=== PATIENT | female | born 1970 | race African-American/Black ===

== ENCOUNTER → 2018-05-28 | Outpatient (CLI) | payer MEDICARE, OTHER ==
[2015-07-07 20:32] VITALS: BP 180/88
[~2018-05-28] MED LIST: AMLO1TAB15 PO; CARV12.52 PO; CRESTOR10 MG PO; GLYB2.5T2 PO; OMEP40CA5 PO; OXYC1TAB8 PO; POTA20TA12 PO; WARF10TA40 PO
--- NOTE | 2018-06-01 08:17 | RAD ---
DATE: 05/28/2018 4:00 PM EXAM: MAMMO PINKY SCREENING BILATERAL HISTORY: routine screening evaluation. COMPARISON: 12/10/2015, 11/13/2014, 10/26/2013 Bilateral CC and MLO views of the breasts were performed. Bilateral breast tomosynthesis was performed in CC and MLO projections. This study was interpreted with the benefit of Computerized Aided Detection (CAD ). Breast Density: The breast parenchyma shows scattered fibroglandular densities. Breast parenchyma level B. FINDINGS: No suspicious masses, microcalcifications or architectural distortion is present to suggest malignancy in either breast. The visualized axillae are unremarkable. IMPRESSION: No mammographic evidence of malignancy. BI-RADS CATEGORY: 1 NEGATIVE RECOMMENDED FOLLOW-UP: 12M 12 MONTH FOLLOW-UP Annual screening mammography is recommended, unless clinically indicated sooner based on symptoms or change in physical exam. PQRS compliance statement: Patient information was entered into a reminder system with a target due date for the next mammogram. Mammography is a sensitive method for finding small breast cancers, but it does not detect them all and is not a substitute for careful clinical examination. A negative mammogram does not negate a clinically suspicious finding and should not result in delay in biopsying a clinically suspicious abnormality. "Our facility is accredited by the [employer] Mammography Program." SOLOD
== END | disposition home or self-care (01) ==
LOC: MAMMO 13:01
PROVIDERS: ATTEND Family Medicine
DX: Z12.31 Encounter for screening mammogram for malignant neoplasm of breast (principal); I10 Essential (primary) hypertension; E78.00 Pure hypercholesterolemia, unspecified; E11.9 Type 2 diabetes mellitus without complications; Z86.73 Personal history of transient ischemic attack (TIA), and cerebral infarction without residual deficits
CPT/HCPCS: 77063; 77067

== ENCOUNTER 2018-10-22 08:51 | Inpatient (IN) | payer MEDICARE ==
[~2018-10-22] VITALS: Ht 172.7 cm; Wt 189.2 kg
[~2018-10-22 08:51] MED LIST changes: +CARV12.511 PO; -CARV12.52 PO
[2018-10-22] MEDS ORDERED: IPRATRPIUM/ALBUTEROL 0.5/2.5MG 3 ML NEBU. NEB ONE (09:00)
[2018-10-22] MEDS: glipiZIDE 5 MG TABLET PO SCH (09:00)
--- NOTE | 2018-10-22 09:04 | PHYS DOC ---
Past Medical History Past Medical History: Diabetes-Type II, GERD, High Cholesterol, Hypertension, Stroke, Other Additional Past Medical Histor: CHRONIC PAIN Past Surgical History: Cholecystectomy, Other Additional Past Surgical Histo: kidney cyst removal, tracheostomy Additional Information: former smoker Alcohol Use: None Drug Use: Marijuana Adult General Chief Complaint Chief Complaint: SHORTNESS OF BREATH HPI HPI 48-year-old female presenting with worsening dyspnea over the past 3-4 days. She reports today and last night it is been worse. She reports a cough over the past 3 or 4 days as well that is been mildly productive with yellow sputum. It is worse with exertion and improved with rest. She denies any fevers or chills.The patient denies unilateral leg swelling hemoptysis family or personal history of blood clotting disorders. The pt denies recent immobilization or surgery. Review of systems is negative for chest pain abdominal pain nausea vomiting diaphoresis fevers or chills. All other review of systems is negative unless otherwise noted in history of present illness. ED course: 48-year-old female presenting the emergency department today with worsening shortness of breath and cough. She is found to be hypoxic in triage. She is brought back to the resuscitation bay and placed on facemask. Work of breathing is improved. Oxygen levels 100% after intervention. Chest x-ray and blood work along with EKG ordered. CBC unremarkable. ProBNP is quite elevated. Troponin just at the upper limits of normal. Otherwise BUN is elevated. Chest x- ray shows pulmonary edema cannot rule out infiltrate. CTA negative for pulmonary embolism. Patient was given IV Lasix. We will admit the patient to the cardiovascular care unit. I spoke with Dr. acevedo who accepts the patient for admission. Basic bridge orders placed. Review of Systems Review of Systems SEE ABOVE. Current Medications Current Medications Current Medications Medications (Trade) Dose Ordered Sig/Liam Start Time Stop Time Status Last Admin Dose Admin Albuterol/ Ipratropium (Duoneb) 3 ml 1X ONCE 10/22/18 09:00 10/22/18 09:06 DC 10/22/18 09:06 3 ML Azithromycin 250 ml @ 250 mls/hr 1X ONCE 10/22/18 10:15 10/22/18 11:14 DC 10/22/18 11:09 250 MLS/HR Ceftriaxone Sodium (Rocephin) 1 gm 1X ONCE 10/22/18 10:15 10/22/18 10:16 DC 10/22/18 10:53 1 GM Furosemide (Lasix) 40 mg 1X ONCE 10/22/18 10:15 10/22/18 10:16 DC 10/22/18 12:36 40 MG Glipizide (Glucotrol) 5 mg DAILY 10/22/18 09:00 Info (CONTRAST GIVEN -- Rx MONITORING) 1 each PRN DAILY PRN 10/22/18 10:30 10/24/18 10:29 Iohexol (Omnipaque 350 Mg/ml) 100 ml 1X ONCE 10/22/18 10:30 10/22/18 10:31 DC 10/22/18 10:26 100 ML Ondansetron HCl (Zofran) 4 mg PRN Q8HRS PRN 10/22/18 11:45 10/23/18 11:44 Allergies Allergies Allergies Coded Allergies Type Severity Reaction Last Updated Verified hydrocodone Allergy Intermediate 10/22/18 No morphine Allergy Intermediate 10/22/18 No Physical Exam Physical Exam SEE ABOVE Constitutional: Well developed, well nourished, increased work of breathing HENT: Normocephalic, atraumatic, bilateral external ears normal, oropharynx moist, no oral exudates, nose normal. [] Eyes: PERRLA, EOMI, conjunctiva normal, no discharge. [] Neck: Normal range of motion, no tenderness, supple, no stridor. [] Cardiovascular:Heart rate regular rhythm, no murmur [] Lungs & Thorax: mild wheezing with mild crackles bilaterally Abdomen: Bowel sounds normal, soft, no tenderness, no masses, no pulsatile masses. Skin: Warm, dry, not diaphoretic, no erythema, no rash. Back: No tenderness, no CVA tenderness. [] Extremities: No tenderness, no cyanosis, no clubbing, ROM intact, no edema. Neurologic: Alert and oriented X 3, normal motor function, normal sensory function, no focal deficits noted. Psychologic: Affect normal, judgement normal, mood normal. [] Current Patient Data Vital Signs Vital Signs Date Time Temp Pulse Resp B/P (MAP) Pulse Ox O2 Delivery O2 Flow Rate FiO2 10/22/18 12:07 86 26 166/98 (120) 94 Nasal Cannula 4.0 10/22/18 08:51 98.7 98.7 Lab Values Laboratory Tests Test 10/22/18 09:05 White Blood Count 7.0 x10^3/uL (4.0-11.0) Red Blood Count 4.44 x10^6/uL (3.50-5.40) Hemoglobin 12.2 g/dL (12.0-15.5) Hematocrit 37.2 % (36.0-47.0) Mean Corpuscular Volume 84 fL (79-100) Mean Corpuscular Hemoglobin 27 pg (25-35) Mean Corpuscular Hemoglobin Concent 33 g/dL (31-37) Red Cell Distribution Width 16.7 % (11.5-14.5) H Platelet Count 192 x10^3/uL (140-400) Neutrophils (%) (Auto) 59 % (31-73) Lymphocytes (%) (Auto) 32 % (24-48) Monocytes (%) (Auto) 7 % (0-9) Eosinophils (%) (Auto) 1 % (0-3) Basophils (%) (Auto) 1 % (0-3) Neutrophils # (Auto) 4.2 x10^3uL (1.8-7.7) Lymphocytes # (Auto) 2.3 x10^3/uL (1.0-4.8) Monocytes # (Auto) 0.5 x10^3/uL (0.0-1.1) Eosinophils # (Auto) 0.1 x10^3/uL (0.0-0.7) Basophils # (Auto) 0.1 x10^3/uL (0.0-0.2) Sodium Level 145 mmol/L (136-145) Potassium Level 4.0 mmol/L (3.5-5.1) Chloride Level 107 mmol/L (98-107) Carbon Dioxide Level 27 mmol/L (21-32) Anion Gap 11 (6-14) Blood Urea Nitrogen 23 mg/dL (7-20) H Creatinine 1.0 mg/dL (0.6-1.0) Estimated GFR (Cockcroft-Gault) 71.0 Glucose Level 132 mg/dL (70-99) H Calcium Level 8.7 mg/dL (8.5-10.1) Total Bilirubin 0.3 mg/dL (0.2-1.0) Direct Bilirubin 0.1 mg/dL (0.0-0.2) Aspartate Amino Transferase (AST) 22 U/L (15-37) Alanine Aminotransferase (ALT) 35 U/L (14-59) Alkaline Phosphatase 66 U/L (46-116) Troponin I Quantitative 0.055 ng/mL (0.000-0.055) QS-Pix-J-Type Natriuretic Peptide 4539 pg/mL (0-124) H Total Protein 6.6 g/dL (6.4-8.2) Albumin 3.0 g/dL (3.4-5.0) L Lipase 109 U/L (73-393) Laboratory Tests 10/22/18 09:05 Laboratory Tests 10/22/18 09:05 EKG EKG [] Radiology/Procedures Radiology/Procedures [] Course & Med Decision Making Course & Med Decision Making Pertinent Labs and Imaging studies reviewed. (See chart for details) [] Dragon Disclaimer Dragon Disclaimer This electronic medical record was generated, in whole or in part, using a voice recognition dictation system. Departure Departure Impression: Primary Impression: CHF (congestive heart failure) Additional Impressions: Pulmonary edema Pneumonia Disposition: ADMITTED INPATIENT Admitting Physician: Other (jenn) Condition: STABLE Referrals: MECHELLE ROSADO MD (PCP) Problem Qualifiers AGA PENA MD Oct 22, 2018 09:04
[2018-10-22 09:19] LABS: BASO # 0.1 x10^3/uL (0.0-0.2); BASO % 1 % (0-3); EOS # 0.1 x10^3/uL (0.0-0.7); EOS % 1 % (0-3); HEMATOCRIT 37.2 % (36.0-47.0); HEMOGLOBIN 12.2 g/dL (12.0-15.5); LYMPH # 2.3 x10^3/uL (1.0-4.8); LYMPH % 32 % (24-48); MEAN CORPUSCULAR HEMOGLOBIN 27 pg (25-35); MEAN CORPUSCULAR HGB CONC 33 g/dL (31-37); MEAN CORPUSCULAR VOLUME 84 fL (79-100); MONO # 0.5 x10^3/uL (0.0-1.1); MONO % 7 % (0-9); NEUT # 4.2 x10^3uL (1.8-7.7); NEUT % 59 % (31-73); PLATELET COUNT 192 x10^3/uL (140-400); RED BLOOD COUNT 4.44 x10^6/uL (3.50-5.40); RED CELL DISTRIBUTION WIDTH 16.7 % (11.5-14.5)
--- NOTE | 2018-10-22 09:33 | RAD ---
CHEST AP ONLY History: Shortness of air Comparison: July 07, 2015 Findings: Single view of the chest is submitted. Pericardial cardiac silhouette is more enlarged. There is prominent airspace opacity involving most of the right hemithorax other than some sparing of the apex, also prominent left perihilar opacity and also likely at the left lung base. There is no obvious pleural fluid. There is no pneumothorax. Impression: 1. There is prominent airspace opacity involving most of the right hemithorax other than some sparing of the apex, also prominent left perihilar airspace opacity and also left lung base. Findings could be due to multifocal pneumonia or edema such as related to left ventricular failure. Electronically signed by: Jonah Grace MD (10/22/2018 9:29 AM) [id number]
[2018-10-22 09:41] LABS: CALCIUM 8.7 mg/dL (8.5-10.1)
[2018-10-22 09:50] LABS: DIRECT BILIRUBIN 0.1 mg/dL (0.0-0.2); TOTAL BILIRUBIN 0.3 mg/dL (0.2-1.0); TOTAL PROTEIN 6.6 g/dL (6.4-8.2)
[2018-10-22] MEDS ORDERED: FUROSEMIDE 20 MG/2 ML VIAL. IVP ONE (10:15)
[2018-10-22] MEDS ORDERED: AZITHRMYCN 500MG IVPB FOR OMNI 250 ML IV ONE (10:15)
[2018-10-22] MEDS ORDERED: cefTRIAXone IV Push 1 GM VIAL. IVP ONE (10:15)
[2018-10-22] MEDS ORDERED: FUROSEMIDE 40 MG/4 ML VIAL. IVP ONE ×2 (10:15→15:30)
[2018-10-22] MEDS ORDERED: CONTRAST GIVEN. MC PRN (10:30)
[2018-10-22] MEDS ORDERED: IOHEXOL 350 MG/ML 100 ML VIAL. IV ONE (10:30)
--- NOTE | 2018-10-22 10:51 | EKG ---
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
--- NOTE | 2018-10-22 11:20 | RAD ---
CTA of the chest with contrast, 10/22/2018: HISTORY: Shortness of breath Multidetector CT imaging was performed following an IV bolus injection of iodinated contrast material. Multiplanar reconstructions were produced including coronal MIP images. No filling defects are seen in the main or lobar pulmonary arteries to suggest pulmonary emboli. Smaller pulmonary arteries are less well delineated due to multiple artifacts some of which are related to the patient's size. No definite pulmonary emboli are seen. The heart is generally enlarged. There is a small amount of pericardial fluid. The thoracic aorta is not dilated. There are small bilateral pericardial effusions. Evaluation of the lung parenchyma is partially compromised by patient respiratory motion artifact. There are moderate bilateral patchy airspace and groundglass opacities. Pulmonary edema is suspected. IMPRESSION: 1. No CT evidence of central pulmonary emboli, although the smaller pulmonary arteries are poorly defined due to technical factors. 2. Cardiomegaly with a small amount of pericardial fluid. 3. Moderate bilateral pulmonary infiltrates most likely representing pulmonary edema. Pneumonia cannot be excluded. 4. Small bilateral pleural effusions. PQRS Compliance Statement: One or more of the following individualized dose reduction techniques were utilized for this examination: 1. Automated exposure control 2. Adjustment of the mA and/or kV according to patient size 3. Use of iterative reconstruction technique Electronically signed by: Chris Kramer MD (10/22/2018 11:15 AM) [facility]
[2018-10-22] MEDS ORDERED: ONDANSETRON PF 4 MG/2 ML VIAL. IV PRN (11:45)
[2018-10-22 13:15] VITALS: BP 166/99
[2018-10-22] MEDS ORDERED: OXYC1TAB19 PO (13:55)
[2018-10-22] MEDS ORDERED: LORA10TA3 PO (13:55)
[2018-10-22] MEDS ORDERED: GLIP5TAB10 PO (13:55)
[2018-10-22] MEDS ORDERED: AMLO10TA8 PO (13:55)
[2018-10-22] MEDS ORDERED: LOSA1TAB19 PO (13:55)
[2018-10-22] MEDS ORDERED: DEXTROSE 50% 25 GM / 50ML DISP.SYRIN. IV PRN (14:00)
[2018-10-22] MEDS ORDERED: LABETALOL 20 MG/4 ML DISP.SYRIN. IVP PRN (14:00)
[2018-10-22 14:48] LABS: PROTHROMBIN TIME PATIENT 18.8 SEC (11.7-14.0)
[2018-10-22] MEDS: CETIRIZINE HCL 10 MG TABLET. PO SCH (15:00)
--- NOTE | 2018-10-22 15:04 | PDOC2 ---
DARREN DUNCAN FLEET OPERATIONS MANAGER 10/22/18 1504: CARDIAC CONSULT DATE OF CONSULT Date of Consult DATE: 10/22/18 TIME: 14:57 REASON FOR CONSULT Reason for Consult: CHF exacerbation REFERRING PHYSICIAN Referring Physician: Mercedes SOURCE Source: Chart review, Patient HISTORY OF PRESENT ILLNESS HISTORY OF PRESENT ILLNESS This is a pleasant 48 yo female admitted for complains of SOA. She has been increasingly getting SOA in the last 2 weeks. Positive for orthopnea, leg swelling, wheezing, BRANCH and nonproductive cough. She has not been exposed to anybody that has the flu and has not been having any fever or chills. Reports no resting or exertional chest pain. Denies any palpitations, jaw or arm pain. I asked her about her coumadin and she has been taking this since 2002 due to CVA but could not specify anything related to AFIB/flutter nor clotting diorders nor VTE that would warrant chronic use. She has DM2, HLP, and HTN. She does not check her BG, BP at home. She has been on and off on using tobacco and has quit again 2 days ago. Denies any recreational drugs and no ETOH No hx of CAD nor any arrhythmias. She has not been having any dizzy spells or syncopal episode. No recent falls or any injury. Also no signs of any bleeding issues in relation to the coumadin. She has gained some wt in the last 6 months but could not tell me how much. No nausea vomiting. PAST MEDICAL HISTORY Cardiovascular: HTN, Hyperlipidemia Pulmonary: Other (was told of ELIZABETH but has not been tested) CENTRAL NERVOUS SYSTEM: CVA (2002) GI: No pertinent hx Heme/Onc: Other (Chronic warfarin use) Hepatobiliary: No pertinent hx Psych: No pertinent hx Musculoskeletal: Osteoarthritis Rheumatologic: No pertinent hx Infectious disease: No pertinent hx ENT: No pertinent hx Renal/: No pertinent hx Endocrine: Diabetes (2) Dermatology: No pertinent hx PAST SURGICAL HISTORY Past Surgical History: Cholecystectomy, Other (tracheostomy related to stroke) FAMILY HISTORY Family History: Diabetes SOCIAL HISTORY Smoke: <1 pack per day (>20 yrs on and off) ALCOHOL: none Drugs: None Lives: with Family CURRENT MEDICATIONS CURRENT MEDICATIONS Current Medications Medications (Trade) Dose Ordered Sig/Liam Route PRN Reason Start Time Stop Time Status Last Admin Dose Admin Albuterol/ Ipratropium (Duoneb) 3 ml 1X ONCE NEB 10/22/18 09:00 10/22/18 09:06 DC 10/22/18 09:06 Azithromycin 250 ml @ 250 mls/hr 1X ONCE IV 10/22/18 10:15 10/22/18 11:14 DC 10/22/18 11:09 Ceftriaxone Sodium (Rocephin) 1 gm 1X ONCE IVP 10/22/18 10:15 10/22/18 10:16 DC 10/22/18 10:53 Furosemide (Lasix) 40 mg 1X ONCE IVP 10/22/18 10:15 10/22/18 10:16 DC 10/22/18 12:36 Iohexol (Omnipaque 350 Mg/ml) 100 ml 1X ONCE IV 10/22/18 10:30 10/22/18 10:31 DC 10/22/18 10:26 ALLERGIES ALLERGIES: Coded Allergies: hydrocodone (Verified Allergy, Intermediate, 10/23/18) morphine (Verified Allergy, Intermediate, 10/23/18) ROS Review of System 14 point ROS evaluated with pertinent positives noted per HPI PHYSICAL EXAM General: Alert, Oriented X3, Cooperative, mild distress HEENT: Atraumatic, Mucous membr. moist/pink Lungs: Other (basilar crackles) Heart: Regular rate (SR), Other (distant heart sounds) Abdomen: Soft, Other (obese) Extremities: No cyanosis, Other (2+ bilateral LE pitting edema) Skin: No breakdown, No significant lesion Neuro: Normal speech, Sensation intact Psych/Mental Status: Mental status NL, Mood NL MUSCULOSKELETAL: Osteoarthritic changes both hands VITALS VITALS Vital Signs Date Time Temp Pulse Resp B/P (MAP) Pulse Ox O2 Delivery O2 Flow Rate FiO2 10/22/18 14:35 Nasal Cannula 2.0 10/22/18 13:15 98.1 89 22 166/99 (121) 100 98.1 LABS Lab: Laboratory Tests Test 10/22/18 09:05 White Blood Count 7.0 x10^3/uL (4.0-11.0) Red Blood Count 4.44 x10^6/uL (3.50-5.40) Hemoglobin 12.2 g/dL (12.0-15.5) Hematocrit 37.2 % (36.0-47.0) Mean Corpuscular Volume 84 fL (79-100) Mean Corpuscular Hemoglobin 27 pg (25-35) Mean Corpuscular Hemoglobin Concent 33 g/dL (31-37) Red Cell Distribution Width 16.7 % (11.5-14.5) Platelet Count 192 x10^3/uL (140-400) Neutrophils (%) (Auto) 59 % (31-73) Lymphocytes (%) (Auto) 32 % (24-48) Monocytes (%) (Auto) 7 % (0-9) Eosinophils (%) (Auto) 1 % (0-3) Basophils (%) (Auto) 1 % (0-3) Neutrophils # (Auto) 4.2 x10^3uL (1.8-7.7) Lymphocytes # (Auto) 2.3 x10^3/uL (1.0-4.8) Monocytes # (Auto) 0.5 x10^3/uL (0.0-1.1) Eosinophils # (Auto) 0.1 x10^3/uL (0.0-0.7) Basophils # (Auto) 0.1 x10^3/uL (0.0-0.2) Prothrombin Time 18.8 SEC (11.7-14.0) Prothromb Time International Ratio 1.6 (0.8-1.1) Sodium Level 145 mmol/L (136-145) Potassium Level 4.0 mmol/L (3.5-5.1) Chloride Level 107 mmol/L (98-107) Carbon Dioxide Level 27 mmol/L (21-32) Anion Gap 11 (6-14) Blood Urea Nitrogen 23 mg/dL (7-20) Creatinine 1.0 mg/dL (0.6-1.0) Estimated GFR (Cockcroft-Gault) 71.0 Glucose Level 132 mg/dL (70-99) Calcium Level 8.7 mg/dL (8.5-10.1) Total Bilirubin 0.3 mg/dL (0.2-1.0) Direct Bilirubin 0.1 mg/dL (0.0-0.2) Aspartate Amino Transf (AST/SGOT) 22 U/L (15-37) Alanine Aminotransferase (ALT/SGPT) 35 U/L (14-59) Alkaline Phosphatase 66 U/L (46-116) Troponin I Quantitative 0.055 ng/mL (0.000-0.055) LE-Eyf-N-Type Natriuretic Peptide 4539 pg/mL (0-124) Total Protein 6.6 g/dL (6.4-8.2) Albumin 3.0 g/dL (3.4-5.0) Lipase 109 U/L (73-393) ASSESSMENT/PLAN ASSESSMENT/PLAN 1. Acute CHF with likely combined systolic/diastolic 2. Suspecting Cardiomyopathy 3. Possible ELIZABETH/COPD with morbid obesity: BMI at 65 4. HTN: labile 5. Chronic coumadin use: INR 1.6. has been using this since 2002 for CVA. no known AFIB, PFO, clotting disorders nor VTE. 6. DM2/HLP 7. Hx of CVA: in 2002 with left side hemiparesis 8. Tobaccoism Recommendations 1. TTE TSH lipids, Flores for accurate I & O 2. Lasix therapy 3. Smoking cessation, wt loss 4. Continue home BP regimen, DC HCTZ. labetolol IV PRN. 5. May need to hold Coumadin and transition to heparin if invasive ischemic workup is warranted for Thursday. 6. Further recommendations once TTE is finalized. CHANTAL PEÑA MD 10/23/18 0837: CARDIAC CONSULT ASSESSMENT/PLAN ASSESSMENT/PLAN Patient seen and examined 10/22/18. Agree with INSURANCE PLAN SPECIALIST's assessment and plan. Continue diuresis for acute on chronic systolic heart failure 2-D echo showed LVEF 30% Plan for cardiac catheterization on Thursday to rule out any significant CAD as a cause of diminished LV systolic function Agree with holding Coumadin in anticipation of cath Thank you for your consultation DARREN DUNCAN APRN Oct 22, 2018 15:04 CHANTAL PEÑA MD Oct 23, 2018 08:37
[2018-10-22 15:20] VITALS: BP 139/81
[2018-10-22] MEDS: amLODIPine BESYLATE 10 MG TABLET PO SCH (15:38)
[2018-10-22] MEDS: IPRATRPIUM/ALBUTEROL 0.5/2.5MG 3 ML NEBU. NEB SCH ×2 (15:47→20:13)
--- NOTE | 2018-10-22 15:52 | PDOC1 ---
History and Physical Date of Admission Date of Admission 10/22/2018 Identification/Chief Complaint Chief Complaint I couldnt breath Problems: (1) CHF (congestive heart failure) Source Source: Patient History of Present Illness History of Present Illness Patient is a 48-year-old female with morbid obesity with a BMI of 65 who was in her usual state of health until approximately 2-3 weeks prior to her admission. Patient denies dietary transgressions apparently she does not seem to understand the dietary rules of low salt intake and fluid restriction. The patient has been having increasing dyspnea on exertion that has progressed to dyspnea at rest this morning. The patient is not able to lay flat and she sleeps on her left side with 2-3 pillows. The patient also reports some episodes of orthopnea and she denies any fever or chills no cough or sputum production to think of an infectious process underlying. The patient was evaluated in the emergency department and found to be in acute congestive heart failure which seems to be combined systolic and diastolic acute on chronic. We have been asked to admit the patient for further evaluation and treatment Current Problem List Problem List Problems Medical Problems: (1) CHF (congestive heart failure) Status: Acute (2) Pneumonia Status: Acute (3) Pulmonary edema Status: Acute Current Medications Current Medications Current Medications Medications (Trade) Dose Ordered Sig/Liam Start Time Stop Time Status Last Admin Dose Admin Albuterol/ Ipratropium (Duoneb) 3 ml RTQID 10/22/18 16:00 Amlodipine Besylate (Norvasc) 10 mg DAILY 10/22/18 15:00 10/22/18 15:38 10 MG Atorvastatin Calcium (Lipitor) 40 mg QHS 10/22/18 21:00 Azithromycin 250 ml @ 250 mls/hr 1X ONCE 10/22/18 10:15 10/22/18 11:14 DC 10/22/18 11:09 250 MLS/HR Carvedilol (Coreg) 12.5 mg BIDWMEALS 10/22/18 17:00 Ceftriaxone Sodium (Rocephin) 1 gm 1X ONCE 10/22/18 10:15 10/22/18 10:16 DC 10/22/18 10:53 1 GM Cetirizine HCl (ZyrTEC) 10 mg DAILY 10/22/18 15:00 Dextrose (Dextrose 50%-Water Syringe) 12.5 gm PRN Q15MIN PRN 10/22/18 14:00 Furosemide (Lasix) 40 mg 1X ONCE 10/22/18 15:30 10/22/18 15:31 DC 10/22/18 15:36 40 MG Glipizide (Glucotrol) 5 mg DAILY 10/22/18 09:00 Hydrochlorothiazide (Microzide) 12.5 mg DAILY 10/23/18 09:00 Info (CONTRAST GIVEN -- Rx MONITORING) 1 each PRN DAILY PRN 10/22/18 10:30 10/24/18 10:29 Insulin Human Lispro (HumaLOG) 0-7 UNITS TIDWMEALS 10/22/18 17:00 Iohexol (Omnipaque 350 Mg/ml) 100 ml 1X ONCE 10/22/18 10:30 10/22/18 10:31 DC 10/22/18 10:26 100 ML Labetalol HCl (Normodyne Iv Push) 10 mg PRN Q6HRS PRN 10/22/18 14:00 Losartan Potassium (Cozaar) 50 mg DAILY 10/23/18 09:00 Ondansetron HCl (Zofran) 4 mg PRN Q8HRS PRN 10/22/18 11:45 10/23/18 11:44 Oxycodone/ Acetaminophen (Percocet 7.5/ 325) 1 tab PRN Q6HRS PRN 10/22/18 14:15 Pantoprazole Sodium (Protonix) 40 mg DAILYAC 10/23/18 07:30 Potassium Chloride (Klor-Con) 20 meq DAILY 10/23/18 09:00 Warfarin Sodium (Coumadin Per Physician) 1 each PRN DAILY PRN 10/22/18 15:30 Warfarin Sodium (Coumadin) 10 mg DAILY16 10/23/18 16:00 Allergies Allergies Allergies Coded Allergies Type Severity Reaction Last Updated Verified hydrocodone Allergy Intermediate 10/22/18 No morphine Allergy Intermediate 10/22/18 No ROS Review of System CONSTITUTIONAL: No fever or chills EYES: No recent changes SKIN: No rash or itching CARDIOVASCULAR: No chest pain, syncope, palpitations, or edema RESPIRATORY: No SOB or cough GASTROINTESTINAL: No nausea, vomiting or abdominal pain NEUROLOGICAL: No headaches or weakness ENDOCRINE: No cold or heat intolerance GENITOURINARY: No urgency or frequency of urination MUSCULOSKELETAL: No back pain or joint pain LYMPHATICS: No enlarged lymph nodes PSYCHIATRIC: No anxiety or depression Physical Exam Physical Exam GEN.: No apparent distress. Alert and oriented. HEENT: Head is normocephalic, atraumatic NECK: Supple. LUNGS: Clear to auscultation. HEART: RRR, S1, S2 present. Peripheral pulses intact ABDOMEN: Soft, nontender. Positive bowel sounds. EXTREMITIES: Without any cyanosis. NEUROLOGIC: Normal speech, normal tone PSYCHIATRIC: Normal affect, normal mood. SKIN: No ulcerations Vitals Vitals Vital Signs Date Time Temp Pulse Resp B/P (MAP) Pulse Ox O2 Delivery O2 Flow Rate FiO2 10/22/18 15:38 89 166/99 10/22/18 15:20 98.1 20 97 Nasal Cannula 4.0 98.1 Labs Labs Laboratory Tests Test 10/22/18 09:05 White Blood Count 7.0 x10^3/uL (4.0-11.0) Red Blood Count 4.44 x10^6/uL (3.50-5.40) Hemoglobin 12.2 g/dL (12.0-15.5) Hematocrit 37.2 % (36.0-47.0) Mean Corpuscular Volume 84 fL (79-100) Mean Corpuscular Hemoglobin 27 pg (25-35) Mean Corpuscular Hemoglobin Concent 33 g/dL (31-37) Red Cell Distribution Width 16.7 % (11.5-14.5) Platelet Count 192 x10^3/uL (140-400) Neutrophils (%) (Auto) 59 % (31-73) Lymphocytes (%) (Auto) 32 % (24-48) Monocytes (%) (Auto) 7 % (0-9) Eosinophils (%) (Auto) 1 % (0-3) Basophils (%) (Auto) 1 % (0-3) Neutrophils # (Auto) 4.2 x10^3uL (1.8-7.7) Lymphocytes # (Auto) 2.3 x10^3/uL (1.0-4.8) Monocytes # (Auto) 0.5 x10^3/uL (0.0-1.1) Eosinophils # (Auto) 0.1 x10^3/uL (0.0-0.7) Basophils # (Auto) 0.1 x10^3/uL (0.0-0.2) Prothrombin Time 18.8 SEC (11.7-14.0) Prothromb Time International Ratio 1.6 (0.8-1.1) Sodium Level 145 mmol/L (136-145) Potassium Level 4.0 mmol/L (3.5-5.1) Chloride Level 107 mmol/L (98-107) Carbon Dioxide Level 27 mmol/L (21-32) Anion Gap 11 (6-14) Blood Urea Nitrogen 23 mg/dL (7-20) Creatinine 1.0 mg/dL (0.6-1.0) Estimated GFR (Cockcroft-Gault) 71.0 Glucose Level 132 mg/dL (70-99) Calcium Level 8.7 mg/dL (8.5-10.1) Total Bilirubin 0.3 mg/dL (0.2-1.0) Direct Bilirubin 0.1 mg/dL (0.0-0.2) Aspartate Amino Transf (AST/SGOT) 22 U/L (15-37) Alanine Aminotransferase (ALT/SGPT) 35 U/L (14-59) Alkaline Phosphatase 66 U/L (46-116) Troponin I Quantitative 0.055 ng/mL (0.000-0.055) WM-Fwk-J-Type Natriuretic Peptide 4539 pg/mL (0-124) Total Protein 6.6 g/dL (6.4-8.2) Albumin 3.0 g/dL (3.4-5.0) Lipase 109 U/L (73-393) Thyroid Stimulating Hormone (TSH) 1.881 uIU/mL (0.358-3.74) Laboratory Tests Test 10/22/18 09:05 White Blood Count 7.0 x10^3/uL (4.0-11.0) Red Blood Count 4.44 x10^6/uL (3.50-5.40) Hemoglobin 12.2 g/dL (12.0-15.5) Hematocrit 37.2 % (36.0-47.0) Mean Corpuscular Volume 84 fL (79-100) Mean Corpuscular Hemoglobin 27 pg (25-35) Mean Corpuscular Hemoglobin Concent 33 g/dL (31-37) Red Cell Distribution Width 16.7 % (11.5-14.5) Platelet Count 192 x10^3/uL (140-400) Neutrophils (%) (Auto) 59 % (31-73) Lymphocytes (%) (Auto) 32 % (24-48) Monocytes (%) (Auto) 7 % (0-9) Eosinophils (%) (Auto) 1 % (0-3) Basophils (%) (Auto) 1 % (0-3) Neutrophils # (Auto) 4.2 x10^3uL (1.8-7.7) Lymphocytes # (Auto) 2.3 x10^3/uL (1.0-4.8) Monocytes # (Auto) 0.5 x10^3/uL (0.0-1.1) Eosinophils # (Auto) 0.1 x10^3/uL (0.0-0.7) Basophils # (Auto) 0.1 x10^3/uL (0.0-0.2) Prothrombin Time 18.8 SEC (11.7-14.0) Prothromb Time International Ratio 1.6 (0.8-1.1) Sodium Level 145 mmol/L (136-145) Potassium Level 4.0 mmol/L (3.5-5.1) Chloride Level 107 mmol/L (98-107) Carbon Dioxide Level 27 mmol/L (21-32) Anion Gap 11 (6-14) Blood Urea Nitrogen 23 mg/dL (7-20) Creatinine 1.0 mg/dL (0.6-1.0) Estimated GFR (Cockcroft-Gault) 71.0 Glucose Level 132 mg/dL (70-99) Calcium Level 8.7 mg/dL (8.5-10.1) Total Bilirubin 0.3 mg/dL (0.2-1.0) Direct Bilirubin 0.1 mg/dL (0.0-0.2) Aspartate Amino Transf (AST/SGOT) 22 U/L (15-37) Alanine Aminotransferase (ALT/SGPT) 35 U/L (14-59) Alkaline Phosphatase 66 U/L (46-116) Troponin I Quantitative 0.055 ng/mL (0.000-0.055) XS-Wjl-S-Type Natriuretic Peptide 4539 pg/mL (0-124) Total Protein 6.6 g/dL (6.4-8.2) Albumin 3.0 g/dL (3.4-5.0) Lipase 109 U/L (73-393) Thyroid Stimulating Hormone (TSH) 1.881 uIU/mL (0.358-3.74) VTE Prophylaxis Ordered VTE Prophylaxis Devices: Yes VTE Pharmacological Prophylaxi: Yes Assessment/Plan Assessment/Plan Acute on chronic combined systolic and diastolic heart failure Morbid obesity with a BMI of 65 Obesity hypoventilation syndrome Plan Consult cardiology start aggressive diuresis resume home meds dvt prohpylaxis lovenox bid Problem Qualifiers (1) CHF (congestive heart failure): Heart failure type: combined systolic and diastolic Heart failure chronicity: acute on chronic Qualified Codes: I50.43 - Acute on chronic combined systolic (congestive) and diastolic (congestive) heart failure FLOWER RHODES MD Oct 22, 2018 15:52
[2018-10-22] MEDS ORDERED: PERFLUTREN PROTEIN-A MICROSPHR 0.22 MG/ML 3 ML VIAL. IV ONE ×2 (16:00→16:03)
[2018-10-22] MEDS ORDERED: PERFLUTREN PROTEIN-A MICROSPHR 0.22 MG/ML 3 ML VIAL. IV PRN (16:45)
[2018-10-22] MEDS: INSULIN LISPRO 300 UNITS/3 ML INSULN.PEN. SQ SCH (17:00)
[2018-10-22] MEDS: CARVEDILOL 12.5 MG TABLET. PO SCH (17:42)
--- NOTE | 2018-10-22 17:50 | CARD ---
MR#: [id number] Date of Study: 10/22/2018 Ordering Physician: DARREN DUNCAN, Referring Physician: FLOWER RHODES Tech: Sue Mercedes RDCS APPROVED REPORT EXAM: Two-dimensional echocardiogram with contrast. Other Information Quality : AverageHR: 93bpm Rhythm : NSR INDICATION Congestive Heart Failure Echo Enhancing Agent Indication: Endocardial border delineation Agent/Amount Used: Optison 1mL RISK FACTORS Hypertension Obesity Hyperlipidemia Diabetes Smoking 2D DIMENSIONS RVDd2.9 (2.9-3.5cm)Left Atrium(2D)5.4 (1.6-4.0cm) IVSd1.6 (0.7-1.1cm)Aortic Root(2D)4.5 (2.0-3.7cm) LVDd6.6 (3.9-5.9cm)LVOT Diameter2.9 (1.8-2.4cm) PWd1.4 (0.7-1.1cm)LVDs5.5 (2.5-4.0cm) FS (%) 16.6 %SV74.8 ml LVEF(%)33.0 (>50%) M-Mode DIMENSIONS Left Atrium(MM)4.50 (2.5-4.0cm)Aortic Root4.38 (2.2-3.7cm) Aortic Valve AoV Peak Hilario.99.3cm/sAoV VTI15.9cm AO Peak GR.3.9mmHgLVOT Peak Hilario.74.7cm/s AO Mean GR.2mmHgAVA (VMAX)5.05cm2 ANGELA (VTI)5.00cm2 Mitral Valve MV E Vqtitfbo420.4cm/sMV DECEL SBQY014at MV A Gtnrqrpc50.1cm/sE/A Ratio3.5 Pulmonary Valve PV Peak Obxjxcha55.1cm/s Tricuspid Valve TR P. Droiiwkt426iq/sRAP [id number] TR Peak Gr.36qmCnLCSV99lkNy LEFT VENTRICLE The Left Ventricle is moderately dilated. There is moderate concentric left ventricular hypertrophy. The left ventricular systolic function is moderately impaired. The Ejection Fraction is 30%. There is global hypokinesis of the left ventricle. Transmitral Doppler flow pattern is Grade III-reversible r estrictive diastolic dysfunction. RIGHT VENTRICLE The right ventricle is not well visualized. The right ventricular systolic function is normal. ATRIA The left atrium is moderately dilated. The right atrium is moderately dilated. The interatrial septum is intact with no evidence for an atrial septal defect or patent foramen ovale as noted on 2-D or Do ppler imaging. AORTIC VALVE The aortic valve is trileaflet. The aortic valve is normal in structure and function. Doppler and Col or Flow revealed no significant aortic regurgitation. There is no significant aortic valvular stenosi s. MITRAL VALVE The mitral valve is normal in structure and function. There is no evidence of mitral valve prolapse. There is no mitral valve stenosis. Doppler and Color-flow revealed mild mitral regurgitation. TRICUSPID VALVE The tricuspid valve is normal in structure and function. Doppler and Color Flow revealed trace tricus pid regurgitation. There is mild pulmonary hypertension. The PA pressure was estimated at 32 mmHg. Th ere is no tricuspid valve prolapse or vegetation. PULMONIC VALVE The pulmonary valve is normal in structure and function. Doppler and Color Flow revealed no pulmonic valvular regurgitation. There is no pulmonic valvular stenosis. GREAT VESSELS The aortic root is moderately enlarged. The ascending aorta is Mildly dilated. The IVC is normal in s ize and collapses >50% with inspiration. PERICARDIAL EFFUSION There is no evidence of significant pericardial effusion. Critical Notification Critical Value: No <Conclusion> The left ventricular systolic function is moderately impaired. The Ejection Fraction is 30%. Transmitral Doppler flow pattern is Grade III-reversible restrictive diastolic dysfunction. The left atrium is moderately dilated. Mild mitral regurgitation. Trace tricuspid regurgitation. There is mild pulmonary hypertension. The PA pressure was estimated at 32 mmHg. There is no evidence of significant pericardial effusion. Signed by : Juan Manuel Sosa, Electronically Approved : 10/22/2018 17:49:26
[2018-10-22 18:45] LABS: BILIRUBIN,URINE NEGATIVE (NEG); CLARITY,URINE CLEAR; COLOR,URINE YELLOW; NITRITE,URINE NEGATIVE (NEG); PROTEIN,URINE NEGATIVE (NEG-TRACE); UROBILINOGEN,URINE 0.2 mg/dL (0.2 mg/dL)
[2018-10-22 18:54] LABS: BACTERIA,URINE 0 /HPF (0-FEW); WBC,URINE 0 /HPF (0-4)
[2018-10-22 19:30] VITALS: BP 156/98
[2018-10-22] MEDS: ATORVASTATIN CALCIUM 40 MG TABLET. PO SCH (20:58)
[2018-10-22 23:00] VITALS: BP 145/86
[2018-10-23 03:25] VITALS: BP 142/83
[2018-10-23 04:15] LABS: CALCIUM 8.6 mg/dL (8.5-10.1); CREATININE 0.9 mg/dL (0.6-1.0); GFR 80.2; POTASSIUM 3.2 mmol/L (3.5-5.1)
[2018-10-23 04:43] LABS: CHOLESTEROL/HDL RATIO 3.3
[2018-10-23 05:38] LABS: BASO # 0.1 x10^3/uL (0.0-0.2); BASO % 1 % (0-3); EOS # 0.1 x10^3/uL (0.0-0.7); EOS % 2 % (0-3); HEMATOCRIT 34.7 % (36.0-47.0); HEMOGLOBIN 11.2 g/dL (12.0-15.5); LYMPH # 2.8 x10^3/uL (1.0-4.8); LYMPH % 39 % (24-48); MEAN CORPUSCULAR HEMOGLOBIN 27 pg (25-35); MEAN CORPUSCULAR HGB CONC 32 g/dL (31-37); MEAN CORPUSCULAR VOLUME 84 fL (79-100); MONO # 0.6 x10^3/uL (0.0-1.1); MONO % 8 % (0-9); NEUT # 3.6 x10^3uL (1.8-7.7); NEUT % 50 % (31-73); PLATELET COUNT 164 x10^3/uL (140-400); RED BLOOD COUNT 4.12 x10^6/uL (3.50-5.40); RED CELL DISTRIBUTION WIDTH 16.4 % (11.5-14.5); WHITE BLOOD COUNT 7.2 x10^3/uL (4.0-11.0)
[2018-10-23 07:00] VITALS: BP 130/83
[2018-10-23] MEDS: IPRATRPIUM/ALBUTEROL 0.5/2.5MG 3 ML NEBU. NEB SCH ×4 (07:40→20:02)
[2018-10-23] MEDS: INSULIN LISPRO 300 UNITS/3 ML INSULN.PEN. SQ SCH ×3 (08:00→17:00)
[2018-10-23] MEDS ORDERED: hydroCHLOROthiazide 12.5 MG CAPSULE PO SCH (09:00)
[2018-10-23] MEDS: POTASSIUM CHLORIDE 20 MEQ TABLET.ER. PO SCH (09:34)
[2018-10-23] MEDS: glipiZIDE 5 MG TABLET PO SCH (09:34)
[2018-10-23] MEDS: CETIRIZINE HCL 10 MG TABLET. PO SCH (09:35)
[2018-10-23] MEDS: PANTOPRAZOLE 40 MG TABLET.DR. PO SCH (09:35)
[2018-10-23] MEDS: CARVEDILOL 12.5 MG TABLET. PO SCH ×2 (09:35→17:29)
[2018-10-23] MEDS: amLODIPine BESYLATE 10 MG TABLET PO SCH (09:36)
[2018-10-23] MEDS: LOSARTAN POTASSIUM 50 MG TABLET. PO SCH (09:37)
[2018-10-23] MEDS: FUROSEMIDE 40 MG/4 ML VIAL. IVP SCH ×2 (10:30→17:30)
--- NOTE | 2018-10-23 10:33 | CONS ---
DATE OF CONSULTATION: ATTENDING PHYSICIAN: Dr. Long. REASON FOR CONSULTATION: Dyspnea, respiratory failure. HISTORY OF PRESENT ILLNESS: The patient is 48-year-old morbidly obese patient with a BMI of 64. She has minimal history of tobacco use. She was brought into the hospital with increasing shortness of breath, which has been progressive. She has a mild dry cough, no fever, no chills, no chest pains. She has some lower extremity edema as well. The patient underwent imaging study and CT angiogram was performed and I had reviewed the imaging studies. There was no evidence of pulmonary embolism. There were bilateral infiltrates consistent with pulmonary edema. The patient also used to have a history of sleep apnea and she stopped using CPAP. She has daytime sleepiness and that is getting worse. PAST MEDICAL HISTORY: Significant for history of congestive heart failure. Her echocardiogram is with an EF of 30% and grade 3 diastolic dysfunction. PA pressure was 32. Minimal history of tobacco use. PAST SURGICAL HISTORY: No recent surgery. ALLERGIES: HYDROCODONE and MORPHINE. MEDICATIONS: All reviewed, as listed in the MRAD, including furosemide, DVT prophylaxis. REVIEW OF SYSTEMS: Twelve-point system review was obtained. Pertinent positives discussed in my history of present illness, otherwise noncontributory. All systems that were negative were reviewed as well. SOCIAL HISTORY: Smoked cigar for a few years and also cigarettes for about 10-15 years. Quit long time ago. PHYSICAL EXAMINATION: VITAL SIGNS: Stable. Pulse ox 100% on 2 liters. She is afebrile. HEENT: Sclerae nonicteric. NECK: Supple. LUNGS: Diminished breath sounds at the bases. CARDIOVASCULAR: Regular rate. ABDOMEN: Soft, markedly obese. EXTREMITIES: With 1+ pitting edema. LABORATORY DATA: Reviewed. White cell count 7.2, hemoglobin 11.2 and platelets are 164. BUN and creatinine 18 and 0.9. IMPRESSION: 1. Acute hypoxic respiratory failure secondary to acute diastolic and systolic heart failure. 2. Abnormal echo with an EF of 30%, suggesting severe cardiomyopathy and grade 3 diastolic dysfunction. 3. Minimal history of tobacco use. Clinically, less likely chronic obstructive pulmonary disease. 4. Morbid obesity and history of obstructive sleep apnea, stopped using CPAP, but has persistent daytime somnolence, would need outpatient repeat sleep study. RECOMMENDATIONS: 1. Continue present diuresis. 2. Follow chest x-rays to follow up on improving CHF. 3. Follow renal function. 4. Anticoagulation per PCP. 5. Anti-ischemic workup per Cardiology. 6. Sleep study as an outpatient. Discussed with RN. SUSAN MELARA MD DR: YURI/evelina JOB#: [id number] / [id number]
[2018-10-23 11:00] VITALS: BP 141/91
[2018-10-23] MEDS ORDERED: POTASSIUM CHLORIDE 20 MEQ TABLET.ER. PO ONE (11:15)
--- NOTE | 2018-10-23 12:40 | PDOC ---
PROGRESS NOTES Subjective Subjective Dyspnea improved slightly since admission Objective Objective Vital Signs Date Time Temp Pulse Resp B/P (MAP) Pulse Ox O2 Delivery O2 Flow Rate FiO2 10/23/18 11:00 98.1 80 141/91 (108) 98 Nasal Cannula 2.0 98.1 10/23/18 07:00 20 Intake and Output 10/23/18 07:01 Intake Total 2090 ml Output Total 2950 ml Balance -860 ml Intake Oral 1840 ml IV Total 250 ml Output Urine Total 2950 ml Physical Exam Abdomen: Soft, Other (obese) Heart: Regular rate (SR), Other (distant heart sounds) Extremities: No cyanosis, Other (2+ bilateral LE pitting edema) General: Alert, mild distress HEENT: Atraumatic, Mucous membr. moist/pink Lungs: Other (basilar crackles) Neuro: Normal speech Psych/Mental Status: Mental status NL, Mood NL Skin: No breakdown, No significant lesion Assessment Assessment 1. Acute on chronic, and systolic and diastolic heart failure, better compensated with diuresis. Replace potassium. 2-D echo showed LVEF 30% and diastolic dysfunction as well. Plan for cardiac catheterization on Thursday to rule out ischemic etiology. Risks and benefits were explained. 2. Possible ELIZABETH/COPD with morbid obesity: BMI at 65. Pulmonary following 3. HTN: Better controlled 4. DM2/HLP: Per IM Plan Plan of Care Problems Medical Problems: (1) CHF (congestive heart failure) Status: Acute (2) Pneumonia Status: Acute (3) Pulmonary edema Status: Acute Comment Review of Relevant I have reviewed the following items cuate (where applicable) has been applied. Labs Laboratory Tests Test 10/22/18 17:20 10/22/18 17:45 10/22/18 20:57 10/23/18 03:00 Glucose (Fingerstick) 148 mg/dL (70-99) 115 mg/dL (70-99) Urine Collection Type Unknown Urine Color Yellow Urine Clarity Clear Urine pH 5.0 Urine Specific Warren 1.015 Urine Protein Negative mg/dL (NEG-TRACE) Urine Glucose (UA) Negative mg/dL (NEG) Urine Ketones (Stick) Negative mg/dL (NEG) Urine Blood Negative (NEG) Urine Nitrite Negative (NEG) Urine Bilirubin Negative (NEG) Urine Urobilinogen Dipstick 0.2 mg/dL (0.2 mg/dL) Urine Leukocyte Esterase Negative (NEG) Urine RBC 1-2 /HPF (0-2) Urine WBC 0 /HPF (0-4) Urine Bacteria 0 /HPF (0-FEW) Urine Mucus Mod /LPF Troponin I Quantitative 0.050 ng/mL (0.000-0.055) Sodium Level 145 mmol/L (136-145) Potassium Level 3.2 mmol/L (3.5-5.1) Chloride Level 108 mmol/L (98-107) Carbon Dioxide Level 31 mmol/L (21-32) Anion Gap 6 (6-14) Blood Urea Nitrogen 18 mg/dL (7-20) Creatinine 0.9 mg/dL (0.6-1.0) Estimated GFR (Cockcroft-Gault) 80.2 Glucose Level 118 mg/dL (70-99) Calcium Level 8.6 mg/dL (8.5-10.1) Magnesium Level 2.0 mg/dL (1.8-2.4) Triglycerides Level 93 mg/dL (0-150) Cholesterol Level 110 mg/dL (0-200) LDL Cholesterol, Calculated 58 mg/dL (0-100) VLDL Cholesterol, Calculated 19 mg/dL (0-40) Non-HDL Cholesterol Calculated 77 mg/dL (0-129) HDL Cholesterol 33 mg/dL (40-60) Cholesterol/HDL Ratio 3.3 Test 10/23/18 04:20 10/23/18 08:04 10/23/18 11:33 White Blood Count 7.2 x10^3/uL (4.0-11.0) Red Blood Count 4.12 x10^6/uL (3.50-5.40) Hemoglobin 11.2 g/dL (12.0-15.5) Hematocrit 34.7 % (36.0-47.0) Mean Corpuscular Volume 84 fL (79-100) Mean Corpuscular Hemoglobin 27 pg (25-35) Mean Corpuscular Hemoglobin Concent 32 g/dL (31-37) Red Cell Distribution Width 16.4 % (11.5-14.5) Platelet Count 164 x10^3/uL (140-400) Neutrophils (%) (Auto) 50 % (31-73) Lymphocytes (%) (Auto) 39 % (24-48) Monocytes (%) (Auto) 8 % (0-9) Eosinophils (%) (Auto) 2 % (0-3) Basophils (%) (Auto) 1 % (0-3) Neutrophils # (Auto) 3.6 x10^3uL (1.8-7.7) Lymphocytes # (Auto) 2.8 x10^3/uL (1.0-4.8) Monocytes # (Auto) 0.6 x10^3/uL (0.0-1.1) Eosinophils # (Auto) 0.1 x10^3/uL (0.0-0.7) Basophils # (Auto) 0.1 x10^3/uL (0.0-0.2) Glucose (Fingerstick) 120 mg/dL (70-99) 116 mg/dL (70-99) Medications Current Medications Albuterol/ Ipratropium (Duoneb) 3 ml RTQID NEB Last administered on 10/23/18 07:40; Start 10/22/18 at 16:00 Amlodipine Besylate (Norvasc) 10 mg DAILY PO Last administered on 10/23/18 09: 36; Start 10/22/18 at 15:00 Atorvastatin Calcium (Lipitor) 40 mg QHS PO Last administered on 10/22/18 20: 58; Start 10/22/18 at 21:00 Carvedilol (Coreg) 12.5 mg BIDWMEALS PO Last administered on 10/23/18 09:35; Start 10/22/18 at 17:00 Cetirizine HCl (ZyrTEC) 10 mg DAILY PO Last administered on 10/23/18 09:35; Start 10/22/18 at 15:00 Dextrose (Dextrose 50%-Water Syringe) 12.5 gm PRN Q15MIN PRN IV SEE COMMENTS; Start 10/22/18 at 14:00 Enoxaparin Sodium (Lovenox 60mg Syringe) 60 mg Q12HR SQ Last administered on 09:54; Start 10/22/18 at 21:00 Furosemide (Lasix) 40 mg 1X ONCE IVP Last administered on 10/22/18 15:36; Start 10/22/18 at 15:30; Stop 10/22/18 at 15:31; Status DC Furosemide (Lasix) 40 mg BID94 IVP Last administered on 1/12/19at 10:30; Start 10/23/18 at 09:00 Hydrochlorothiazide (Microzide) 12.5 mg DAILY PO ; Start 10/23/18 at 09:00; Stop 10/23/18 at 09:00; Status DC Insulin Human Lispro (HumaLOG) 0-7 UNITS TIDWMEALS SQ ; Start 10/22/18 at 17:00 Labetalol HCl (Normodyne Iv Push) 10 mg PRN Q6HRS PRN IVP HYPERTENSION, SEE COMMENTS; Start 10/22/18 at 14:00 Losartan Potassium (Cozaar) 50 mg DAILY PO Last administered on 10/23/18at 09:37 ; Start 10/23/18 at 09:00 Oxycodone/ Acetaminophen (Percocet 7.5/ 325) 1 tab PRN Q6HRS PRN PO MODERATE TO SEVERE PAIN; Start 10/22/18 at 14:15 Pantoprazole Sodium (Protonix) 40 mg DAILYAC PO Last administered on 10/23/18at 09:35; Start 10/23/18 at 07:30 Perflutren Protein Type A Microsphe (Optison) 0.66 mg PRN 1X PRN IV SEE COMMENTS; Start 10/22/18 at 16:45; Stop 10/23/18 at 16:44 Perflutren Protein Type A Microsphe (Optison) 0.66 mg STK-MED ONCE IV ; Start at 16:03; Stop 10/22/18 at 16:05; Status DC Potassium Chloride (Klor-Con) 20 meq DAILY PO Last administered on 10/23/18at 09 :34; Start 10/23/18 at 09:00 Potassium Chloride (Klor-Con) 40 meq 1X ONCE PO ; Start 10/23/18 at 11:15; Stop 10/23/18 at 11:16; Status DC Warfarin Sodium (Coumadin Per Physician) 1 each PRN DAILY PRN MC SEE COMMENTS; Start 10/22/18 at 15:30 Warfarin Sodium (Coumadin) 10 mg DAILY16 PO ; Start 10/23/18 at 16:00 Vitals/I & O Vital Sign - Last 24 Hours 10/22/18 10/22/18 10/22/18 10/22/18 13:15 14:35 15:20 15:38 Temp 98.1 98.1 98.1 98.1 Pulse 89 93 89 Resp 22 20 B/P (MAP) 166/99 (121) 139/81 (100) 166/99 Pulse Ox 100 97 O2 Delivery Nasal Cannula Nasal Cannula Nasal Cannula O2 Flow Rate 4.0 2.0 4.0 10/22/18 10/22/18 10/22/18 10/22/18 15:48 17:42 19:30 19:43 Temp 98.6 98.6 Pulse 89 88 Resp 24 B/P (MAP) 166/99 156/98 (117) Pulse Ox 94 O2 Delivery Nasal Cannula Room Air Nasal Cannula O2 Flow Rate 2.0 2.0 10/22/18 10/22/18 10/23/18 10/23/18 20:00 23:00 03:25 07:00 Temp 98.1 98.3 97.7 98.1 98.3 97.7 Pulse 92 89 83 Resp 24 22 20 B/P (MAP) 145/86 (105) 142/83 (102) 130/83 (99) Pulse Ox 96 98 97 100 O2 Delivery Nasal Cannula Nasal Cannula Nasal Cannula Nasal Cannula O2 Flow Rate 2.0 2.0 2.0 2.0 10/23/18 10/23/18 10/23/18 10/23/18 09:35 09:36 09:37 11:00 Temp 98.1 98.1 Pulse 79 83 83 80 B/P (MAP) 130/83 130/83 141/91 (108) Pulse Ox 98 O2 Delivery Nasal Cannula O2 Flow Rate 2.0 Intake and Output 10/22/18 10/22/18 10/23/18 15:01 23:01 07:01 Intake Total 250 ml 1050 ml 790 ml Output Total 1000 ml 1950 ml Balance 250 ml 50 ml -1160 ml CHANTAL PEÑA MD Oct 23, 2018 12:40
[2018-10-23] MEDS: oxyCODONE/APAP 7.5/325 1 TAB TABLET PO PRN (14:36)
[2018-10-23 15:00] VITALS: BP 143/97
[2018-10-23] MEDS: WARFARIN 5 MG TABLET. PO SCH (17:29)
[2018-10-23 19:30] VITALS: BP 132/73
[2018-10-23] MEDS: ATORVASTATIN CALCIUM 40 MG TABLET. PO SCH (21:00)
--- NOTE | 2018-10-23 22:51 | PDOC ---
PROGRESS NOTES History of Present Illness History of Present Illness Plans for cath on Thursday Was on cephelexin qday at [facility] for broken tooth, will dc and start Clindamycin for now. Vitals Vitals Vital Signs Date Time Temp Pulse Resp B/P (MAP) Pulse Ox O2 Delivery O2 Flow Rate FiO2 10/23/18 20:02 98 Room Air 10/23/18 19:38 2.0 10/23/18 19:30 98.0 87 22 132/73 (92) 98.0 Physical Exam General: Alert, mild distress Heart: Regular rate (SR), Other (distant heart sounds) Abdomen: Soft, Other (obese) Extremities: No cyanosis, Other (2+ bilateral LE pitting edema) Skin: No breakdown, No significant lesion Labs LABS Laboratory Tests Test 10/23/18 03:00 10/23/18 04:20 10/23/18 08:04 10/23/18 11:33 Sodium Level 145 mmol/L (136-145) Potassium Level 3.2 mmol/L (3.5-5.1) Chloride Level 108 mmol/L (98-107) Carbon Dioxide Level 31 mmol/L (21-32) Anion Gap 6 (6-14) Blood Urea Nitrogen 18 mg/dL (7-20) Creatinine 0.9 mg/dL (0.6-1.0) Estimated GFR (Cockcroft-Gault) 80.2 Glucose Level 118 mg/dL (70-99) Calcium Level 8.6 mg/dL (8.5-10.1) Magnesium Level 2.0 mg/dL (1.8-2.4) Triglycerides Level 93 mg/dL (0-150) Cholesterol Level 110 mg/dL (0-200) LDL Cholesterol, Calculated 58 mg/dL (0-100) VLDL Cholesterol, Calculated 19 mg/dL (0-40) Non-HDL Cholesterol Calculated 77 mg/dL (0-129) HDL Cholesterol 33 mg/dL (40-60) Cholesterol/HDL Ratio 3.3 White Blood Count 7.2 x10^3/uL (4.0-11.0) Red Blood Count 4.12 x10^6/uL (3.50-5.40) Hemoglobin 11.2 g/dL (12.0-15.5) Hematocrit 34.7 % (36.0-47.0) Mean Corpuscular Volume 84 fL (79-100) Mean Corpuscular Hemoglobin 27 pg (25-35) Mean Corpuscular Hemoglobin Concent 32 g/dL (31-37) Red Cell Distribution Width 16.4 % (11.5-14.5) Platelet Count 164 x10^3/uL (140-400) Neutrophils (%) (Auto) 50 % (31-73) Lymphocytes (%) (Auto) 39 % (24-48) Monocytes (%) (Auto) 8 % (0-9) Eosinophils (%) (Auto) 2 % (0-3) Basophils (%) (Auto) 1 % (0-3) Neutrophils # (Auto) 3.6 x10^3uL (1.8-7.7) Lymphocytes # (Auto) 2.8 x10^3/uL (1.0-4.8) Monocytes # (Auto) 0.6 x10^3/uL (0.0-1.1) Eosinophils # (Auto) 0.1 x10^3/uL (0.0-0.7) Basophils # (Auto) 0.1 x10^3/uL (0.0-0.2) Glucose (Fingerstick) 120 mg/dL (70-99) 116 mg/dL (70-99) Test 10/23/18 17:33 10/23/18 20:45 Glucose (Fingerstick) 109 mg/dL (70-99) 139 mg/dL (70-99) Assessment and Plan Assessmemt and Plan Problems Medical Problems: (1) CHF (congestive heart failure) Status: Acute (2) Pneumonia Status: Acute (3) Pulmonary edema Status: Acute Comment Review of Relevant I have reviewed the following items cuate (where applicable) has been applied. Labs Laboratory Tests Test 10/22/18 09:05 10/22/18 17:20 10/22/18 17:45 10/22/18 20:57 White Blood Count 7.0 x10^3/uL (4.0-11.0) Red Blood Count 4.44 x10^6/uL (3.50-5.40) Hemoglobin 12.2 g/dL (12.0-15.5) Hematocrit 37.2 % (36.0-47.0) Mean Corpuscular Volume 84 fL (79-100) Mean Corpuscular Hemoglobin 27 pg (25-35) Mean Corpuscular Hemoglobin Concent 33 g/dL (31-37) Red Cell Distribution Width 16.7 % (11.5-14.5) Platelet Count 192 x10^3/uL (140-400) Neutrophils (%) (Auto) 59 % (31-73) Lymphocytes (%) (Auto) 32 % (24-48) Monocytes (%) (Auto) 7 % (0-9) Eosinophils (%) (Auto) 1 % (0-3) Basophils (%) (Auto) 1 % (0-3) Neutrophils # (Auto) 4.2 x10^3uL (1.8-7.7) Lymphocytes # (Auto) 2.3 x10^3/uL (1.0-4.8) Monocytes # (Auto) 0.5 x10^3/uL (0.0-1.1) Eosinophils # (Auto) 0.1 x10^3/uL (0.0-0.7) Basophils # (Auto) 0.1 x10^3/uL (0.0-0.2) Prothrombin Time 18.8 SEC (11.7-14.0) Prothromb Time International Ratio 1.6 (0.8-1.1) Sodium Level 145 mmol/L (136-145) Potassium Level 4.0 mmol/L (3.5-5.1) Chloride Level 107 mmol/L (98-107) Carbon Dioxide Level 27 mmol/L (21-32) Anion Gap 11 (6-14) Blood Urea Nitrogen 23 mg/dL (7-20) Creatinine 1.0 mg/dL (0.6-1.0) Estimated GFR (Cockcroft-Gault) 71.0 Glucose Level 132 mg/dL (70-99) Calcium Level 8.7 mg/dL (8.5-10.1) Total Bilirubin 0.3 mg/dL (0.2-1.0) Direct Bilirubin 0.1 mg/dL (0.0-0.2) Aspartate Amino Transf (AST/SGOT) 22 U/L (15-37) Alanine Aminotransferase (ALT/SGPT) 35 U/L (14-59) Alkaline Phosphatase 66 U/L (46-116) Troponin I Quantitative 0.055 ng/mL (0.000-0.055) 0.050 ng/mL (0.000-0.055) BQ-Otn-F-Type Natriuretic Peptide 4539 pg/mL (0-124) Total Protein 6.6 g/dL (6.4-8.2) Albumin 3.0 g/dL (3.4-5.0) Lipase 109 U/L (73-393) Thyroid Stimulating Hormone (TSH) 1.881 uIU/mL (0.358-3.74) Glucose (Fingerstick) 148 mg/dL (70-99) 115 mg/dL (70-99) Urine Collection Type Unknown Urine Color Yellow Urine Clarity Clear Urine pH 5.0 Urine Specific [place] 1.015 Urine Protein Negative mg/dL (NEG-TRACE) Urine Glucose (UA) Negative mg/dL (NEG) Urine Ketones (Stick) Negative mg/dL (NEG) Urine Blood Negative (NEG) Urine Nitrite Negative (NEG) Urine Bilirubin Negative (NEG) Urine Urobilinogen Dipstick 0.2 mg/dL (0.2 mg/dL) Urine Leukocyte Esterase Negative (NEG) Urine RBC 1-2 /HPF (0-2) Urine WBC 0 /HPF (0-4) Urine Bacteria 0 /HPF (0-FEW) Urine Mucus Mod /LPF Test 10/23/18 03:00 10/23/18 04:20 10/23/18 08:04 10/23/18 11:33 Sodium Level 145 mmol/L (136-145) Potassium Level 3.2 mmol/L (3.5-5.1) Chloride Level 108 mmol/L (98-107) Carbon Dioxide Level 31 mmol/L (21-32) Anion Gap 6 (6-14) Blood Urea Nitrogen 18 mg/dL (7-20) Creatinine 0.9 mg/dL (0.6-1.0) Estimated GFR (Cockcroft-Gault) 80.2 Glucose Level 118 mg/dL (70-99) Calcium Level 8.6 mg/dL (8.5-10.1) Magnesium Level 2.0 mg/dL (1.8-2.4) Triglycerides Level 93 mg/dL (0-150) Cholesterol Level 110 mg/dL (0-200) LDL Cholesterol, Calculated 58 mg/dL (0-100) VLDL Cholesterol, Calculated 19 mg/dL (0-40) Non-HDL Cholesterol Calculated 77 mg/dL (0-129) HDL Cholesterol 33 mg/dL (40-60) Cholesterol/HDL Ratio 3.3 White Blood Count 7.2 x10^3/uL (4.0-11.0) Red Blood Count 4.12 x10^6/uL (3.50-5.40) Hemoglobin 11.2 g/dL (12.0-15.5) Hematocrit 34.7 % (36.0-47.0) Mean Corpuscular Volume 84 fL (79-100) Mean Corpuscular Hemoglobin 27 pg (25-35) Mean Corpuscular Hemoglobin Concent 32 g/dL (31-37) Red Cell Distribution Width 16.4 % (11.5-14.5) Platelet Count 164 x10^3/uL (140-400) Neutrophils (%) (Auto) 50 % (31-73) Lymphocytes (%) (Auto) 39 % (24-48) Monocytes (%) (Auto) 8 % (0-9) Eosinophils (%) (Auto) 2 % (0-3) Basophils (%) (Auto) 1 % (0-3) Neutrophils # (Auto) 3.6 x10^3uL (1.8-7.7) Lymphocytes # (Auto) 2.8 x10^3/uL (1.0-4.8) Monocytes # (Auto) 0.6 x10^3/uL (0.0-1.1) Eosinophils # (Auto) 0.1 x10^3/uL (0.0-0.7) Basophils # (Auto) 0.1 x10^3/uL (0.0-0.2) Glucose (Fingerstick) 120 mg/dL (70-99) 116 mg/dL (70-99) Test 10/23/18 17:33 10/23/18 20:45 Glucose (Fingerstick) 109 mg/dL (70-99) 139 mg/dL (70-99) Laboratory Tests Test 10/23/18 03:00 10/23/18 04:20 10/23/18 08:04 10/23/18 11:33 Sodium Level 145 mmol/L (136-145) Potassium Level 3.2 mmol/L (3.5-5.1) Chloride Level 108 mmol/L (98-107) Carbon Dioxide Level 31 mmol/L (21-32) Anion Gap 6 (6-14) Blood Urea Nitrogen 18 mg/dL (7-20) Creatinine 0.9 mg/dL (0.6-1.0) Estimated GFR (Cockcroft-Gault) 80.2 Glucose Level 118 mg/dL (70-99) Calcium Level 8.6 mg/dL (8.5-10.1) Magnesium Level 2.0 mg/dL (1.8-2.4) Triglycerides Level 93 mg/dL (0-150) Cholesterol Level 110 mg/dL (0-200) LDL Cholesterol, Calculated 58 mg/dL (0-100) VLDL Cholesterol, Calculated 19 mg/dL (0-40) Non-HDL Cholesterol Calculated 77 mg/dL (0-129) HDL Cholesterol 33 mg/dL (40-60) Cholesterol/HDL Ratio 3.3 White Blood Count 7.2 x10^3/uL (4.0-11.0) Red Blood Count 4.12 x10^6/uL (3.50-5.40) Hemoglobin 11.2 g/dL (12.0-15.5) Hematocrit 34.7 % (36.0-47.0) Mean Corpuscular Volume 84 fL (79-100) Mean Corpuscular Hemoglobin 27 pg (25-35) Mean Corpuscular Hemoglobin Concent 32 g/dL (31-37) Red Cell Distribution Width 16.4 % (11.5-14.5) Platelet Count 164 x10^3/uL (140-400) Neutrophils (%) (Auto) 50 % (31-73) Lymphocytes (%) (Auto) 39 % (24-48) Monocytes (%) (Auto) 8 % (0-9) Eosinophils (%) (Auto) 2 % (0-3) Basophils (%) (Auto) 1 % (0-3) Neutrophils # (Auto) 3.6 x10^3uL (1.8-7.7) Lymphocytes # (Auto) 2.8 x10^3/uL (1.0-4.8) Monocytes # (Auto) 0.6 x10^3/uL (0.0-1.1) Eosinophils # (Auto) 0.1 x10^3/uL (0.0-0.7) Basophils # (Auto) 0.1 x10^3/uL (0.0-0.2) Glucose (Fingerstick) 120 mg/dL (70-99) 116 mg/dL (70-99) Test 10/23/18 17:33 10/23/18 20:45 Glucose (Fingerstick) 109 mg/dL (70-99) 139 mg/dL (70-99) Medications Current Medications Albuterol/ Ipratropium (Duoneb) 3 ml 1X ONCE NEB Last administered on at 09:06; Start 10/22/18 at 09:00; Stop 10/22/18 at 09:06; Status DC Furosemide (Lasix) 20 mg 1X ONCE IVP ; Start 10/22/18 at 10:15; Stop 10/22/18 at 10:15; Status DC Azithromycin 250 ml @ 250 mls/hr 1X ONCE IV Last administered on 10/22/18at 11 :09; Start 10/22/18 at 10:15; Stop 10/22/18 at 11:14; Status DC Ceftriaxone Sodium (Rocephin) 1 gm 1X ONCE IVP Last administered on 10/22/18at 10:53; Start 10/22/18 at 10:15; Stop 10/22/18 at 10:16; Status DC Furosemide (Lasix) 40 mg 1X ONCE IVP Last administered on 10/22/18at 12:36; Start 10/22/18 at 10:15; Stop 10/22/18 at 10:16; Status DC Iohexol (Omnipaque 350 Mg/ml) 100 ml 1X ONCE IV Last administered on at 10:26; Start 10/22/18 at 10:30; Stop 10/22/18 at 10:31; Status DC Info (CONTRAST GIVEN -- Rx MONITORING) 1 each PRN DAILY PRN MC SEE COMMENTS; Start 10/22/18 at 10:30; Stop 10/24/18 at 10:29 Ondansetron HCl (Zofran) 4 mg PRN Q8HRS PRN IV NAUSEA/VOMITING; Start 10/22/18 at 11:45; Stop 10/23/18 at 11:44; Status DC Labetalol HCl (Normodyne Iv Push) 10 mg PRN Q6HRS PRN IVP HYPERTENSION, SEE COMMENTS; Start 10/22/18 at 14:00 Insulin Human Lispro (HumaLOG) 0-7 UNITS TIDWMEALS SQ ; Start 10/22/18 at 17:00 Dextrose (Dextrose 50%-Water Syringe) 12.5 gm PRN Q15MIN PRN IV SEE COMMENTS; Start 10/22/18 at 14:00 Amlodipine Besylate (Norvasc) 10 mg DAILY PO Last administered on 10/23/18 09: 36; Start 10/22/18 at 15:00 Carvedilol (Coreg) 12.5 mg BIDWMEALS PO Last administered on 10/23/18 17:29; Start 10/22/18 at 17:00 Glipizide (Glucotrol) 5 mg DAILY PO Last administered on 10/23/18 09:34; Start 10/22/18 at 09:00 Oxycodone/ Acetaminophen (Percocet 7.5/ 325) 1 tab PRN Q6HRS PRN PO MODERATE TO SEVERE PAIN Last administered on 10/23/18 14:36; Start 10/22/18 at 14:15 Potassium Chloride (Klor-Con) 20 meq DAILY PO Last administered on 10/23/18 09 :34; Start 10/23/18 at 09:00 Cetirizine HCl (ZyrTEC) 10 mg DAILY PO Last administered on 10/23/18 09:35; Start 10/22/18 at 15:00 Losartan Potassium (Cozaar) 50 mg DAILY PO Last administered on 10/23/18at 09:37 ; Start 10/23/18 at 09:00 Pantoprazole Sodium (Protonix) 40 mg DAILYAC PO Last administered on 10/23/18 09:35; Start 10/23/18 at 07:30 Atorvastatin Calcium (Lipitor) 40 mg QHS PO Last administered on 10/23/18 21: 00; Start 10/22/18 at 21:00 Warfarin Sodium (Coumadin) 10 mg DAILY16 PO Last administered on 10/23/18 17: 29; Start 10/23/18 at 16:00 Hydrochlorothiazide (Microzide) 12.5 mg DAILY PO ; Start 10/23/18 at 09:00; Stop 10/23/18 at 09:00; Status DC Furosemide (Lasix) 40 mg 1X ONCE IVP Last administered on 1/11/19at 15:36; Start 10/22/18 at 15:30; Stop 10/22/18 at 15:31; Status DC Albuterol/ Ipratropium (Duoneb) 3 ml RTQID NEB Last administered on 10/23/18at 20:02; Start 10/22/18 at 16:00 Warfarin Sodium (Coumadin Per Physician) 1 each PRN DAILY PRN MC SEE COMMENTS; Start 10/22/18 at 15:30 Enoxaparin Sodium (Lovenox 60mg Syringe) 60 mg Q12HR SQ Last administered on 09/29at 21:01; Start 10/22/18 at 21:00 Perflutren Protein Type A Microsphe (Optison) 0.66 mg STK-MED ONCE IV ; Start at 16:03; Stop 10/22/18 at 16:05; Status DC Furosemide (Lasix) 40 mg BID94 IVP Last administered on 10/23/18at 17:30; Start 10/23/18 at 09:00 Perflutren Protein Type A Microsphe (Optison) 0.66 mg PRN 1X PRN IV SEE COMMENTS; Start 10/22/18 at 16:45; Stop 10/23/18 at 16:44; Status DC Potassium Chloride (Klor-Con) 40 meq 1X ONCE PO Last administered on at 12:58; Start 10/23/18 at 11:15; Stop 10/23/18 at 11:16; Status DC Active Scripts Active Reported Percocet 7.5-325 Mg Tablet (Oxycodone/Acetaminophen) 1 Each Tablet 1 Tab PO PRN Q6HRS PRN Loratadine 10 Mg Tablet 1 Tab PO DAILY Losartan-Hctz 50-12.5 Mg Tab (Losartan/Hydrochlorothiazide) 1 Each Tablet 1 Tab PO DAILY Amlodipine Besylate 10 Mg Tablet 10 Mg PO DAILY Glipizide 5 Mg Tablet 1 Tab PO DAILY Potassium Chloride 20 Meq Tab.er.prt 1 Tab PO DAILY Warfarin Sodium 10 Mg Tablet 10 Mg PO DAILY Omeprazole 40 Mg Capsule. 1 Cap PO DAILY Crestor (Rosuvastatin Calcium) 10 Mg Tablet 1 Tab PO DAILY Carvedilol (Carvedilol) 12.5 Mg Tablet 1 Tab PO BID Vitals/I & O Vital Sign - Last 24 Hours 10/22/18 10/23/18 10/23/18 10/23/18 23:00 03:25 07:00 07:40 Temp 98.1 98.3 97.7 98.1 98.3 97.7 Pulse 92 89 83 Resp 24 22 20 B/P (MAP) 145/86 (105) 142/83 (102) 130/83 (99) Pulse Ox 98 97 100 96 O2 Delivery Nasal Cannula Nasal Cannula Nasal Cannula Nasal Cannula O2 Flow Rate 2.0 2.0 2.0 2.0 10/23/18 10/23/18 10/23/18 10/23/18 08:00 09:35 09:36 09:37 Pulse 79 83 83 B/P (MAP) 130/83 130/83 O2 Delivery Nasal Cannula O2 Flow Rate 2.0 10/23/18 10/23/18 10/23/18 10/23/18 11:00 11:40 14:36 15:00 Temp 98.1 98.1 98.1 98.1 Pulse 80 87 B/P (MAP) 141/91 (108) 143/97 (112) Pulse Ox 98 96 2 100 O2 Delivery Nasal Cannula Nasal Cannula Nasal Cannula Nasal Cannula O2 Flow Rate 2.0 2.0 2.0 10/23/18 10/23/18 10/23/18 10/23/18 15:27 15:36 17:29 19:30 Temp 98.0 98.0 Pulse 92 87 Resp 22 B/P (MAP) 132/73 (92) Pulse Ox 98 2 91 O2 Delivery Nasal Cannula Nasal Cannula Room Air O2 Flow Rate 2.0 10/23/18 10/23/18 19:38 20:02 Pulse Ox 98 O2 Delivery Nasal Cannula Room Air O2 Flow Rate 2.0 Intake and Output 10/22/18 10/22/18 10/23/18 15:01 23:01 07:01 Intake Total 250 ml 1050 ml 790 ml Output Total 1000 ml 1950 ml Balance 250 ml 50 ml -1160 ml SARA TELLEZ MD Oct 23, 2018 22:51
[2018-10-23] MEDS: CLINDAMYCIN HCL 150 MG CAPSULE. PO SCH (23:24)
[2018-10-23 23:25] VITALS: BP 122/69
[2018-10-24 03:55] VITALS: BP 128/77
[2018-10-24 07:00] VITALS: BP 130/108
[2018-10-24] MEDS: IPRATRPIUM/ALBUTEROL 0.5/2.5MG 3 ML NEBU. NEB SCH ×4 (07:44→19:30)
[2018-10-24] MEDS: INSULIN LISPRO 300 UNITS/3 ML INSULN.PEN. SQ SCH ×3 (08:00→17:27)
[2018-10-24] MEDS: PANTOPRAZOLE 40 MG TABLET.DR. PO SCH (08:19)
[2018-10-24] MEDS: POTASSIUM CHLORIDE 20 MEQ TABLET.ER. PO SCH (08:20)
[2018-10-24] MEDS: glipiZIDE 5 MG TABLET PO SCH (08:20)
[2018-10-24] MEDS: CETIRIZINE HCL 10 MG TABLET. PO SCH (08:20)
[2018-10-24] MEDS: CARVEDILOL 12.5 MG TABLET. PO SCH ×2 (08:20→17:21)
[2018-10-24] MEDS: LOSARTAN POTASSIUM 50 MG TABLET. PO SCH (08:21)
[2018-10-24] MEDS: amLODIPine BESYLATE 10 MG TABLET PO SCH (08:21)
[2018-10-24] MEDS: CLINDAMYCIN HCL 150 MG CAPSULE. PO SCH ×3 (08:21→21:09)
[2018-10-24] MEDS: FUROSEMIDE 40 MG/4 ML VIAL. IVP SCH ×2 (08:22→17:22)
--- NOTE | 2018-10-24 10:39 | PDOC ---
PULMONARY PROGRESS NOTES Subjective NO SOA Vitals Vital Signs Date Time Temp Pulse Resp B/P (MAP) Pulse Ox O2 Delivery O2 Flow Rate FiO2 10/24/18 08:21 88 130/108 10/24/18 08:00 Room Air 10/24/18 07:44 98 2.0 10/24/18 07:00 98.3 18 98.3 General: Alert, No acute distress Lungs: Clear Cardiovascular: S1 Abdomen: Soft, Other (obese) Extremities: Other (trace edema) Labs Laboratory Tests Test 10/22/18 17:20 10/22/18 17:45 10/22/18 20:57 10/23/18 03:00 Glucose (Fingerstick) 148 mg/dL (70-99) 115 mg/dL (70-99) Urine Collection Type Unknown Urine Color Yellow Urine Clarity Clear Urine pH 5.0 Urine Specific [place] 1.015 Urine Protein Negative mg/dL (NEG-TRACE) Urine Glucose (UA) Negative mg/dL (NEG) Urine Ketones (Stick) Negative mg/dL (NEG) Urine Blood Negative (NEG) Urine Nitrite Negative (NEG) Urine Bilirubin Negative (NEG) Urine Urobilinogen Dipstick 0.2 mg/dL (0.2 mg/dL) Urine Leukocyte Esterase Negative (NEG) Urine RBC 1-2 /HPF (0-2) Urine WBC 0 /HPF (0-4) Urine Bacteria 0 /HPF (0-FEW) Urine Mucus Mod /LPF Troponin I Quantitative 0.050 ng/mL (0.000-0.055) Sodium Level 145 mmol/L (136-145) Potassium Level 3.2 mmol/L (3.5-5.1) Chloride Level 108 mmol/L (98-107) Carbon Dioxide Level 31 mmol/L (21-32) Anion Gap 6 (6-14) Blood Urea Nitrogen 18 mg/dL (7-20) Creatinine 0.9 mg/dL (0.6-1.0) Estimated GFR (Cockcroft-Gault) 80.2 Glucose Level 118 mg/dL (70-99) Calcium Level 8.6 mg/dL (8.5-10.1) Magnesium Level 2.0 mg/dL (1.8-2.4) Triglycerides Level 93 mg/dL (0-150) Cholesterol Level 110 mg/dL (0-200) LDL Cholesterol, Calculated 58 mg/dL (0-100) VLDL Cholesterol, Calculated 19 mg/dL (0-40) Non-HDL Cholesterol Calculated 77 mg/dL (0-129) HDL Cholesterol 33 mg/dL (40-60) Cholesterol/HDL Ratio 3.3 Test 10/23/18 04:20 10/23/18 08:04 10/23/18 11:33 10/23/18 17:33 White Blood Count 7.2 x10^3/uL (4.0-11.0) Red Blood Count 4.12 x10^6/uL (3.50-5.40) Hemoglobin 11.2 g/dL (12.0-15.5) Hematocrit 34.7 % (36.0-47.0) Mean Corpuscular Volume 84 fL (79-100) Mean Corpuscular Hemoglobin 27 pg (25-35) Mean Corpuscular Hemoglobin Concent 32 g/dL (31-37) Red Cell Distribution Width 16.4 % (11.5-14.5) Platelet Count 164 x10^3/uL (140-400) Neutrophils (%) (Auto) 50 % (31-73) Lymphocytes (%) (Auto) 39 % (24-48) Monocytes (%) (Auto) 8 % (0-9) Eosinophils (%) (Auto) 2 % (0-3) Basophils (%) (Auto) 1 % (0-3) Neutrophils # (Auto) 3.6 x10^3uL (1.8-7.7) Lymphocytes # (Auto) 2.8 x10^3/uL (1.0-4.8) Monocytes # (Auto) 0.6 x10^3/uL (0.0-1.1) Eosinophils # (Auto) 0.1 x10^3/uL (0.0-0.7) Basophils # (Auto) 0.1 x10^3/uL (0.0-0.2) Glucose (Fingerstick) 120 mg/dL (70-99) 116 mg/dL (70-99) 109 mg/dL (70-99) Test 10/23/18 20:45 10/24/18 07:43 Glucose (Fingerstick) 139 mg/dL (70-99) 124 mg/dL (70-99) Laboratory Tests Test 10/23/18 11:33 10/23/18 17:33 10/23/18 20:45 10/24/18 07:43 Glucose (Fingerstick) 116 mg/dL (70-99) 109 mg/dL (70-99) 139 mg/dL (70-99) 124 mg/dL (70-99) Medications Active Scripts Medications Dose Route/Sig Max Daily Dose Days Date Category Percocet 7.5-325 Mg Tablet (Oxycodone/Acetaminophen) 1 Each Tablet 1 Tab PO PRN Q6HRS PRN 10/22/18 Reported Loratadine 10 Mg Tablet 1 Tab PO DAILY 10/22/18 Reported Losartan-Hctz 50-12.5 Mg Tab (Losartan/Hydrochlorothiazide) 1 Each Tablet 1 Tab PO DAILY 10/22/18 Reported Amlodipine Besylate 10 Mg Tablet 10 Mg PO DAILY 10/22/18 Reported Glipizide 5 Mg Tablet 1 Tab PO DAILY 10/22/18 Reported Potassium Chloride 20 Meq Tab.er.prt 1 Tab PO DAILY 09/23/14 Reported Warfarin Sodium 10 Mg Tablet 10 Mg PO DAILY 08/25/14 Reported Omeprazole 40 Mg Capsule.dr 1 Cap PO DAILY 08/25/14 Reported Crestor (Rosuvastatin Calcium) 10 Mg Tablet 1 Tab PO DAILY 08/25/14 Reported Carvedilol (Carvedilol) 12.5 Mg Tablet 1 Tab PO BID 08/25/14 Reported Impression . 1. Acute hypoxic respiratory failure secondary to acute diastolic and systolic heart failure. 2. Abnormal echo with an EF of 30%, suggesting severe cardiomyopathy and grade 3 diastolic dysfunction. 3. Minimal history of tobacco use. Clinically, less likely chronic obstructive pulmonary disease. 4. Morbid obesity and history of obstructive sleep apnea, stopped using CPAP, but has persistent daytime somnolence, would need outpatient repeat sleep study. Plan . 1. Continue present diuresis. 2. Follow chest x-rays to follow up on improving CHF. 3. Follow renal function. 4. Anticoagulation per PCP. 5. Anti-ischemic workup per Cardiology./ cath in am 6. Sleep study as an outpatient. Discussed with SUDHAKAR. SUSAN MELARA MD Oct 24, 2018 10:39
--- NOTE | 2018-10-24 11:02 | PDOC ---
PROGRESS NOTES Subjective Subjective Dyspnea improving and she is feeling better Objective Objective Vital Signs Date Time Temp Pulse Resp B/P (MAP) Pulse Ox O2 Delivery O2 Flow Rate FiO2 10/24/18 08:21 88 130/108 10/24/18 08:00 Room Air 10/24/18 07:44 98 2.0 10/24/18 07:00 98.3 18 98.3 Intake and Output 10/24/18 07:01 Intake Total 1200 ml Output Total 3300 ml Balance -2100 ml Intake Oral 1200 ml Output Urine Total 3300 ml Physical Exam Abdomen: Soft, Other (obese) Heart: Regular rate (SR), Other (distant heart sounds) Extremities: No cyanosis, Other (2+ bilateral LE pitting edema) General: Alert, mild distress HEENT: Atraumatic, Mucous membr. moist/pink Lungs: Other (basilar crackles) Neuro: Normal speech Psych/Mental Status: Mental status NL, Mood NL Skin: No breakdown, No significant lesion Assessment Assessment 1. Acute on chronic, and systolic and diastolic heart failure, better compensated with diuresis. 2-D echo showed LVEF 30% and diastolic dysfunction as well. Plan for cardiac catheterization tomorrow to rule out ischemic etiology. Risks and benefits were explained. 2. Possible ELIZABETH/COPD with morbid obesity: BMI at 65. Pulmonary following 3. HTN: Better controlled 4. DM2/HLP: Per IM Plan Plan of Care Problems Medical Problems: (1) CHF (congestive heart failure) Status: Acute (2) Pneumonia Status: Acute (3) Pulmonary edema Status: Acute Comment Review of Relevant I have reviewed the following items cuate (where applicable) has been applied. Labs Laboratory Tests Test 10/23/18 11:33 10/23/18 17:33 10/23/18 20:45 10/24/18 07:43 Glucose (Fingerstick) 116 mg/dL (70-99) 109 mg/dL (70-99) 139 mg/dL (70-99) 124 mg/dL (70-99) Medications Current Medications Clindamycin HCl (Cleocin) 300 mg TID PO Last administered on 10/24/18at 08:21; Start 10/23/18 at 23:00 Potassium Chloride (Klor-Con) 40 meq 1X ONCE PO Last administered on at 12:58; Start 10/23/18 at 11:15; Stop 10/23/18 at 11:16; Status DC Warfarin Sodium (Coumadin) 10 mg DAILY16 PO Last administered on 10/23/18at 17: 29; Start 10/23/18 at 16:00 Vitals/I & O Vital Sign - Last 24 Hours 10/23/18 10/23/18 10/23/18 10/23/18 11:40 14:36 15:00 15:27 Temp 98.1 98.1 Pulse 87 B/P (MAP) 143/97 (112) Pulse Ox 96 2 100 98 O2 Delivery Nasal Cannula Nasal Cannula Nasal Cannula Nasal Cannula O2 Flow Rate 2.0 2.0 2.0 10/23/18 10/23/18 10/23/18 10/23/18 15:36 17:29 19:30 19:38 Temp 98.0 98.0 Pulse 92 87 Resp 22 B/P (MAP) 132/73 (92) Pulse Ox 2 91 O2 Delivery Nasal Cannula Room Air Nasal Cannula O2 Flow Rate 2.0 10/23/18 10/23/18 10/24/18 10/24/18 20:02 23:25 03:55 07:00 Temp 99.2 98.7 98.3 99.2 98.7 98.3 Pulse 90 93 88 Resp 22 20 18 B/P (MAP) 122/69 (86) 128/77 (94) 130/108 (115) Pulse Ox 98 96 94 92 O2 Delivery Room Air Room Air Room Air Room Air 10/24/18 10/24/18 10/24/18 10/24/18 07:44 08:00 08:20 08:21 Pulse 88 88 B/P (MAP) 130/108 130/108 Pulse Ox 98 O2 Delivery Nasal Cannula Room Air O2 Flow Rate 2.0 10/24/18 08:21 Pulse 88 B/P (MAP) 130/108 Intake and Output 10/23/18 10/23/18 10/24/18 15:01 23:01 07:01 Intake Total 680 ml 520 ml Output Total 1150 ml 500 ml 1650 ml Balance -1150 ml 180 ml -1130 ml CHANTAL PEÑA MD Oct 24, 2018 11:02
[2018-10-24 11:03] VITALS: BP 125/86
[2018-10-24] MEDS: WARFARIN 5 MG TABLET. PO SCH (12:16)
[2018-10-24] MEDS: oxyCODONE/APAP 7.5/325 1 TAB TABLET PO PRN (12:22)
--- NOTE | 2018-10-24 14:46 | PDOC ---
PROGRESS NOTES History of Present Illness History of Present Illness Plans for cath on Thursday Was on cephelexin qday at home for broken tooth, will dc and start Clindamycin for started 10/23/17. Plans for cath on Thursday. npo at 12 am . Vitals Vitals Vital Signs Date Time Temp Pulse Resp B/P (MAP) Pulse Ox O2 Delivery O2 Flow Rate FiO2 10/24/18 13:22 Room Air 10/24/18 12:04 98 10/24/18 11:03 97.5 83 18 125/86 (99) 97.5 10/24/18 07:44 2.0 Physical Exam General: Alert, mild distress Heart: Regular rate (SR), Other (distant heart sounds) Lungs: Clear Abdomen: Soft, Other (obese) Extremities: No cyanosis, Other (2+ bilateral LE pitting edema) Skin: No breakdown, No significant lesion Labs LABS Laboratory Tests Test 10/23/18 17:33 10/23/18 20:45 10/24/18 07:43 10/24/18 11:14 Glucose (Fingerstick) 109 mg/dL (70-99) 139 mg/dL (70-99) 124 mg/dL (70-99) 119 mg/dL (70-99) Assessment and Plan Assessmemt and Plan Problems Medical Problems: (1) CHF (congestive heart failure) Status: Acute (2) Pneumonia Status: Acute (3) Pulmonary edema Status: Acute Comment Review of Relevant I have reviewed the following items cuate (where applicable) has been applied. Labs Laboratory Tests Test 10/22/18 17:20 10/22/18 17:45 10/22/18 20:57 10/23/18 03:00 Glucose (Fingerstick) 148 mg/dL (70-99) 115 mg/dL (70-99) Urine Collection Type Unknown Urine Color Yellow Urine Clarity Clear Urine pH 5.0 Urine Specific [place] 1.015 Urine Protein Negative mg/dL (NEG-TRACE) Urine Glucose (UA) Negative mg/dL (NEG) Urine Ketones (Stick) Negative mg/dL (NEG) Urine Blood Negative (NEG) Urine Nitrite Negative (NEG) Urine Bilirubin Negative (NEG) Urine Urobilinogen Dipstick 0.2 mg/dL (0.2 mg/dL) Urine Leukocyte Esterase Negative (NEG) Urine RBC 1-2 /HPF (0-2) Urine WBC 0 /HPF (0-4) Urine Bacteria 0 /HPF (0-FEW) Urine Mucus Mod /LPF Troponin I Quantitative 0.050 ng/mL (0.000-0.055) Sodium Level 145 mmol/L (136-145) Potassium Level 3.2 mmol/L (3.5-5.1) Chloride Level 108 mmol/L (98-107) Carbon Dioxide Level 31 mmol/L (21-32) Anion Gap 6 (6-14) Blood Urea Nitrogen 18 mg/dL (7-20) Creatinine 0.9 mg/dL (0.6-1.0) Estimated GFR (Cockcroft-Gault) 80.2 Glucose Level 118 mg/dL (70-99) Calcium Level 8.6 mg/dL (8.5-10.1) Magnesium Level 2.0 mg/dL (1.8-2.4) Triglycerides Level 93 mg/dL (0-150) Cholesterol Level 110 mg/dL (0-200) LDL Cholesterol, Calculated 58 mg/dL (0-100) VLDL Cholesterol, Calculated 19 mg/dL (0-40) Non-HDL Cholesterol Calculated 77 mg/dL (0-129) HDL Cholesterol 33 mg/dL (40-60) Cholesterol/HDL Ratio 3.3 Test 10/23/18 04:20 10/23/18 08:04 10/23/18 11:33 10/23/18 17:33 White Blood Count 7.2 x10^3/uL (4.0-11.0) Red Blood Count 4.12 x10^6/uL (3.50-5.40) Hemoglobin 11.2 g/dL (12.0-15.5) Hematocrit 34.7 % (36.0-47.0) Mean Corpuscular Volume 84 fL (79-100) Mean Corpuscular Hemoglobin 27 pg (25-35) Mean Corpuscular Hemoglobin Concent 32 g/dL (31-37) Red Cell Distribution Width 16.4 % (11.5-14.5) Platelet Count 164 x10^3/uL (140-400) Neutrophils (%) (Auto) 50 % (31-73) Lymphocytes (%) (Auto) 39 % (24-48) Monocytes (%) (Auto) 8 % (0-9) Eosinophils (%) (Auto) 2 % (0-3) Basophils (%) (Auto) 1 % (0-3) Neutrophils # (Auto) 3.6 x10^3uL (1.8-7.7) Lymphocytes # (Auto) 2.8 x10^3/uL (1.0-4.8) Monocytes # (Auto) 0.6 x10^3/uL (0.0-1.1) Eosinophils # (Auto) 0.1 x10^3/uL (0.0-0.7) Basophils # (Auto) 0.1 x10^3/uL (0.0-0.2) Glucose (Fingerstick) 120 mg/dL (70-99) 116 mg/dL (70-99) 109 mg/dL (70-99) Test 10/23/18 20:45 10/24/18 07:43 10/24/18 11:14 Glucose (Fingerstick) 139 mg/dL (70-99) 124 mg/dL (70-99) 119 mg/dL (70-99) Laboratory Tests Test 10/23/18 17:33 10/23/18 20:45 10/24/18 07:43 10/24/18 11:14 Glucose (Fingerstick) 109 mg/dL (70-99) 139 mg/dL (70-99) 124 mg/dL (70-99) 119 mg/dL (70-99) Medications Current Medications Albuterol/ Ipratropium (Duoneb) 3 ml 1X ONCE NEB Last administered on at 09:06; Start 10/22/18 at 09:00; Stop 10/22/18 at 09:06; Status DC Furosemide (Lasix) 20 mg 1X ONCE IVP ; Start 10/22/18 at 10:15; Stop 10/22/18 at 10:15; Status DC Azithromycin 250 ml @ 250 mls/hr 1X ONCE IV Last administered on 10/22/18at 11 :09; Start 10/22/18 at 10:15; Stop 10/22/18 at 11:14; Status DC Ceftriaxone Sodium (Rocephin) 1 gm 1X ONCE IVP Last administered on 10/22/18at 10:53; Start 10/22/18 at 10:15; Stop 10/22/18 at 10:16; Status DC Furosemide (Lasix) 40 mg 1X ONCE IVP Last administered on 10/22/18at 12:36; Start 10/22/18 at 10:15; Stop 10/22/18 at 10:16; Status DC Iohexol (Omnipaque 350 Mg/ml) 100 ml 1X ONCE IV Last administered on at 10:26; Start 10/22/18 at 10:30; Stop 10/22/18 at 10:31; Status DC Info (CONTRAST GIVEN -- Rx MONITORING) 1 each PRN DAILY PRN MC SEE COMMENTS; Start 10/22/18 at 10:30; Stop 10/24/18 at 10:29; Status DC Ondansetron HCl (Zofran) 4 mg PRN Q8HRS PRN IV NAUSEA/VOMITING; Start 10/22/18 at 11:45; Stop 10/23/18 at 11:44; Status DC Labetalol HCl (Normodyne Iv Push) 10 mg PRN Q6HRS PRN IVP HYPERTENSION, SEE COMMENTS; Start 10/22/18 at 14:00 Insulin Human Lispro (HumaLOG) 0-7 UNITS TIDWMEALS SQ ; Start 10/22/18 at 17:00 Dextrose (Dextrose 50%-Water Syringe) 12.5 gm PRN Q15MIN PRN IV SEE COMMENTS; Start 10/22/18 at 14:00 Amlodipine Besylate (Norvasc) 10 mg DAILY PO Last administered on 10/24/18at 08: 21; Start 10/22/18 at 15:00 Carvedilol (Coreg) 12.5 mg BIDWMEALS PO Last administered on 10/24/18at 08:20; Start 10/22/18 at 17:00 Glipizide (Glucotrol) 5 mg DAILY PO Last administered on 10/24/18at 08:20; Start 10/22/18 at 09:00 Oxycodone/ Acetaminophen (Percocet 7.5/ 325) 1 tab PRN Q6HRS PRN PO MODERATE TO SEVERE PAIN Last administered on 10/24/18at 12:22; Start 10/22/18 at 14:15 Potassium Chloride (Klor-Con) 20 meq DAILY PO Last administered on 10/24/18at 08 :20; Start 10/23/18 at 09:00 Cetirizine HCl (ZyrTEC) 10 mg DAILY PO Last administered on 10/24/18at 08:20; Start 10/22/18 at 15:00 Losartan Potassium (Cozaar) 50 mg DAILY PO Last administered on 10/24/18at 08:21 ; Start 10/23/18 at 09:00 Pantoprazole Sodium (Protonix) 40 mg DAILYAC PO Last administered on 10/24/18at 08:19; Start 10/23/18 at 07:30 Atorvastatin Calcium (Lipitor) 40 mg QHS PO Last administered on 10/23/18at 21: 00; Start 10/22/18 at 21:00 Warfarin Sodium (Coumadin) 10 mg DAILY16 PO Last administered on 10/23/18at 17: 29; Start 10/23/18 at 16:00; Stop 10/24/18 at 12:18; Status DC Hydrochlorothiazide (Microzide) 12.5 mg DAILY PO ; Start 10/23/18 at 09:00; Stop 10/23/18 at 09:00; Status DC Furosemide (Lasix) 40 mg 1X ONCE IVP Last administered on 10/22/18at 15:36; Start 10/22/18 at 15:30; Stop 10/22/18 at 15:31; Status DC Albuterol/ Ipratropium (Duoneb) 3 ml RTQID NEB Last administered on 10/24/18at 12:03; Start 10/22/18 at 16:00 Warfarin Sodium (Coumadin Per Physician) 1 each PRN DAILY PRN MC SEE COMMENTS; Start 10/22/18 at 15:30 Enoxaparin Sodium (Lovenox 60mg Syringe) 60 mg Q12HR SQ Last administered on at 08:22; Start 10/22/18 at 21:00; Stop 10/24/18 at 12:18; Status DC Perflutren Protein Type A Microsphe (Optison) 0.66 mg STK-MED ONCE IV ; Start at 16:03; Stop 10/22/18 at 16:05; Status DC Furosemide (Lasix) 40 mg BID94 IVP Last administered on 10/24/18at 08:22; Start 10/23/18 at 09:00 Perflutren Protein Type A Microsphe (Optison) 0.66 mg PRN 1X PRN IV SEE COMMENTS; Start 10/22/18 at 16:45; Stop 10/23/18 at 16:44; Status DC Potassium Chloride (Klor-Con) 40 meq 1X ONCE PO Last administered on at 12:58; Start 10/23/18 at 11:15; Stop 10/23/18 at 11:16; Status DC Clindamycin HCl (Cleocin) 300 mg TID PO Last administered on 10/24/18at 14:14; Start 10/23/18 at 23:00 Active Scripts Active Reported Percocet 7.5-325 Mg Tablet (Oxycodone/Acetaminophen) 1 Each Tablet 1 Tab PO PRN Q6HRS PRN Loratadine 10 Mg Tablet 1 Tab PO DAILY Losartan-Hctz 50-12.5 Mg Tab (Losartan/Hydrochlorothiazide) 1 Each Tablet 1 Tab PO DAILY Amlodipine Besylate 10 Mg Tablet 10 Mg PO DAILY Glipizide 5 Mg Tablet 1 Tab PO DAILY Potassium Chloride 20 Meq Tab.er.prt 1 Tab PO DAILY Warfarin Sodium 10 Mg Tablet 10 Mg PO DAILY Omeprazole 40 Mg Capsule.dr 1 Cap PO DAILY Crestor (Rosuvastatin Calcium) 10 Mg Tablet 1 Tab PO DAILY Carvedilol (Carvedilol) 12.5 Mg Tablet 1 Tab PO BID Vitals/I & O Vital Sign - Last 24 Hours 10/23/18 10/23/18 10/23/18 10/23/18 15:00 15:27 15:36 17:29 Temp 98.1 98.1 Pulse 87 92 B/P (MAP) 143/97 (112) Pulse Ox 100 98 2 O2 Delivery Nasal Cannula Nasal Cannula O2 Flow Rate 2.0 2.0 10/23/18 10/23/18 10/23/18 10/23/18 19:30 19:38 20:02 23:25 Temp 98.0 99.2 98.0 99.2 Pulse 87 90 Resp 22 22 B/P (MAP) 132/73 (92) 122/69 (86) Pulse Ox 91 98 96 O2 Delivery Room Air Nasal Cannula Room Air Room Air O2 Flow Rate 2.0 10/24/18 10/24/18 10/24/18 10/24/18 03:55 07:00 07:44 08:00 Temp 98.7 98.3 98.7 98.3 Pulse 93 88 Resp 20 18 B/P (MAP) 128/77 (94) 130/108 (115) Pulse Ox 94 92 98 O2 Delivery Room Air Room Air Nasal Cannula Room Air O2 Flow Rate 2.0 10/24/18 10/24/18 10/24/18 10/24/18 08:20 08:21 08:21 11:03 Temp 97.5 97.5 Pulse 88 88 88 83 Resp 18 B/P (MAP) 130/108 130/108 130/108 125/86 (99) Pulse Ox 98 O2 Delivery Room Air 10/24/18 10/24/18 10/24/18 12:04 12:22 13:22 Pulse Ox 98 O2 Delivery Room Air Room Air Room Air Intake and Output 10/23/18 10/23/18 10/24/18 15:01 23:01 07:01 Intake Total 680 ml 520 ml Output Total 1150 ml 500 ml 1650 ml Balance -1150 ml 180 ml -1130 ml SARA TELLEZ MD Oct 24, 2018 14:46
[2018-10-24 15:00] VITALS: BP 135/82
[2018-10-24 19:20] VITALS: BP 127/71
[2018-10-24] MEDS: ATORVASTATIN CALCIUM 40 MG TABLET. PO SCH (21:09)
[2018-10-25] VITALS (18 sets, daily range): BP systolic 120–152; BP diastolic 65–104
[2018-10-25 05:20] LABS: PROTHROMBIN TIME PATIENT 21.2 SEC (11.7-14.0)
[2018-10-25] MEDS: PANTOPRAZOLE 40 MG TABLET.DR. PO SCH (07:30)
[2018-10-25] MEDS: CARVEDILOL 12.5 MG TABLET. PO SCH ×2 (08:00→16:34)
[2018-10-25] MEDS: INSULIN LISPRO 300 UNITS/3 ML INSULN.PEN. SQ SCH ×3 (08:00→17:00)
[2018-10-25] MEDS: IPRATRPIUM/ALBUTEROL 0.5/2.5MG 3 ML NEBU. NEB SCH ×4 (08:06→20:30)
[2018-10-25] MEDS: CETIRIZINE HCL 10 MG TABLET. PO SCH (09:00)
[2018-10-25] MEDS: amLODIPine BESYLATE 10 MG TABLET PO SCH (09:00)
[2018-10-25] MEDS: CLINDAMYCIN HCL 150 MG CAPSULE. PO SCH ×3 (09:00→20:27)
[2018-10-25] MEDS: LOSARTAN POTASSIUM 50 MG TABLET. PO SCH (09:00)
[2018-10-25] MEDS: glipiZIDE 5 MG TABLET PO SCH (09:00)
--- NOTE | 2018-10-25 09:51 | PDOC ---
PULMONARY PROGRESS NOTES Subjective NO SOA Vitals Vital Signs Date Time Temp Pulse Resp B/P (MAP) Pulse Ox O2 Delivery O2 Flow Rate FiO2 10/25/18 08:07 94 Room Air 10/25/18 07:30 98.0 86 16 135/73 (93) 98.0 10/24/18 07:44 2.0 General: Alert, No acute distress Lungs: Clear Cardiovascular: S1 Abdomen: Soft, Other (obese) Extremities: Other (trace edema) Labs Laboratory Tests Test 10/23/18 11:33 10/23/18 17:33 10/23/18 20:45 10/24/18 07:43 Glucose (Fingerstick) 116 mg/dL (70-99) 109 mg/dL (70-99) 139 mg/dL (70-99) 124 mg/dL (70-99) Test 10/24/18 11:14 10/24/18 16:46 10/24/18 20:47 10/25/18 04:50 Glucose (Fingerstick) 119 mg/dL (70-99) 188 mg/dL (70-99) 153 mg/dL (70-99) Prothrombin Time 21.2 SEC (11.7-14.0) Prothromb Time International Ratio 1.9 (0.8-1.1) Test 10/25/18 07:38 Glucose (Fingerstick) 112 mg/dL (70-99) Laboratory Tests Test 10/24/18 11:14 10/24/18 16:46 10/24/18 20:47 10/25/18 04:50 Glucose (Fingerstick) 119 mg/dL (70-99) 188 mg/dL (70-99) 153 mg/dL (70-99) Prothrombin Time 21.2 SEC (11.7-14.0) Prothromb Time International Ratio 1.9 (0.8-1.1) Test 10/25/18 07:38 Glucose (Fingerstick) 112 mg/dL (70-99) Medications Active Scripts Medications Dose Route/Sig Max Daily Dose Days Date Category Percocet 7.5-325 Mg Tablet (Oxycodone/Acetaminophen) 1 Each Tablet 1 Tab PO PRN Q6HRS PRN 10/22/18 Reported Loratadine 10 Mg Tablet 1 Tab PO DAILY 10/22/18 Reported Losartan-Hctz 50-12.5 Mg Tab (Losartan/Hydrochlorothiazide) 1 Each Tablet 1 Tab PO DAILY 10/22/18 Reported Amlodipine Besylate 10 Mg Tablet 10 Mg PO DAILY 10/22/18 Reported Glipizide 5 Mg Tablet 1 Tab PO DAILY 10/22/18 Reported Potassium Chloride 20 Meq Tab.er.prt 1 Tab PO DAILY 09/23/14 Reported Warfarin Sodium 10 Mg Tablet 10 Mg PO DAILY 08/25/14 Reported Omeprazole 40 Mg Capsule.dr 1 Cap PO DAILY 08/25/14 Reported Crestor (Rosuvastatin Calcium) 10 Mg Tablet 1 Tab PO DAILY 08/25/14 Reported Carvedilol (Carvedilol) 12.5 Mg Tablet 1 Tab PO BID 08/25/14 Reported Impression . 1. Acute hypoxic respiratory failure secondary to acute diastolic and systolic heart failure. 2. Abnormal echo with an EF of 30%, suggesting severe cardiomyopathy and grade III diastolic dysfunction. 3. Minimal history of tobacco use. Clinically, less likely chronic obstructive pulmonary disease. 4. Morbid obesity and history of obstructive sleep apnea, stopped using CPAP, but has persistent daytime somnolence, would need outpatient repeat sleep study. Plan . 1. Continue present diuresis. 2. Follow chest x-ray 10/25 showing resolving CHF. 3. Follow renal function. 4. Anticoagulation per PCP. 5. Anti-ischemic workup per Cardiology./ cath today 6. Sleep study as an outpatient. Discussed with SUDHAKAR. SUSAN MELARA MD Oct 25, 2018 09:51
[2018-10-25] MEDS: FUROSEMIDE 40 MG/4 ML VIAL. IVP SCH ×2 (10:05→16:34)
--- NOTE | 2018-10-25 11:23 | NUR ---
SS following for discharge planning. SS reviewed pt chart and met with pt's RN. Pt is from home alone and is currently on room air. PT/OT recommending home healthcare. SS met with pt to discuss discharge planning and home healthcare options. Pt reported that she lives at home alone and has a brother that comes into town every once in awhile. Pt reported that she would be agreeable to home healthcare at discharge and had no preference of company. SS will await discharge orders and will proceed accordingly. Pt's RN notified.
--- NOTE | 2018-10-25 12:26 | RAD ---
Portable chest, 10/25/2018: HISTORY: Left chest pain Comparison is made to a study from 10/22/2017. The heart is enlarged. Perihilar pulmonary infiltrates have largely resolved with better definition of the underlying pulmonary vascularity. No new pulmonary abnormality is seen. There is no evidence of significant pleural fluid. IMPRESSION: Resolving pulmonary edema. Electronically signed by: Chris Kramer MD (10/25/2018 12:22 PM) [facility]
[2018-10-25] MEDS ORDERED: ACETAMINOPHEN 325 MG TABLET. PO PRN (14:00)
[2018-10-25] MEDS ORDERED: DOCUSATE SODIUM 100 MG CAPSULE. PO PRN (14:00)
[2018-10-25] MEDS ORDERED: hydrALAZINE 20 MG/ML VIAL. IVP PRN (14:00)
[2018-10-25] MEDS ORDERED: ONDANSETRON PF 4 MG/2 ML VIAL. IV PRN (14:00)
--- NOTE | 2018-10-25 14:09 | PDOC ---
PROGRESS NOTES Chief Complaint Chief Complaint acute resp failure with chf exacerbation, systolic EF 305 and diastolic pafib? morbid obesity BMI 63 rt tooth pain plan: lasix 40mg iv bid fu with card, cath today on warfarin at home inr daily has dentist appt next week, currently on clinda by colleague. PTOT History of Present Illness History of Present Illness Plans for cath on Thursday Was on cephelexin qday at home for broken tooth, will dc and start Clindamycin for started 10/23/17. Plans for cath on Thursday. npo at 12 am . Vitals Vitals Vital Signs Date Time Temp Pulse Resp B/P (MAP) Pulse Ox O2 Delivery O2 Flow Rate FiO2 10/25/18 11:37 Nasal Cannula 2.0 10/25/18 11:00 98.5 90 16 147/98 (114) 98 98.5 Physical Exam General: Alert, mild distress Heart: Regular rate (SR), Other (distant heart sounds) Lungs: Clear Abdomen: Soft, Other (obese) Extremities: No cyanosis, Other (1+ bilateral LE pitting edema) Skin: No breakdown, No significant lesion Labs LABS Laboratory Tests Test 10/24/18 16:46 10/24/18 20:47 10/25/18 04:50 10/25/18 07:38 Glucose (Fingerstick) 188 mg/dL (70-99) 153 mg/dL (70-99) 112 mg/dL (70-99) Prothrombin Time 21.2 SEC (11.7-14.0) Prothromb Time International Ratio 1.9 (0.8-1.1) Test 10/25/18 11:49 Glucose (Fingerstick) 104 mg/dL (70-99) Assessment and Plan Assessmemt and Plan Problems Medical Problems: (1) CHF (congestive heart failure) Status: Acute (2) Pneumonia Status: Acute (3) Pulmonary edema Status: Acute Comment Review of Relevant I have reviewed the following items cuate (where applicable) has been applied. Labs Laboratory Tests Test 10/23/18 17:33 10/23/18 20:45 10/24/18 07:43 10/24/18 11:14 Glucose (Fingerstick) 109 mg/dL (70-99) 139 mg/dL (70-99) 124 mg/dL (70-99) 119 mg/dL (70-99) Test 10/24/18 16:46 10/24/18 20:47 10/25/18 04:50 10/25/18 07:38 Glucose (Fingerstick) 188 mg/dL (70-99) 153 mg/dL (70-99) 112 mg/dL (70-99) Prothrombin Time 21.2 SEC (11.7-14.0) Prothromb Time International Ratio 1.9 (0.8-1.1) Test 10/25/18 11:49 Glucose (Fingerstick) 104 mg/dL (70-99) Laboratory Tests Test 10/24/18 16:46 10/24/18 20:47 10/25/18 04:50 10/25/18 07:38 Glucose (Fingerstick) 188 mg/dL (70-99) 153 mg/dL (70-99) 112 mg/dL (70-99) Prothrombin Time 21.2 SEC (11.7-14.0) Prothromb Time International Ratio 1.9 (0.8-1.1) Test 10/25/18 11:49 Glucose (Fingerstick) 104 mg/dL (70-99) Medications Current Medications Albuterol/ Ipratropium (Duoneb) 3 ml 1X ONCE NEB Last administered on at 09:06; Start 10/22/18 at 09:00; Stop 10/22/18 at 09:06; Status DC Furosemide (Lasix) 20 mg 1X ONCE IVP ; Start 10/22/18 at 10:15; Stop 10/22/18 at 10:15; Status DC Azithromycin 250 ml @ 250 mls/hr 1X ONCE IV Last administered on 10/22/18at 11 :09; Start 10/22/18 at 10:15; Stop 10/22/18 at 11:14; Status DC Ceftriaxone Sodium (Rocephin) 1 gm 1X ONCE IVP Last administered on 10/22/18at 10:53; Start 10/22/18 at 10:15; Stop 10/22/18 at 10:16; Status DC Furosemide (Lasix) 40 mg 1X ONCE IVP Last administered on 10/22/18at 12:36; Start 10/22/18 at 10:15; Stop 10/22/18 at 10:16; Status DC Iohexol (Omnipaque 350 Mg/ml) 100 ml 1X ONCE IV Last administered on at 10:26; Start 10/22/18 at 10:30; Stop 10/22/18 at 10:31; Status DC Info (CONTRAST GIVEN -- Rx MONITORING) 1 each PRN DAILY PRN MC SEE COMMENTS; Start 10/22/18 at 10:30; Stop 10/24/18 at 10:29; Status DC Ondansetron HCl (Zofran) 4 mg PRN Q8HRS PRN IV NAUSEA/VOMITING; Start 10/22/18 at 11:45; Stop 10/23/18 at 11:44; Status DC Labetalol HCl (Normodyne Iv Push) 10 mg PRN Q6HRS PRN IVP HYPERTENSION, SEE COMMENTS; Start 10/22/18 at 14:00 Insulin Human Lispro (HumaLOG) 0-7 UNITS TIDWMEALS SQ Last administered on 10/24at 17:27; Start 10/22/18 at 17:00 Dextrose (Dextrose 50%-Water Syringe) 12.5 gm PRN Q15MIN PRN IV SEE COMMENTS; Start 10/22/18 at 14:00 Amlodipine Besylate (Norvasc) 10 mg DAILY PO Last administered on 10/24/18at 08: 21; Start 10/22/18 at 15:00 Carvedilol (Coreg) 12.5 mg BIDWMEALS PO Last administered on 10/24/18at 17:21; Start 10/22/18 at 17:00 Glipizide (Glucotrol) 5 mg DAILY PO Last administered on 10/24/18at 08:20; Start 10/22/18 at 09:00 Oxycodone/ Acetaminophen (Percocet 7.5/ 325) 1 tab PRN Q6HRS PRN PO MODERATE TO SEVERE PAIN Last administered on 10/24/18at 12:22; Start 10/22/18 at 14:15 Potassium Chloride (Klor-Con) 20 meq DAILY PO Last administered on 10/24/18at 08 :20; Start 10/23/18 at 09:00 Cetirizine HCl (ZyrTEC) 10 mg DAILY PO Last administered on 10/24/18at 08:20; Start 10/22/18 at 15:00 Losartan Potassium (Cozaar) 50 mg DAILY PO Last administered on 10/24/18at 08:21 ; Start 10/23/18 at 09:00 Pantoprazole Sodium (Protonix) 40 mg DAILYAC PO Last administered on 10/24/18at 08:19; Start 10/23/18 at 07:30 Atorvastatin Calcium (Lipitor) 40 mg QHS PO Last administered on 10/24/18at 21: 09; Start 10/22/18 at 21:00 Warfarin Sodium (Coumadin) 10 mg DAILY16 PO Last administered on 10/23/18at 17: 29; Start 10/23/18 at 16:00; Stop 10/24/18 at 12:18; Status DC Hydrochlorothiazide (Microzide) 12.5 mg DAILY PO ; Start 10/23/18 at 09:00; Stop 10/23/18 at 09:00; Status DC Furosemide (Lasix) 40 mg 1X ONCE IVP Last administered on 10/22/18at 15:36; Start 10/22/18 at 15:30; Stop 10/22/18 at 15:31; Status DC Albuterol/ Ipratropium (Duoneb) 3 ml RTQID NEB Last administered on 10/25/18at 11:37; Start 10/22/18 at 16:00 Warfarin Sodium (Coumadin Per Physician) 1 each PRN DAILY PRN MC SEE COMMENTS; Start 10/22/18 at 15:30 Enoxaparin Sodium (Lovenox 60mg Syringe) 60 mg Q12HR SQ Last administered on at 08:22; Start 10/22/18 at 21:00; Stop 10/24/18 at 12:18; Status DC Perflutren Protein Type A Microsphe (Optison) 0.66 mg STK-MED ONCE IV ; Start at 16:03; Stop 10/22/18 at 16:05; Status DC Furosemide (Lasix) 40 mg BID94 IVP Last administered on 10/25/18at 10:05; Start 10/23/18 at 09:00 Perflutren Protein Type A Microsphe (Optison) 0.66 mg PRN 1X PRN IV SEE COMMENTS; Start 10/22/18 at 16:45; Stop 10/23/18 at 16:44; Status DC Potassium Chloride (Klor-Con) 40 meq 1X ONCE PO Last administered on at 12:58; Start 10/23/18 at 11:15; Stop 10/23/18 at 11:16; Status DC Clindamycin HCl (Cleocin) 300 mg TID PO Last administered on 10/24/18at 21:09; Start 10/23/18 at 23:00 Perflutren Protein Type A Microsphe (Optison) 0.66 mg STK-MED ONCE IV ; Start at 16:00; Stop 10/25/18 at 09:01; Status DC Active Scripts Active Reported Percocet 7.5-325 Mg Tablet (Oxycodone/Acetaminophen) 1 Each Tablet 1 Tab PO PRN Q6HRS PRN Loratadine 10 Mg Tablet 1 Tab PO DAILY Losartan-Hctz 50-12.5 Mg Tab (Losartan/Hydrochlorothiazide) 1 Each Tablet 1 Tab PO DAILY Amlodipine Besylate 10 Mg Tablet 10 Mg PO DAILY Glipizide 5 Mg Tablet 1 Tab PO DAILY Potassium Chloride 20 Meq Tab.er.prt 1 Tab PO DAILY Warfarin Sodium 10 Mg Tablet 10 Mg PO DAILY Omeprazole 40 Mg Capsule.dr 1 Cap PO DAILY Crestor (Rosuvastatin Calcium) 10 Mg Tablet 1 Tab PO DAILY Carvedilol (Carvedilol) 12.5 Mg Tablet 1 Tab PO BID Vitals/I & O Vital Sign - Last 24 Hours 10/24/18 10/24/18 10/24/18 10/24/18 15:00 16:00 17:21 19:20 Temp 97.6 98.3 97.6 98.3 Pulse 85 85 90 Resp 18 20 B/P (MAP) 135/82 (99) 135/82 127/71 (89) Pulse Ox 97 98 98 O2 Delivery Room Air Room Air Room Air 10/24/18 10/24/18 10/25/18 10/25/18 19:31 20:00 00:00 03:10 Temp 98.9 98.0 98.9 98.0 Pulse 96 90 Resp 22 20 B/P (MAP) 138/81 (100) 132/71 (91) Pulse Ox 98 94 95 O2 Delivery Room Air Room Air Room Air Room Air 10/25/18 10/25/18 10/25/18 10/25/18 07:30 08:00 08:07 11:00 Temp 98.0 98.5 98.0 98.5 Pulse 86 90 Resp 16 16 B/P (MAP) 135/73 (93) 147/98 (114) Pulse Ox 94 94 98 O2 Delivery Room Air Nasal Cannula Room Air Nasal Cannula O2 Flow Rate 2.0 2.0 10/25/18 11:37 O2 Delivery Nasal Cannula O2 Flow Rate 2.0 Intake and Output 10/24/18 10/24/18 10/25/18 15:01 23:01 07:01 Intake Total 480 ml 480 ml 0 ml Output Total 1950 ml Balance 480 ml 480 ml -1950 ml CHRISTAL CANTU MD Oct 25, 2018 14:09
[2018-10-25] MEDS ORDERED: fentaNYL PF VIAL 100 MCG/2 ML VIAL ONE (15:14)
[2018-10-25] MEDS ORDERED: MIDAZOLAM HCL/PF 5 MG/5 ML VIAL. ONE (15:15)
[2018-10-25] MEDS ORDERED: IODIXANOL 320 MG/ML 100 ML VIAL. ONE (15:19)
[2018-10-25] MEDS ORDERED: LIDOCAINE 1% PF 2 ML VIAL. ONE (15:19)
[2018-10-25] MEDS ORDERED: VERAPAMIL 5 MG/2 ML VIAL. ONE (15:26)
[2018-10-25] MEDS ORDERED: NITROGLYCERIN 200 MCG/2 ML SYRINGE FOR CATH/VASC LAB. ONE (15:26)
[2018-10-25] MEDS ORDERED: HEPARIN for IV BOLUS 10,000 UNIT/10 ML VIAL. ONE (15:26)
[2018-10-25] MEDS ORDERED: fentaNYL PF VIAL 100 MCG/2 ML VIAL IV ONE (15:45)
[2018-10-25] MEDS ORDERED: HEPARIN for IV BOLUS 10,000 UNIT/10 ML VIAL. IART ONE (15:45)
[2018-10-25] MEDS ORDERED: LIDOCAINE 2% 20 ML VIAL. IJ ONE (15:45)
[2018-10-25] MEDS ORDERED: MIDAZOLAM HCL/PF 5 MG/5 ML VIAL. IV ONE (15:45)
[2018-10-25] MEDS ORDERED: VERAPAMIL 5 MG/2 ML VIAL. IART ONE (15:45)
[2018-10-25] MEDS ORDERED: IODIXANOL 320 MG/ML 100 ML VIAL. IART ONE (15:45)
[2018-10-25] MEDS ORDERED: NITROGLYCERIN 200 MCG/2 ML SYRINGE FOR CATH/VASC LAB. IART ONE (15:45)
[2018-10-25] MEDS ORDERED: CONTRAST GIVEN. MC PRN (16:00)
[2018-10-25] MEDS ORDERED: LIDOCAINE 1% PF 2 ML VIAL. INJ ONE (16:15)
[2018-10-25] MEDS: POTASSIUM CHLORIDE 20 MEQ TABLET.ER. PO SCH (16:33)
--- NOTE | 2018-10-25 18:19 | CARD ---
MR#: [id number] Date of Study: 10/25/2018 Ordering Physician: CHANTAL PEÑA, Referring Physician: FLOWER RHODES Tech: RT Amy (R) APPROVED REPORT Technologist: RT Amy (R) Nurse: Ramona Shin R.N. Procedure(s) performed: Moderate sedation: 35 minutes coronary angiography HISTORY : The patient is a 48 year-old female with a history of . INDICATION The indication(s) include : cardiomyopathy with an EF of 30%. PROCEDURE NARRATIVE INFORMED CONSENT: After explaining the risks and benefits of the procedure and alternatives, informed consent was obtained. The patient was brought electively to the cardiac catheterization lab. A timeout was performed confi rming the patient's name, date of , procedure, and site of procedure. All necessary personnel w ere wearing the appropriate protective equipment and radiation monitor devices. (See nursing notes for medications administered). ACCESS: The right wrist was sterilely prepped and draped in the usual fashion. The right wrist was infiltrat ed with 1 mL of 2% lidocaine for subcutaneous anesthesia. A 6 [place] Terumo glide sheath was inserte d into the right radial artery without difficulty. CORONARY ANGIOGRAPHY: Right and left coronary angiography was performed using a 6Fr TIG 4.0 catheter. Left ventricular en d diastolic pressure was obtained with a pigtail catheter and pullback was performed. All catheter e xchanges and advancements were performed over a guidewire. CLOSURE: At case completion the right radial sheath was removed and a Terumo radial band was applied with 13 m l of air. COMPLICATIONS: The patient tolerated the procedure well and there were no immediate complications. FINDINGS: HEMODYNAMICS: LVEDP 35 mm Hg No gradient on LV to aortic pullback. AO: 128/78 CORONARY ANGIOGRAPHY: LM is a large caliber vessel with normal angiographic appearance. LAD is a large caliber vessel with normal angiographic appearance. D1 is a moderate caliber vessel with normal angiographic apeparance. LCx is a moderate caliber non-dominant vessel with normal angiographic appearance. OM1 is a moderate caliber vessel with normal angiographic appearance. RCA is a large caliber dominant vessel with normal angiographic appearance. RPDA and RPL are moderate caliber vessels with normal angiographic appearance. Conclusion 1. Elevated left sided filling pressures (LVEDP 35 mm Hg) consistent with acute on chronic decompensa jair HF. 2. No angiographic evidence of coronary disease. Recommendations Aggressive Medical Therapy Signed by : Kahlil Juarez, Electronically Approved : 10/25/2018 18:17:49
[2018-10-25] MEDS: ATORVASTATIN CALCIUM 40 MG TABLET. PO SCH (20:27)
[2018-10-26 03:21] VITALS: BP 134/75
[2018-10-26 04:58] LABS: BASO # 0.1 x10^3/uL (0.0-0.2); BASO % 1 % (0-3); EOS # 0.2 x10^3/uL (0.0-0.7); EOS % 2 % (0-3); HEMATOCRIT 35.3 % (36.0-47.0); HEMOGLOBIN 11.8 g/dL (12.0-15.5); LYMPH # 2.7 x10^3/uL (1.0-4.8); LYMPH % 36 % (24-48); MEAN CORPUSCULAR HEMOGLOBIN 28 pg (25-35); MEAN CORPUSCULAR HGB CONC 33 g/dL (31-37); MEAN CORPUSCULAR VOLUME 83 fL (79-100); MONO # 0.6 x10^3/uL (0.0-1.1); MONO % 8 % (0-9); NEUT % 53 % (31-73); PLATELET COUNT 179 x10^3/uL (140-400); RED BLOOD COUNT 4.26 x10^6/uL (3.50-5.40); RED CELL DISTRIBUTION WIDTH 16.4 % (11.5-14.5); WHITE BLOOD COUNT 7.5 x10^3/uL (4.0-11.0)
[2018-10-26 04:59] LABS: CALCIUM 8.2 mg/dL (8.5-10.1); CREATININE 0.9 mg/dL (0.6-1.0); GFR 80.2; POTASSIUM 3.3 mmol/L (3.5-5.1)
[2018-10-26 05:19] LABS: PROTHROMBIN TIME PATIENT 17.1 SEC (11.7-14.0)
[2018-10-26] MEDS: PANTOPRAZOLE 40 MG TABLET.DR. PO SCH (05:49)
[2018-10-26 07:00] VITALS: BP 126/87
[2018-10-26] MEDS: IPRATRPIUM/ALBUTEROL 0.5/2.5MG 3 ML NEBU. NEB SCH ×4 (07:32→19:25)
--- NOTE | 2018-10-26 07:56 | RAD ---
Portable chest, 10/26/2018: HISTORY: Congestive heart failure Comparison is made to yesterday's study. The heart is enlarged. The pulmonary vascularity remains congested. There is only minimal residual perihilar opacities compatible with pulmonary edema. No new abnormality is detected. IMPRESSION: Mild ongoing congestive heart failure with minimal perihilar-perivascular pulmonary edema. Electronically signed by: Chris Kramer MD (10/26/2018 7:52 AM) [facility]
[2018-10-26] MEDS: INSULIN LISPRO 300 UNITS/3 ML INSULN.PEN. SQ SCH ×3 (08:00→17:00)
--- NOTE | 2018-10-26 08:42 | PDOC ---
PULMONARY PROGRESS NOTES Subjective NO SOA Vitals Vital Signs Date Time Temp Pulse Resp B/P (MAP) Pulse Ox O2 Delivery O2 Flow Rate FiO2 10/26/18 07:32 99 Room Air 10/26/18 07:00 98.0 86 16 126/87 (100) 98.0 10/25/18 20:00 2.0 General: Alert, No acute distress Lungs: Clear Cardiovascular: S1 Abdomen: Soft, Other (obese) Extremities: Other (trace edema) Labs Laboratory Tests Test 10/24/18 11:14 10/24/18 16:46 10/24/18 20:47 10/25/18 04:50 Glucose (Fingerstick) 119 mg/dL (70-99) 188 mg/dL (70-99) 153 mg/dL (70-99) Prothrombin Time 21.2 SEC (11.7-14.0) Prothromb Time International Ratio 1.9 (0.8-1.1) Test 10/25/18 07:38 10/25/18 11:49 10/25/18 17:19 10/25/18 20:31 Glucose (Fingerstick) 112 mg/dL (70-99) 104 mg/dL (70-99) 88 mg/dL (70-99) 187 mg/dL (70-99) Test 10/26/18 04:00 10/26/18 07:52 White Blood Count 7.5 x10^3/uL (4.0-11.0) Red Blood Count 4.26 x10^6/uL (3.50-5.40) Hemoglobin 11.8 g/dL (12.0-15.5) Hematocrit 35.3 % (36.0-47.0) Mean Corpuscular Volume 83 fL (79-100) Mean Corpuscular Hemoglobin 28 pg (25-35) Mean Corpuscular Hemoglobin Concent 33 g/dL (31-37) Red Cell Distribution Width 16.4 % (11.5-14.5) Platelet Count 179 x10^3/uL (140-400) Neutrophils (%) (Auto) 53 % (31-73) Lymphocytes (%) (Auto) 36 % (24-48) Monocytes (%) (Auto) 8 % (0-9) Eosinophils (%) (Auto) 2 % (0-3) Basophils (%) (Auto) 1 % (0-3) Neutrophils # (Auto) 4.0 x10^3uL (1.8-7.7) Lymphocytes # (Auto) 2.7 x10^3/uL (1.0-4.8) Monocytes # (Auto) 0.6 x10^3/uL (0.0-1.1) Eosinophils # (Auto) 0.2 x10^3/uL (0.0-0.7) Basophils # (Auto) 0.1 x10^3/uL (0.0-0.2) Prothrombin Time 17.1 SEC (11.7-14.0) Prothromb Time International Ratio 1.4 (0.8-1.1) Sodium Level 141 mmol/L (136-145) Potassium Level 3.3 mmol/L (3.5-5.1) Chloride Level 104 mmol/L (98-107) Carbon Dioxide Level 30 mmol/L (21-32) Anion Gap 7 (6-14) Blood Urea Nitrogen 21 mg/dL (7-20) Creatinine 0.9 mg/dL (0.6-1.0) Estimated GFR (Cockcroft-Gault) 80.2 Glucose Level 124 mg/dL (70-99) Calcium Level 8.2 mg/dL (8.5-10.1) Glucose (Fingerstick) 124 mg/dL (70-99) Laboratory Tests Test 10/25/18 11:49 10/25/18 17:19 10/25/18 20:31 10/26/18 04:00 Glucose (Fingerstick) 104 mg/dL (70-99) 88 mg/dL (70-99) 187 mg/dL (70-99) White Blood Count 7.5 x10^3/uL (4.0-11.0) Red Blood Count 4.26 x10^6/uL (3.50-5.40) Hemoglobin 11.8 g/dL (12.0-15.5) Hematocrit 35.3 % (36.0-47.0) Mean Corpuscular Volume 83 fL (79-100) Mean Corpuscular Hemoglobin 28 pg (25-35) Mean Corpuscular Hemoglobin Concent 33 g/dL (31-37) Red Cell Distribution Width 16.4 % (11.5-14.5) Platelet Count 179 x10^3/uL (140-400) Neutrophils (%) (Auto) 53 % (31-73) Lymphocytes (%) (Auto) 36 % (24-48) Monocytes (%) (Auto) 8 % (0-9) Eosinophils (%) (Auto) 2 % (0-3) Basophils (%) (Auto) 1 % (0-3) Neutrophils # (Auto) 4.0 x10^3uL (1.8-7.7) Lymphocytes # (Auto) 2.7 x10^3/uL (1.0-4.8) Monocytes # (Auto) 0.6 x10^3/uL (0.0-1.1) Eosinophils # (Auto) 0.2 x10^3/uL (0.0-0.7) Basophils # (Auto) 0.1 x10^3/uL (0.0-0.2) Prothrombin Time 17.1 SEC (11.7-14.0) Prothromb Time International Ratio 1.4 (0.8-1.1) Sodium Level 141 mmol/L (136-145) Potassium Level 3.3 mmol/L (3.5-5.1) Chloride Level 104 mmol/L (98-107) Carbon Dioxide Level 30 mmol/L (21-32) Anion Gap 7 (6-14) Blood Urea Nitrogen 21 mg/dL (7-20) Creatinine 0.9 mg/dL (0.6-1.0) Estimated GFR (Cockcroft-Gault) 80.2 Glucose Level 124 mg/dL (70-99) Calcium Level 8.2 mg/dL (8.5-10.1) Test 10/26/18 07:52 Glucose (Fingerstick) 124 mg/dL (70-99) Medications Active Scripts Medications Dose Route/Sig Max Daily Dose Days Date Category Percocet 7.5-325 Mg Tablet (Oxycodone/Acetaminophen) 1 Each Tablet 1 Tab PO PRN Q6HRS PRN 10/22/18 Reported Loratadine 10 Mg Tablet 1 Tab PO DAILY 10/22/18 Reported Losartan-Hctz 50-12.5 Mg Tab (Losartan/Hydrochlorothiazide) 1 Each Tablet 1 Tab PO DAILY 10/22/18 Reported Amlodipine Besylate 10 Mg Tablet 10 Mg PO DAILY 10/22/18 Reported Glipizide 5 Mg Tablet 1 Tab PO DAILY 10/22/18 Reported Potassium Chloride 20 Meq Tab.er.prt 1 Tab PO DAILY 09/23/14 Reported Warfarin Sodium 10 Mg Tablet 10 Mg PO DAILY 08/25/14 Reported Omeprazole 40 Mg Capsule.dr 1 Cap PO DAILY 08/25/14 Reported Crestor (Rosuvastatin Calcium) 10 Mg Tablet 1 Tab PO DAILY 08/25/14 Reported Carvedilol (Carvedilol) 12.5 Mg Tablet 1 Tab PO BID 08/25/14 Reported Impression . 1. Acute hypoxic respiratory failure secondary to acute diastolic and systolic heart failure. 2. Abnormal echo with an EF of 30%, suggesting severe cardiomyopathy and grade III diastolic dysfunction. 3. Minimal history of tobacco use. Clinically, less likely chronic obstructive pulmonary disease. 4. Morbid obesity and history of obstructive sleep apnea, stopped using CPAP, but has persistent daytime somnolence, would need outpatient repeat sleep study. Plan . SLEEP STUDY OUT PT HOME PER JUNITO KELLY MD Oct 26, 2018 08:42
[2018-10-26] MEDS: POTASSIUM CHLORIDE 20 MEQ TABLET.ER. PO SCH (08:56)
[2018-10-26] MEDS: CARVEDILOL 12.5 MG TABLET. PO SCH ×2 (08:57→17:52)
[2018-10-26] MEDS: amLODIPine BESYLATE 10 MG TABLET PO SCH (08:58)
[2018-10-26] MEDS: CLINDAMYCIN HCL 150 MG CAPSULE. PO SCH ×3 (08:58→21:29)
[2018-10-26] MEDS: glipiZIDE 5 MG TABLET PO SCH (08:58)
[2018-10-26] MEDS: CETIRIZINE HCL 10 MG TABLET. PO SCH (08:59)
[2018-10-26] MEDS: LOSARTAN POTASSIUM 50 MG TABLET. PO SCH (09:00)
[2018-10-26] MEDS: FUROSEMIDE 40 MG/4 ML VIAL. IVP SCH (09:02)
[2018-10-26 11:30] VITALS: BP 143/85
--- NOTE | 2018-10-26 14:25 | PDOC ---
PROGRESS NOTES Chief Complaint Chief Complaint acute resp failure with chf exacerbation, systolic EF 305 and diastolic h/o STRoke on warfarin morbid obesity BMI 63 rt tooth pain plan: lasix 40mg iv bid, consider change to po and dc tmr. defer to card fu with card, cath neg on warfarin at home,. as per nurse , for stroke, cont for now. inr daily has dentist appt next week, currently on clinda by colleague. PTOT History of Present Illness History of Present Illness Plans for cath on Thursday Was on cephelexin qday at home for broken tooth, will dc and start Clindamycin for started 10/23/17. cath thursday neg Vitals Vitals Vital Signs Date Time Temp Pulse Resp B/P (MAP) Pulse Ox O2 Delivery O2 Flow Rate FiO2 10/26/18 11:30 98.5 89 20 143/85 (104) 97 Room Air 98.5 10/26/18 08:00 2.0 Physical Exam General: Alert, mild distress Heart: Regular rate (SR), Other (distant heart sounds) Lungs: Clear Abdomen: Soft, Other (obese) Extremities: No cyanosis, Other (1+ bilateral LE pitting edema) Skin: No breakdown, No significant lesion Labs LABS Laboratory Tests Test 10/25/18 17:19 10/25/18 20:31 10/26/18 04:00 10/26/18 07:52 Glucose (Fingerstick) 88 mg/dL (70-99) 187 mg/dL (70-99) 124 mg/dL (70-99) White Blood Count 7.5 x10^3/uL (4.0-11.0) Red Blood Count 4.26 x10^6/uL (3.50-5.40) Hemoglobin 11.8 g/dL (12.0-15.5) Hematocrit 35.3 % (36.0-47.0) Mean Corpuscular Volume 83 fL (79-100) Mean Corpuscular Hemoglobin 28 pg (25-35) Mean Corpuscular Hemoglobin Concent 33 g/dL (31-37) Red Cell Distribution Width 16.4 % (11.5-14.5) Platelet Count 179 x10^3/uL (140-400) Neutrophils (%) (Auto) 53 % (31-73) Lymphocytes (%) (Auto) 36 % (24-48) Monocytes (%) (Auto) 8 % (0-9) Eosinophils (%) (Auto) 2 % (0-3) Basophils (%) (Auto) 1 % (0-3) Neutrophils # (Auto) 4.0 x10^3uL (1.8-7.7) Lymphocytes # (Auto) 2.7 x10^3/uL (1.0-4.8) Monocytes # (Auto) 0.6 x10^3/uL (0.0-1.1) Eosinophils # (Auto) 0.2 x10^3/uL (0.0-0.7) Basophils # (Auto) 0.1 x10^3/uL (0.0-0.2) Prothrombin Time 17.1 SEC (11.7-14.0) Prothromb Time International Ratio 1.4 (0.8-1.1) Sodium Level 141 mmol/L (136-145) Potassium Level 3.3 mmol/L (3.5-5.1) Chloride Level 104 mmol/L (98-107) Carbon Dioxide Level 30 mmol/L (21-32) Anion Gap 7 (6-14) Blood Urea Nitrogen 21 mg/dL (7-20) Creatinine 0.9 mg/dL (0.6-1.0) Estimated GFR (Cockcroft-Gault) 80.2 Glucose Level 124 mg/dL (70-99) Calcium Level 8.2 mg/dL (8.5-10.1) Test 10/26/18 11:53 Glucose (Fingerstick) 114 mg/dL (70-99) Assessment and Plan Assessmemt and Plan Problems Medical Problems: (1) CHF (congestive heart failure) Status: Acute (2) Pneumonia Status: Acute (3) Pulmonary edema Status: Acute Comment Review of Relevant I have reviewed the following items cuate (where applicable) has been applied. Labs Laboratory Tests Test 10/24/18 16:46 10/24/18 20:47 10/25/18 04:50 10/25/18 07:38 Glucose (Fingerstick) 188 mg/dL (70-99) 153 mg/dL (70-99) 112 mg/dL (70-99) Prothrombin Time 21.2 SEC (11.7-14.0) Prothromb Time International Ratio 1.9 (0.8-1.1) Test 10/25/18 11:49 10/25/18 17:19 10/25/18 20:31 10/26/18 04:00 Glucose (Fingerstick) 104 mg/dL (70-99) 88 mg/dL (70-99) 187 mg/dL (70-99) White Blood Count 7.5 x10^3/uL (4.0-11.0) Red Blood Count 4.26 x10^6/uL (3.50-5.40) Hemoglobin 11.8 g/dL (12.0-15.5) Hematocrit 35.3 % (36.0-47.0) Mean Corpuscular Volume 83 fL (79-100) Mean Corpuscular Hemoglobin 28 pg (25-35) Mean Corpuscular Hemoglobin Concent 33 g/dL (31-37) Red Cell Distribution Width 16.4 % (11.5-14.5) Platelet Count 179 x10^3/uL (140-400) Neutrophils (%) (Auto) 53 % (31-73) Lymphocytes (%) (Auto) 36 % (24-48) Monocytes (%) (Auto) 8 % (0-9) Eosinophils (%) (Auto) 2 % (0-3) Basophils (%) (Auto) 1 % (0-3) Neutrophils # (Auto) 4.0 x10^3uL (1.8-7.7) Lymphocytes # (Auto) 2.7 x10^3/uL (1.0-4.8) Monocytes # (Auto) 0.6 x10^3/uL (0.0-1.1) Eosinophils # (Auto) 0.2 x10^3/uL (0.0-0.7) Basophils # (Auto) 0.1 x10^3/uL (0.0-0.2) Prothrombin Time 17.1 SEC (11.7-14.0) Prothromb Time International Ratio 1.4 (0.8-1.1) Sodium Level 141 mmol/L (136-145) Potassium Level 3.3 mmol/L (3.5-5.1) Chloride Level 104 mmol/L (98-107) Carbon Dioxide Level 30 mmol/L (21-32) Anion Gap 7 (6-14) Blood Urea Nitrogen 21 mg/dL (7-20) Creatinine 0.9 mg/dL (0.6-1.0) Estimated GFR (Cockcroft-Gault) 80.2 Glucose Level 124 mg/dL (70-99) Calcium Level 8.2 mg/dL (8.5-10.1) Test 10/26/18 07:52 10/26/18 11:53 Glucose (Fingerstick) 124 mg/dL (70-99) 114 mg/dL (70-99) Laboratory Tests Test 10/25/18 17:19 10/25/18 20:31 10/26/18 04:00 10/26/18 07:52 Glucose (Fingerstick) 88 mg/dL (70-99) 187 mg/dL (70-99) 124 mg/dL (70-99) White Blood Count 7.5 x10^3/uL (4.0-11.0) Red Blood Count 4.26 x10^6/uL (3.50-5.40) Hemoglobin 11.8 g/dL (12.0-15.5) Hematocrit 35.3 % (36.0-47.0) Mean Corpuscular Volume 83 fL (79-100) Mean Corpuscular Hemoglobin 28 pg (25-35) Mean Corpuscular Hemoglobin Concent 33 g/dL (31-37) Red Cell Distribution Width 16.4 % (11.5-14.5) Platelet Count 179 x10^3/uL (140-400) Neutrophils (%) (Auto) 53 % (31-73) Lymphocytes (%) (Auto) 36 % (24-48) Monocytes (%) (Auto) 8 % (0-9) Eosinophils (%) (Auto) 2 % (0-3) Basophils (%) (Auto) 1 % (0-3) Neutrophils # (Auto) 4.0 x10^3uL (1.8-7.7) Lymphocytes # (Auto) 2.7 x10^3/uL (1.0-4.8) Monocytes # (Auto) 0.6 x10^3/uL (0.0-1.1) Eosinophils # (Auto) 0.2 x10^3/uL (0.0-0.7) Basophils # (Auto) 0.1 x10^3/uL (0.0-0.2) Prothrombin Time 17.1 SEC (11.7-14.0) Prothromb Time International Ratio 1.4 (0.8-1.1) Sodium Level 141 mmol/L (136-145) Potassium Level 3.3 mmol/L (3.5-5.1) Chloride Level 104 mmol/L (98-107) Carbon Dioxide Level 30 mmol/L (21-32) Anion Gap 7 (6-14) Blood Urea Nitrogen 21 mg/dL (7-20) Creatinine 0.9 mg/dL (0.6-1.0) Estimated GFR (Cockcroft-Gault) 80.2 Glucose Level 124 mg/dL (70-99) Calcium Level 8.2 mg/dL (8.5-10.1) Test 10/26/18 11:53 Glucose (Fingerstick) 114 mg/dL (70-99) Medications Current Medications Albuterol/ Ipratropium (Duoneb) 3 ml 1X ONCE NEB Last administered on at 09:06; Start 10/22/18 at 09:00; Stop 10/22/18 at 09:06; Status DC Furosemide (Lasix) 20 mg 1X ONCE IVP ; Start 10/22/18 at 10:15; Stop 10/22/18 at 10:15; Status DC Azithromycin 250 ml @ 250 mls/hr 1X ONCE IV Last administered on 10/22/18at 11 :09; Start 10/22/18 at 10:15; Stop 10/22/18 at 11:14; Status DC Ceftriaxone Sodium (Rocephin) 1 gm 1X ONCE IVP Last administered on 10/22/18at 10:53; Start 10/22/18 at 10:15; Stop 10/22/18 at 10:16; Status DC Furosemide (Lasix) 40 mg 1X ONCE IVP Last administered on 10/22/18at 12:36; Start 10/22/18 at 10:15; Stop 10/22/18 at 10:16; Status DC Iohexol (Omnipaque 350 Mg/ml) 100 ml 1X ONCE IV Last administered on at 10:26; Start 10/22/18 at 10:30; Stop 10/22/18 at 10:31; Status DC Info (CONTRAST GIVEN -- Rx MONITORING) 1 each PRN DAILY PRN MC SEE COMMENTS; Start 10/22/18 at 10:30; Stop 10/24/18 at 10:29; Status DC Ondansetron HCl (Zofran) 4 mg PRN Q8HRS PRN IV NAUSEA/VOMITING; Start 10/22/18 at 11:45; Stop 10/23/18 at 11:44; Status DC Labetalol HCl (Normodyne Iv Push) 10 mg PRN Q6HRS PRN IVP HYPERTENSION, 1ST CHOICE; Start 10/22/18 at 14:00 Insulin Human Lispro (HumaLOG) 0-7 UNITS TIDWMEALS SQ Last administered on 10/24at 17:27; Start 10/22/18 at 17:00 Dextrose (Dextrose 50%-Water Syringe) 12.5 gm PRN Q15MIN PRN IV SEE COMMENTS; Start 10/22/18 at 14:00 Amlodipine Besylate (Norvasc) 10 mg DAILY PO Last administered on 10/26/18at 08: 58; Start 10/22/18 at 15:00 Carvedilol (Coreg) 12.5 mg BIDWMEALS PO Last administered on 10/26/18at 08:57; Start 10/22/18 at 17:00 Glipizide (Glucotrol) 5 mg DAILY PO Last administered on 10/26/18at 08:58; Start 10/22/18 at 09:00 Oxycodone/ Acetaminophen (Percocet 7.5/ 325) 1 tab PRN Q6HRS PRN PO MODERATE TO SEVERE PAIN Last administered on 10/24/18at 12:22; Start 10/22/18 at 14:15 Potassium Chloride (Klor-Con) 20 meq DAILY PO Last administered on 10/26/18at 08 :56; Start 10/23/18 at 09:00 Cetirizine HCl (ZyrTEC) 10 mg DAILY PO Last administered on 10/26/18at 08:59; Start 10/22/18 at 15:00 Losartan Potassium (Cozaar) 50 mg DAILY PO Last administered on 10/26/18at 09:00 ; Start 10/23/18 at 09:00 Pantoprazole Sodium (Protonix) 40 mg DAILYAC PO Last administered on 10/26/18at 05:49; Start 10/23/18 at 07:30 Atorvastatin Calcium (Lipitor) 40 mg QHS PO Last administered on 10/25/18at 20: 27; Start 10/22/18 at 21:00 Warfarin Sodium (Coumadin) 10 mg DAILY16 PO Last administered on 10/23/18at 17: 29; Start 10/23/18 at 16:00; Stop 10/24/18 at 12:18; Status DC Hydrochlorothiazide (Microzide) 12.5 mg DAILY PO ; Start 10/23/18 at 09:00; Stop 10/23/18 at 09:00; Status DC Furosemide (Lasix) 40 mg 1X ONCE IVP Last administered on 10/22/18at 15:36; Start 10/22/18 at 15:30; Stop 10/22/18 at 15:31; Status DC Albuterol/ Ipratropium (Duoneb) 3 ml RTQID NEB Last administered on 10/26/18at 11:28; Start 10/22/18 at 16:00 Warfarin Sodium (Coumadin Per Physician) 1 each PRN DAILY PRN MC SEE COMMENTS; Start 10/22/18 at 15:30 Enoxaparin Sodium (Lovenox 60mg Syringe) 60 mg Q12HR SQ Last administered on at 08:22; Start 10/22/18 at 21:00; Stop 10/24/18 at 12:18; Status DC Perflutren Protein Type A Microsphe (Optison) 0.66 mg STK-MED ONCE IV ; Start at 16:03; Stop 10/22/18 at 16:05; Status DC Furosemide (Lasix) 40 mg BID94 IVP Last administered on 10/26/18at 09:02; Start 10/23/18 at 09:00 Perflutren Protein Type A Microsphe (Optison) 0.66 mg PRN 1X PRN IV SEE COMMENTS; Start 10/22/18 at 16:45; Stop 10/23/18 at 16:44; Status DC Potassium Chloride (Klor-Con) 40 meq 1X ONCE PO Last administered on at 12:58; Start 10/23/18 at 11:15; Stop 10/23/18 at 11:16; Status DC Clindamycin HCl (Cleocin) 300 mg TID PO Last administered on 10/26/18at 08:58; Start 10/23/18 at 23:00 Perflutren Protein Type A Microsphe (Optison) 0.66 mg STK-MED ONCE IV ; Start at 16:00; Stop 10/25/18 at 09:01; Status DC Acetaminophen (Tylenol) 650 mg PRN Q6HRS PRN PO FEVER; Start 10/25/18 at 14:00 Ondansetron HCl (Zofran) 4 mg PRN Q6HRS PRN IV NAUSEA/VOMITING; Start 10/25/18 at 14:00 Hydralazine HCl (Apresoline Inj) 10 mg PRN Q4HRS PRN IVP ELEVATED BP, 2ND CHOICE; Start 10/25/18 at 14:00 Docusate Sodium (Colace) 100 mg PRN DAILY PRN PO CONSTIPATION; Start 10/25/18 at 14:00 Fentanyl Citrate (Fentanyl 2ml Vial) 100 mcg STK-MED ONCE .ROUTE ; Start at 15:14; Stop 10/25/18 at 15:17; Status DC Midazolam HCl (Versed) 5 mg STK-MED ONCE .ROUTE ; Start 10/25/18 at 15:15; Stop 10/25/18 at 15:17; Status DC Iodixanol (Visipaque 320) 100 ml STK-MED ONCE .ROUTE ; Start 10/25/18 at 15:19; Stop 10/25/18 at 15:21; Status DC Lidocaine HCl (Xylocaine-Mpf 1% 2ml Vial) 2 ml STK-MED ONCE .ROUTE ; Start 10/25 at 15:19; Stop 10/25/18 at 15:21; Status DC Heparin Sodium/ Sodium Chloride 1,000 ml @ As Directed STK-MED ONCE .ROUTE ; Start 10/25/18 at 15:19; Stop 10/25/18 at 15:21; Status DC Verapamil HCl (Verapamil) 5 mg STK-MED ONCE .ROUTE ; Start 10/25/18 at 15:26; Stop 10/25/18 at 15:28; Status DC Heparin Sodium (Porcine) (Heparin Sodium) 10,000 unit STK-MED ONCE .ROUTE ; Start 10/25/18 at 15:26; Stop 10/25/18 at 15:28; Status DC Nitroglycerin (Nitroglycerin) 200 mcg STK-MED ONCE .ROUTE ; Start 10/25/18 at 15 :26; Stop 10/25/18 at 15:28; Status DC Nitroglycerin (Nitroglycerin) 200 mcg 1X ONCE IART Last administered on at 16:07; Start 10/25/18 at 15:45; Stop 10/25/18 at 15:57; Status DC Verapamil HCl (Verapamil) 2.5 mg 1X ONCE IART Last administered on 10/25/18at 16:08; Start 10/25/18 at 15:45; Stop 10/25/18 at 15:57; Status DC Heparin Sodium (Porcine) (Heparin Sodium) 2,500 unit 1X ONCE IART Last administered on 10/25/18 16:09; Start 10/25/18 at 15:45; Stop 10/25/18 at 15:57 ; Status DC Heparin Sodium/ Sodium Chloride (HEPARIN for ARTERIAL LINE FLUSH) 1,000 unit 1X ONCE IART Last administered on 10/25/18 16:06; Start 10/25/18 at 15:45; Stop 10/25/18 at 15:57; Status DC Heparin Sodium/ Sodium Chloride (HEPARIN for ARTERIAL LINE FLUSH) 1,000 unit 1X ONCE IART Last administered on 10/25/18 16:10; Start 10/25/18 at 15:45; Stop 10/25/18 at 15:57; Status DC Midazolam HCl (Versed) 5 mg 1X ONCE IV Last administered on 10/25/18 16:07; Start 10/25/18 at 15:45; Stop 10/25/18 at 15:57; Status DC Fentanyl Citrate (Fentanyl 2ml Vial) 100 mcg 1X ONCE IV Last administered on 16:07; Start 10/25/18 at 15:45; Stop 10/25/18 at 15:57; Status DC Iodixanol (Visipaque 320) 100 ml 1X ONCE IART Last administered on 10/25/18at 16:10; Start 10/25/18 at 15:45; Stop 10/25/18 at 15:57; Status DC Lidocaine HCl 20 ml 1X ONCE IJ ; Start 10/25/18 at 15:45; Stop 10/25/18 at 15: 57; Status DC Info (CONTRAST GIVEN -- Rx MONITORING) 1 each PRN DAILY PRN MC SEE COMMENTS; Start 10/25/18 at 16:00; Stop 10/27/18 at 15:59 Lidocaine HCl (Xylocaine-Mpf 1% 2ml Vial) 2 ml 1X ONCE INJ ; Start 10/25/18 at 16:15; Stop 10/25/18 at 16:16; Status DC Lactobacillus Rhamnosus (Culturelle) 1 cap BID PO ; Start 10/26/18 at 21:00 Active Scripts Active Reported Percocet 7.5-325 Mg Tablet (Oxycodone/Acetaminophen) 1 Each Tablet 1 Tab PO PRN Q6HRS PRN Loratadine 10 Mg Tablet 1 Tab PO DAILY Losartan-Hctz 50-12.5 Mg Tab (Losartan/Hydrochlorothiazide) 1 Each Tablet 1 Tab PO DAILY Amlodipine Besylate 10 Mg Tablet 10 Mg PO DAILY Glipizide 5 Mg Tablet 1 Tab PO DAILY Potassium Chloride 20 Meq Tab.er.prt 1 Tab PO DAILY Warfarin Sodium 10 Mg Tablet 10 Mg PO DAILY Omeprazole 40 Mg Capsule.dr 1 Cap PO DAILY Crestor (Rosuvastatin Calcium) 10 Mg Tablet 1 Tab PO DAILY Carvedilol (Carvedilol) 12.5 Mg Tablet 1 Tab PO BID Vitals/I & O Vital Sign - Last 24 Hours 10/25/18 10/25/18 10/25/18 10/25/18 15:00 16:01 16:07 16:08 Temp 98.1 98.1 Pulse 88 83 83 Resp 12 24 21 B/P (MAP) 131/74 (93) 148/86 Pulse Ox 98 98 98 O2 Delivery Nasal Cannula Nasal Cannula Nasal Cannula O2 Flow Rate 2.0 2.0 2.0 10/25/18 10/25/18 10/25/18 10/25/18 16:15 16:30 16:34 16:48 Temp 98.1 98.1 Pulse 84 86 84 Resp 28 18 B/P (MAP) 138/91 (107) 152/94 Pulse Ox 94 94 O2 Delivery Room Air Nasal Cannula Room Air O2 Flow Rate 2.0 10/25/18 10/25/18 10/25/18 10/25/18 17:00 18:00 18:54 19:00 Pulse 82 90 86 86 Resp 18 B/P (MAP) 128/80 (96) Pulse Ox 94 94 94 O2 Delivery Nasal Cannula Nasal Cannula Nasal Cannula O2 Flow Rate 2.0 2.0 2.0 10/25/18 10/25/18 10/25/18 10/25/18 19:54 20:00 20:30 20:30 Temp 98.5 98.5 Pulse 86 90 Resp 22 18 B/P (MAP) 134/72 (92) 147/74 (98) Pulse Ox 96 98 O2 Delivery Room Air Nasal Cannula Room Air O2 Flow Rate 2.0 10/25/18 10/25/18 10/25/18 10/26/18 21:30 22:00 23:00 03:21 Temp 98.2 98.2 Pulse 72 90 88 93 Resp 20 18 18 18 B/P (MAP) 140/80 (100) 147/65 (92) 137/104 (115) 134/75 (94) Pulse Ox 96 O2 Delivery Room Air 10/26/18 10/26/18 10/26/18 10/26/18 07:00 07:32 08:00 08:57 Temp 98.0 98.0 Pulse 86 81 Resp 16 B/P (MAP) 126/87 (100) 166/97 Pulse Ox 97 99 O2 Delivery Room Air Room Air Nasal Cannula O2 Flow Rate 2.0 10/26/18 10/26/18 10/26/18 10/26/18 08:58 09:00 11:28 11:30 Temp 98.5 98.5 Pulse 88 88 89 Resp 20 B/P (MAP) 166/97 166/97 143/85 (104) Pulse Ox 99 97 O2 Delivery Room Air Room Air Intake and Output 10/25/18 10/25/18 10/26/18 15:01 23:01 07:01 Intake Total 0 ml 1310 ml 120 ml Output Total 2425 ml 575 ml 2400 ml Balance -2425 ml 735 ml -2280 ml CHRISTAL CANTU MD Oct 26, 2018 14:25
[2018-10-26 15:00] VITALS: BP 131/84
[2018-10-26] MEDS ORDERED: WARFARIN 5 MG TABLET. PO SCH (16:00)
[2018-10-26] MEDS: FUROSEMIDE 40 MG TABLET. PO SCH (17:51)
--- NOTE | 2018-10-26 18:49 | PDOC ---
DARREN [employer] 10/26/18 1849: CARDIO Progress Notes Date and Time Date of Service 10/26/2018 Time of Evaluation 1650 Subjective Subjective: No Chest Pain, No shortness of breath, No Palpitations Vitals Vitals Vital Signs Date Time Temp Pulse Resp B/P (MAP) Pulse Ox O2 Delivery O2 Flow Rate FiO2 10/26/18 17:52 84 146/70 10/26/18 16:37 98 Room Air 10/26/18 15:00 98.3 16 98.3 10/26/18 08:00 2.0 Weight Weight [ ] Input and Output Intake and Output Intake and Output 10/26/18 07:01 Intake Total 1430 ml Output Total 5400 ml Balance -3970 ml Intake Oral 1430 ml Output Urine Total 5400 ml # Bowel Movements 1 Laboratory Labs Laboratory Tests Test 10/25/18 20:31 10/26/18 04:00 10/26/18 07:52 10/26/18 11:53 Glucose (Fingerstick) 187 mg/dL (70-99) 124 mg/dL (70-99) 114 mg/dL (70-99) White Blood Count 7.5 x10^3/uL (4.0-11.0) Red Blood Count 4.26 x10^6/uL (3.50-5.40) Hemoglobin 11.8 g/dL (12.0-15.5) Hematocrit 35.3 % (36.0-47.0) Mean Corpuscular Volume 83 fL (79-100) Mean Corpuscular Hemoglobin 28 pg (25-35) Mean Corpuscular Hemoglobin Concent 33 g/dL (31-37) Red Cell Distribution Width 16.4 % (11.5-14.5) Platelet Count 179 x10^3/uL (140-400) Neutrophils (%) (Auto) 53 % (31-73) Lymphocytes (%) (Auto) 36 % (24-48) Monocytes (%) (Auto) 8 % (0-9) Eosinophils (%) (Auto) 2 % (0-3) Basophils (%) (Auto) 1 % (0-3) Neutrophils # (Auto) 4.0 x10^3uL (1.8-7.7) Lymphocytes # (Auto) 2.7 x10^3/uL (1.0-4.8) Monocytes # (Auto) 0.6 x10^3/uL (0.0-1.1) Eosinophils # (Auto) 0.2 x10^3/uL (0.0-0.7) Basophils # (Auto) 0.1 x10^3/uL (0.0-0.2) Prothrombin Time 17.1 SEC (11.7-14.0) Prothromb Time International Ratio 1.4 (0.8-1.1) Sodium Level 141 mmol/L (136-145) Potassium Level 3.3 mmol/L (3.5-5.1) Chloride Level 104 mmol/L (98-107) Carbon Dioxide Level 30 mmol/L (21-32) Anion Gap 7 (6-14) Blood Urea Nitrogen 21 mg/dL (7-20) Creatinine 0.9 mg/dL (0.6-1.0) Estimated GFR (Cockcroft-Gault) 80.2 Glucose Level 124 mg/dL (70-99) Calcium Level 8.2 mg/dL (8.5-10.1) Test 10/26/18 16:54 Glucose (Fingerstick) 107 mg/dL (70-99) Physical Exam HEENT: Neck Supple W Full Motion Chest: Symmetric LUNGS: Clear to Auscultation Heart: S1S2, RRR (SR) Abdomen: Soft N/T, Other (obese) Extremities: No Calf Tenderness, Other (trace LE edema) Neurology: alert, oriented, follow commands Assessment Assessment 1. Acute CHF with likely combined systolic/diastolic: compensated 2. NICM: EF at 30%. Multifactorial including morbid obesity, likely uncontrolled HTN and undiagnosed. ELIZABETH but no CAD. 3. Possible ELIZABETH/COPD with morbid obesity: BMI at 65 4. HTN: goal BP at 120/60 5. Chronic coumadin use: INR 1.4. has been using this since 2002 for CVA. no known AFIB, PFO, clotting disorders nor VTE. 6. DM2/HLP 7. Hx of CVA: in 2002 with left side hemiparesis 8. Tobaccoism Recommendations 1. DC lupe. Convert lasix to PO 2. daily wt, home BP monitoring, 2 L FR 3. Smoking cessation, wt loss 4. May restart coumadin for now. Will reevaluate coumadin use an outpt for possible discontinuation unless there is a clear indication from old hx. 5. Continue coreg. Increase losartan. Continue statin. Will be considered for entresto as an outpt 6. AICD consideration after 3 months of medical optimization if EF remains low. 7. Consider outpt ELIZABETH w/u. Follow up in 2 weeks at CHF clinic. Anticipate DC tomorrow. CHANTAL PEÑA MD 10/27/18 0932: CARDIO Progress Notes Assessment Assessment Patient seen and examined 10/26/18. Agree with TEXTILE SCRAP SALVAGER's assessment and plan. Cardiac catheterization did not show any significant coronary artery disease as noted above Acute on chronic systolic heart failure better compensated Continue current medical regimen Repeat 2-D echo in 3 months to evaluate the need for AICD implantation DARREN DUNCAN APRN Oct 26, 2018 18:49 CHANTAL PEÑA MD Oct 27, 2018 09:32
[2018-10-26 19:47] VITALS: BP 126/80
[2018-10-26] MEDS: LACTOBACILLUS RHAMNOSUS GG 1 CAPSULE. PO SCH (21:29)
[2018-10-26] MEDS: ATORVASTATIN CALCIUM 40 MG TABLET. PO SCH (21:29)
[2018-10-26 22:51] VITALS: BP 120/70
[2018-10-27 03:39] VITALS: BP 124/57
[2018-10-27 04:39] LABS: BASO % 1 % (0-3); EOS # 0.1 x10^3/uL (0.0-0.7); EOS % 2 % (0-3); HEMATOCRIT 37.7 % (36.0-47.0); HEMOGLOBIN 12.3 g/dL (12.0-15.5); LYMPH % 32 % (24-48); MEAN CORPUSCULAR HEMOGLOBIN 27 pg (25-35); MEAN CORPUSCULAR HGB CONC 33 g/dL (31-37); MEAN CORPUSCULAR VOLUME 83 fL (79-100); MONO # 0.5 x10^3/uL (0.0-1.1); MONO % 8 % (0-9); NEUT # 3.5 x10^3uL (1.8-7.7); NEUT % 57 % (31-73); PLATELET COUNT 187 x10^3/uL (140-400); RED BLOOD COUNT 4.53 x10^6/uL (3.50-5.40); RED CELL DISTRIBUTION WIDTH 16.3 % (11.5-14.5); WHITE BLOOD COUNT 6.3 x10^3/uL (4.0-11.0)
[2018-10-27 05:38] LABS: PROTHROMBIN TIME PATIENT 16.2 SEC (11.7-14.0)
[2018-10-27 05:58] LABS: CALCIUM 9.1 mg/dL (8.5-10.1); CREATININE 1.1 mg/dL (0.6-1.0); GFR 63.6; POTASSIUM 3.9 mmol/L (3.5-5.1)
[2018-10-27] MEDS: IPRATRPIUM/ALBUTEROL 0.5/2.5MG 3 ML NEBU. NEB SCH ×3 (06:52→14:47)
[2018-10-27 07:00] VITALS: BP 148/91
[2018-10-27] MEDS: INSULIN LISPRO 300 UNITS/3 ML INSULN.PEN. SQ SCH ×2 (08:00→12:23)
[2018-10-27] MEDS: CETIRIZINE HCL 10 MG TABLET. PO SCH (08:08)
[2018-10-27] MEDS: FUROSEMIDE 40 MG TABLET. PO SCH (08:08)
[2018-10-27] MEDS: PANTOPRAZOLE 40 MG TABLET.DR. PO SCH (08:08)
[2018-10-27] MEDS: LACTOBACILLUS RHAMNOSUS GG 1 CAPSULE. PO SCH (08:08)
[2018-10-27] MEDS: POTASSIUM CHLORIDE 20 MEQ TABLET.ER. PO SCH (08:08)
[2018-10-27] MEDS: amLODIPine BESYLATE 10 MG TABLET PO SCH (08:09)
[2018-10-27] MEDS: LOSARTAN POTASSIUM 50 MG TABLET. PO SCH (08:09)
[2018-10-27] MEDS: CARVEDILOL 12.5 MG TABLET. PO SCH (08:09)
[2018-10-27] MEDS: oxyCODONE/APAP 7.5/325 1 TAB TABLET PO PRN ×2 (08:10→14:28)
[2018-10-27] MEDS: glipiZIDE 5 MG TABLET PO SCH (08:13)
[2018-10-27] MEDS: CLINDAMYCIN HCL 150 MG CAPSULE. PO SCH ×2 (08:13→14:25)
--- NOTE | 2018-10-27 08:47 | PDOC ---
PULMONARY PROGRESS NOTES Subjective NO SOA Vitals Vital Signs Date Time Temp Pulse Resp B/P (MAP) Pulse Ox O2 Delivery O2 Flow Rate FiO2 10/27/18 08:10 Room Air 10/27/18 08:09 85 124/57 10/27/18 07:00 98.3 18 99 98.3 10/26/18 20:00 2.0 General: Alert, No acute distress Lungs: Clear Cardiovascular: S1 Abdomen: Soft, Other (obese) Extremities: Other (trace edema) Labs Laboratory Tests Test 10/25/18 11:49 10/25/18 17:19 10/25/18 20:31 10/26/18 04:00 Glucose (Fingerstick) 104 mg/dL (70-99) 88 mg/dL (70-99) 187 mg/dL (70-99) White Blood Count 7.5 x10^3/uL (4.0-11.0) Red Blood Count 4.26 x10^6/uL (3.50-5.40) Hemoglobin 11.8 g/dL (12.0-15.5) Hematocrit 35.3 % (36.0-47.0) Mean Corpuscular Volume 83 fL (79-100) Mean Corpuscular Hemoglobin 28 pg (25-35) Mean Corpuscular Hemoglobin Concent 33 g/dL (31-37) Red Cell Distribution Width 16.4 % (11.5-14.5) Platelet Count 179 x10^3/uL (140-400) Neutrophils (%) (Auto) 53 % (31-73) Lymphocytes (%) (Auto) 36 % (24-48) Monocytes (%) (Auto) 8 % (0-9) Eosinophils (%) (Auto) 2 % (0-3) Basophils (%) (Auto) 1 % (0-3) Neutrophils # (Auto) 4.0 x10^3uL (1.8-7.7) Lymphocytes # (Auto) 2.7 x10^3/uL (1.0-4.8) Monocytes # (Auto) 0.6 x10^3/uL (0.0-1.1) Eosinophils # (Auto) 0.2 x10^3/uL (0.0-0.7) Basophils # (Auto) 0.1 x10^3/uL (0.0-0.2) Prothrombin Time 17.1 SEC (11.7-14.0) Prothromb Time International Ratio 1.4 (0.8-1.1) Sodium Level 141 mmol/L (136-145) Potassium Level 3.3 mmol/L (3.5-5.1) Chloride Level 104 mmol/L (98-107) Carbon Dioxide Level 30 mmol/L (21-32) Anion Gap 7 (6-14) Blood Urea Nitrogen 21 mg/dL (7-20) Creatinine 0.9 mg/dL (0.6-1.0) Estimated GFR (Cockcroft-Gault) 80.2 Glucose Level 124 mg/dL (70-99) Calcium Level 8.2 mg/dL (8.5-10.1) Test 10/26/18 07:52 10/26/18 11:53 10/26/18 16:54 10/26/18 21:07 Glucose (Fingerstick) 124 mg/dL (70-99) 114 mg/dL (70-99) 107 mg/dL (70-99) 150 mg/dL (70-99) Test 10/27/18 03:40 10/27/18 03:45 10/27/18 07:42 Prothrombin Time 16.2 SEC (11.7-14.0) Prothromb Time International Ratio 1.3 (0.8-1.1) Sodium Level 142 mmol/L (136-145) Potassium Level 3.9 mmol/L (3.5-5.1) Chloride Level 104 mmol/L (98-107) Carbon Dioxide Level 31 mmol/L (21-32) Anion Gap 7 (6-14) Blood Urea Nitrogen 19 mg/dL (7-20) Creatinine 1.1 mg/dL (0.6-1.0) Estimated GFR (Cockcroft-Gault) 63.6 Glucose Level 118 mg/dL (70-99) Calcium Level 9.1 mg/dL (8.5-10.1) White Blood Count 6.3 x10^3/uL (4.0-11.0) Red Blood Count 4.53 x10^6/uL (3.50-5.40) Hemoglobin 12.3 g/dL (12.0-15.5) Hematocrit 37.7 % (36.0-47.0) Mean Corpuscular Volume 83 fL (79-100) Mean Corpuscular Hemoglobin 27 pg (25-35) Mean Corpuscular Hemoglobin Concent 33 g/dL (31-37) Red Cell Distribution Width 16.3 % (11.5-14.5) Platelet Count 187 x10^3/uL (140-400) Neutrophils (%) (Auto) 57 % (31-73) Lymphocytes (%) (Auto) 32 % (24-48) Monocytes (%) (Auto) 8 % (0-9) Eosinophils (%) (Auto) 2 % (0-3) Basophils (%) (Auto) 1 % (0-3) Neutrophils # (Auto) 3.5 x10^3uL (1.8-7.7) Lymphocytes # (Auto) 2.0 x10^3/uL (1.0-4.8) Monocytes # (Auto) 0.5 x10^3/uL (0.0-1.1) Eosinophils # (Auto) 0.1 x10^3/uL (0.0-0.7) Basophils # (Auto) 0.0 x10^3/uL (0.0-0.2) Glucose (Fingerstick) 122 mg/dL (70-99) Laboratory Tests Test 10/26/18 11:53 10/26/18 16:54 10/26/18 21:07 10/27/18 03:40 Glucose (Fingerstick) 114 mg/dL (70-99) 107 mg/dL (70-99) 150 mg/dL (70-99) Prothrombin Time 16.2 SEC (11.7-14.0) Prothromb Time International Ratio 1.3 (0.8-1.1) Sodium Level 142 mmol/L (136-145) Potassium Level 3.9 mmol/L (3.5-5.1) Chloride Level 104 mmol/L (98-107) Carbon Dioxide Level 31 mmol/L (21-32) Anion Gap 7 (6-14) Blood Urea Nitrogen 19 mg/dL (7-20) Creatinine 1.1 mg/dL (0.6-1.0) Estimated GFR (Cockcroft-Gault) 63.6 Glucose Level 118 mg/dL (70-99) Calcium Level 9.1 mg/dL (8.5-10.1) Test 10/27/18 03:45 10/27/18 07:42 White Blood Count 6.3 x10^3/uL (4.0-11.0) Red Blood Count 4.53 x10^6/uL (3.50-5.40) Hemoglobin 12.3 g/dL (12.0-15.5) Hematocrit 37.7 % (36.0-47.0) Mean Corpuscular Volume 83 fL (79-100) Mean Corpuscular Hemoglobin 27 pg (25-35) Mean Corpuscular Hemoglobin Concent 33 g/dL (31-37) Red Cell Distribution Width 16.3 % (11.5-14.5) Platelet Count 187 x10^3/uL (140-400) Neutrophils (%) (Auto) 57 % (31-73) Lymphocytes (%) (Auto) 32 % (24-48) Monocytes (%) (Auto) 8 % (0-9) Eosinophils (%) (Auto) 2 % (0-3) Basophils (%) (Auto) 1 % (0-3) Neutrophils # (Auto) 3.5 x10^3uL (1.8-7.7) Lymphocytes # (Auto) 2.0 x10^3/uL (1.0-4.8) Monocytes # (Auto) 0.5 x10^3/uL (0.0-1.1) Eosinophils # (Auto) 0.1 x10^3/uL (0.0-0.7) Basophils # (Auto) 0.0 x10^3/uL (0.0-0.2) Glucose (Fingerstick) 122 mg/dL (70-99) Medications Active Scripts Medications Dose Route/Sig Max Daily Dose Days Date Category Percocet 7.5-325 Mg Tablet (Oxycodone/Acetaminophen) 1 Each Tablet 1 Tab PO PRN Q6HRS PRN 10/22/18 Reported Loratadine 10 Mg Tablet 1 Tab PO DAILY 10/22/18 Reported Losartan-Hctz 50-12.5 Mg Tab (Losartan/Hydrochlorothiazide) 1 Each Tablet 1 Tab PO DAILY 10/22/18 Reported Amlodipine Besylate 10 Mg Tablet 10 Mg PO DAILY 10/22/18 Reported Glipizide 5 Mg Tablet 1 Tab PO DAILY 10/22/18 Reported Potassium Chloride 20 Meq Tab.er.prt 1 Tab PO DAILY 09/23/14 Reported Warfarin Sodium 10 Mg Tablet 10 Mg PO DAILY 08/25/14 Reported Omeprazole 40 Mg Capsule.dr 1 Cap PO DAILY 08/25/14 Reported Crestor (Rosuvastatin Calcium) 10 Mg Tablet 1 Tab PO DAILY 08/25/14 Reported Carvedilol (Carvedilol) 12.5 Mg Tablet 1 Tab PO BID 08/25/14 Reported Impression . 1. Acute hypoxic respiratory failure secondary to acute diastolic and systolic heart failure. 2. Abnormal echo with an EF of 30%, suggesting severe cardiomyopathy and grade III diastolic dysfunction. 3. Minimal history of tobacco use. Clinically, less likely chronic obstructive pulmonary disease. 4. Morbid obesity and history of obstructive sleep apnea, stopped using CPAP, but has persistent daytime somnolence, would need outpatient repeat sleep study. Plan . SLEEP STUDY OUT PT DC JUNITO COATES MD Oct 27, 2018 08:47
[2018-10-27 11:28] VITALS: BP 119/71
[2018-10-27] MEDS ORDERED: FURO40TA4 PO (11:28)
[2018-10-27] MEDS ORDERED: CLIN150C14 PO (11:28)
[2018-10-27] MEDS ORDERED: LOSA-73 PO (11:28)
--- NOTE | 2018-10-27 13:27 | NUR ---
SS following up with discharge planning. Pt has discharge order for home with self care. SS discussed with physician. PT now recommending home independent. Pt will discharge to home with self care. Pt's RN notified.
--- NOTE | 2018-10-27 13:38 | PDOC3 ---
Discharge Summary [facility] Date of Admission: Oct 22, 2018 Discharge Date: Oct 27, 2018 Admitting Diagnosis acute resp failure with chf exacerbation, systolic EF 30% and diastolic h/o STRoke on warfarin morbid obesity BMI 63 rt tooth pain Final Diagnosis CONSULTS card Brief Hospital Course Ms. Mayo is a 48 old F, morbid obesity with BMI 64, came for sob, bl leg swelling. echo showed EF 30%, grade 3 diastolic chf, cath clean. bp got iv lasix bid for a few days, now feels ok, no need o2, bl leg trace edema, mainly has fat tissues. ok to dc home with lasix 40mg bid. losartan. also has rt teeth pain, has dental appt next week, colleague started clinda, will cont for total 1 week. dc time 35min. pt want HH, but PTOT not recommend. on coumadin for stroke, not sure why, pt cannot tell me, asked her to cont fu with PCP for it. General: Alert, mild distress Heart: Regular rate (SR), Other (distant heart sounds) Lungs: Clear Abdomen: Soft, Other (obese) Extremities: No cyanosis, Other (trace bl edema) Skin: No breakdown, No significant lesion Patient History: Unknown Disposition home CONDITION AT DISCHARGE: Improved Scheduled Amlodipine Besylate (Amlodipine Besylate), 10 MG PO DAILY, (Reported) Carvedilol (Carvedilol ), 1 TAB PO BID, (Reported) Clindamycin Hcl (Clindamycin Hcl), 300 MG PO TID Furosemide (Furosemide), 40 MG PO BID94 Glipizide (Glipizide), 1 TAB PO DAILY, (Reported) Loratadine (Loratadine), 1 TAB PO DAILY, (Reported) Losartan Potassium (Cozaar ), 50 MG PO DAILY Omeprazole (Omeprazole), 1 CAP PO DAILY, (Reported) Potassium Chloride (Potassium Chloride), 1 TAB PO DAILY, (Reported) Rosuvastatin Calcium (Crestor), 1 TAB PO DAILY, (Reported) Warfarin Sodium (Warfarin Sodium), 10 MG PO DAILY, (Reported) Scheduled PRN Oxycodone/Apap 7.5-325 (Percocet 7.5-325 Mg Tablet ), 1 TAB PO PRN Q6HRS PRN for PAIN, (Reported) Discontinued Medications Amlodipine/Valsartan (Exforge 10-320 Mg Tablet), 1 TAB PO 1X, (Reported) Discontinued Reason: Prescription changed Glyburide (Glyburide), 1 TAB PO DAILY, (Reported) Discontinued Reason: Prescription changed Losartan/Hydrochlorothiazide (Losartan-Hctz 50-12.5 Mg Tab), 1 TAB PO DAILY, ( Reported) CHRISTAL CANTU MD Oct 27, 2018 13:38
[2018-10-27 15:17] VITALS: BP 135/78
--- NOTE | 2018-10-27 16:15 | NUR ---
Discharge Note: KAITY JACOBS [address] [place] [address] Discharge instructions and discharge home medications reviewed with Patient and a copy given. All questions have been answered and understanding verbalized. The following instructions and handouts were given: HF Discontinued IV line Patient discharged to home with self care via wheelchair
== END 2018-10-27 16:03 | disposition home or self-care (01) | DRG 286 ==
LOC: ER 08:51 → 2 NORTH 12:29
PROVIDERS: ADMIT Internal Medicine; ATTEND Internal Medicine
PROC: 4A023N8 Measurement of Cardiac Sampling and Pressure, Bilateral, Percutaneous Approach (ICD-10-PCS; principal; 2018-10-25)
PROC: B2111ZZ Fluoroscopy of Multiple Coronary Arteries using Low Osmolar Contrast (ICD-10-PCS; 2018-10-25)
DX: I11.0 Hypertensive heart disease with heart failure (principal); J96.01 Acute respiratory failure with hypoxia; J18.9 Pneumonia, unspecified organism; E66.2 Morbid (severe) obesity with alveolar hypoventilation; J44.0 Chronic obstructive pulmonary disease with (acute) lower respiratory infection; Z68.44 Body mass index [BMI] 60.0-69.9, adult; I50.43 Acute on chronic combined systolic (congestive) and diastolic (congestive) heart failure; I42.9 Cardiomyopathy, unspecified; E11.9 Type 2 diabetes mellitus without complications; E78.00 Pure hypercholesterolemia, unspecified; E78.5 Hyperlipidemia, unspecified; F17.210 Nicotine dependence, cigarettes, uncomplicated; K21.9 Gastro-esophageal reflux disease without esophagitis; F12.90 Cannabis use, unspecified, uncomplicated; K08.89 Other specified disorders of teeth and supporting structures; G89.29 Other chronic pain; M19.90 Unspecified osteoarthritis, unspecified site; Z90.49 Acquired absence of other specified parts of digestive tract; Z79.01 Long term (current) use of anticoagulants; Z83.3 Family history of diabetes mellitus; Z93.0 Tracheostomy status; Z88.5 Allergy status to narcotic agent; Z88.8 Allergy status to other drugs, medicaments and biological substances; Z86.73 Personal history of transient ischemic attack (TIA), and cerebral infarction without residual deficits
CPT/HCPCS: 93458; 99285; C8929; 36415; 71045; 71275; 80048; 80061; 80076; 81001; 82962; 83690; 83735; 83880; 84443; 84484; 85025; 85610; 93005; 94640; 94760; 96365; 96375; 99152; 99153; C1769; C1892; J0456; J0696; J1644; J1650; J1815; J1940; J2250; J3010; J3490; J7620; Q9956; Q9967; 97116; 97530; 97535; G0378

== ENCOUNTER → 2018-11-25 | Outpatient (CLI) | payer MEDICARE ==
[2018-10-27 15:17] VITALS: BP 135/78
[~2018-11-25] MED LIST changes: +AMLO10TA8 PO; +CLIN150C14 PO; +FURO40TA4 PO; +GLIP5TAB10 PO; +LORA10TA3 PO; +LOSA-73 PO; +LOSA1TAB19 PO; +OXYC1TAB19 PO
[2018-11-25 10:56] LABS: CALCIUM 8.7 mg/dL (8.5-10.1)
== END | disposition home or self-care (01) ==
LOC: LAB 10:19
PROVIDERS: ATTEND Nurse Practitioner
DX: I42.9 Cardiomyopathy, unspecified (principal)
CPT/HCPCS: 36415; 80048

== ENCOUNTER → 2018-12-23 | Outpatient (CLI) | payer MEDICARE ==
[~2018-12-23] MED LIST changes: +POTA20TA82 PO; +SACU1TAB7 PO
--- NOTE | 2018-12-23 09:13 | CARD ---
MR#: [id number] Date of Study: 12/23/2018 Ordering Physician: BIJAL HAYNES, Referring Physician: BIJAL HAYNES, Tech: Sue Mercedes SJ APPROVED REPORT EXAM: LIMITED Two-dimensional and M-mode echocardiogram. Other Information Quality : AverageHR: 72bpm Rhythm : NSR INDICATION Cardiomyopathy 2D DIMENSIONS RVDd3.1 (2.9-3.5cm)Left Atrium(2D)5.0 (1.6-4.0cm) IVSd1.3 (0.7-1.1cm)Aortic Root(2D)4.5 (2.0-3.7cm) LVDd6.5 (3.9-5.9cm)PWd1.2 (0.7-1.1cm) LVDs5.1 (2.5-4.0cm)FS (%) 20.6 % SV88.3 mlLVEF(%)40.0 (>50%) LEFT VENTRICLE The Left Ventricle is moderately dilated. There is mild concentric left ventricular hypertrophy. The left ventricular systolic function is moderately impaired. The Ejection Fraction is 35-40%. There is global hypokinesis of the left ventricle. RIGHT VENTRICLE The right ventricle is normal size. There is normal right ventricular wall thickness. The right ventr icular systolic function is normal. ATRIA The left atrium is moderately dilated. The right atrium is mildly dilated. AORTIC VALVE The aortic valve is thickened but opens well. The aortic valve is trileaflet. There is no significant aortic valvular stenosis. MITRAL VALVE The mitral valve is normal in structure and function. There is no evidence of mitral valve prolapse. There is no mitral valve stenosis. TRICUSPID VALVE The tricuspid valve is normal in structure and function. There is no tricuspid valve stenosis. GREAT VESSELS The aortic root is moderately enlarged. PERICARDIAL EFFUSION There is no evidence of significant pericardial effusion. Critical Notification Critical Value: No <Conclusion> Limited 2D echo to assess LV function. The left ventricular systolic function is moderately impaired. The Ejection Fraction is 35-40%. The left atrium is moderately dilated. The aortic root is moderately enlarged. There is no evidence of significant pericardial effusion. Signed by : Juan Manuel Sosa, Electronically Approved : 12/23/2018 09:12:53
== END | disposition home or self-care (01) ==
LOC: ECHO 07:32
PROVIDERS: ATTEND Nurse Practitioner
DX: I51.7 Cardiomegaly (principal); I42.9 Cardiomyopathy, unspecified
CPT/HCPCS: 93308

== ENCOUNTER → 2018-12-29 | Outpatient (CLI) | payer MEDICARE ==
--- NOTE | 2018-12-30 14:08 | SLEEP ---
DATE OF STUDY: ATTENDING PHYSICIAN: Dr. Garnica. REFERRING PHYSICIAN: Dr. Malloy. The patient is 48-year-old who weighs 435 pounds with a BMI of 61. The patient's Bergton score was 14. The patient had sleep study 12 years ago and was positive for ELIZABETH. She was on CPAP. She lost 70 pounds since the last study. Another study was performed to rule out ELIZABETH. This was a split night study. The patient spent 459 minutes in bed and slept for 268 minutes with a low sleep efficiency of 63%. Sleep latency was 48 minutes with absent REM sleep. Overall, sleep architecture showed increased stage 1 and stage 2 sleep, normal slow wave and absent REM sleep. During the initial diagnostic portion of the study, the patient slept for 98 minutes. During that time, there were no obstructive mixed or central apneas, but 64 hypopneas. The patient's apnea-hypopnea index was 39 per hour. Supine sleep or REM sleep was not observed. EKG monitoring revealed an average heart rate of 74 beats per minute, no sustained arrhythmias observed. Nocturnal oximetry study during the diagnostic portion revealed an average oxygen saturation of 96% with the lowest of 89%. PLMS were seen at index of 15 per hour and 2 per hour caused EEG arousals. The patient met the criteria for CPAP initiation. It was started at 5 cm water and titrated up to 12 cm water. At the final pressure, the patient slept for 57 minutes. The patient had supine sleep, but no REM sleep observed. The patient's AHI was reduced to 0 per hour and oxygen saturation remained above 92%. The patient used medium size full face mask. IMPRESSION: 1. Severe sleep apnea-hypopnea syndrome at an AHI of 39 per hour. 2. No clinically significant nocturnal hypoxia. 3. Mild PLMS. RECOMMENDATIONS: 1. CPAP at 12 cm water completely eliminated the patient's sleep apnea and should be used on a nightly basis. The patient used medium size full face mask. 2. Follow up in 4-6 weeks to assess compliance with CPAP and to document clinical improvement. 3. Weight loss is strongly advised. 4. Avoid [employer] depressants. 5. Caution regarding driving until symptoms of sleep apnea resolve with the use of CPAP. SUSAN MELARA MD DR: YURI/evelina JOB#: [id number] / [id number] MECHELLE Hamilton MD, SABATO MD
== END | disposition home or self-care (01) ==
LOC: SLPLAB 19:10
PROVIDERS: ATTEND Internal Medicine Pulmonary Disease
DX: G47.33 Obstructive sleep apnea (adult) (pediatric) (principal)
CPT/HCPCS: 95810

== ENCOUNTER 2019-01-31 06:18 | Inpatient (IN) | payer MEDICARE ==
[2019-01-31] VITALS (9 sets, daily range): BP systolic 111–174; BP diastolic 81–114
[~2019-01-31] VITALS: Ht 180.3 cm; Wt 195.1 kg
[~2019-01-31 06:18] MED LIST changes: -POTA20TA82 PO; -SACU1TAB7 PO
[2019-01-31] MEDS ORDERED: ONDANSETRON PF 4 MG/2 ML VIAL. IV PRN (07:00)
[2019-01-31] MEDS: IV NORMAL SALINE 1000ML BAG 1,000 ML IV SCH ×2 (07:00→21:02)
[2019-01-31] MEDS ORDERED: IV RINGERS,LACTATED 1000ML 1,000 ML IV SCH (07:00)
[2019-01-31] MEDS ORDERED: LIDOCAINE 1% PF 2 ML VIAL. ID PRN (07:00)
[2019-01-31] MEDS ORDERED: fentaNYL PF VIAL 100 MCG/2 ML VIAL IV PRN ×2 (07:00)
[2019-01-31] MEDS ORDERED: PROCHLORPERAZINE 10 MG/2 ML VIAL. IV PRN (07:00)
[2019-01-31] MEDS ORDERED: SACU1TAB7 PO (07:50)
[2019-01-31] MEDS ORDERED: POTA20TA82 PO (07:50)
[2019-01-31] MEDS ORDERED: FURO40TA4 PO (07:50)
[2019-01-31 08:00] LABS: HEMATOCRIT 36.7 % (36.0-47.0); HEMOGLOBIN 11.8 g/dL (12.0-15.5); RED BLOOD COUNT 4.47 x10^6/uL (3.50-5.40); RED CELL DISTRIBUTION WIDTH 15.7 % (11.5-14.5); WHITE BLOOD COUNT 6.9 x10^3/uL (4.0-11.0)
[2019-01-31 08:07] LABS: CALCIUM 8.9 mg/dL (8.5-10.1); POTASSIUM 3.7 mmol/L (3.5-5.1)
[2019-01-31] MEDS ORDERED: PROPOFOL 100 ML IV ONE (08:12)
--- NOTE | 2019-01-31 09:01 | EKG ---
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
[2019-01-31] MEDS ORDERED: LIDOCAINE 2%/EPI 1:100,000 20 ML VIAL. ONE (10:13)
[2019-01-31] MEDS ORDERED: fentaNYL PF VIAL 100 MCG/2 ML VIAL ONE (10:18)
[2019-01-31] MEDS ORDERED: ceFAZolin SODIUM 3 GM in IV DEXTROSE 5% 100ML 100 ML IV ONE ×2 (10:30→17:00)
[2019-01-31] MEDS ORDERED: BACITRACIN 50,000 UNIT in IV NORMAL SALINE 250ML 250 ML IRR ONE (10:30)
[2019-01-31] MEDS ORDERED: LIDOCAINE 2%/EPI 1:100,000 20 ML VIAL. IJ ONE (10:30)
[2019-01-31] MEDS ORDERED: NO ANTICOAGULANT THERAPY. MC PRN (12:00)
--- NOTE | 2019-01-31 12:09 | CARD ---
MR#: [id number] Date of Study: 01/31/2019 Ordering Physician: CHANTAL SOSA, Referring Physician: CHANTAL SOSA, Tech: APPROVED REPORT EXAM Successful implantation of Biotronik dual-chamber automated implantable cardioverter defibrillator wi th defibrillation thresholds measurement of the time of implantation Dose:.[id number] INDICATIONS Primary prevention of sudden cardiac in a patient with nonischemic cardiomyopathy and chronic s ystolic heart failure PROCEDURE After explaining the risks, benefits, and alternative options, informed consent was obtained from the patient. The patient was brought to the cardiac catheterization lab and the left chest and shoulder were prepp ed and draped in the usual fashion. 30 mL of 2% lidocaine was infiltrated into the skin and subcutaneous tissues for local anesthesia. An incision was made over the left infraclavicular fossa and using blunt dissection and cautery a pocke t was created. Venous access was obtained in the left subclavian vein and 10 and 6 [place] sheaths ins erted. A Biotronik bipolar active fixation right ventricular lead model Plexa ProMRI, serial #[id number] was a dvanced under fluoroscopy guidance and the tip was positioned in the right ventricular apex. Subseque ntly, a Biotronik bipolar active fixation right atrial lead model solia serial #[id number] was position ed in right atrial appendage under fluoroscopy guidance. The leads were secured into place and attach ed to a Biotronik dual-chamber AICD generator model Iperia 7 DR-T, serial #[id number]. This was placed in the pocket that was subsequently closed in 3 layers. Hemostasis was secured. Ventricular fibrillation was then induced to check the defibrillation threshold. Patient successfully converted to sinus rhythm with 25 J shock therapy. The right ventricular lead showed a sensing ampli tude of 11.4 mV, impedance of 615 ohms and a threshold of 0.6 V. The right atrial lead showed a sensi ng amplitude of 2.2 mV, impedance of 465 ohms and a threshold of 0.6 V. Patient tolerated the procedu re well. There were no immediate complications. CONCLUSION Successful implantation of Biotronik dual-chamber automated implantable cardioverter defibrillator fo r primary prevention of sudden cardiac in a patient with nonischemic cardio myopathy/chronic sy stolic heart failure. Defibrillation thresholds were measured at the time of implantation. Signed by : Chantal Sosa, Electronically Approved : 01/31/2019 12:08:47
--- NOTE | 2019-01-31 12:28 | RAD ---
PORTABLE CHEST 1V Clinical indications: POST PACEMAKER COMPARISON: October 26 2018 Findings: Bipolar atrioventricular pacemaker is in place via a left subclavian approach. No pneumothorax or pleural effusion is seen. Bilateral vascular congestion and perihilar groundglass lung infiltrates are seen. Heart size is enlarged but stable. Mediastinum is unchanged. IMPRESSION: Placement of pacemaker without pneumothorax. Chronic vascular congestion. There is bilateral groundglass lung infiltrates consistent with pulmonary edema. Electronically signed by: Arjun Izaguirre MD (01/31/2019 12:25 PM) [place] [id number]
--- NOTE | 2019-01-31 14:30 | NUR ---
The patient, KAITY JACOBS, 48 y/o, F admitted by CHANTAL PEÑA MD, was given written information regarding hospital policies, unit procedures and contact persons. Valuables were checked.
[2019-01-31] MEDS ORDERED: ACETAMINOPHEN 325 MG TABLET. PO PRN (15:00)
[2019-01-31] MEDS: FUROSEMIDE 40 MG TABLET. PO SCH (17:20)
[2019-01-31] MEDS: POTASSIUM CHLORIDE 20 MEQ TABLET.ER. PO SCH (17:20)
[2019-01-31] MEDS ORDERED: OMEP40CA5 PO (17:20)
[2019-01-31] MEDS: CARVEDILOL 12.5 MG TABLET. PO SCH (17:21)
[2019-01-31] MEDS ORDERED: NITROGLYCERIN SUBLINGUAL 0.4 MG BOTTLE OF 25. SL PRN (19:45)
[2019-01-31] MEDS ORDERED: OXYC1TAB8 PO (20:27)
[2019-01-31] MEDS ORDERED: oxyCODONE/APAP 7.5/325 1 TAB TABLET PO PRN (20:30)
[2019-01-31] MEDS: SACUBITRIL/VALSARTAN 49/51MG TABLET. PO SCH (20:57)
[2019-01-31] MEDS ORDERED: ATORVASTATIN CALCIUM 40 MG TABLET. PO SCH (21:00)
--- NOTE | 2019-01-31 22:34 | NUR ---
At approx 1930, pt refusing bariatric bed, stated that it was "uncomfortable and i cant get my legs up". Pt requested to have regular bed back. Call placed to [facility] to get patient a regular bed.
[2019-02-01 03:15] VITALS: BP 137/81
[2019-02-01 07:00] VITALS: BP 162/102
[2019-02-01] MEDS ORDERED: glipiZIDE 5 MG TABLET PO SCH (09:00)
[2019-02-01] MEDS: POTASSIUM CHLORIDE 20 MEQ TABLET.ER. PO SCH (09:31)
[2019-02-01] MEDS: FUROSEMIDE 40 MG TABLET. PO SCH ×2 (09:31→14:00)
[2019-02-01] MEDS: SACUBITRIL/VALSARTAN 49/51MG TABLET. PO SCH (09:31)
[2019-02-01] MEDS: CARVEDILOL 12.5 MG TABLET. PO SCH (09:32)
[2019-02-01] MEDS: IV NORMAL SALINE 1000ML BAG 1,000 ML IV SCH (09:40)
[2019-02-01 10:40] VITALS: BP 133/81
--- NOTE | 2019-02-01 15:54 | RAD ---
Portable chest x-ray compared to similar study dated 01/31/2019 for postop day 1, PPM insertion. FINDINGS: A dual lead AICD is present and unchanged. There is bilateral pulmonary edema, with hazy opacification of the lung bases likely reflecting layering pleural effusions as well. Heart size is enlarged. Findings collectively suggest congestive heart failure. There is essentially no change. IMPRESSION: 1. Stable chest x-ray with findings likely suggestive of congestive heart failure. Electronically signed by: Hiro Richardson MD (02/01/2019 3:51 PM) [id number]
--- NOTE | 2019-02-01 18:31 | PDOC3 ---
DARREN DUNCAN MANAGER D[employer] AD OPERATIONS 02/01/19 1831: Discharge Summary Visit Information Date of Admission: Jan 31, 2019 Date of Discharge: Feb 01, 2019 Admitting Diagnosis: NICM, DM2, HTN Final Diagnosis NICM, S/P AICD placement, DM2, HTN Brief Hospital Course Allergies Allergies Coded Allergies Type Severity Reaction Last Updated Verified hydrocodone Allergy Intermediate 10/23/18 Yes morphine Allergy Intermediate 10/23/18 Yes Vital Signs Vital Signs Date Time Temp Pulse Resp B/P (MAP) Pulse Ox O2 Delivery O2 Flow Rate FiO2 02/01/19 10:40 98.6 72 20 133/81 (98) 100 Room Air 98.6 02/01/19 08:00 2.0 Lab Results Laboratory Tests Test 01/31/19 07:50 01/31/19 13:15 01/31/19 17:11 01/31/19 21:03 White Blood Count 6.9 x10^3/uL (4.0-11.0) Red Blood Count 4.47 x10^6/uL (3.50-5.40) Hemoglobin 11.8 g/dL (12.0-15.5) Hematocrit 36.7 % (36.0-47.0) Mean Corpuscular Volume 82 fL (79-100) Mean Corpuscular Hemoglobin 26 pg (25-35) Mean Corpuscular Hemoglobin Concent 32 g/dL (31-37) Red Cell Distribution Width 15.7 % (11.5-14.5) Platelet Count 193 x10^3/uL (140-400) Prothrombin Time 13.0 SEC (11.7-14.0) Prothromb Time International Ratio 1.0 (0.8-1.1) Sodium Level 142 mmol/L (136-145) Potassium Level 3.7 mmol/L (3.5-5.1) Chloride Level 106 mmol/L (98-107) Carbon Dioxide Level 30 mmol/L (21-32) Anion Gap 6 (6-14) Blood Urea Nitrogen 23 mg/dL (7-20) Creatinine 1.0 mg/dL (0.6-1.0) Estimated GFR (Cockcroft-Gault) 71.0 Glucose Level 128 mg/dL (70-99) Calcium Level 8.9 mg/dL (8.5-10.1) Glucose (Fingerstick) 111 mg/dL (70-99) 148 mg/dL (70-99) 108 mg/dL (70-99) Test 02/01/19 07:28 02/01/19 11:33 Glucose (Fingerstick) 120 mg/dL (70-99) 106 mg/dL (70-99) Laboratory Tests Test 01/31/19 21:03 02/01/19 07:28 02/01/19 11:33 Glucose (Fingerstick) 108 mg/dL (70-99) 120 mg/dL (70-99) 106 mg/dL (70-99) Brief Hospital Course Ms. Mayo is a 48 yo female admitted for planned AICD placement for primary prevention of SCD. She tolerated procedure well and surgical pain is controlled. S/P biotronik AICD with no complications and repeat interrogation revealed normal functioning device. VSS, SR, left chest surgical incision intact without significant swelling or erythema, well approximated with steristrips. Antimicrobial transparent dressing in place. LUE neurovascular status intact. Discussed post op AICD precautions, Continue home med regimen including warfarin/entresto/lasix and follow up in 2 weeks for wound check. Discharge Information Condition at Discharge: Stable Follow Up: Weeks (2) Disposition/Orders: D/C to Home Scheduled Carvedilol (Carvedilol ) 12.5 Mg Tablet, 1 TAB PO BID, #180 Ref 1 (Reported) Entered as Reported by: MARGUERITE DEUTSCH on 08/25/14 1724 Last Taken: Unknown Dose on 01/31/19 Last Action: Continued on 01/31/19 1634 by MARC AGUILA Furosemide (Furosemide) 40 Mg Tablet, 40 MG PO BID for Water retention, (Reported) Entered as Reported by: GRACIE DUNN on 01/31/19 0750 Last Taken: Unknown Dose on 01/30/19 Last Action: Continued on 01/31/19 1634 by MARC AGUILA Glipizide (Glipizide) 5 Mg Tablet, 1 TAB PO DAILY for dm, #90 Ref 3 (Reported) Entered as Reported by: THA DHILLON on 10/22/18 1355 Last Taken: Unknown Dose on 01/30/19 Last Action: Continued on 01/31/19 1634 by MARC AGUILA Omeprazole (Omeprazole) 40 Mg Capsule., 1 CAP PO DAILY06 for GERD, #30 Ref 3 (Reported) Entered as Reported by: MARC AGUILA on 01/31/191719 Last Action: New Order on 01/31/191719 by MARC AGUILA Potassium Chloride (Potassium Chloride) 20 Meq Tablet.er, 20 MEQ PO BID for supplement, (Reported) Entered as Reported by: GRACIE DUNN on 01/31/19749 Last Taken: Unknown Dose on 01/30/19 Last Action: Converted on 01/31/191633 by MARC AGUILA Rosuvastatin Calcium (Crestor) 10 Mg Tablet, 1 TAB PO DAILY, #30 Ref 5 (Reported) Entered as Reported by: MARGUERITE DEUTSCH on 08/25/141723 Last Taken: Unknown Dose on 01/30/19 Last Action: Converted on 01/31/191633 by MARC AGUILA Sacubitril/Valsartan (Entresto 49 mg-51 mg Tablet) 1 Each Tablet, 1 TAB PO BID for Heart Failure, (Reported) Entered as Reported by: GRACIE DUNN on 01/31/19749 Last Taken: Unknown Dose on 01/31/19 Last Action: Converted on 01/31/191633 by MARC AGUILA Warfarin Sodium (Warfarin Sodium) 10 Mg Tablet, 10 MG PO DAILY, (Reported) Entered as Reported by: MARGUERITE DEUSTCH on 08/25/141723 Last Taken: Unknown Dose on 01/25/19 Last Action: Last Taken Edited on 01/31/19749 by GRACIE DUNN Scheduled PRN Oxycodone Hcl/Acetaminophen (Oxycodon-Acetaminophen 7.5-325) 1 Each Tablet, 7.5- 325 MG PO PRN Q6HRS PRN for SEVERE PAIN, (Reported) Entered as Reported by: NATALIE LONG RN on 01/31/192026 Last Action: New Order on 01/31/192026 by NATALIE LONG RN Discontinued Medications Omeprazole (Omeprazole) 40 Mg Capsule., 1 CAP PO DAILY, #30 Ref 3 (Reported) Entered as Reported by: MARGUERITE DEUTSCH on 08/25/141723 Last Action: Discontinued on 01/31/19749 by GRACIE DUNN Oxycodone/Apap 7.5-325 (Percocet 7.5-325 Mg Tablet ) 1 Each Tablet, 1 TAB PO PRN Q6HRS PRN for PAIN, Ref 0 (Reported) Entered as Reported by: THA DHILLON on 10/22/18 1355 Last Action: Discontinued on 01/31/19 0750 by GRACIE DUNN Potassium Chloride (Potassium Chloride) 20 Meq Tab.er.prt, 1 TAB PO DAILY, #30 Ref 5 (Reported) Entered as Reported by: CHARLY YOUNG on 09/23/14 1341 Last Action: Discontinued on 01/31/19 0750 by GRACIE DUNN Patient Instructions Patient Instructions Must know & what to expect after device implant: 1. Your surgical dressing should be removed prior to discharge from the hospital, but allow the steri- strips to fall off naturally. 2. Activity restrictions: DO NOT raise arm above shoulder level, lift anything heavier than a gallon of milk, and no push or pull motions such as vacuuming/lawn mowing, no swinging motions (golf), etc for 4 weeks. 3. It is OK to use a cell phone or other electronic devices just be sure you do not store it in a breast pocket on the side where the device was placed. 4. Device will be interrogated prior to your discharge from the hospital and then every 3 months for defibrillators and every 6 months for pacemakers. You may be asked to have your device checked remotely from home as well, but this will depend on your particular physicians preference. 5. You may remove the arm immobilizer the day after device placement. Wear the arm immobilizer/splint at night (during sleep times) for 2 week to prevent unintended arm movement that can cause lead dislodgement. 6. Do not drive for one week as the task of driving may lead to unintended arm motion that may cause lead dislodgement. The seatbelt will also rub against the incision site & cause irritation. 7. It is our recommendation that you utilize Tylenol at home for pain control. You need to call our office if you are having uncontrollable pain at the incision site. 8. Keep your incision clean and dry. It is OK to shower. DO NOT submerge in bath, pool, or hot tub, until cleared by your doctor, as this could lead to increase risk of infection.. It is OK to use regular soap just do not scrub the incision site. Water spray from shower should not directly hit the incision. Be sure to blot dry not rub. 9. Inspect your incision daily. If you notice any increased redness, swelling, or drainage, or if you start running a fever, call the office immediately. The number is [phone]. 10. For women, if you need to protect against irritation from the bra straps, you can place a piece of gauze over the incision site for cushion. Please be sure to tape it loosely to allow air to the site & remove the gauze when you remove the bra. 11. Be sure to carry your device identification information card in your wallet/purse at all times. 12. It is OK to go through security at the airport with your device, but be sure to let the TSA know prior to proceeding as the security settings change depending on varying factors. Please do whatever is requested by security at that time. 13. Some of the newer devices may be MRI compatible but, currently, the use of these devices is not widespread, so you likely will not be able to have an MRI. Please clarify this with your physician. Special instructions for defibrillator patients: If your device recognizes a rhythm that requires treatment with a shock, you will most likely feel the shock. This is usually not a subtle feeling and it is uncomfortable. Please follow these steps if you receive a shock: Call the office if you receive one shock. Go to the emergency room if you receive two consecutive shocks- please have someone drive you & call 911 if nobody is available- DO NOT drive yourself. Call 911 if you receive more than 2 consecutive shocks. If at any time, you feel lightheaded or dizzy/faint, stop what you are doing & lie down immediately. If you are driving, get to the side of the road quickly, turn your car off & call 911 on your cell phone. DO NOT continue to drive as this may cause an accident that seriously injures yourself &/or others. Call the office at [phone] for any questions or concerns. CHANTAL PEÑA MD 02/02/19 0953: Discharge Summary Brief Hospital Course Brief Hospital Course Patient seen and examined 02/01/19. Agree with [employer] SUPERVISOR's assessment and plan. s/p AICD implantation for nonischemic cardiomyopathy/chronic systolic heart failure. Incision looks good. Chest x-ray without any pneumothorax. Follow-up for wound check in 2 weeks. DARREN DUNCAN APRN Feb 01, 2019 18:31 CHANTAL PEÑA MD Feb 02, 2019 09:53
== END 2019-02-01 15:24 | disposition home or self-care (01) | DRG 227 ==
LOC: SURG 06:18 → OBSVTOIN 11:01 → 2 NORTH 11:01
PROVIDERS: ADMIT Internal Medicine Cardiovascular Disease; ATTEND Internal Medicine Cardiovascular Disease
PROC: 02HK3KZ Insertion of Defibrillator Lead into Right Ventricle, Percutaneous Approach (ICD-10-PCS; 2019-01-31)
PROC: 02H63KZ Insertion of Defibrillator Lead into Right Atrium, Percutaneous Approach (ICD-10-PCS; 2019-01-31)
PROC: 0JH608Z Insertion of Defibrillator Generator into Chest Subcutaneous Tissue and Fascia, Open Approach (ICD-10-PCS; principal; 2019-01-31 10:30)
DX: I42.9 Cardiomyopathy, unspecified (principal); I50.42 Chronic combined systolic (congestive) and diastolic (congestive) heart failure; Z68.44 Body mass index [BMI] 60.0-69.9, adult; I11.0 Hypertensive heart disease with heart failure; E11.9 Type 2 diabetes mellitus without complications; E78.5 Hyperlipidemia, unspecified; E66.01 Morbid (severe) obesity due to excess calories; Z88.5 Allergy status to narcotic agent; Z90.49 Acquired absence of other specified parts of digestive tract; Z83.3 Family history of diabetes mellitus
CPT/HCPCS: 33249; 36415; 71045; 80048; 82962; 85027; 85610; 93005; 93641; C1721; C1895; C1898; J0690; J2704; J3010; J3490; J7030; J7050

== ENCOUNTER 2019-07-28 12:54 | Emergency (ER) | payer MEDICARE ==
[~2019-07-28] VITALS: Ht 180.3 cm; Wt 195.0 kg
[~2019-07-28 12:54] MED LIST changes: +OMEP40CA45 PO; -OMEP40CA5 PO; +POTA20TA82 PO; +SACU1TAB7 PO
[2019-07-28 13:47] VITALS: BP 138/90
[2019-07-28] MEDS ORDERED: KETOROLAC 30 MG/ML VIAL. IM STA (14:17)
[2019-07-28] MEDS ORDERED: ORPHENADRINE CITRATE 60 MG/2 ML VIAL. IM ONE (14:30)
--- NOTE | 2019-07-28 14:30 | PHYS DOC ---
Past Medical History Past Medical History: Diabetes-Type II, GERD, High Cholesterol, Hypertension, Stroke, Other Additional Past Medical Histor: CHRONIC PAIN Past Surgical History: Cholecystectomy, Other Additional Past Surgical Histo: kidney cyst removal, tracheostomy Alcohol Use: None Drug Use: Marijuana Adult General Chief Complaint Chief Complaint: HIP PAIN HPI HPI Patient is a 49 year old female that presents with left hip pain has been ongoing since Thursday. The patient states she's taken Percocet and Tylenol at home as well as a muscle relaxer. That has not been helping. She rates her pain as 10 out of 10 in severity and sharp. This is radiating down her left leg. History of hypertension and diabetes. Review of Systems Review of Systems Constitutional: Denies fever or chills [] Eyes: Denies change in visual acuity, redness, or eye pain [] HENT: Denies nasal congestion or sore throat [] Respiratory: Denies cough or shortness of breath [] Cardiovascular: No additional information not addressed in HPI [] GI: Denies abdominal pain, nausea, vomiting, bloody stools or diarrhea [] : Denies dysuria or hematuria [] Musculoskeletal: Reports back pain Integument: Denies rash or skin lesions [] Neurologic: Denies headache, focal weakness or sensory changes [] Endocrine: Denies polyuria or polydipsia [] Complete systems were reviewed and found to be within normal limits, except as documented in this note. Current Medications Current Medications Current Medications Medications (Trade) Dose Ordered Sig/Liam Start Time Stop Time Status Last Admin Dose Admin Ketorolac Tromethamine (Toradol 30mg Vial) 30 mg 1X STAT 07/28/19 14:17 07/28/19 14:20 DC 07/28/19 14:57 30 MG Orphenadrine Citrate (Norflex) 60 mg 1X ONCE 07/28/19 14:30 07/28/19 14:31 DC 07/28/19 14:56 60 MG Allergies Allergies Allergies Coded Allergies Type Severity Reaction Last Updated Verified hydrocodone Allergy Intermediate 10/23/18 Yes morphine Allergy Intermediate 10/23/18 Yes Physical Exam Physical Exam Constitutional: Well developed, well nourished, no acute distress, non-toxic appearance. [] HENT: Normocephalic, atraumatic, bilateral external ears normal, oropharynx moist, no oral exudates, nose normal. [] Eyes: PERRLA, EOMI, conjunctiva normal, no discharge. [] Neck: Normal range of motion, no tenderness, supple, no stridor. [] Cardiovascular:Heart rate regular rhythm, no murmur [] Lungs & Thorax: Bilateral breath sounds clear to auscultation [] Abdomen: Bowel sounds normal, soft, no tenderness, no masses, no pulsatile masses. [] Skin: Warm, dry, no erythema, no rash. [] Back: L sided tenderness to back.] Extremities: No tenderness, no cyanosis, no clubbing, ROM intact, no edema. [] Neurologic: Alert and oriented X 3, normal motor function, normal sensory function, no focal deficits noted. [] Psychologic: Affect normal, judgement normal, mood normal. [] Current Patient Data Vital Signs Vital Signs Date Time Temp Pulse Resp B/P (MAP) Pulse Ox O2 Delivery O2 Flow Rate FiO2 07/28/19 13:47 98.1 88 16 138/90 (106) 94 Room Air 98.1 Lab Values Laboratory Tests Test 07/28/19 15:27 Glucose (Fingerstick) 135 mg/dL (70-99) H EKG EKG [] Radiology/Procedures Radiology/Procedures [] Course & Med Decision Making Course & Med Decision Making Pertinent Labs and Imaging studies reviewed. (See chart for details) Appears to be having sciatica. Looked patient up on [facility] and has a pain doctor that is prescribing Percocet. Will have her follow up with him for pain management. Will give Toradol and Norflex in ER. Glucose is 135. Dragon Disclaimer Dragon Disclaimer This electronic medical record was generated, in whole or in part, using a voice recognition dictation system. Departure Departure Impression: Primary Impression: Sciatica Disposition: HOME, SELF-CARE Condition: STABLE Referrals: MECHELLE ROSADO MD (PCP) Patient Instructions: Sciatica Additional Instructions: Thank you for visiting [facility]. We appreciate you trusting us with your care. If any additional problems come up don't hesitate to return to visit us. Please follow up with your primary care provider so they can plan additional care if needed and know about the problem that you had. If symptoms worsen come back to the Emergency Department. Any concerning symptoms that start such as chest pain, shortness of air, weakness or numbness on one side of the body, running high fevers or any other concerning symptoms return to the ER. Please follow up with her primary care doctor for further management of pain. Problem Qualifiers Primary Impression: Sciatica Laterality: left Qualified Codes: M54.32 - Sciatica, left side ROBI JOSE APRN Jul 28, 2019 14:30
== END 2019-07-28 15:52 | disposition home or self-care (01) ==
LOC: ER 12:54
DX: M54.32 Sciatica, left side (principal); M25.552 Pain in left hip; G89.29 Other chronic pain; E11.9 Type 2 diabetes mellitus without complications; K21.9 Gastro-esophageal reflux disease without esophagitis; E78.00 Pure hypercholesterolemia, unspecified; I10 Essential (primary) hypertension; Z90.49 Acquired absence of other specified parts of digestive tract; Z93.0 Tracheostomy status; Z86.73 Personal history of transient ischemic attack (TIA), and cerebral infarction without residual deficits; Z88.5 Allergy status to narcotic agent
CPT/HCPCS: 82962; 96372; 99284; J1885; J2360

== ENCOUNTER → 2019-08-04 | Outpatient (CLI) | payer MEDICARE ==
[2019-07-28 13:47] VITALS: BP 138/90
--- NOTE | 2019-08-05 13:13 | RAD ---
DATE: 08/04/2019. EXAM: MAMMO PINKY SCREENING BILATERAL. HISTORY: Routine mammographic screening. COMPARISON: 05/28/2018. This study was interpreted with the benefit of Computerized Aided Detection (CAD). FINDINGS: Breast Density: SCATTERED The breast parenchyma shows scattered fibroglandular densities. Breast parenchyma level B.. A pacemaker is noted on the left. There are no suspicious masses, microcalcifications or architectural distortion. Scattered calcifications are benign. The parenchymal pattern is stable. BI-RADS CATEGORY: 2 BENIGN FINDING(S). RECOMMENDED FOLLOW-UP: 12M 12 MONTH FOLLOW-UP. PQRS compliance statement: Patient information was entered into a reminder system with a target due date 08/04/2020 for the next mammogram. Mammography is a sensitive method for finding small breast cancers, but it does not detect them all and is not a substitute for careful clinical examination. A negative mammogram does not negate a clinically suspicious finding and should not result in delay in biopsying a clinically suspicious abnormality. "Our facility is accredited by the [employer] Mammography Program."
== END | disposition home or self-care (01) ==
LOC: MAMMO 07:53
PROVIDERS: ATTEND Family Medicine
DX: Z12.31 Encounter for screening mammogram for malignant neoplasm of breast (principal); N64.89 Other specified disorders of breast; Z95.0 Presence of cardiac pacemaker
CPT/HCPCS: 77063; 77067

== ENCOUNTER 2020-04-10 23:51 | Inpatient (IN) | payer MEDICARE ==
[~2020-04-10] VITALS: Ht 180.3 cm; Wt 205.3 kg
[~2020-04-10 23:51] MED LIST changes: +FURO80TA3 PO; +POTA20TA4 PO; -POTA20TA82 PO
--- NOTE | 2020-04-11 00:11 | PHYS DOC ---
Past Medical History Past Medical History: CHF, Diabetes-Type II, GERD, High Cholesterol, Hype rtension, Stroke, Other Additional Past Medical Histor: CHRONIC PAIN Past Surgical History: Cholecystectomy, Other Additional Past Surgical Histo: kidney cyst removal, tracheostomy Smoking Status: Current Every Day Smoker Alcohol Use: None Drug Use: Marijuana General Adult EDM: Chief Complaint: SHORTNESS OF BREATH HPI: HPI: 49-year-old female past medical history is CHF hypertension diabetes hyperlipidemia CVA presents with a chief complaint of shortness of breath. Patient states she has had shortness of breath for 3 days progressively getting worse. Patient states she has a cough with white sputum production. States she has had some chest discomfort but currently denies any. Patient denies any history of fevers. Patient is on Lasix 80 mg twice daily states she ran out today. Review of Systems: Review of Systems: Constitutional: Denies fever or chills. [] Eyes: Denies change in visual acuity. [] HENT: Denies nasal congestion or sore throat. [] Respiratory: Positive cough positive shortness of breath Cardiovascular: Positive chest pain positive edema GI: Denies abdominal pain, nausea, vomiting, bloody stools or diarrhea. [] : Denies dysuria. [] Musculoskeletal: Denies back pain or joint pain. [] Integument: Denies rash. [] Neurologic: Denies headache, focal weakness or sensory changes. [] Endocrine: Denies polyuria or polydipsia. [] Lymphatic: Denies swollen glands. [] Psychiatric: Denies depression or anxiety. [] Heart Score: HEART Score for Chest Pain: HEART Score for Chest Pain Response (Comments) Value History Slighlty/Non-Suspicious 0 ECG Nonspecific Repolarizatio 1 Age >45 - < 65 1 Risk Factors >3 Risk Factors or Hx CAD 2 Troponin >1-<3x Normal Limit 1 Total 5 Risk Factors: Risk Factors: DM, Current or recent (<one month) smoker, HTN, HLP, family history of CAD, obesity. Risk Scores: Score 0 - 3: 2.5% MACE over next 6 weeks - Discharge Home Score 4 - 6: 20.3% MACE over next 6 weeks - Admit for Clinical Observation Score 7 - 10: 72.7% MACE over next 6 weeks - Early Invasive Strategies Allergies: Allergies: Allergies Coded Allergies Type Severity Reaction Last Updated Verified hydrocodone Allergy Intermediate 10/23/18 Yes morphine Allergy Intermediate 10/23/18 Yes Physical Exam: PE: Constitutional: Well developed, well nourished, no acute distress, non-toxic appearance. [] HENT: Normocephalic, atraumatic, bilateral external ears normal, oropharynx moist, no oral exudates, nose normal. [] Eyes: EOMI, conjunctiva normal, no discharge. [] Neck: Normal range of motion, no tenderness, supple, Cardiovascular:Heart rate regular rate Lungs & Thorax: decreased breath sounds bases Abdomen: , no tenderness, no masses, Skin: Warm, dry, no erythema, no rash. [] Extremities: No tenderness, no cyanosis, no clubbing, ROM intact, pitting edema lower extremities. [] Neurologic: Alert and oriented X 3, normal motor function, normal sensory function, no focal deficits noted. [] Psychologic: Affect normal, judgement normal, mood normal. [] EKG: EKG: [] Radiology/Procedures: Radiology/Procedures: [] Course & Med Decision Making: Course & Med Decision Making Pertinent Labs and Imaging studies reviewed. (See chart for details) [] Patient was evaluated for chief complaint. Work-up consisted of laboratory a nalysis radiologic imaging and EKG. Results reviewed and discussed with patient. Chest x-ray radiologist impression cardiomegaly. Lab BNP greater than 9000. Troponin 0.063 Treated with Lasix 80mg IVP. Oxygen saturation 95% on 3L. Patient admitted to hospitalistJenae Freeman Disclaimer: Pete Disclaimer: This electronic medical record was generated, in whole or in part, using a voice recognition dictation system. Departure Departure Impression: Primary Impression: CHF exacerbation Additional Impression: Elevated troponin Disposition: ADMITTED INPATIENT Admitting Physician: SERGEI Condition: STABLE Referrals: MECHELLE ROSADO MD (PCP) Justicifation of Admission Dx: Justifications for Admission: Justification of Admission Dx: Yes Comments: CHF CAMDEN HASKINS I DO Apr 11, 2020 00:11
[2020-04-11 00:17] LABS: BASO # 0.1 x10^3/uL (0.0-0.2); BASO % 1 % (0-3); EOS # 0.1 x10^3/uL (0.0-0.7); EOS % 1 % (0-3); HEMATOCRIT 34.5 % (36.0-47.0); HEMOGLOBIN 11.2 g/dL (12.0-15.5); LYMPH # 1.6 x10^3/uL (1.0-4.8); LYMPH % 22 % (24-48); MEAN CORPUSCULAR HEMOGLOBIN 27 pg (25-35); MEAN CORPUSCULAR HGB CONC 33 g/dL (31-37); MEAN CORPUSCULAR VOLUME 83 fL (79-100); MONO # 0.6 x10^3/uL (0.0-1.1); MONO % 8 % (0-9); NEUT # 5.1 x10^3/uL (1.8-7.7); NEUT % 68 % (31-73); PLATELET COUNT 201 x10^3/uL (140-400); RED BLOOD COUNT 4.17 x10^6/uL (3.50-5.40); RED CELL DISTRIBUTION WIDTH 17.3 % (11.5-14.5); WHITE BLOOD COUNT 7.4 x10^3/uL (4.0-11.0)
--- NOTE | 2020-04-11 00:28 | RAD ---
AP chest. HISTORY: Short of breath AP view was taken of the chest. The patient's size limits evaluation the lung bases. There is a pacemaker on the left with atrial and ventricular pacing leads. Heart is enlarged. Upper lung zones are clear. Lung bases are poorly evaluated. Pattern is similar to the prior study. IMPRESSION: IMPRESSION: 1. Limited study, poor evaluation the lung bases cannot exclude infiltrates. 2. Cardiomegaly. Electronically signed by: Cipriano Lorenzo MD (04/11/2020 12:25 AM) [id number]
--- NOTE | 2020-04-11 00:31 | EKG ---
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
[2020-04-11 00:33] LABS: CALCIUM 8.1 mg/dL (8.5-10.1); GFR 70.7; POTASSIUM 3.9 mmol/L (3.5-5.1)
[2020-04-11 00:46] LABS: ALBUMIN 2.9 g/dL (3.4-5.0); ALBUMIN/GLOBULIN RATIO 0.8 (1.0-1.7); TOTAL BILIRUBIN 0.3 mg/dL (0.2-1.0); TOTAL PROTEIN 6.5 g/dL (6.4-8.2)
[2020-04-11] MEDS ORDERED: FUROSEMIDE 100 MG/10 ML VIAL. IVP ONE (02:00)
[2020-04-11 03:30] VITALS: BP 194/88
--- NOTE | 2020-04-11 04:59 | NUR ---
Pt arrived to unit at 0325 pt oriented to surroundings and call light vs obtained and bp elevated, assessment completed poc explained call light in reach will resume care and continue to monitor pt.
--- NOTE | 2020-04-11 05:17 | NUR ---
Call placed to Re: elevated bp 174/105
--- NOTE | 2020-04-11 05:30 | NUR ---
Dr Enrique returned call orders received to resume home meds and continue to monitor bp.
[2020-04-11] MEDS ORDERED: oxyCODONE/APAP 7.5/325 1 TAB TABLET PO PRN (06:15)
[2020-04-11 07:00] VITALS: BP 168/94
[2020-04-11] MEDS: CARVEDILOL 12.5 MG TABLET. PO SCH ×2 (08:47→16:34)
[2020-04-11] MEDS: FUROSEMIDE 80 MG TABLET. PO SCH ×2 (08:47→13:23)
[2020-04-11] MEDS: POTASSIUM CHLORIDE 20 MEQ TABLET.ER. PO SCH ×2 (08:47→16:33)
[2020-04-11] MEDS: glipiZIDE 5 MG TABLET PO SCH (08:48)
[2020-04-11] MEDS: SACUBITRIL/VALSARTAN 49/51MG TABLET. PO SCH ×2 (08:48→22:08)
[2020-04-11 10:00] VITALS: BP 158/87
[2020-04-11 12:03] LABS: BASO # 0.1 x10^3/uL (0.0-0.2); BASO % 1 % (0-3); EOS # 0.1 x10^3/uL (0.0-0.7); EOS % 1 % (0-3); HEMATOCRIT 34.2 % (36.0-47.0); HEMOGLOBIN 10.9 g/dL (12.0-15.5); LYMPH # 1.7 x10^3/uL (1.0-4.8); LYMPH % 23 % (24-48); MEAN CORPUSCULAR HEMOGLOBIN 27 pg (25-35); MEAN CORPUSCULAR HGB CONC 32 g/dL (31-37); MEAN CORPUSCULAR VOLUME 84 fL (79-100); MONO # 0.6 x10^3/uL (0.0-1.1); MONO % 9 % (0-9); NEUT # 4.8 x10^3/uL (1.8-7.7); NEUT % 66 % (31-73); PLATELET COUNT 182 x10^3/uL (140-400); RED BLOOD COUNT 4.09 x10^6/uL (3.50-5.40); RED CELL DISTRIBUTION WIDTH 17.6 % (11.5-14.5); WHITE BLOOD COUNT 7.3 x10^3/uL (4.0-11.0)
[2020-04-11 12:05] LABS: CALCIUM 7.7 mg/dL (8.5-10.1); GFR 70.7; POTASSIUM 3.6 mmol/L (3.5-5.1)
[2020-04-11 14:00] VITALS: BP 163/102
--- NOTE | 2020-04-11 14:19 | HP ---
ADMIT DATE: 04/11/2020 CHIEF COMPLAINT: Shortness of breath. HISTORY OF PRESENT ILLNESS: The patient is a pleasant 49-year-old female who presented to the ER with shortness of breath, gets worse with moving, better with sitting still, has been occurring for 3 days. She increased her home meds, but that did not work. She is already on Lasix twice a day 80 mg, it appears she has acute on chronic systolic and diastolic heart failure. We are going to admit the patient and consult Cardiology and diurese her. PAST MEDICAL HISTORY: CHF, diabetes, hypertension, hyperlipidemia, stroke, chronic pain, cholecystectomy, kidney cyst, tonsillectomy, tobacco abuse, marijuana use. ALLERGIES: HYDROCODONE AND MORPHINE. FAMILY HISTORY: Coronary artery disease. SOCIAL HISTORY: She smokes. No drink or drugs other than marijuana. MEDICATIONS: Reviewed, please refer to the MRAD. REVIEW OF SYSTEMS: GENERAL: No history of weight change, weakness or fevers. SKIN: No bruising, hair changes or rashes. EYES: No blurred, double or loss of vision. NOSE AND THROAT: No history of nosebleeds, hoarseness or sore throat. HEART: No history of palpitations, chest pain or shortness of breath on exertion. LUNGS: She complaints of shortness of breath. GASTROINTESTINAL: Denies changes in appetite, nausea, vomiting, diarrhea or constipation. GENITOURINARY: No history of frequency, urgency, hesitancy or nocturia. NEUROLOGIC: Denies history of numbness, tingling, tremor or weakness. PSYCHIATRIC: No history of panic, anxiety or depression. ENDOCRINE: No history of heat or cold intolerance, polyuria or polydipsia. EXTREMITIES: Denies muscle weakness, joint pain, pain on walking or stiffness. PHYSICAL EXAMINATION: VITALS: Within normal limits and are stable. GENERAL: No apparent distress. Alert and oriented. HEENT: Normal cephalic atraumatic, external auditory canals are patent. EYES: Extraocular muscles are intact, pupils are equally round and reactive to light and accommodation. MUSCULOSKELETAL: Well developed, well nourished, good range of motion. ENDOCRINE: No thyromegaly was palpated. LYMPHATICS: No cervical chain or axillary nodes were noted. HEMATOPOIETIC: No bruising. NECK: Supple, no JVD, no thyromegaly was noted. LUNGS: She has crackles and decreased breath sounds. HEART: RRR, S1, S2 present. Peripheral pulses intact, no obvious murmurs were noted. ABDOMEN: Soft, nontender. Positive bowel sounds no organomegaly, normal bowel sounds. EXTREMITIES: Without any cyanosis, clubbing, or edema. Pedal pulses intact, Homans sign is negative. NEUROLOGIC: Normal speech, normal tone. A and O x 3, moves all extremities, no obvious focal deficits. PSYCHIATRIC: Normal affect, normal mood. Stable. SKIN: No ulcerations or rashes, good skin turgor, no jaundice. VASCULAR: Good capillary refill, neurovascular bundle appears to be intact. IMAGING: Chest x-ray shows cardiomegaly and possible vascular congestion. LABORATORY DATA: Hemoglobin is 11.2. Troponin 0.063. ASSESSMENT AND PLAN: Acute on chronic systolic and diastolic heart failure with respiratory failure. The patient has been admitted. We will consult Cardiology, rule out COVID-19. Home meds, DVT prophylaxis, IV Lasix. Trend labs. PROGNOSIS: Guarded. COVID-19 CRITERIA: The patient was evaluated during the global COVID-19 pandemic, and that diagnosis was suspected/considered upon their initial presentation. Their evaluation, treatment and testing were consistent with current guidelines for patients who present with complaints or symptoms that may be related to COVID-19. JOSE RAMON BERMUDEZ DO DR: LISSETH/evelina JOB#: [id number] / [id number]
--- NOTE | 2020-04-11 16:04 | NUR ---
SW following. Reviewed chart and spoke with RN. SW consulted r/t pt's need for advanced directives. SW provided information and forms r/t DNR, POA, and Living Will. SW offered to assist in getting POA notarized once pt completes. Pt from home. Pt on 3l 02 but does not have 02 at home. Pt on oral medications. COVID pending. SW to continue following.
[2020-04-11 19:45] VITALS: BP 167/103
[2020-04-11] MEDS ORDERED: ATORVASTATIN CALCIUM 40 MG TABLET. PO SCH (21:00)
[2020-04-11 23:00] VITALS: BP 119/72
[2020-04-12 03:20] VITALS: BP 122/83
[2020-04-12] MEDS ORDERED: PANTOPRAZOLE 40 MG TABLET.DR. PO SCH (06:00)
[2020-04-12 07:00] VITALS: BP 132/85
[2020-04-12] MEDS: glipiZIDE 5 MG TABLET PO SCH (09:27)
[2020-04-12] MEDS: CARVEDILOL 12.5 MG TABLET. PO SCH (09:28)
[2020-04-12] MEDS: FUROSEMIDE 80 MG TABLET. PO SCH ×2 (09:28→13:46)
[2020-04-12] MEDS: SACUBITRIL/VALSARTAN 49/51MG TABLET. PO SCH (09:28)
[2020-04-12] MEDS: POTASSIUM CHLORIDE 20 MEQ TABLET.ER. PO SCH (09:29)
[2020-04-12 11:00] VITALS: BP 117/75
--- NOTE | 2020-04-12 11:25 | DS ---
DATE OF DISCHARGE: 04/12/2020 ADMISSION DIAGNOSES 1. Possible COVID-19. 2. Heart failure. DISCHARGE DIAGNOSES: 1. Resolving heart failure. 2. COVID-19 testing was negative. 3. History of congestive heart failure, diabetes, hypertension, hyperlipidemia, stroke, chronic pain, cholecystectomy, renal cyst, tonsillectomy, tobacco abuse, marijuana use. HOSPITAL COURSE: The patient is a pleasant 49-year-old female who presented with some shortness of breath. She appeared to have some heart failure. We are also concerned she could have COVID-19. We admitted her overnight to the COVID-19 Unit. We ruled out COVID-19. The testing came back just few minutes ago was negative. This morning, I saw and examined her. She is doing great, she wants to go home. Her lungs were much clear. We will plan to discharge home with close outpatient followup. DISPOSITION: Home. ACTIVITY: As tolerated. DIET: Low sodium. MEDICATIONS: Please see MRAD. TOTAL TIME: 32 minutes. JOSE RAMON BERMUDEZ DO DR: LISSETH/evelina JOB#: [id number] / [id number]
--- NOTE | 2020-04-12 12:01 | DS ---
DATE OF DISCHARGE: 04/12/2020 ADMISSION DIAGNOSES: Respiratory distress with possible COVID-19 and heart failure. DISCHARGE DIAGNOSES: Resolving heart failure. HOSPITAL COURSE: The patient is a pleasant 49-year-old female who presented with respiratory failure. We were concerned she could have COVID-19. Her chest x-ray came back negative this morning. I saw her and examined her. Heart tones are normal. Lungs are clear. We gave her a couple doses of IV Lasix. She seems to be at her baseline. We will go ahead and discharge to home. JOSE RAMON BERMUDEZ DO DR: LISSETH/evelina JOB#: [id number] / [id number]
--- NOTE | 2020-04-12 13:22 | NUR ---
SW following. Discussed with RN, pt is COVID-19 negative. 6 minute walk ordered, pt will discharge today, awaiting confirmation of whether pt needs oxygen or not. SW will continue to follow.
--- NOTE | 2020-04-12 17:02 | NUR ---
Discharge Note: GINA JACOBS [facility] Discharge instructions and discharge home medications reviewed with Patient and a copy given. All questions have been answered and understanding verbalized. The following instructions and handouts were given: weight loss and CHF. Discontinued iv line and catheter intact. Patient discharged to home with self-care via private vehicle.
== END 2020-04-12 17:04 | disposition home or self-care (01) | DRG 291 ==
LOC: ER 23:51 → 2 NORTH 04-11 01:30 → 6 SOUTH 04-11 03:13
PROVIDERS: ADMIT Internal Medicine; ATTEND Internal Medicine
DX: I11.0 Hypertensive heart disease with heart failure (principal); J96.90 Respiratory failure, unspecified, unspecified whether with hypoxia or hypercapnia; I50.43 Acute on chronic combined systolic (congestive) and diastolic (congestive) heart failure; E11.9 Type 2 diabetes mellitus without complications; E78.00 Pure hypercholesterolemia, unspecified; E78.5 Hyperlipidemia, unspecified; F17.200 Nicotine dependence, unspecified, uncomplicated; Z20.828 Contact with and (suspected) exposure to other viral communicable diseases; Z79.899 Other long term (current) drug therapy; Z82.49 Family history of ischemic heart disease and other diseases of the circulatory system; Z86.73 Personal history of transient ischemic attack (TIA), and cerebral infarction without residual deficits; G89.29 Other chronic pain; K21.9 Gastro-esophageal reflux disease without esophagitis
CPT/HCPCS: 36415; 71045; 80048; 80053; 82962; 83605; 83880; 84484; 85025; 87040; 93005; 94618; 96374; 99285; J1940; G0378; U0003-CS

== ENCOUNTER 2020-06-22 16:48 | Inpatient (IN) | payer MEDICARE ==
[~2020-06-22] VITALS: Ht 175.3 cm; Wt 213.2 kg
--- NOTE | 2020-06-22 18:16 | EKG ---
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
--- NOTE | 2020-06-22 18:21 | PHYS DOC ---
Past Medical History Past Medical History: CHF, Diabetes-Type II, Gallstones, GERD, High Maria E sterol, Hypertension, Stroke, Other Additional Past Medical Histor: CHRONIC PAIN Past Surgical History: Cholecystectomy, Other Additional Past Surgical Histo: kidney cyst removal, tracheostomy, defibrillator Smoking Status: Current Every Day Smoker Additional Information: 1 PPD Alcohol Use: None Drug Use: Marijuana General Adult EDM: Chief Complaint: SHORTNESS OF BREATH HPI: HPI: Patient is a 50 year old female who presents with a 2-day history of shortness of breath. Patient has a history of CHF and is described orthopnea and PND over the last couple days. Patient denies any chest pain but has intermittent abdominal pain of which she currently has none. Patient has had a cough and told nursing about hemoptysis but denies that to me. Patient also says she has had increased fatigue and is tired of her chronic medical conditions and is having vague suicidal ideation due to her chronic medical conditions. Review of Systems: Review of Systems: Constitutional: Denies fever or chills. [] Eyes: Denies change in visual acuity. [] HENT: Denies nasal congestion or sore throat. [] Respiratory: Denies cough or shortness of breath. [] Cardiovascular: Denies chest pain or edema. [] GI: Denies abdominal pain, nausea, vomiting, bloody stools or diarrhea. [] : Denies dysuria. [] Musculoskeletal: Denies back pain or joint pain. [] Integument: Denies rash. [] Neurologic: Denies headache, focal weakness or sensory changes. [] Endocrine: Denies polyuria or polydipsia. [] Lymphatic: Denies swollen glands. [] Psychiatric: Denies depression or anxiety. [] Heart Score: Risk Factors: Risk Factors: DM, Current or recent (<one month) smoker, HTN, HLP, family history of CAD, obesity. Risk Scores: Score 0 - 3: 2.5% MACE over next 6 weeks - Discharge Home Score 4 - 6: 20.3% MACE over next 6 weeks - Admit for Clinical Observation Score 7 - 10: 72.7% MACE over next 6 weeks - Early Invasive Strategies Allergies: Allergies: Allergies Coded Allergies Type Severity Reaction Last Updated Verified hydrocodone Allergy Intermediate 10/23/18 Yes morphine Allergy Intermediate 10/23/18 Yes Physical Exam: PE: Constitutional: Well developed, well nourished, no acute distress, non-toxic appearance. [] HENT: Normocephalic, atraumatic, bilateral external ears normal, , nose normal. [] Eyes: PERRLA, EOMI, conjunctiva normal, no discharge. [] Neck: Normal range of motion, no tenderness, supple, no stridor. [] Cardiovascular:Heart rate regular rhythm, peripheral pulses intact, cap refill brisk Lungs & Thorax: Bilateral crackles with some expiratory wheezing and decreased breath sounds bilaterally Abdomen: Bowel sounds normal, soft, no tenderness, no masses, no pulsatile masses. [] Skin: Warm, dry, no erythema, no rash. [] Back: No tenderness, no CVA tenderness. [] Extremities: 2+ bilateral extremity edema Neurologic: Alert and oriented X 3, normal motor function, normal sensory function, no focal deficits noted. [] Psychologic: Affect normal, judgement normal, mood normal. [] Current Patient Data: Labs: Laboratory Tests Test 06/22/20 18:35 White Blood Count 6.4 x10^3/uL Red Blood Count 3.98 x10^6/uL Hemoglobin 10.7 g/dL Hematocrit 33.1 % Mean Corpuscular Volume 83 fL Mean Corpuscular Hemoglobin 27 pg Mean Corpuscular Hemoglobin Concent 32 g/dL Red Cell Distribution Width 18.2 % Platelet Count 172 x10^3/uL Neutrophils (%) (Auto) 64 % Lymphocytes (%) (Auto) 24 % Monocytes (%) (Auto) 10 % Eosinophils (%) (Auto) 1 % Basophils (%) (Auto) 1 % Neutrophils # (Auto) 4.0 x10^3/uL Lymphocytes # (Auto) 1.5 x10^3/uL Monocytes # (Auto) 0.7 x10^3/uL Eosinophils # (Auto) 0.1 x10^3/uL Basophils # (Auto) 0.1 x10^3/uL Prothrombin Time 15.1 SEC Prothromb Time International Ratio 1.2 Activated Partial Thromboplast Time 24 SEC Sodium Level 146 mmol/L Potassium Level 3.9 mmol/L Chloride Level 111 mmol/L Carbon Dioxide Level 29 mmol/L Anion Gap 6 Blood Urea Nitrogen 20 mg/dL Creatinine 0.8 mg/dL Estimated GFR (Cockcroft-Gault) 91.1 BUN/Creatinine Ratio 25 Glucose Level 113 mg/dL Lactic Acid Level 0.8 mmol/L Calcium Level 8.0 mg/dL Magnesium Level 2.1 mg/dL Total Bilirubin 0.7 mg/dL Aspartate Amino Transf (AST/SGOT) 20 U/L Alanine Aminotransferase (ALT/SGPT) 45 U/L Alkaline Phosphatase 63 U/L Troponin I Quantitative 0.044 ng/mL [id number]-I-Type Natriuretic Peptide 29501 pg/mL Total Protein 5.7 g/dL Albumin 2.8 g/dL Albumin/Globulin Ratio 1.0 Thyroid Stimulating Hormone (TSH) 0.965 uIU/mL Current Medications Medications (Trade) Dose Ordered Sig/Liam Route PRN Reason Start Time Stop Time Status Last Admin Dose Admin Furosemide (Lasix) 40 mg 1X ONCE IVP 06/22/20 18:45 06/22/20 18:46 DC 06/22/20 18:59 Aspirin (Lobo Aspirin) 325 mg 1X ONCE PO 06/22/20 18:45 06/22/20 18:46 DC 06/22/20 18:59 Ondansetron HCl (Zofran) 4 mg PRN Q8HRS PRN IV NAUSEA/VOMITING 06/22/20 20:00 06/23/20 19:59 Vital Signs: Vital Signs Date Time Temp Pulse Resp B/P (MAP) Pulse Ox O2 Delivery O2 Flow Rate FiO2 06/22/20 16:48 98.2 91 20 153/95 (114) Room Air 95.0 98.2 EKG: EKG: EKG interpreted by me normal sinus rhythm with rate 87 left axis deviation nonspecific ST changes Radiology/Procedures: Radiology/Procedures: [][facility] [address] [place] [address] IMAGING REPORT Signed PATIENT: KAITY JACOBS ACCOUNT: [id number] : 1970 LOCATION: ER AGE: 50 SEX: F EXAM STATUS: PRE ER ORD. PHYSICIAN: SAVANNAH BANERJEE MD REASON: soa PROCEDURE: PORTABLE CHEST 1V EXAM: AP View of the chest DATE: 06/22/2020 6:12 PM INDICATION: Shortness of air COMPARISON: 04/11/2020, 02/11/2020 FINDINGS: Heart is moderately enlarged. Small left pleural effusion. Bilateral perihilar and lung base airspace opacities. No pneumothorax. Cardiac generator pack obscures a portion of the chest with leads in stable position. IMPRESSION: Cardiomegaly with bilateral parenchymal opacities may represent pulmonary edema although multifocal consolidative process as pneumonia may also have this appearance. Electronically signed by: Po Em MD (06/22/2020 7:14 PM) [facility] DICTATED and SIGNED BY: PO EM MD DATE: 06/22/201913 Course & Med Decision Making: Course & Med Decision Making Pertinent Labs and Imaging studies reviewed. (See chart for details) [] 48-year-old female presents with shortness of breath. Symptoms are consistent with CHF but her x-ray cannot rule out atypical infection therefore she will be swab for COVID-19. Patient will be admitted and diuresed cardiac consult has been placed. Dragon Disclaimer: Dragon Disclaimer: This electronic medical record was generated, in whole or in part, using a voice recognition dictation system. Departure Departure Impression: Primary Impression: CHF (congestive heart failure) Additional Impression: Dyspnea Disposition: ADMITTED INPATIENT Admitting Physician: SERGEI MOSQUEDA) Condition: STABLE Referrals: MECHELLE ROSADO MD (PCP) Justicifation of Admission Dx: Justifications for Admission: Justification of Admission Dx: Yes SAVANNAH BANERJEE MD Jun 22, 2020 18:21
[2020-06-22] MEDS ORDERED: ASPIRIN 325 MG TABLET PO ONE (18:45)
[2020-06-22] MEDS ORDERED: FUROSEMIDE 40 MG/4 ML VIAL. IVP ONE (18:45)
[2020-06-22 18:46] LABS: BASO # 0.1 x10^3/uL (0.0-0.2); BASO % 1 % (0-3); EOS # 0.1 x10^3/uL (0.0-0.7); EOS % 1 % (0-3); HEMATOCRIT 33.1 % (36.0-47.0); HEMOGLOBIN 10.7 g/dL (12.0-15.5); LYMPH # 1.5 x10^3/uL (1.0-4.8); LYMPH % 24 % (24-48); MEAN CORPUSCULAR HEMOGLOBIN 27 pg (25-35); MEAN CORPUSCULAR HGB CONC 32 g/dL (31-37); MEAN CORPUSCULAR VOLUME 83 fL (79-100); MONO # 0.7 x10^3/uL (0.0-1.1); MONO % 10 % (0-9); NEUT % 64 % (31-73); PLATELET COUNT 172 x10^3/uL (140-400); RED BLOOD COUNT 3.98 x10^6/uL (3.50-5.40); RED CELL DISTRIBUTION WIDTH 18.2 % (11.5-14.5); WHITE BLOOD COUNT 6.4 x10^3/uL (4.0-11.0)
[2020-06-22 18:55] LABS: PROTHROMBIN TIME PATIENT 15.1 SEC (11.7-14.0)
[2020-06-22 19:00] LABS: CREATININE 0.8 mg/dL (0.6-1.0); GFR 91.1; POTASSIUM 3.9 mmol/L (3.5-5.1)
[2020-06-22 19:10] LABS: ALBUMIN 2.8 g/dL (3.4-5.0); MAGNESIUM 2.1 mg/dL (1.8-2.4); TOTAL BILIRUBIN 0.7 mg/dL (0.2-1.0); TOTAL PROTEIN 5.7 g/dL (6.4-8.2)
--- NOTE | 2020-06-22 19:17 | RAD ---
EXAM: AP View of the chest DATE: 06/22/2020 6:12 PM INDICATION: Shortness of air COMPARISON: 04/11/2020, 02/11/2020 FINDINGS: Heart is moderately enlarged. Small left pleural effusion. Bilateral perihilar and lung base airspace opacities. No pneumothorax. Cardiac generator pack obscures a portion of the chest with leads in stable position. IMPRESSION: Cardiomegaly with bilateral parenchymal opacities may represent pulmonary edema although multifocal consolidative process as pneumonia may also have this appearance. Electronically signed by: Po Dominguez MD (06/22/2020 7:14 PM) DAVID
[2020-06-22] MEDS ORDERED: ONDANSETRON PF 4 MG/2 ML VIAL. IV PRN ×2 (20:00→20:45)
[2020-06-22] MEDS ORDERED: ZOLPIDEM 5 MG TABLET. PO PRN (20:45)
[2020-06-22] MEDS ORDERED: ACETAMINOPHEN 325 MG TABLET. PO PRN (20:45)
[2020-06-22] MEDS ORDERED: ALBUTEROL SULFATE 2.5 MG/3 ML NEBU. NEB PRN (20:45)
[2020-06-22] MEDS ORDERED: LORazepam 0.5 MG TABLET PO PRN (20:45)
[2020-06-22] MEDS ORDERED: oxyCODONE/APAP 7.5/325 1 TAB TABLET PO PRN (20:45)
[2020-06-22] MEDS ORDERED: guaiFENesin ORAL 200 MG/10 ML LIQUID. PO PRN (20:45)
[2020-06-22] MEDS ORDERED: DOCUSATE SODIUM 100 MG CAPSULE. PO PRN (20:45)
[2020-06-22] MEDS ORDERED: diphenhydrAMINE 50 MG/ML VIAL IVP PRN (20:45)
[2020-06-22] MEDS: POTASSIUM CHLORIDE 20 MEQ TABLET.ER. PO SCH (23:53)
[2020-06-22] MEDS: SACUBITRIL/VALSARTAN 49/51MG TABLET. PO SCH (23:54)
[2020-06-22] MEDS: ATORVASTATIN CALCIUM 40 MG TABLET. PO SCH (23:54)
[2020-06-23] VITALS (8 sets, daily range): BP systolic 134–195; BP diastolic 68–98
--- NOTE | 2020-06-23 10:09 | PDOC1 ---
History and Physical Date of Admission Date of Admission DATE: 06/23/20 TIME: 10:07 Identification/Chief Complaint Chief Complaint SEEN IN ER , presented with a 2-day history of shortness of breath. Patient has a history of CHF and is described orthopnea and PND over the last couple days. Patient denies any chest pain but has intermittent abdominal pain of which she currently has none. has had a cough and told nursing about hemoptysis but denies NOW , AFEBRILE SINCE ADMIT Past Medical History Past Medical History Past Medical History Past Medical History: CHF, Diabetes-Type II, Gallstones, GERD, High Ch olesterol, Hypertension, Stroke, Other Additional Past Medical Histor: CHRONIC PAIN Past Surgical History: Cholecystectomy, Other Additional Past Surgical Histo: kidney cyst removal, tracheostomy, defibrillator Smoking Status: Current Every Day Smoker Additional Information: 1 PPD Alcohol Use: None Drug Use: Marijuana FHX OBESITY Cardiovascular: CHF, HTN, Hyperlipidemia Pulmonary: Bronchitis, Other CENTRAL NERVOUS SYSTEM: CVA GI: No pertinent hx Heme/Onc: Other Hepatobiliary: No pertinent hx Psych: No pertinent hx Musculoskeletal: Osteoarthritis Rheumatologic: No pertinent hx Infectious disease: No pertinent hx Renal/: No pertinent hx Endocrine: Diabetes Past Surgical History Past Surgical History: Cholecystectomy, Other Family History Family History: Diabetes, Hypertension Social History Smoke: No ALCOHOL: none Drugs: None Current Problem List Problem List Problems Medical Problems: (1) CHF (congestive heart failure) Status: Acute (2) Dyspnea Status: Acute Current Medications Current Medications Current Medications Furosemide (Lasix) 40 mg 1X ONCE IVP Last administered on 06/22/20at 18:59; Start 06/22/20 at 18:45; Stop 06/22/20 at 18:46; Status DC Aspirin (Lobo Aspirin) 325 mg 1X ONCE PO Last administered on 06/22/20at 18:59; Start 06/22/20 at 18:45; Stop 06/22/20 at 18:46; Status DC Ondansetron HCl (Zofran) 4 mg PRN Q8HRS PRN IV NAUSEA/VOMITING; Start 06/22/20 at 20:00; Stop 06/23/20 at 19:59 Ondansetron HCl (Zofran) 4 mg PRN Q4HRS PRN IV NAUSEA/VOMITING 1ST CHOICE; Start 06/22/20 at 20:45 Zolpidem Tartrate (Ambien) 5 mg PRN QHS PRN PO INSOMNIA Last administered on 06/22/20at 23:55; Start 06/22/20 at 20:45 Acetaminophen (Tylenol) 650 mg PRN Q4HRS PRN PO TEMP OVER 100.4F OR MILD PAIN; Start 06/22/20 at 20:45 Diphenhydramine HCl (Benadryl) 25 mg PRN Q4HRS PRN IVP ITCHING; Start 06/22/20 at 20:45 Docusate Sodium (Colace) 100 mg PRN BID PRN PO HARD STOOLS; Start 06/22/20 at 20:45 Albuterol Sulfate (Ventolin Neb Soln) 2.5 mg PRN Q4HRS PRN NEB SHORTNESS OF BREATH; Start 06/22/20 at 20:45 Guaifenesin (Robitussin) 200 mg PRN Q4HRS PRN PO COUGH; Start 06/22/20 at 20:45 Lorazepam (Ativan) 0.5 mg PRN Q4HRS PRN PO ANXIETY / AGITATION; Start 06/22/20 at 20:45 Enoxaparin Sodium (Lovenox 60mg Syringe) 60 mg Q12HR SQ Last administered on 06/22/20at 23:54; Start 06/22/20 at 21:00 Carvedilol (Coreg) 12.5 mg BIDWMEALS PO ; Start 06/23/20 at 08:00 Glipizide (Glucotrol) 5 mg DAILY PO ; Start 06/23/20 at 09:00 Oxycodone/ Acetaminophen (Percocet 7.5/ 325) 1 tab PRN Q6HRS PRN PO SEVERE PAIN 7-10; Start 06/22/20 at 20:45 Potassium Chloride (Klor-Con) 20 meq BID PO Last administered on 06/22/20at 23:53; Start 06/22/20 at 21:00 Sacubitril/ Valsartan (Entresto 49 Mg-51 Mg) 1 tab BID PO Last administered on 06/22/20at 23:54; Start 06/22/20 at 21:00 Pantoprazole Sodium (Protonix) 40 mg DAILYAC PO ; Start 06/23/20 at 07:30 Atorvastatin Calcium (Lipitor) 40 mg QHS PO Last administered on 06/22/20at 23:54; Start 06/22/20 at 21:00 Active Scripts Active Furosemide 80 Mg Tablet 80 Mg PO BID 7 Days Reported Oxycodon-Acetaminophen 7.5-325 (Oxycodone Hcl/Acetaminophen) 1 Each Tablet 7.5- 325 Mg PO PRN Q6HRS PRN Omeprazole 40 Mg Capsule. 1 Cap PO DAILY06 Potassium Chloride (Potassium Chloride) 20 Meq Tablet.er 20 Meq PO BID Entresto 49 mg-51 mg Tablet (Sacubitril/Valsartan) 1 Each Tablet 1 Tab PO BID Glipizide 5 Mg Tablet 1 Tab PO DAILY Warfarin Sodium 10 Mg Tablet 10 Mg PO DAILY Crestor (Rosuvastatin Calcium) 10 Mg Tablet 1 Tab PO DAILY Carvedilol (Carvedilol) 12.5 Mg Tablet 1 Tab PO BID Allergies Allergies: Coded Allergies: hydrocodone (Verified Allergy, Intermediate, 10/23/18) morphine (Verified Allergy, Intermediate, 10/23/18) ROS Review of System Review of Systems: Constitutional: Denies fever or chills. [] Eyes: Denies change in visual acuity. [] HENT: Denies nasal congestion or sore throat. [] Respiratory: Denies cough or shortness of breath. [] Cardiovascular: Denies chest pain or edema. [] GI: Denies abdominal pain, nausea, vomiting, bloody stools or diarrhea. [] : Denies dysuria. [] Musculoskeletal: Denies back pain or joint pain. [] Integument: Denies rash. [] Neurologic: Denies headache, focal weakness or sensory changes. [] Endocrine: Denies polyuria or polydipsia. [] Lymphatic: Denies swollen glands. [] Psychiatric: Denies depression or anxiety. [] 14 PT ROS OTHERWISE NEG General: YES: Fatigue Respiratory: YES: SOB with excertion; No: Cough, Hemoptysis, Orthopnea, Pleuritic Pain, Shortness of breath, Sputum Changes, Stridor, Tachypnea, Wheezing, Other Physical Exam Physical Exam Constitutional: Well developed, well nourished, no acute distress, non-toxic appearance. [] HENT: Normocephalic, atraumatic, bilateral external ears normal, , nose normal. [] Eyes: PERRLA, EOMI, conjunctiva normal, no discharge. [] Neck: Normal range of motion, no tenderness, supple, no stridor. [] Cardiovascular:Heart rate regular rhythm, peripheral pulses intact, cap refill brisk Lungs & Thorax: Bilateral crackles with some expiratory wheezing and decreased breath sounds bilaterally Abdomen: Bowel sounds normal, soft, no tenderness, no masses, no pulsatile masses. [] Skin: Warm, dry, no erythema, no rash. [] Back: No tenderness, no CVA tenderness. [] Extremities: 2+ bilateral extremity edema Neurologic: Alert and oriented X 3, normal motor function, normal sensory function, no focal deficits noted. [] Psychologic: Affect normal, judgement normal, mood normal. [] General: Alert, Oriented X3, Cooperative HEENT: Atraumatic Breasts: Not examined Abdomen: Normal bowel sounds, Soft Rectal Exam: not examined PELVIC: Examination not indicated Extremities: No cyanosis Neuro: Normal speech, Cranial nerves 3-12 NL Psych/Mental Status: Mental status NL, Mood NL Vitals Vitals Vital Signs Date Time Temp Pulse Resp B/P (MAP) Pulse Ox O2 Delivery O2 Flow Rate FiO2 06/23/20 07:45 98.1 90 20 148/98 (115) 95 Nasal Cannula 3.0 98.1 Labs Labs Laboratory Tests Test 06/22/20 18:35 06/23/20 00:08 06/23/20 08:15 06/23/20 10:02 White Blood Count 6.4 x10^3/uL (4.0-11.0) Red Blood Count 3.98 x10^6/uL (3.50-5.40) Hemoglobin 10.7 g/dL (12.0-15.5) Hematocrit 33.1 % (36.0-47.0) Mean Corpuscular Volume 83 fL (79-100) Mean Corpuscular Hemoglobin 27 pg (25-35) Mean Corpuscular Hemoglobin Concent 32 g/dL (31-37) Red Cell Distribution Width 18.2 % (11.5-14.5) Platelet Count 172 x10^3/uL (140-400) Neutrophils (%) (Auto) 64 % (31-73) Lymphocytes (%) (Auto) 24 % (24-48) Monocytes (%) (Auto) 10 % (0-9) Eosinophils (%) (Auto) 1 % (0-3) Basophils (%) (Auto) 1 % (0-3) Neutrophils # (Auto) 4.0 x10^3/uL (1.8-7.7) Lymphocytes # (Auto) 1.5 x10^3/uL (1.0-4.8) Monocytes # (Auto) 0.7 x10^3/uL (0.0-1.1) Eosinophils # (Auto) 0.1 x10^3/uL (0.0-0.7) Basophils # (Auto) 0.1 x10^3/uL (0.0-0.2) Prothrombin Time 15.1 SEC (11.7-14.0) Prothromb Time International Ratio 1.2 (0.8-1.1) Activated Partial Thromboplast Time 24 SEC (24-38) Sodium Level 146 mmol/L (136-145) Potassium Level 3.9 mmol/L (3.5-5.1) Chloride Level 111 mmol/L (98-107) Carbon Dioxide Level 29 mmol/L (21-32) Anion Gap 6 (6-14) Blood Urea Nitrogen 20 mg/dL (7-20) Creatinine 0.8 mg/dL (0.6-1.0) Estimated GFR (Cockcroft-Gault) 91.1 BUN/Creatinine Ratio 25 (6-20) Glucose Level 113 mg/dL (70-99) Lactic Acid Level 0.8 mmol/L (0.4-2.0) Calcium Level 8.0 mg/dL (8.5-10.1) Magnesium Level 2.1 mg/dL (1.8-2.4) Total Bilirubin 0.7 mg/dL (0.2-1.0) Aspartate Amino Transf (AST/SGOT) 20 U/L (15-37) Alanine Aminotransferase (ALT/SGPT) 45 U/L (14-59) Alkaline Phosphatase 63 U/L (46-116) Troponin I Quantitative 0.044 ng/mL (0.000-0.055) YI-Wgk-H-Type Natriuretic Peptide 97113 pg/mL (0-124) Total Protein 5.7 g/dL (6.4-8.2) Albumin 2.8 g/dL (3.4-5.0) Albumin/Globulin Ratio 1.0 (1.0-1.7) Thyroid Stimulating Hormone (TSH) 0.965 uIU/mL (0.358-3.74) Glucose (Fingerstick) 128 mg/dL (70-99) 112 mg/dL (70-99) 137 mg/dL (70-99) Laboratory Tests Test 06/22/20 18:35 06/23/20 00:08 06/23/20 08:15 06/23/20 10:02 White Blood Count 6.4 x10^3/uL (4.0-11.0) Red Blood Count 3.98 x10^6/uL (3.50-5.40) Hemoglobin 10.7 g/dL (12.0-15.5) Hematocrit 33.1 % (36.0-47.0) Mean Corpuscular Volume 83 fL (79-100) Mean Corpuscular Hemoglobin 27 pg (25-35) Mean Corpuscular Hemoglobin Concent 32 g/dL (31-37) Red Cell Distribution Width 18.2 % (11.5-14.5) Platelet Count 172 x10^3/uL (140-400) Neutrophils (%) (Auto) 64 % (31-73) Lymphocytes (%) (Auto) 24 % (24-48) Monocytes (%) (Auto) 10 % (0-9) Eosinophils (%) (Auto) 1 % (0-3) Basophils (%) (Auto) 1 % (0-3) Neutrophils # (Auto) 4.0 x10^3/uL (1.8-7.7) Lymphocytes # (Auto) 1.5 x10^3/uL (1.0-4.8) Monocytes # (Auto) 0.7 x10^3/uL (0.0-1.1) Eosinophils # (Auto) 0.1 x10^3/uL (0.0-0.7) Basophils # (Auto) 0.1 x10^3/uL (0.0-0.2) Prothrombin Time 15.1 SEC (11.7-14.0) Prothromb Time International Ratio 1.2 (0.8-1.1) Activated Partial Thromboplast Time 24 SEC (24-38) Sodium Level 146 mmol/L (136-145) Potassium Level 3.9 mmol/L (3.5-5.1) Chloride Level 111 mmol/L (98-107) Carbon Dioxide Level 29 mmol/L (21-32) Anion Gap 6 (6-14) Blood Urea Nitrogen 20 mg/dL (7-20) Creatinine 0.8 mg/dL (0.6-1.0) Estimated GFR (Cockcroft-Gault) 91.1 BUN/Creatinine Ratio 25 (6-20) Glucose Level 113 mg/dL (70-99) Lactic Acid Level 0.8 mmol/L (0.4-2.0) Calcium Level 8.0 mg/dL (8.5-10.1) Magnesium Level 2.1 mg/dL (1.8-2.4) Total Bilirubin 0.7 mg/dL (0.2-1.0) Aspartate Amino Transf (AST/SGOT) 20 U/L (15-37) Alanine Aminotransferase (ALT/SGPT) 45 U/L (14-59) Alkaline Phosphatase 63 U/L (46-116) Troponin I Quantitative 0.044 ng/mL (0.000-0.055) TN-Juf-X-Type Natriuretic Peptide 49913 pg/mL (0-124) Total Protein 5.7 g/dL (6.4-8.2) Albumin 2.8 g/dL (3.4-5.0) Albumin/Globulin Ratio 1.0 (1.0-1.7) Thyroid Stimulating Hormone (TSH) 0.965 uIU/mL (0.358-3.74) Glucose (Fingerstick) 128 mg/dL (70-99) 112 mg/dL (70-99) 137 mg/dL (70-99) Images Images EXAM: LIMITED Two-dimensional and M-mode echocardiogram. Other Information Quality : Average HR: 72bpm Rhythm : NSR INDICATION Cardiomyopathy 2D DIMENSIONS RVDd 3.1 (2.9-3.5cm) Left Atrium(2D) 5.0 (1.6-4.0cm) IVSd 1.3 (0.7-1.1cm) Aortic Root(2D) 4.5 (2.0-3.7cm) LVDd 6.5 (3.9-5.9cm) PWd 1.2 (0.7-1.1cm) LVDs 5.1 (2.5-4.0cm) FS (%) 20.6 % SV 88.3 ml LVEF(%) 40.0 (>50%) LEFT VENTRICLE The Left Ventricle is moderately dilated. There is mild concentric left ventricular hypertrophy. The left ventricular systolic function is moderately impaired. The Ejection Fraction is 35-40%. There is global hypokinesis of the left ventricle. RIGHT VENTRICLE The right ventricle is normal size. There is normal right ventricular wall thickness. The right ventricular systolic function is normal. ATRIA The left atrium is moderately dilated. The right atrium is mildly dilated. AORTIC VALVE The aortic valve is thickened but opens well. The aortic valve is trileaflet. There is no significant aortic valvular stenosis. MITRAL VALVE The mitral valve is normal in structure and function. There is no evidence of mitral valve prolapse. There is no mitral valve stenosis. TRICUSPID VALVE The tricuspid valve is normal in structure and function. There is no tricuspid valve stenosis. GREAT VESSELS The aortic root is moderately enlarged. PERICARDIAL EFFUSION There is no evidence of significant pericardial effusion. Critical Notification Critical Value: No <Conclusion> Limited 2D echo to assess LV function. The left ventricular systolic function is moderately impaired. The Ejection Fraction is 35-40%. The left atrium is moderately dilated. The aortic root is moderately enlarged. There is no evidence of significant pericardial effusion. Signed by : Chantal Peña, Electronically Approved : 12/23/2018 09:12:53 DICTATED and SIGNED BY: CHANTAL PEÑA MD DATE: 12/23/1812 PROCEDURE: PORTABLE CHEST 1V EXAM: AP View of the chest DATE: 06/22/2020 6:12 PM INDICATION: Shortness of air COMPARISON: 04/11/2020, 02/11/2020 FINDINGS: Heart is moderately enlarged. Small left pleural effusion. Bilateral perihilar and lung base airspace opacities. No pneumothorax. Cardiac generator pack obscures a portion of the chest with leads in stable position. IMPRESSION: Cardiomegaly with bilateral parenchymal opacities may represent pulmonary edema although multifocal consolidative process as pneumonia may also have this appearance. Electronically signed by: Po Em MD (06/22/2020 7:14 PM) [facility] DICTATED and SIGNED BY: PO EM MD VTE Prophylaxis Ordered VTE Prophylaxis Devices: No VTE Pharmacological Prophylaxi: Yes Assessment/Plan Assessment/Plan IMPRESSION: Cardiomegaly with bilateral parenchymal opacities c/w pulmonary edema 12/28 ECHO , left ventricular systolic function is moderately impaired.Ejection Fraction is 35-40%.left atrium is moderately dilated.aortic root is moderately enlarged. multifocal consolidative process as pneumonia possible super morbid obesity vague suicidal ideation due to her chronic medical conditions. UNCONTROLLED HYPERTENSION AICD. [id number]. // interrogate. PLAN ADMIT PUI covid dvt prophylaxis cardiology consult pulm consult PRN IV HYDRALAZINE 10 MG Q 4 HRS pat consult 40 mg iv lasix daily dvt prophylaxis 76 min pt exam, chart review, > 50% of time spent with exam, chart review, pt care coordination DPOA REVIEW 17 MIN What Is a Power of Sales Service Representative? A power of near east archeology professor (POA) is a legal document giving one person (the agent or [id number]) the power to act for another person (the principal). The agent can have broad legal authority or limited authority to make legal decisions about the principal's property, finances or medical care. The power of near east archeology professor is frequently used in the event of a principal's illness or disability, or when the principal can't be present to sign necessary legal documents for financial transactions. A power of near east archeology professor can end for a number of reasons, such as when the principal dies, the principal revokes it, a court invalidates it, the principal divorces their spouse, who happens to be the agent, or the agent can no longer carry out the outlined responsibilities. Conventional POAs lapse when the creator becomes incapacitated, but a durable POA remains in force to enable the agent to manage the creators affairs, and a springing POA comes into effect only if and when the creator of the POA becomes incapacitated. A medical or healthcare POA enables an agent to make medical decisions on behalf of an incapacitated person. [employer] A power of near east archeology professor (POA) is a legal document giving one person, the agent or [id number] the power to act for another person, the principal. The agent can have broad legal authority or limited authority to make decisions about the principal's property, finances or medical care. The power of near east archeology professor is often used when a principal becomes ill or disabled, or when they can't be present to sign necessary legal documents for financial transactions. Understanding Power of Sales Service Representative A power of near east archeology professor should be considered when planning for long-term care. There are different types of POAs that fall under either a general power of near east archeology professor or limited power of near east archeology professor. A general power of near east archeology professor acts on behalf of the principal in any and all matters, as allowed by the state. The agent under a general POA agreement may be authorized to take care of issues such as handling bank accounts, signing checks, selling property and assets like stocks, f A limited power of near east archeology professor gives the agent the power to act on behalf of the principal in specific matters or events. For example, the limited POA may explicitly state that the agent is only allowed to manage the principal's nursing home accounts. A limited POA may also be limited to a specific period of time (e.g., if the principal will be out of the country for, say, two years). Most hernandez of near east archeology professor documents allow an agent to represent the principal in all property and financial matters as long as the principals mental state of mind is good. If a situation occurs where the principal becomes incapable of making decisions for him or herself, the POA agreement would automatically end. However, someone who wants the POA to remain in effect after the persons health deteriorates would need to sign a durable power of near east archeology professor (DPOA). Important:A person appointed as power of near east archeology professor is not necessarily an near east archeology professor. The person could just be a trusted family member, friend, or acquaintance. Understanding the Durable Power of Sales Service Representative (DPOA) The durable power of near east archeology professor (DPOA) remains in control of certain legal, property or financial matters specifically spelled out in the agreement, even after the principal becomes mentally incapacitated. While a DPOA can pay medical bills on behalf of the principal, the durable agent cannot make decisions related to the principal's health (e.g., taking the principal off life support is not up to a DPOA). The principal can sign a durable power of near east archeology professor for health care, or healt hcare power of near east archeology professor (HCPA), if he wants an agent to have the power to make health-related decisions. This document also called a healthcare proxy, outlines the principals consent to give the agent POA privileges in the event of an unfortunate medical condition. The durable POA for healthcare is legally bound to oversee medical care decisions on behalf of the principal. Another type of DPOA is the durable power of near east archeology professor for finances, or simply a financial power of near east archeology professor. This document allows an agent to manage the business and financial affairs of the principal, such as signing checks, filing tax returns, mailing and depositing Social Security checks and managing investment accounts, in the event, the latter becomes unable to understand or make decisions. To the extent of what the agreement spells out as the agents responsibility, the agent has to carry out the principals wishes to the best of his ability. When the agent acts on behalf of the principal by making investment decisions through the welder machine operator or medical decisions through the healthcare professional, both institutions would ask to see the DPOA. Although the DPOA for both medical and financial matters can be one document, it is good to have separate DPOA for healthcare and finances. Since the DPOA for healthcare will have the principal's personal medical information, it would be inappropriate for the welder machine operator to have it, and the biomedical manager dont need to know the financial status of the patient either. conditions for which a durable POA may become active are set up in a document called the springing power of near east archeology professor. The springing POA defines the kind of event or level of incapacitation that should occur before the DPOA springs into effect. A power of near east archeology professor can remain dormant until a negative health occurrence activates it to a DPOA. How Power of Sales Service Representative Works You can buy or download a power of near east archeology professor template. If you do, be sure it is for your state, as requirements differ. However, this document may be too important to leave to the chance that you got the correct form and handled it properly. A better way to start the process of establishing a power of near east archeology professor is by locating an near east archeology professor who specializes in family law in your state. If near east archeology professor's fees are more than you can afford, legal services offices staffed with credentialed attorneys exist in virtually every part of the [place]. Visit the Legal Services [employer]'s website, which has a "Find Paint Prepper" search function. Clients who qualify will receive pro betty (cost-free) assistance Many states require that the signature of the principal (the person who initiates the POA) be notarized. Some states also require that witnesses' signatures be notarized. Justifications for Admission Other Justification RICARDO BLACK MD Jun 23, 2020 10:09
[2020-06-23] MEDS ORDERED: hydrALAZINE 20 MG/ML VIAL. IVP PRN (10:15)
[2020-06-23] MEDS: CARVEDILOL 12.5 MG TABLET. PO SCH ×2 (10:36→16:08)
[2020-06-23] MEDS: SACUBITRIL/VALSARTAN 49/51MG TABLET. PO SCH ×2 (10:36→23:05)
[2020-06-23] MEDS: glipiZIDE 5 MG TABLET PO SCH (10:36)
[2020-06-23] MEDS: PANTOPRAZOLE 40 MG TABLET.DR. PO SCH (10:36)
[2020-06-23] MEDS: POTASSIUM CHLORIDE 20 MEQ TABLET.ER. PO SCH ×2 (10:36→23:04)
[2020-06-23] MEDS ORDERED: ONDANSETRON PF 4 MG/2 ML VIAL. IV PRN (13:15)
[2020-06-23] MEDS ORDERED: guaiFENesin ORAL 200 MG/10 ML LIQUID. PO PRN (13:15)
[2020-06-23] MEDS ORDERED: DOCUSATE SODIUM 100 MG CAPSULE. PO PRN (13:15)
[2020-06-23] MEDS ORDERED: ACETAMINOPHEN 325 MG TABLET. PO PRN (13:15)
[2020-06-23] MEDS ORDERED: MAG HYDROX/ALUMINUM HYD/SIMETH 30 ML ORAL.SUSP PO PRN (13:15)
[2020-06-23] MEDS ORDERED: SODIUM PHOSPHATES 19/7GM 133 ML ENEMA. PR PRN (13:15)
[2020-06-23] MEDS ORDERED: 0.9 % SODIUM CHLORIDE 10 ML DISP.SYRIN. IV PRN (13:15)
[2020-06-23] MEDS ORDERED: ALBUTEROL SULFATE 2.5 MG/3 ML NEBU. NEB PRN (13:15)
--- NOTE | 2020-06-23 15:46 | PDOC2 ---
CONSULT Date of Consult Date of Consult DATE: 06/23/20 TIME: 15:40 Reason for Consult Reason for Consult: Shortness of breath Referring Physician Referring Physician: Dr. Hawkins Identification/Chief Complaint Chief Complaint Shortness of breath Source Source: Chart review History of Present Illness Reason for Visit: The patient is a 50-year-old female who was admitted from the emergency room last night with 2 days of increasing shortness of breath. She was treated with IV Lasix and is symptomatically improved. Also she has a COVID test pending. She has a history of a nonischemic cardiomyopathy as well as hypertension and hyperlipidemia. Cardiac catheterization on 10/25/2018 showed no coronary artery disease. An echocardiogram on 10/22/2018 showed an ejection fraction of 30% with mild mitral regurgitation. On 01/31/2019 the patient had a Biotronik AICD placed. Lab testing is significant for a BNP of 17,005 29 a troponin of 0.044. EKG shows a sinus rhythm with no ischemic changes. Chest x-ray shows coronary moderate cardiomegaly and bilateral airspace opacities. Past Medical History Cardiovascular: CHF, HTN, Hyperlipidemia Pulmonary: Bronchitis, Other CENTRAL NERVOUS SYSTEM: CVA GI: No pertinent hx Heme/Onc: Other Hepatobiliary: No pertinent hx Psych: No pertinent hx Musculoskeletal: Osteoarthritis Rheumatologic: No pertinent hx Infectious disease: No pertinent hx Renal/: No pertinent hx Endocrine: Diabetes Past Surgical History Past Surgical History: Cholecystectomy, Other (AICD placement, kidney cyst.) Family History Family History: Diabetes, Hypertension Social History <1 pack per day ALCOHOL: none Drugs: None Lives: with Family Current Problem List Problem List Problems Medical Problems: (1) CHF (congestive heart failure) Status: Acute (2) Dyspnea Status: Acute Current Medications Current Medications Current Medications Furosemide (Lasix) 40 mg 1X ONCE IVP Last administered on 06/22/20at 18:59; Start 06/22/20 at 18:45; Stop 06/22/20 at 18:46; Status DC Aspirin (Lobo Aspirin) 325 mg 1X ONCE PO Last administered on 06/22/20at 18:59; Start 06/22/20 at 18:45; Stop 06/22/20 at 18:46; Status DC Ondansetron HCl (Zofran) 4 mg PRN Q8HRS PRN IV NAUSEA/VOMITING; Start 06/22/20 at 20:00; Stop 06/23/20 at 13:22; Status DC Ondansetron HCl (Zofran) 4 mg PRN Q4HRS PRN IV NAUSEA/VOMITING 1ST CHOICE; Start 06/22/20 at 20:45 Zolpidem Tartrate (Ambien) 5 mg PRN QHS PRN PO INSOMNIA Last administered on 06/22/20at 23:55; Start 06/22/20 at 20:45 Acetaminophen (Tylenol) 650 mg PRN Q4HRS PRN PO TEMP OVER 100.4F OR MILD PAIN; Start 06/22/20 at 20:45 Diphenhydramine HCl (Benadryl) 25 mg PRN Q4HRS PRN IVP ITCHING; Start 06/22/20 at 20:45 Docusate Sodium (Colace) 100 mg PRN BID PRN PO HARD STOOLS; Start 06/22/20 at 20:45 Albuterol Sulfate (Ventolin Neb Soln) 2.5 mg PRN Q4HRS PRN NEB SHORTNESS OF BREATH; Start 06/22/20 at 20:45 Guaifenesin (Robitussin) 200 mg PRN Q4HRS PRN PO COUGH; Start 06/22/20 at 20:45 Lorazepam (Ativan) 0.5 mg PRN Q4HRS PRN PO ANXIETY / AGITATION; Start 06/22/20 at 20:45 Enoxaparin Sodium (Lovenox 60mg Syringe) 60 mg Q12HR SQ Last administered on 06/23/20at 10:35; Start 06/22/20 at 21:00 Carvedilol (Coreg) 12.5 mg BIDWMEALS PO Last administered on 06/23/20at 10:36; Start 06/23/20 at 08:00 Glipizide (Glucotrol) 5 mg DAILY PO Last administered on 06/23/20at 10:36; Start 06/23/20 at 09:00 Oxycodone/ Acetaminophen (Percocet 7.5/ 325) 1 tab PRN Q6HRS PRN PO SEVERE PAIN 7-10; Start 06/22/20 at 20:45 Potassium Chloride (Klor-Con) 20 meq BID PO Last administered on 06/23/20at 10:36; Start 06/22/20 at 21:00 Sacubitril/ Valsartan (Entresto 49 Mg-51 Mg) 1 tab BID PO Last administered on 06/23/20at 10:36; Start 06/22/20 at 21:00 Pantoprazole Sodium (Protonix) 40 mg DAILYAC PO Last administered on 06/23/20at 10:36; Start 06/23/20 at 07:30 Atorvastatin Calcium (Lipitor) 40 mg QHS PO Last administered on 06/22/20at 23:54; Start 06/22/20 at 21:00 Hydralazine HCl (Apresoline Inj) 10 mg PRN Q4HRS PRN IVP ELEVATED BP, SEE COMMENTS; Start 06/23/20 at 10:15 Furosemide (Lasix) 40 mg DAILY IVP ; Start 06/24/20 at 09:00 Sodium Chloride (Normal Saline Flush) 3 ml QSHIFT PRN IV AFTER MEDS AND BLOOD DRAWS; Start 06/23/20 at 13:15 Ondansetron HCl (Zofran) 4 mg PRN Q4HRS PRN IV NAUSEA/VOMITING; Start 06/23/20 at 13:15; Status UNV Acetaminophen (Tylenol) 650 mg PRN Q4HRS PRN PO TEMP OVER 100.4F OR MILD PAIN; Start 06/23/20 at 13:15; Status UNV Al Hydroxide/Mg Hydroxide (Mylanta Plus Xs) 30 ml PRN DAILY PRN PO HEARTBURN / GAS; Start 06/23/20 at 13:15 Sodium Monofluorophosphate (Fleet Adult) 133 ml PRN DAILY PRN [place] CONSTIPATION; Start 06/23/20 at 13:15 Docusate Sodium (Colace) 100 mg PRN BID PRN PO HARD STOOLS; Start 06/23/20 at 13:15; Status UNV Albuterol Sulfate (Ventolin Neb Soln) 2.5 mg PRN Q4HRS PRN NEB SHORTNESS OF BREATH; Start 06/23/20 at 13:15; Status UNV Guaifenesin (Robitussin) 200 mg PRN Q4HRS PRN PO COUGH; Start 06/23/20 at 13:15; Status UNV Active Scripts Active Furosemide 80 Mg Tablet 80 Mg PO BID 7 Days Reported Oxycodon-Acetaminophen 7.5-325 (Oxycodone Hcl/Acetaminophen) 1 Each Tablet 7.5- 325 Mg PO PRN Q6HRS PRN Omeprazole 40 Mg Capsule.dr 1 Cap PO DAILY06 Potassium Chloride (Potassium Chloride) 20 Meq Tablet.er 20 Meq PO BID Entresto 49 mg-51 mg Tablet (Sacubitril/Valsartan) 1 Each Tablet 1 Tab PO BID Glipizide 5 Mg Tablet 1 Tab PO DAILY Warfarin Sodium 10 Mg Tablet 10 Mg PO DAILY Crestor (Rosuvastatin Calcium) 10 Mg Tablet 1 Tab PO DAILY Carvedilol (Carvedilol) 12.5 Mg Tablet 1 Tab PO BID Allergies Allergies: Coded Allergies: hydrocodone (Verified Allergy, Intermediate, 10/23/18) morphine (Verified Allergy, Intermediate, 10/23/18) ROS General: YES: Fatigue Respiratory: YES: Shortness of breath Vitals VITALS Vital Signs Date Time Temp Pulse Resp B/P (MAP) Pulse Ox O2 Delivery O2 Flow Rate FiO2 06/23/20 15:26 98.8 86 24 195/90 (125) 92 Nasal Cannula 3.0 98.8 Labs Labs Laboratory Tests Test 06/22/20 18:35 06/23/20 00:08 06/23/20 08:15 06/23/20 10:02 White Blood Count 6.4 x10^3/uL (4.0-11.0) Red Blood Count 3.98 x10^6/uL (3.50-5.40) Hemoglobin 10.7 g/dL (12.0-15.5) Hematocrit 33.1 % (36.0-47.0) Mean Corpuscular Volume 83 fL (79-100) Mean Corpuscular Hemoglobin 27 pg (25-35) Mean Corpuscular Hemoglobin Concent 32 g/dL (31-37) Red Cell Distribution Width 18.2 % (11.5-14.5) Platelet Count 172 x10^3/uL (140-400) Neutrophils (%) (Auto) 64 % (31-73) Lymphocytes (%) (Auto) 24 % (24-48) Monocytes (%) (Auto) 10 % (0-9) Eosinophils (%) (Auto) 1 % (0-3) Basophils (%) (Auto) 1 % (0-3) Neutrophils # (Auto) 4.0 x10^3/uL (1.8-7.7) Lymphocytes # (Auto) 1.5 x10^3/uL (1.0-4.8) Monocytes # (Auto) 0.7 x10^3/uL (0.0-1.1) Eosinophils # (Auto) 0.1 x10^3/uL (0.0-0.7) Basophils # (Auto) 0.1 x10^3/uL (0.0-0.2) Prothrombin Time 15.1 SEC (11.7-14.0) Prothromb Time International Ratio 1.2 (0.8-1.1) Activated Partial Thromboplast Time 24 SEC (24-38) Sodium Level 146 mmol/L (136-145) Potassium Level 3.9 mmol/L (3.5-5.1) Chloride Level 111 mmol/L (98-107) Carbon Dioxide Level 29 mmol/L (21-32) Anion Gap 6 (6-14) Blood Urea Nitrogen 20 mg/dL (7-20) Creatinine 0.8 mg/dL (0.6-1.0) Estimated GFR (Cockcroft-Gault) 91.1 BUN/Creatinine Ratio 25 (6-20) Glucose Level 113 mg/dL (70-99) Lactic Acid Level 0.8 mmol/L (0.4-2.0) Calcium Level 8.0 mg/dL (8.5-10.1) Magnesium Level 2.1 mg/dL (1.8-2.4) Total Bilirubin 0.7 mg/dL (0.2-1.0) Aspartate Amino Transf (AST/SGOT) 20 U/L (15-37) Alanine Aminotransferase (ALT/SGPT) 45 U/L (14-59) Alkaline Phosphatase 63 U/L (46-116) Troponin I Quantitative 0.044 ng/mL (0.000-0.055) VM-Jry-H-Type Natriuretic Peptide 26265 pg/mL (0-124) Total Protein 5.7 g/dL (6.4-8.2) Albumin 2.8 g/dL (3.4-5.0) Albumin/Globulin Ratio 1.0 (1.0-1.7) Thyroid Stimulating Hormone (TSH) 0.965 uIU/mL (0.358-3.74) Glucose (Fingerstick) 128 mg/dL (70-99) 112 mg/dL (70-99) 137 mg/dL (70-99) Laboratory Tests Test 06/22/20 18:35 06/23/20 00:08 06/23/20 08:15 06/23/20 10:02 White Blood Count 6.4 x10^3/uL (4.0-11.0) Red Blood Count 3.98 x10^6/uL (3.50-5.40) Hemoglobin 10.7 g/dL (12.0-15.5) Hematocrit 33.1 % (36.0-47.0) Mean Corpuscular Volume 83 fL (79-100) Mean Corpuscular Hemoglobin 27 pg (25-35) Mean Corpuscular Hemoglobin Concent 32 g/dL (31-37) Red Cell Distribution Width 18.2 % (11.5-14.5) Platelet Count 172 x10^3/uL (140-400) Neutrophils (%) (Auto) 64 % (31-73) Lymphocytes (%) (Auto) 24 % (24-48) Monocytes (%) (Auto) 10 % (0-9) Eosinophils (%) (Auto) 1 % (0-3) Basophils (%) (Auto) 1 % (0-3) Neutrophils # (Auto) 4.0 x10^3/uL (1.8-7.7) Lymphocytes # (Auto) 1.5 x10^3/uL (1.0-4.8) Monocytes # (Auto) 0.7 x10^3/uL (0.0-1.1) Eosinophils # (Auto) 0.1 x10^3/uL (0.0-0.7) Basophils # (Auto) 0.1 x10^3/uL (0.0-0.2) Prothrombin Time 15.1 SEC (11.7-14.0) Prothromb Time International Ratio 1.2 (0.8-1.1) Activated Partial Thromboplast Time 24 SEC (24-38) Sodium Level 146 mmol/L (136-145) Potassium Level 3.9 mmol/L (3.5-5.1) Chloride Level 111 mmol/L (98-107) Carbon Dioxide Level 29 mmol/L (21-32) Anion Gap 6 (6-14) Blood Urea Nitrogen 20 mg/dL (7-20) Creatinine 0.8 mg/dL (0.6-1.0) Estimated GFR (Cockcroft-Gault) 91.1 BUN/Creatinine Ratio 25 (6-20) Glucose Level 113 mg/dL (70-99) Lactic Acid Level 0.8 mmol/L (0.4-2.0) Calcium Level 8.0 mg/dL (8.5-10.1) Magnesium Level 2.1 mg/dL (1.8-2.4) Total Bilirubin 0.7 mg/dL (0.2-1.0) Aspartate Amino Transf (AST/SGOT) 20 U/L (15-37) Alanine Aminotransferase (ALT/SGPT) 45 U/L (14-59) Alkaline Phosphatase 63 U/L (46-116) Troponin I Quantitative 0.044 ng/mL (0.000-0.055) VZ-Boq-L-Type Natriuretic Peptide 49114 pg/mL (0-124) Total Protein 5.7 g/dL (6.4-8.2) Albumin 2.8 g/dL (3.4-5.0) Albumin/Globulin Ratio 1.0 (1.0-1.7) Thyroid Stimulating Hormone (TSH) 0.965 uIU/mL (0.358-3.74) Glucose (Fingerstick) 128 mg/dL (70-99) 112 mg/dL (70-99) 137 mg/dL (70-99) Images Images Chest x-ray with moderate cardiomegaly and bilateral airspace opacities. Assessment/Plan Assessment/Plan 1. Acute on chronic systolic heart failure on the basis of a nonischemic cardiomyopathy. We will continue diuresis. BNP elevated above at 17, 529. Echocardiogram last year with an ejection fraction of 30%. Once COVID testing is negative we will recheck an echocardiogram from an update on LV function. 2. AICD. Biotronik's. Will check old records and interrogate. 3. Hypertension. Continue baseline medications. 4. Hyperlipidemia. Again continue baseline medications. 5. History of a CVA. Thank you for allowing us to participate in the care of your patient. HIREN HEARN MD Jun 23, 2020 15:46
[2020-06-23 16:00] LABS: BILIRUBIN,URINE SMALL (NEG); CLARITY,URINE CLEAR; COLOR,URINE AMBER; NITRITE,URINE NEGATIVE (NEG); PROTEIN,URINE 30 mg/dL (NEG-TRACE)
[2020-06-23 16:11] LABS: SQUAMOUS EPITHELIAL CELL,UR MANY /LPF
[2020-06-23 16:12] LABS: AMORPHOUS SEDIMENT,UR PRESENT /HPF; BACTERIA,URINE MODERATE /HPF (0-FEW); RBC,URINE 0 /HPF (0-2)
[2020-06-23] MEDS: ATORVASTATIN CALCIUM 40 MG TABLET. PO SCH (23:06)
[2020-06-24 03:45] VITALS: BP 148/97
[2020-06-24 07:15] VITALS: BP 171/95
[2020-06-24] MEDS ORDERED: PIP/TAZO PER PHARMACY MC PRN (07:30)
--- NOTE | 2020-06-24 07:50 | PDOC ---
Infectious Disease Note Vital Sign Vital Signs Vital Signs Date Time Temp Pulse Resp B/P (MAP) Pulse Ox O2 Delivery O2 Flow Rate FiO2 06/24/20 03:45 97.7 73 24 148/97 (114) 98 Nasal Cannula 3.0 97.7 Labs Lab Laboratory Tests Test 06/23/20 08:15 06/23/20 10:02 06/23/20 14:47 06/23/20 16:27 Glucose (Fingerstick) 112 mg/dL (70-99) 137 mg/dL (70-99) 64 mg/dL (70-99) Urine Collection Type Unknown Urine Color [place] Urine Clarity Clear Urine pH 6.0 (<5.0-8.0) Urine Specific [place] 1.025 (1.000-1.030) Urine Protein 30 mg/dL (NEG-TRACE) Urine Glucose (UA) Negative mg/dL (NEG) Urine Ketones (Stick) Negative mg/dL (NEG) Urine Blood Negative (NEG) Urine Nitrite Negative (NEG) Urine Bilirubin Small (NEG) Urine Urobilinogen Dipstick 1.0 mg/dL (0.2 mg/dL) Urine Leukocyte Esterase Trace (NEG) Urine RBC 0 /HPF (0-2) Urine WBC 1-4 /HPF (0-4) Urine Squamous Epithelial Cells Many /LPF Urine Amorphous Sediment Present /HPF Urine Bacteria Moderate /HPF (0-FEW) Urine Mucus Marked /LPF Test 06/23/20 21:07 Glucose (Fingerstick) 91 mg/dL (70-99) Micro Microbiology 06/22/20 Blood Culture - Preliminary, Resulted NO GROWTH AFTER 1 DAY Objective Assessment Bacteremia 1/3 GPC pair and small cluters Acute on chronic systoic CHF Morbid obesity Poor dentition ? early pannicultis AICD Plan Plan of Care Agree with Zosyn F/u labs and cults Monitor R/mid abd area Thank you # [id number] TERRI MARSH MD Jun 24, 2020 07:50
--- NOTE | 2020-06-24 08:24 | PDOC ---
PROGRESS NOTES Date of Service: DATE: 06/24/20 TIME: 08:24 Chief Complaint Chief Complaint VTE Prophylaxis Ordered VTE Prophylaxis Devices: No VTE Pharmacological Prophylaxi: Yes Assessment/Plan Assessment/Plan IMPRESSION: Cardiomegaly with bilateral parenchymal opacities c/w pulmonary edema 12/28 ECHO , left ventricular systolic function is moderately impaired.Ejection Fraction is 35-40%.left atrium is moderately dilated.aortic root is moderately enlarged. multifocal consolidative process as pneumonia possible super morbid obesity vague suicidal ideation due to her chronic medical conditions. UNCONTROLLED HYPERTENSION AICD. Biotronik. // interrogate. PANNICULITIS GRAM POSITIVE COCCI IN PAIRS AND SMALL CLUSTERS SEEN IN 1 OF 3 BOTTLES (2 SETS). PLAN ADMIT PUI covid dvt prophylaxis cardiology consult pulm consult PRN IV HYDRALAZINE 10 MG Q 4 HRS pat consult 40 mg iv lasix daily dvt prophylaxis REPEAT BLOOD CULT ID CONSULT LACTIC ACID IV ZOSYN 36 min pt exam, chart review, > 50% of time spent with exam, chart review, pt care coordination History of Present Illness History of Present Illness Identification/Chief Complaint Chief Complaint SEEN IN ER , presented with a 2-day history of shortness of breath. Patient has a history of CHF and is described orthopnea and PND over the last couple days. Patient denies any chest pain but has intermittent abdominal pain of which she currently has none. has had a cough and told nursing about hemoptysis but denies NOW , AFEBRILE SINCE ADMIT Past Medical History Past Medical History Past Medical History Past Medical History: CHF, Diabetes-Type II, Gallstones, GERD, High Cholesterol, Hypertension, Stroke, Other Additional Past Medical Histor: CHRONIC PAIN Past Surgical History: Cholecystectomy, Other Additional Past Surgical Histo: kidney cyst removal, tracheostomy, defibrillato r Smoking Status: Current Every Day Smoker Additional Information: 1 PPD Alcohol Use: None Drug Use: Marijuana FHX OBESITY Cardiovascular: CHF, HTN, Hyperlipidemia Pulmonary: Bronchitis, Other CENTRAL NERVOUS SYSTEM: CVA GI: No pertinent hx Heme/Onc: Other Hepatobiliary: No pertinent hx Psych: No pertinent hx Musculoskeletal: Osteoarthritis Rheumatologic: No pertinent hx Infectious disease: No pertinent hx Renal/: No pertinent hx Endocrine: Diabetes Past Surgical History Past Surgical History: Cholecystectomy, Other Family History Family History: Diabetes, Hypertension Social History Smoke: No ALCOHOL: none Drugs: None Vitals Vitals Vital Signs Date Time Temp Pulse Resp B/P (MAP) Pulse Ox O2 Delivery O2 Flow Rate FiO2 06/24/20 03:45 97.7 73 24 148/97 (114) 98 Nasal Cannula 3.0 97.7 Physical Exam General: Alert, Oriented X3, Cooperative, No acute distress Lungs: Clear Abdomen: Normal bowel sounds, Soft Extremities: No clubbing, No cyanosis Labs LABS PEC #: [id number] EH: 06/22/20 STATUS: COMP REQ #: [id number] RECD: 06/22/[address]: SAVANNAH BANERJEE MD SOURCE: BLOOD ENTR: 06/22/[address] [facility] [address]: MECHEL[facility] ROSADO [facility] ORDERED: BCULT Procedure Result BLOOD CULTURE Final GRAM POSITIVE COCCI IN PAIRS AND SMALL CLUSTERS SEEN IN 1 OF 3 BOTTLES (2 SETS). CALLED TO Otto/ION CHAMBERLAIN AT 0712 06/24/20 BY ALEX. CULTURE SENT TO [facility] FOR FURTHER WORKUP. Laboratory Tests Test 06/23/20 10:02 06/23/20 14:47 06/23/20 16:27 06/23/20 21:07 Glucose (Fingerstick) 137 mg/dL (70-99) 64 mg/dL (70-99) 91 mg/dL (70-99) Urine Collection Type Unknown Urine Color [place] Urine Clarity Clear Urine pH 6.0 (<5.0-8.0) Urine Specific [place] 1.025 (1.000-1.030) Urine Protein 30 mg/dL (NEG-TRACE) Urine Glucose (UA) Negative mg/dL (NEG) Urine Ketones (Stick) Negative mg/dL (NEG) Urine Blood Negative (NEG) Urine Nitrite Negative (NEG) Urine Bilirubin Small (NEG) Urine Urobilinogen Dipstick 1.0 mg/dL (0.2 mg/dL) Urine Leukocyte Esterase Trace (NEG) Urine RBC 0 /HPF (0-2) Urine WBC 1-4 /HPF (0-4) Urine Squamous Epithelial Cells Many /LPF Urine Amorphous Sediment Present /HPF Urine Bacteria Moderate /HPF (0-FEW) Urine Mucus Marked /LPF Test 06/24/20 07:46 Glucose (Fingerstick) 96 mg/dL (70-99) Assessment and Plan Assessmemt and Plan Problems Medical Problems: (1) CHF (congestive heart failure) Status: Acute (2) Dyspnea Status: Acute Comment Review of Relevant I have reviewed the following items cuate (where applicable) has been applied. Labs Laboratory Tests Test 06/22/20 18:35 06/23/20 00:08 06/23/20 08:15 06/23/20 10:02 White Blood Count 6.4 x10^3/uL (4.0-11.0) Red Blood Count 3.98 x10^6/uL (3.50-5.40) Hemoglobin 10.7 g/dL (12.0-15.5) Hematocrit 33.1 % (36.0-47.0) Mean Corpuscular Volume 83 fL (79-100) Mean Corpuscular Hemoglobin 27 pg (25-35) Mean Corpuscular Hemoglobin Concent 32 g/dL (31-37) Red Cell Distribution Width 18.2 % (11.5-14.5) Platelet Count 172 x10^3/uL (140-400) Neutrophils (%) (Auto) 64 % (31-73) Lymphocytes (%) (Auto) 24 % (24-48) Monocytes (%) (Auto) 10 % (0-9) Eosinophils (%) (Auto) 1 % (0-3) Basophils (%) (Auto) 1 % (0-3) Neutrophils # (Auto) 4.0 x10^3/uL (1.8-7.7) Lymphocytes # (Auto) 1.5 x10^3/uL (1.0-4.8) Monocytes # (Auto) 0.7 x10^3/uL (0.0-1.1) Eosinophils # (Auto) 0.1 x10^3/uL (0.0-0.7) Basophils # (Auto) 0.1 x10^3/uL (0.0-0.2) Prothrombin Time 15.1 SEC (11.7-14.0) Prothromb Time International Ratio 1.2 (0.8-1.1) Activated Partial Thromboplast Time 24 SEC (24-38) Sodium Level 146 mmol/L (136-145) Potassium Level 3.9 mmol/L (3.5-5.1) Chloride Level 111 mmol/L (98-107) Carbon Dioxide Level 29 mmol/L (21-32) Anion Gap 6 (6-14) Blood Urea Nitrogen 20 mg/dL (7-20) Creatinine 0.8 mg/dL (0.6-1.0) Estimated GFR (Cockcroft-Gault) 91.1 BUN/Creatinine Ratio 25 (6-20) Glucose Level 113 mg/dL (70-99) Lactic Acid Level 0.8 mmol/L (0.4-2.0) Calcium Level 8.0 mg/dL (8.5-10.1) Magnesium Level 2.1 mg/dL (1.8-2.4) Total Bilirubin 0.7 mg/dL (0.2-1.0) Aspartate Amino Transf (AST/SGOT) 20 U/L (15-37) Alanine Aminotransferase (ALT/SGPT) 45 U/L (14-59) Alkaline Phosphatase 63 U/L (46-116) Troponin I Quantitative 0.044 ng/mL (0.000-0.055) KV-Qim-H-Type Natriuretic Peptide 25348 pg/mL (0-124) Total Protein 5.7 g/dL (6.4-8.2) Albumin 2.8 g/dL (3.4-5.0) Albumin/Globulin Ratio 1.0 (1.0-1.7) Thyroid Stimulating Hormone (TSH) 0.965 uIU/mL (0.358-3.74) Glucose (Fingerstick) 128 mg/dL (70-99) 112 mg/dL (70-99) 137 mg/dL (70-99) Test 06/23/20 14:47 06/23/20 16:27 06/23/20 21:07 06/24/20 07:46 Urine Collection Type Unknown Urine Color Eden Urine Clarity Clear Urine pH 6.0 (<5.0-8.0) Urine Specific [place] 1.025 (1.000-1.030) Urine Protein 30 mg/dL (NEG-TRACE) Urine Glucose (UA) Negative mg/dL (NEG) Urine Ketones (Stick) Negative mg/dL (NEG) Urine Blood Negative (NEG) Urine Nitrite Negative (NEG) Urine Bilirubin Small (NEG) Urine Urobilinogen Dipstick 1.0 mg/dL (0.2 mg/dL) Urine Leukocyte Esterase Trace (NEG) Urine RBC 0 /HPF (0-2) Urine WBC 1-4 /HPF (0-4) Urine Squamous Epithelial Cells Many /LPF Urine Amorphous Sediment Present /HPF Urine Bacteria Moderate /HPF (0-FEW) Urine Mucus Marked /LPF Glucose (Fingerstick) 64 mg/dL (70-99) 91 mg/dL (70-99) 96 mg/dL (70-99) Laboratory Tests Test 06/23/20 10:02 06/23/20 14:47 06/23/20 16:27 06/23/20 21:07 Glucose (Fingerstick) 137 mg/dL (70-99) 64 mg/dL (70-99) 91 mg/dL (70-99) Urine Collection Type Unknown Urine Color [place] Urine Clarity Clear Urine pH 6.0 (<5.0-8.0) Urine Specific [place] 1.025 (1.000-1.030) Urine Protein 30 mg/dL (NEG-TRACE) Urine Glucose (UA) Negative mg/dL (NEG) Urine Ketones (Stick) Negative mg/dL (NEG) Urine Blood Negative (NEG) Urine Nitrite Negative (NEG) Urine Bilirubin Small (NEG) Urine Urobilinogen Dipstick 1.0 mg/dL (0.2 mg/dL) Urine Leukocyte Esterase Trace (NEG) Urine RBC 0 /HPF (0-2) Urine WBC 1-4 /HPF (0-4) Urine Squamous Epithelial Cells Many /LPF Urine Amorphous Sediment Present /HPF Urine Bacteria Moderate /HPF (0-FEW) Urine Mucus Marked /LPF Test 06/24/20 07:46 Glucose (Fingerstick) 96 mg/dL (70-99) Microbiology 06/22/20 Blood Culture - Preliminary, Resulted NO GROWTH AFTER 1 DAY Medications Current Medications Furosemide (Lasix) 40 mg 1X ONCE IVP Last administered on 06/22/20at 18:59; Start 06/22/20 at 18:45; Stop 06/22/20 at 18:46; Status DC Aspirin (Lobo Aspirin) 325 mg 1X ONCE PO Last administered on 06/22/20at 18:59; Start 06/22/20 at 18:45; Stop 06/22/20 at 18:46; Status DC Ondansetron HCl (Zofran) 4 mg PRN Q8HRS PRN IV NAUSEA/VOMITING; Start 06/22/20 at 20:00; Stop 06/23/20 at 13:22; Status DC Ondansetron HCl (Zofran) 4 mg PRN Q4HRS PRN IV NAUSEA/VOMITING 1ST CHOICE; Start 06/22/20 at 20:45 Zolpidem Tartrate (Ambien) 5 mg PRN QHS PRN PO INSOMNIA Last administered on 06/22/20at 23:55; Start 06/22/20 at 20:45 Acetaminophen (Tylenol) 650 mg PRN Q4HRS PRN PO TEMP OVER 100.4F OR MILD PAIN; Start 06/22/20 at 20:45 Diphenhydramine HCl (Benadryl) 25 mg PRN Q4HRS PRN IVP ITCHING; Start 06/22/20 at 20:45 Docusate Sodium (Colace) 100 mg PRN BID PRN PO HARD STOOLS; Start 06/22/20 at 20:45 Albuterol Sulfate (Ventolin Neb Soln) 2.5 mg PRN Q4HRS PRN NEB SHORTNESS OF BREATH; Start 06/22/20 at 20:45 Guaifenesin (Robitussin) 200 mg PRN Q4HRS PRN PO COUGH; Start 06/22/20 at 20:45 Lorazepam (Ativan) 0.5 mg PRN Q4HRS PRN PO ANXIETY / AGITATION; Start 06/22/20 at 20:45 Enoxaparin Sodium (Lovenox 60mg Syringe) 60 mg Q12HR SQ Last administered on 06/23/20at 23:07; Start 06/22/20 at 21:00 Carvedilol (Coreg) 12.5 mg BIDWMEALS PO Last administered on 06/23/20at 16:08; Start 06/23/20 at 08:00 Glipizide (Glucotrol) 5 mg DAILY PO Last administered on 06/23/20at 10:36; Start 06/23/20 at 09:00 Oxycodone/ Acetaminophen (Percocet 7.5/ 325) 1 tab PRN Q6HRS PRN PO SEVERE PAIN 7-10; Start 06/22/20 at 20:45 Potassium Chloride (Klor-Con) 20 meq BID PO Last administered on 06/23/20at 23:04; Start 06/22/20 at 21:00 Sacubitril/ Valsartan (Entresto 49 Mg-51 Mg) 1 tab BID PO Last administered on 06/23/20at 23:05; Start 06/22/20 at 21:00 Pantoprazole Sodium (Protonix) 40 mg DAILYAC PO Last administered on 06/23/20at 10:36; Start 06/23/20 at 07:30 Atorvastatin Calcium (Lipitor) 40 mg QHS PO Last administered on 06/23/20at 23:06; Start 06/22/20 at 21:00 Hydralazine HCl (Apresoline Inj) 10 mg PRN Q4HRS PRN IVP ELEVATED BP, SEE COMMENTS; Start 06/23/20 at 10:15 Furosemide (Lasix) 40 mg DAILY IVP ; Start 06/24/20 at 09:00 Sodium Chloride (Normal Saline Flush) 3 ml QSHIFT PRN IV AFTER MEDS AND BLOOD DRAWS; Start 06/23/20 at 13:15 Ondansetron HCl (Zofran) 4 mg PRN Q4HRS PRN IV NAUSEA/VOMITING; Start 06/23/20 at 13:15; Status UNV Acetaminophen (Tylenol) 650 mg PRN Q4HRS PRN PO TEMP OVER 100.4F OR MILD PAIN; Start 06/23/20 at 13:15; Status UNV Al Hydroxide/Mg Hydroxide (Mylanta Plus Xs) 30 ml PRN DAILY PRN PO HEARTBURN / GAS; Start 06/23/20 at 13:15 Sodium Monofluorophosphate (Fleet Adult) 133 ml PRN DAILY PRN MS CONSTIPATION; Start 06/23/20 at 13:15 Docusate Sodium (Colace) 100 mg PRN BID PRN PO HARD STOOLS; Start 06/23/20 at 13:15; Status UNV Albuterol Sulfate (Ventolin Neb Soln) 2.5 mg PRN Q4HRS PRN NEB SHORTNESS OF BREATH; Start 06/23/20 at 13:15; Status UNV Guaifenesin (Robitussin) 200 mg PRN Q4HRS PRN PO COUGH; Start 06/23/20 at 13:15; Status UNV Piperacillin Sod/ Tazobactam Sod (Zosyn Per Pharmacy) 1 each PRN DAILY PRN MC SEE COMMENTS; Start 06/24/20 at 07:30 Piperacillin Sod/ Tazobactam Sod 3.375 gm/Sodium Chloride 50 ml @ 100 mls/hr Q6HRS IV ; Start 06/24/20 at 08:00 Active Scripts Active Furosemide 80 Mg Tablet 80 Mg PO BID 7 Days Reported Oxycodon-Acetaminophen 7.5-325 (Oxycodone Hcl/Acetaminophen) 1 Each Tablet 7.5- 325 Mg PO PRN Q6HRS PRN Omeprazole 40 Mg Capsule. 1 Cap PO DAILY06 Potassium Chloride (Potassium Chloride) 20 Meq Tablet.er 20 Meq PO BID Entresto 49 mg-51 mg Tablet (Sacubitril/Valsartan) 1 Each Tablet 1 Tab PO BID Glipizide 5 Mg Tablet 1 Tab PO DAILY Warfarin Sodium 10 Mg Tablet 10 Mg PO DAILY Crestor (Rosuvastatin Calcium) 10 Mg Tablet 1 Tab PO DAILY Carvedilol (Carvedilol) 12.5 Mg Tablet 1 Tab PO BID Vitals/I & O Vital Sign - Last 24 Hours 06/23/20 06/23/20 06/23/20 06/23/20 10:36 10:36 11:12 15:26 Temp 97.8 98.8 97.8 98.8 Pulse 90 90 92 86 Resp 22 24 B/P (MAP) 148/98 148/98 164/78 (106) 195/90 (125) Pulse Ox 94 92 O2 Delivery Nasal Cannula Nasal Cannula O2 Flow Rate 3.0 3.0 06/23/20 06/23/20 06/23/20 06/23/20 16:08 16:15 19:00 20:00 Temp 98.2 98.2 Pulse 86 72 Resp 19 B/P (MAP) 195/90 137/86 (103) 134/87 (103) Pulse Ox 93 O2 Delivery Nasal Cannula Nasal Cannula O2 Flow Rate 3.0 3.0 06/23/20 06/23/20 06/24/20 23:05 23:05 03:45 Temp 97.7 97.7 97.7 97.7 Pulse 72 80 73 Resp 20 24 B/P (MAP) 134/87 136/68 (90) 148/97 (114) Pulse Ox 99 98 O2 Delivery Room Air Nasal Cannula O2 Flow Rate 3.0 Intake and Output 06/23/20 06/23/20 06/24/20 14:59 22:59 06:59 Intake Total 350 ml 640 ml 240 ml Output Total 150 ml 150 ml 200 ml Balance 200 ml 490 ml 40 ml Justicifation of Admission Dx: Justifications for Admission: Justification of Admission Dx: Yes RICARDO BLACK MD Jun 24, 2020 08:24
--- NOTE | 2020-06-24 09:12 | CONS ---
DATE OF CONSULTATION: 06/24/2020 I was asked to see this 50-year-old lady for COVID PUI. HISTORY OF PRESENT ILLNESS: She has a history of [id number] smoking, continued to smoke about 1-1/2 pack per day. She presented to the Emergency Room with increased shortness of breath, paroxysmal nocturnal dyspnea, orthopnea, increased lower extremity edema. She has had cough with occasional sputum production. She has had chills. She has obstructive sleep apnea-hypopnea syndrome, is not able to tolerate CPAP. She has snoring and excessive daytime sleepiness. She is not on oxygen at home. PAST MEDICAL HISTORY: CHF, diabetes mellitus, gastroesophageal reflux disease, hypercholesterolemia, hypertension, obstructive sleep apnea-hypopnea syndrome, AICD, nonischemic cardiomyopathy. ALLERGIES: HYDROCODONE, MORPHINE. MEDICATIONS: Currently, she is on Lasix 40 mg IV daily, Zosyn, Glucotrol, Coreg, Protonix, Entresto, Lovenox. SOCIAL HISTORY: History of [id number] smoking, continues to smoke 1-1/2 pack per day. FAMILY HISTORY: Hypertension. REVIEW OF SYSTEMS: As mentioned as above, other systems are otherwise negative. PHYSICAL EXAMINATION: GENERAL: This is a morbidly obese lady. VITAL SIGNS: Her O2 saturation on 3 liters of oxygen 98%, respiratory rate 24, heart rate 73, blood pressure 148/97, temperature 97.7. HEENT: Normocephalic, atraumatic. Has poor dentition. CARDIOVASCULAR: Regular rate and rhythm. CHEST: There is no accessory muscle use. ABDOMEN: Obese. SKIN: Chronic changes. EXTREMITIES: There is lower extremity edema. NEUROLOGIC: She is alert and oriented. She is morbidly obese. LABORATORY DATA: I reviewed the following lab data: Chest x-ray shows cardiomegaly with bilateral infiltrate. WBC 6.4, hemoglobin 10.7, platelet 172. Sodium 146, potassium 3.9, chloride 111, BUN 20, creatinine 0.8. Lactic acid 0.8, AST 20, ALT 45, alk phos 63. BNP 17,529. INR 1.2. IMPRESSION: 1. Acute respiratory failure, multifactorial in etiology, including acute systolic congestive heart failure, untreated obstructive sleep apnea-hypopnea syndrome, suspect she has chronic obstructive pulmonary disease, rule out COVID-19. 2. Abnormal chest x-ray, suspect secondary to acute systolic congestive heart failure. 3. Nonischemic cardiomyopathy. 4. Automated implantable cardioverter defibrillator. 5. Obstructive sleep apnea-hypopnea syndrome, CPAP intolerant. 6. Hypertension. 7. Hyperlipidemia. 8. Poor dentition. 9. ? early panniculitis. 10. Bacteremia, 1/3 Gram-positive cocci in pair and small clusters. PLAN AND RECOMMENDATIONS: 1. Titrate FiO2 to keep O2 saturation 92%. 2. I had a long discussion with her regarding the smoking cessation. I have advised her to stop smoking forever. 3. I have discussed obstructive sleep apnea-hypopnea syndrome; the importance of treatment; if untreated, increased cardiovascular and [employer] morbidity and mortality, especially with her history of nonischemic cardiomyopathy and systolic CHF. It is very important to treat her obstructive sleep apnea-hypopnea syndrome. 4. Follow up cultures. 5. Continue antibiotic per ID. 6. Continue Lasix. Keep intake less than output. 7. Monitor creatinine and potassium while on Lasix. 8. Lose weight and exercise. 9. Lovenox for DVT prophylaxis. 10. Follow up COVID-19 testing. Thank you very much for allowing me to participate in care of this very nice lady. CHRISTIANO BLACK M.D. : MARI/evelina JOB#: [id number] / [id number]
[2020-06-24] MEDS: PANTOPRAZOLE 40 MG TABLET.DR. PO SCH (09:21)
[2020-06-24] MEDS: PIPERACILLIN/TAZOBACTAM 3.375 GM in IV NORMAL SALINE 50ML 50 ML IV SCH ×3 (09:21→18:00)
[2020-06-24] MEDS: FUROSEMIDE 40 MG/4 ML VIAL. IVP SCH (09:21)
[2020-06-24] MEDS: CARVEDILOL 12.5 MG TABLET. PO SCH ×2 (09:22→17:00)
[2020-06-24] MEDS: POTASSIUM CHLORIDE 20 MEQ TABLET.ER. PO SCH ×2 (09:22→21:16)
[2020-06-24] MEDS: glipiZIDE 5 MG TABLET PO SCH (09:22)
[2020-06-24] MEDS: SACUBITRIL/VALSARTAN 49/51MG TABLET. PO SCH ×2 (09:22→21:16)
--- NOTE | 2020-06-24 09:54 | CONS ---
DATE OF CONSULTATION: 06/24/2020 PATIENT'S ROOM: 664. REQUESTING PHYSICIAN: Gerald Hawkins MD REASON FOR CONSULTATION: Positive blood culture. HISTORY OF PRESENT ILLNESS: The patient is a 50-year-old female with a history of super morbid obesity as well as nonischemic cardiomyopathy, hypertension, hyperlipidemia, [facility] secondary to increasing shortness of air. She lives by herself, but she is a smoker. She had a normal white blood cell count on arrival and has been afebrile. Blood cultures were obtained this morning; they returned positive in 1 bottle for 1/3 bottles for Gram-positive cocci in pairs and small clusters. Hence, I have been consulted. Currently, the patient is sitting on the side of bed. She felt cold the other day, but not now. She has no fevers or sweats. She has no change in vision. No headaches. No sore throat. She does have some dental discomfort. Neck was supple. Lungs are moving air better. She does produce occasional clear sputum at times. She has no nausea or vomiting. No diarrhea, constipation, or dysuria. She does have a little discomfort in the anterior part of her abdomen, it is sore to touch. She denies any trauma. Denies any generalized rashes. PAST MEDICAL HISTORY: Positive for super morbid obesity, congestive heart failure, hypertension, hyperlipidemia, bronchitis, osteoarthritis, diabetes. PAST SURGICAL HISTORY: Positive for cholecystectomy, AICD placement, kidney cyst. REVIEW OF SYSTEMS: Otherwise negative. ALLERGIES: LISTED HYDROCODONE AND MORPHINE. SOCIAL HISTORY: She is a smoker. She does not vape. She has no pets at home. She lives by herself. She denies any ill contacts. FAMILY HISTORY: Positive for diabetes and hypertension. CURRENT MEDICATIONS: Include albuterol, Lipitor, Coreg, Colace, Lovenox, Lasix, Glucotrol, Protonix, Zosyn has been added this morning, potassium, , valsartan. PHYSICAL EXAMINATION: VITAL SIGNS: She is afebrile, temperature 97.7, pulse 73, respirations 24, blood pressure 148/97, satting 98% on 3 liters. CONSTITUTIONAL: She is sitting upright on the side of bed. She is in no acute distress. She is morbidly obese. HEENT: Pupils equal and reactive. Normal conjunctivae. Oral cavity: Pharynx has some questionable dentition. In her mouth, there is some questionable poor dentition, but no signs of any gingivitis. NECK: Supple, no JVD. LUNGS: Clear to auscultation, no wheeze. HEART: S1, S2, but distant. ABDOMEN: Morbidly obese, soft. She has some tenderness in the mid right quadrant. Some slight discolorations. No guarding. No rebound. EXTREMITIES: No clubbing or cyanosis. She has 1+ edema. SKIN: Warm without signs of rash. NEUROLOGIC: She is nonfocal. PSYCHIATRIC: Affect is pleasant. LABORATORY DATA: From the , white count 6.4, hemoglobin 10.7, platelets 172, neutrophils 64%, lymphs are 24. Most recent glucose of 91. She had normal liver function study tests on arrival. BNP was 17,529. Creatinine was 0.8, glucose is 113 on arrival. Urinalysis: Many squamous cells, trace leukocyte esterase, 1-4 wbc's, moderate bacteria. Chest x-ray: Cardiomegaly with bilateral parenchymal opacities. IMPRESSION: 1. Bacteremia 1/3 bottles of Gram-positive cocci in pairs and small clusters. 2. Acute on chronic systolic heart failure. 3. Morbid obesity. 4. Poor dentition. 5. Questionable early panniculitis. 6. Automatic implantable cardioverter defibrillator. RECOMMENDATIONS: Agree with Elver. We will follow up labs and cultures. Monitor her right mid abdominal area. Thank you for allowing me to participate in the patient's care. If you have any questions, please do not hesitate to contact me. TERRI MARSH MD DR: SIMBA/evelina JOB#: [id number] / [id number]
[2020-06-24 11:30] VITALS: BP 144/81
[2020-06-24 13:23] LABS: BASO % 1 % (0-3); EOS # 0.1 x10^3/uL (0.0-0.7); EOS % 2 % (0-3); HEMATOCRIT 33.6 % (36.0-47.0); HEMOGLOBIN 10.3 g/dL (12.0-15.5); LYMPH # 1.4 x10^3/uL (1.0-4.8); LYMPH % 25 % (24-48); MEAN CORPUSCULAR HEMOGLOBIN 26 pg (25-35); MEAN CORPUSCULAR HGB CONC 31 g/dL (31-37); MEAN CORPUSCULAR VOLUME 85 fL (79-100); MONO # 0.4 x10^3/uL (0.0-1.1); MONO % 8 % (0-9); NEUT # 3.5 x10^3/uL (1.8-7.7); NEUT % 64 % (31-73); PLATELET COUNT 174 x10^3/uL (140-400); RED BLOOD COUNT 3.93 x10^6/uL (3.50-5.40); RED CELL DISTRIBUTION WIDTH 18.4 % (11.5-14.5); WHITE BLOOD COUNT 5.5 x10^3/uL (4.0-11.0)
[2020-06-24 13:32] LABS: ALBUMIN 2.8 g/dL (3.4-5.0); ALBUMIN/GLOBULIN RATIO 0.9 (1.0-1.7); CALCIUM 8.2 mg/dL (8.5-10.1); CREATININE 1.1 mg/dL (0.6-1.0); GFR 63.1; POTASSIUM 4.4 mmol/L (3.5-5.1); TOTAL BILIRUBIN 0.5 mg/dL (0.2-1.0); TOTAL PROTEIN 5.8 g/dL (6.4-8.2)
[2020-06-24 15:54] VITALS: BP 129/61
[2020-06-24 19:00] VITALS: BP 128/76
[2020-06-24] MEDS: ATORVASTATIN CALCIUM 40 MG TABLET. PO SCH (21:17)
[2020-06-24 23:00] VITALS: BP 127/70
[2020-06-25] MEDS: PIPERACILLIN/TAZOBACTAM 3.375 GM in IV NORMAL SALINE 50ML 50 ML IV SCH ×2 (00:43→05:42)
[2020-06-25 03:05] VITALS: BP 126/73
[2020-06-25 04:15] LABS: BASO # 0.1 x10^3/uL (0.0-0.2); BASO % 2 % (0-3); EOS # 0.1 x10^3/uL (0.0-0.7); EOS % 2 % (0-3); HEMATOCRIT 28.5 % (36.0-47.0); HEMOGLOBIN 9.1 g/dL (12.0-15.5); LYMPH # 1.1 x10^3/uL (1.0-4.8); LYMPH % 23 % (24-48); MEAN CORPUSCULAR HEMOGLOBIN 27 pg (25-35); MEAN CORPUSCULAR HGB CONC 32 g/dL (31-37); MEAN CORPUSCULAR VOLUME 85 fL (79-100); MONO # 0.5 x10^3/uL (0.0-1.1); MONO % 10 % (0-9); NEUT % 64 % (31-73); PLATELET COUNT 143 x10^3/uL (140-400); RED BLOOD COUNT 3.37 x10^6/uL (3.50-5.40); RED CELL DISTRIBUTION WIDTH 17.8 % (11.5-14.5); WHITE BLOOD COUNT 4.8 x10^3/uL (4.0-11.0)
[2020-06-25 04:34] LABS: CALCIUM 7.7 mg/dL (8.5-10.1); CREATININE 1.1 mg/dL (0.6-1.0); GFR 63.1; POTASSIUM 4.1 mmol/L (3.5-5.1)
[2020-06-25 07:00] VITALS: BP 128/83
[2020-06-25] MEDS: FUROSEMIDE 40 MG/4 ML VIAL. IVP SCH (08:44)
[2020-06-25] MEDS: CARVEDILOL 12.5 MG TABLET. PO SCH ×2 (08:45→17:32)
[2020-06-25] MEDS: glipiZIDE 5 MG TABLET PO SCH (08:45)
[2020-06-25] MEDS: POTASSIUM CHLORIDE 20 MEQ TABLET.ER. PO SCH ×2 (08:45→20:34)
[2020-06-25] MEDS: PANTOPRAZOLE 40 MG TABLET.DR. PO SCH (08:45)
[2020-06-25] MEDS: SACUBITRIL/VALSARTAN 49/51MG TABLET. PO SCH ×2 (08:46→20:35)
--- NOTE | 2020-06-25 08:58 | PDOC ---
Infectious Disease Note Subjective Subjective pt is feeling better ROS ROS no n/v/d/sob Vital Sign Vital Signs Vital Signs Date Time Temp Pulse Resp B/P (MAP) Pulse Ox O2 Delivery O2 Flow Rate FiO2 06/25/20 08:46 83 126/73 06/25/20 07:00 98.0 22 95 Nasal Cannula 3.0 98.0 Physical Exam PHYSICAL EXAM CONSTITUTIONAL: She is sitting upright on the side of bed. She is in no acute distress. She is morbidly obese. HEENT: Pupils equal and reactive. Normal conjunctivae. Oral cavity: Pharynx has some questionable dentition. In her mouth, there is some questionable poor dentition, but no signs of any gingivitis. NECK: Supple, no JVD. LUNGS: Clear to auscultation, no wheeze. HEART: S1, S2, but distant. ABDOMEN: Morbidly obese, soft. She has some tenderness in the mid right quadrant. Some slight discolorations. No guarding. No rebound. EXTREMITIES: No clubbing or cyanosis. She has 1+ edema. SKIN: Warm without signs of rash. NEUROLOGIC: She is nonfocal. PSYCHIATRIC: Affect is pleasant. Labs Lab Laboratory Tests Test 06/24/20 10:48 06/24/20 16:34 06/24/20 20:49 06/25/20 03:50 Glucose (Fingerstick) 80 mg/dL (70-99) 79 mg/dL (70-99) 100 mg/dL (70-99) White Blood Count 4.8 x10^3/uL (4.0-11.0) Red Blood Count 3.37 x10^6/uL (3.50-5.40) Hemoglobin 9.1 g/dL (12.0-15.5) Hematocrit 28.5 % (36.0-47.0) Mean Corpuscular Volume 85 fL (79-100) Mean Corpuscular Hemoglobin 27 pg (25-35) Mean Corpuscular Hemoglobin Concent 32 g/dL (31-37) Red Cell Distribution Width 17.8 % (11.5-14.5) Platelet Count 143 x10^3/uL (140-400) Neutrophils (%) (Auto) 64 % (31-73) Lymphocytes (%) (Auto) 23 % (24-48) Monocytes (%) (Auto) 10 % (0-9) Eosinophils (%) (Auto) 2 % (0-3) Basophils (%) (Auto) 2 % (0-3) Neutrophils # (Auto) 3.0 x10^3/uL (1.8-7.7) Lymphocytes # (Auto) 1.1 x10^3/uL (1.0-4.8) Monocytes # (Auto) 0.5 x10^3/uL (0.0-1.1) Eosinophils # (Auto) 0.1 x10^3/uL (0.0-0.7) Basophils # (Auto) 0.1 x10^3/uL (0.0-0.2) Sodium Level 144 mmol/L (136-145) Potassium Level 4.1 mmol/L (3.5-5.1) Chloride Level 109 mmol/L (98-107) Carbon Dioxide Level 32 mmol/L (21-32) Anion Gap 3 (6-14) Blood Urea Nitrogen 26 mg/dL (7-20) Creatinine 1.1 mg/dL (0.6-1.0) Estimated GFR (Cockcroft-Gault) 63.1 Glucose Level 95 mg/dL (70-99) Calcium Level 7.7 mg/dL (8.5-10.1) Test 06/25/20 07:22 Glucose (Fingerstick) 97 mg/dL (70-99) Micro Microbiology 06/23/20 Urine Culture - Final, Complete 06/22/20 Blood Culture - Preliminary, Resulted NO GROWTH AFTER 2 DAYS Objective Assessment 1. Bacteremia 1/3 bottles of Gram-positive cocci in pairs and small clusters. 2. Acute on chronic systolic heart failure. 3. Morbid obesity. 4. Poor dentition. 5. Questionable early panniculitis. 6. Automatic implantable cardioverter defibrillator. Plan Plan of Care ia Zosyn F/u labs and cults Monitor R/mid [facility] area JJ HANNA MD Jun 25, 2020 08:57
--- NOTE | 2020-06-25 10:13 | CONS ---
DATE OF CONSULTATION: PULMONARY CONSULTATION ATTENDING PHYSICIAN: Dr. Hanna. REASON FOR CONSULTATION: Dyspnea, hypoxia. HISTORY OF PRESENT ILLNESS: The patient is a 50-year-old who is morbidly obese with a BMI of 70. The patient also has history of tobacco use up to 1 pack per day. She has cardiomyopathy with an EF of 35-40%. The patient was brought into the hospital with increasing shortness of breath. She was initially requiring up to 3 liters of oxygen. She has a cough with white sputum production, no fever, no chills, no chest pain. She has overall increased weight gain and has chronic lymphedema. Her chest x-ray was reviewed and it was consistent with congestive heart failure. Consultation requested for further evaluation and management. PAST MEDICAL HISTORY: History of congestive heart failure, history of cardiomyopathy, type 2 diabetes, GERD, dyslipidemia, hypertension, morbid obesity, ELIZABETH with noncompliance to CPAP. PAST SURGICAL HISTORY: Cholecystectomy, cyst removal, tracheostomy, and defibrillator. SOCIAL HISTORY: Smoker 1 pack per day. History of marijuana use. ALLERGIES: MORPHINE AND HYDROCODONE. MEDICATIONS: Reviewed as listed in the MRAD including furosemide and antibiotics. REVIEW OF SYSTEMS: Twelve-point system obtained. Pertinent positives discussed in my history of present illness, otherwise noncontributory. All systems that were negative were reviewed as well. FAMILY HISTORY: Noncontributory to lungs. PHYSICAL EXAMINATION: VITAL SIGNS: Reviewed, pulse ox 95% on 3 liters. NECK: Supple. LUNGS: With diminished breath sounds. CARDIOVASCULAR: With a regular rate. ABDOMEN: Soft, markedly obese. EXTREMITIES: Bilateral lymphedema. LABORATORY DATA: Reviewed. White cell count 4.8, hemoglobin 9.1, platelets are 143. Her COVID-19 is negative. BUN 26, creatinine 1.1. IMPRESSION: 1. Acute hypoxic respiratory failure secondary to acute on chronic systolic heart failure. There is also a component of right heart failure as well. 2. Ongoing tobacco use, suspect underlying chronic obstructive pulmonary disease. 3. Underlying obstructive sleep apnea/obesity hypoventilation syndrome. She has evidence of chronic hypercarbia. Bicarb is elevated. She is noncompliant to CPAP. RECOMMENDATIONS: 1. Continue with present diuresis. I would give extra dose of Lasix today. 2. Wean off oxygen. 3. Smoking cessation counseling provided. 4. Clinically do not see a need for antibiotics. Clinically, less likely pneumonia. 5. Lovenox for DVT prophylaxis. 6. Follow Cardiology and ID recommendation. 7. Weight loss is strongly emphasized to the patient. 8. Discussed with RN. 9. Obtain Procalcitonin level. SUSAN MELARA MD DR: YURI/evelina JOB#: [id number] / [id number]
--- NOTE | 2020-06-25 10:42 | PDOC ---
[facility] PROGRESS NOTE Date of Service DOS: DATE: 06/25/20 TIME: 10:37 Chief Complaint Chief Complaint A/P: Acute systolic CHF Cardiomegaly with bilateral parenchymal opacities c/w pulmonary edema - 12/28 ECHO , left ventricular systolic function is moderately impaired.Ejection Fraction is 35-40%.left atrium is moderately dilated.aortic root is moderately enlarged. multifocal consolidative process as pneumonia possible super morbid obesity UNCONTROLLED HYPERTENSION AICD. Biotronik. // interrogate. PANNICULITIS Gram positive bacteremia Acute hypoxia - likely related to acute CHF, improved with diuresis FEN - ADA cardiac diet dvt prophylaxis 36 min pt exam, chart review, > 50% of time spent with exam, chart review, pt care coordination History of Present Illness History of Present Illness Ms Mayo is a 50yo F w/ PMHx morbid obesity with a BMI of 70, non-ischemic cardiomyopathy, systolic CHF EF 35% s/p AICD, DM2, GERD, HJLD, HTN, ELIZABETH with CPAP compliance difficulties, smoker 1 ppd who p/w worsening shortness of breath. She was initially requiring up to 3 liters of oxygen. She has a cough with white sputum production, no fever, no chills, no chest pain. She has overall increased weight gain and has chronic lymphedema. Her chest x-ray was reviewed and it was consistent with congestive heart failure. Consultation of cardiology and pulmonology as well as ID was requested. BNP 17K on admit. 06/24: has had a cough and told nursing about hemoptysis but denies NOW , AFEBRILE SINCE ADMIT Afebrile. Zosyn discontinued by ID. She received an additional dose of IV Lasix this morning. She is on the commode currently. She feels much less short of breath and is asking if she can go back home with home health soon. Vitals/I&O Vitals/I&O: Vital Signs Date Time Temp Pulse Resp B/P (MAP) Pulse Ox O2 Delivery O2 Flow Rate FiO2 06/25/20 08:46 83 126/73 06/25/20 08:00 Room Air 06/25/20 07:00 98.0 22 95 3.0 98.0 I & O 06/24/20 06/24/20 06/25/20 15:00 23:00 07:00 Intake Total 750 ml 500 ml 0 ml Output Total 700 ml 400 ml 200 ml Balance 50 ml 100 ml -200 ml Physical Exam Physical Exam: CONSTITUTIONAL: She is sitting upright on the side of bed. She is in no acute distress. She is morbidly obese. HEENT: Pupils equal and reactive. Normal conjunctivae. Oral cavity: Pharynx has some questionable dentition. In her mouth, there is some questionable poor dentition, but no signs of any gingivitis. NECK: Supple, no JVD. LUNGS: Clear to auscultation, no wheeze. HEART: S1, S2, but distant. ABDOMEN: Morbidly obese, soft. She has some tenderness in the mid right quadrant. Some slight discolorations. No guarding. No rebound. EXTREMITIES: No clubbing or cyanosis. She has 1+ edema. SKIN: Warm without signs of rash. NEUROLOGIC: She is nonfocal. PSYCHIATRIC: Affect is pleasant. General: Alert, Oriented X3, Cooperative, No acute distress Lungs: Clear Abdomen: Normal bowel sounds, Soft Extremities: No clubbing, No cyanosis Labs Labs: Laboratory Tests Test 06/24/20 10:48 06/24/20 16:34 06/24/20 20:49 06/25/20 03:50 Glucose (Fingerstick) 80 mg/dL (70-99) 79 mg/dL (70-99) 100 mg/dL (70-99) White Blood Count 4.8 x10^3/uL (4.0-11.0) Red Blood Count 3.37 x10^6/uL (3.50-5.40) Hemoglobin 9.1 g/dL (12.0-15.5) Hematocrit 28.5 % (36.0-47.0) Mean Corpuscular Volume 85 fL (79-100) Mean Corpuscular Hemoglobin 27 pg (25-35) Mean Corpuscular Hemoglobin Concent 32 g/dL (31-37) Red Cell Distribution Width 17.8 % (11.5-14.5) Platelet Count 143 x10^3/uL (140-400) Neutrophils (%) (Auto) 64 % (31-73) Lymphocytes (%) (Auto) 23 % (24-48) Monocytes (%) (Auto) 10 % (0-9) Eosinophils (%) (Auto) 2 % (0-3) Basophils (%) (Auto) 2 % (0-3) Neutrophils # (Auto) 3.0 x10^3/uL (1.8-7.7) Lymphocytes # (Auto) 1.1 x10^3/uL (1.0-4.8) Monocytes # (Auto) 0.5 x10^3/uL (0.0-1.1) Eosinophils # (Auto) 0.1 x10^3/uL (0.0-0.7) Basophils # (Auto) 0.1 x10^3/uL (0.0-0.2) Sodium Level 144 mmol/L (136-145) Potassium Level 4.1 mmol/L (3.5-5.1) Chloride Level 109 mmol/L (98-107) Carbon Dioxide Level 32 mmol/L (21-32) Anion Gap 3 (6-14) Blood Urea Nitrogen 26 mg/dL (7-20) Creatinine 1.1 mg/dL (0.6-1.0) Estimated GFR (Cockcroft-Gault) 63.1 Glucose Level 95 mg/dL (70-99) Calcium Level 7.7 mg/dL (8.5-10.1) Test 06/25/20 07:22 Glucose (Fingerstick) 97 mg/dL (70-99) Assessment and Plan Assessmemt and Plan Problems Medical Problems: (1) CHF (congestive heart failure) Status: Acute (2) Dyspnea Status: Acute Comment Review of Relevant I have reviewed the following items cuate (where applicable) has been applied. Justifications for Admission Other Justification BELA DELGADO MD Jun 25, 2020 10:42
[2020-06-25 11:00] VITALS: BP 113/66
--- NOTE | 2020-06-25 14:10 | NUR ---
SS following for discharge planning. SS reviewed pt chart and discussed with pt RN. Pt is from home and is currently on room air. PT recommended home with home healthcare. Pt was current on services with [facility], ; fax [phone]. Pt requested [facility] referral. SS phoned and faxed referral to [facility] at [phone]; fax [phone]. SS will continue to follow for discharge planning.
[2020-06-25 15:00] VITALS: BP 114/62
[2020-06-25] MEDS ORDERED: FUROSEMIDE 40 MG/4 ML VIAL. IVP ONE (15:00)
--- NOTE | 2020-06-25 16:06 | PDOC ---
CINTHIA MICHEL WELDING MACHINE OPERATOR RESISTANCE 06/25/20 1606: CARDIO Progress Notes Date and Time Date of Service 06/25/20 Time of Evaluation 1215 Subjective Subjective: No Chest Pain, Other (SOA improved ) Vitals Vitals Vital Signs Date Time Temp Pulse Resp B/P (MAP) Pulse Ox O2 Delivery O2 Flow Rate FiO2 06/25/20 15:00 98.2 76 20 114/62 (79) 94 Room Air 98.2 06/25/20 07:00 3.0 Weight Weight [ ] Input and Output Intake and Output Intake and Output 06/25/20 07:00 Intake Total 1250 ml Output Total 1300 ml Balance -50 ml Intake Oral 1250 ml Output Urine Total 1300 ml # Voids 1 # Bowel Movements 2 Laboratory Labs Laboratory Tests Test 06/24/20 16:34 06/24/20 20:49 06/25/20 03:50 06/25/20 07:22 Glucose (Fingerstick) 79 mg/dL (70-99) 100 mg/dL (70-99) 97 mg/dL (70-99) White Blood Count 4.8 x10^3/uL (4.0-11.0) Red Blood Count 3.37 x10^6/uL (3.50-5.40) Hemoglobin 9.1 g/dL (12.0-15.5) Hematocrit 28.5 % (36.0-47.0) Mean Corpuscular Volume 85 fL (79-100) Mean Corpuscular Hemoglobin 27 pg (25-35) Mean Corpuscular Hemoglobin Concent 32 g/dL (31-37) Red Cell Distribution Width 17.8 % (11.5-14.5) Platelet Count 143 x10^3/uL (140-400) Neutrophils (%) (Auto) 64 % (31-73) Lymphocytes (%) (Auto) 23 % (24-48) Monocytes (%) (Auto) 10 % (0-9) Eosinophils (%) (Auto) 2 % (0-3) Basophils (%) (Auto) 2 % (0-3) Neutrophils # (Auto) 3.0 x10^3/uL (1.8-7.7) Lymphocytes # (Auto) 1.1 x10^3/uL (1.0-4.8) Monocytes # (Auto) 0.5 x10^3/uL (0.0-1.1) Eosinophils # (Auto) 0.1 x10^3/uL (0.0-0.7) Basophils # (Auto) 0.1 x10^3/uL (0.0-0.2) Sodium Level 144 mmol/L (136-145) Potassium Level 4.1 mmol/L (3.5-5.1) Chloride Level 109 mmol/L (98-107) Carbon Dioxide Level 32 mmol/L (21-32) Anion Gap 3 (6-14) Blood Urea Nitrogen 26 mg/dL (7-20) Creatinine 1.1 mg/dL (0.6-1.0) Estimated GFR (Cockcroft-Gault) 63.1 Glucose Level 95 mg/dL (70-99) Calcium Level 7.7 mg/dL (8.5-10.1) Test 06/25/20 11:37 Glucose (Fingerstick) 71 mg/dL (70-99) Microbiology Micro Microbiology 06/24/20 Blood Culture - Preliminary, Resulted NO GROWTH AFTER 1 DAY 06/23/20 Urine Culture - Final, Complete Physical Exam HEENT: Neck Supple W Full Motion Chest: Symmetric LUNGS: Other (diminished ) Heart: RRR Abdomen: Soft N/T, Other (obese) Neurology: alert, oriented, follow commands Assessment Assessment 1. Acute on chronic systolic CHF; better compensated following diuresis 2. NICM: s/p AICD (Biotronik). LVEF 35-40% per echo 01/28. 3. Possible ELIZABETH/COPD with morbid obesity: BMI at 70 4. Hypertension; controlled 5. DM2/HLP; statin 6. 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 Tobaccoism; cessation encouraged Recommendations Ongoing diuresis HF optimization with Enstresto, BB, and lasix therapy Discussed 2 Gm Na diet and 2000cc FR Encouraged weight loss Supportive care Routine outpatient echo Justicifation of Admission Dx: Justifications for Admission: Justification of Admission Dx: Yes CHANTAL PEÑA MD 06/25/202009: CARDIO Progress Notes Assessment Assessment Patient seen and examined. Agree with IT SERVICE TECHNICIAN's assessment and plan. Ac on chr systolic HF better compensated - continue diuresis NICMP s/p AICD clinically stable Plan repeat echo as outpatient Continue current meds including CINTHIA Agrawal APRN Jun 25, 2020 16:06 CHANTAL PEÑA MD Jun 25, 2020 20:10
[2020-06-25 19:35] VITALS: BP 119/78
[2020-06-25] MEDS: ATORVASTATIN CALCIUM 40 MG TABLET. PO SCH (20:34)
[2020-06-25 23:05] VITALS: BP 127/64
[2020-06-26 03:15] VITALS: BP 109/56
[2020-06-26 05:42] LABS: CREATININE 1.1 mg/dL (0.6-1.0); GFR 63.1; MAGNESIUM 1.9 mg/dL (1.8-2.4); POTASSIUM 4.1 mmol/L (3.5-5.1)
[2020-06-26 07:00] VITALS: BP 116/66
--- NOTE | 2020-06-26 08:01 | PDOC ---
[facility] PROGRESS NOTE Date of Service DOS: DATE: 06/26/20 TIME: 08:01 Chief Complaint Chief Complaint A/P: Acute systolic CHF Cardiomegaly with bilateral parenchymal opacities c/w pulmonary edema - 12/28 ECHO , left ventricular systolic function is moderately impaired.Ejection Fraction is 35-40%.left atrium is moderately dilated.aortic root is moderately enlarged. multifocal consolidative process as pneumonia possible super morbid obesity UNCONTROLLED HYPERTENSION AICD. Biotronik. // interrogate. PANNICULITIS Gram positive bacteremia Acute hypoxia - likely related to acute CHF, improved with diuresis FEN - ADA cardiac diet dvt prophylaxis 36 min pt exam, chart review, > 50% of time spent with exam, chart review, pt care coordination History of Present Illness History of Present Illness Ms Mayo is a 50yo F w/ PMHx morbid obesity with a BMI of 70, non-ischemic cardiomyopathy, systolic CHF EF 35% s/p AICD, DM2, GERD, HJLD, HTN, ELIZABETH with CPAP compliance difficulties, smoker 1 ppd who p/w worsening shortness of breath. She was initially requiring up to 3 liters of oxygen. She has a cough with white sputum production, no fever, no chills, no chest pain. She has overall increased weight gain and has chronic lymphedema. Her chest x-ray was reviewed and it was consistent with congestive heart failure. Consultation of cardiology and pulmonology as well as ID was requested. BNP 17K on admit. 06/24: has had a cough and told nursing about hemoptysis but denies NOW , AFEBRILE SINCE ADMIT 06/25: Afebrile. Zosyn discontinued by ID. She received an additional dose of IV Lasix this morning. She is on the commode currently. She feels much less short of breath and is asking if she can go back home with home health soon. Afebrile. good UOP. has some tension in her abdominal wall. Still asking to go home. Will place on doxy and augmentin, cont home meds, restart home health. Vitals/I&O Vitals/I&O: Vital Signs Date Time Temp Pulse Resp B/P (MAP) Pulse Ox O2 Delivery O2 Flow Rate FiO2 06/26/20 03:20 94 Nasal Cannula 2.0 06/26/20 03:15 98.3 77 20 109/56 (73) 98.3 I & O 06/25/20 06/25/20 06/26/20 15:00 23:00 07:00 Intake Total 380 ml 500 ml 240 ml Output Total 2500 ml 2000 ml Balance -2120 ml -1500 ml 240 ml Physical Exam Physical Exam: CONSTITUTIONAL: She is sitting upright on the side of bed. She is in no acute distress. She is morbidly obese. HEENT: Pupils equal and reactive. Normal conjunctivae. Oral cavity: Pharynx has some questionable dentition. In her mouth, there is some questionable poor dentition, but no signs of any gingivitis. NECK: Supple, no JVD. LUNGS: Clear to auscultation, no wheeze. HEART: S1, S2, but distant. ABDOMEN: Morbidly obese, soft. She has some tenderness in the mid right quadrant. Some slight discolorations. No guarding. No rebound. EXTREMITIES: No clubbing or cyanosis. She has 1+ edema. SKIN: Warm without signs of rash. NEUROLOGIC: She is nonfocal. PSYCHIATRIC: Affect is pleasant. General: Alert, Oriented X3, Cooperative, No acute distress Lungs: Clear Abdomen: Normal bowel sounds, Soft Extremities: No clubbing, No cyanosis Labs Labs: Laboratory Tests Test 06/25/20 11:37 06/25/20 16:37 06/25/20 21:16 06/26/20 04:05 Glucose (Fingerstick) 71 mg/dL (70-99) 110 mg/dL (70-99) 117 mg/dL (70-99) Sodium Level 145 mmol/L (136-145) Potassium Level 4.1 mmol/L (3.5-5.1) Chloride Level 108 mmol/L (98-107) Carbon Dioxide Level 36 mmol/L (21-32) Anion Gap 1 (6-14) Blood Urea Nitrogen 23 mg/dL (7-20) Creatinine 1.1 mg/dL (0.6-1.0) Estimated GFR (Cockcroft-Gault) 63.1 Glucose Level 108 mg/dL (70-99) Calcium Level 8.0 mg/dL (8.5-10.1) Magnesium Level 1.9 mg/dL (1.8-2.4) Test 06/26/20 07:40 Glucose (Fingerstick) 99 mg/dL (70-99) Assessment and Plan Assessmemt and Plan Problems Medical Problems: (1) CHF (congestive heart failure) Status: Acute (2) Dyspnea Status: Acute Comment Review of Relevant I have reviewed the following items cuate (where applicable) has been applied. Medications: Current Medications Medications (Trade) Dose Ordered Sig/Liam Route PRN Reason Start Time Stop Time Status Last Admin Dose Admin Furosemide (Lasix) 40 mg 1X ONCE IVP 06/25/20 15:00 06/25/20 15:01 DC 06/25/20 14:46 Justifications for Admission Other Justification BELA DELGADO MD Jun 26, 2020 08:01
[2020-06-26] MEDS ORDERED: MAGNESIUM SULFATE 1GM 100 ML IV ONE (08:15)
--- NOTE | 2020-06-26 08:24 | PDOC ---
Infectious Disease Note Subjective Subjective pt is feeling better Vital Sign Vital Signs Vital Signs Date Time Temp Pulse Resp B/P (MAP) Pulse Ox O2 Delivery O2 Flow Rate FiO2 06/26/20 03:20 94 Nasal Cannula 2.0 06/26/20 03:15 98.3 77 20 109/56 (73) 98.3 Physical Exam PHYSICAL EXAM CONSTITUTIONAL: She is sitting upright on the side of bed. She is in no acute distress. She is morbidly obese. HEENT: Pupils equal and reactive. Normal conjunctivae. Oral cavity: Pharynx has some questionable dentition. In her mouth, there is some questionable poor dentition, but no signs of any gingivitis. NECK: Supple, no JVD. LUNGS: Clear to auscultation, no wheeze. HEART: S1, S2, but distant. ABDOMEN: Morbidly obese, soft. She has some tenderness in the mid right quadrant. Some slight discolorations. No guarding. No rebound. EXTREMITIES: No clubbing or cyanosis. She has 1+ edema. SKIN: Warm without signs of rash. NEUROLOGIC: She is nonfocal. PSYCHIATRIC: Affect is pleasant. Labs Lab Laboratory Tests Test 06/25/20 11:37 06/25/20 16:37 06/25/20 21:16 06/26/20 04:05 Glucose (Fingerstick) 71 mg/dL (70-99) 110 mg/dL (70-99) 117 mg/dL (70-99) Sodium Level 145 mmol/L (136-145) Potassium Level 4.1 mmol/L (3.5-5.1) Chloride Level 108 mmol/L (98-107) Carbon Dioxide Level 36 mmol/L (21-32) Anion Gap 1 (6-14) Blood Urea Nitrogen 23 mg/dL (7-20) Creatinine 1.1 mg/dL (0.6-1.0) Estimated GFR (Cockcroft-Gault) 63.1 Glucose Level 108 mg/dL (70-99) Calcium Level 8.0 mg/dL (8.5-10.1) Magnesium Level 1.9 mg/dL (1.8-2.4) Test 06/26/20 07:40 Glucose (Fingerstick) 99 mg/dL (70-99) Micro Microbiology 06/23/20 Urine Culture - Final, Complete 9/11/20 Blood Culture - Preliminary, Resulted NO GROWTH AFTER 2 DAYS Objective Assessment 1. Bacteremia 1/3 bottles of Gram-positive cocci in pairs and small clusters. 2. Acute on chronic systolic heart failure. 3. Morbid obesity. 4. Poor dentition. 5. Questionable early panniculitis. 6. Automatic implantable cardioverter defibrillator. Plan Plan of Care dc Zosyn F/u labs and cults Monitor R/mid [facility] JJ HANNA MD Jun 26, 2020 08:24
[2020-06-26] MEDS: POTASSIUM CHLORIDE 20 MEQ TABLET.ER. PO SCH (09:13)
[2020-06-26] MEDS: PANTOPRAZOLE 40 MG TABLET.DR. PO SCH (09:14)
[2020-06-26] MEDS: glipiZIDE 5 MG TABLET PO SCH (09:14)
[2020-06-26] MEDS: CARVEDILOL 12.5 MG TABLET. PO SCH (09:14)
[2020-06-26] MEDS: SACUBITRIL/VALSARTAN 49/51MG TABLET. PO SCH (09:14)
[2020-06-26] MEDS ORDERED: DOXYCYCLINE HYCLATE 100 MG TABLET PO SCH (09:45)
[2020-06-26] MEDS ORDERED: AMOXICILLIN/K CLAV 875/125MG TABLET. PO SCH (09:45)
--- NOTE | 2020-06-26 10:41 | PDOC ---
CINTHIA MICHEL SECTION SUPERVISOR 06/26/20 1041: CARDIO Progress Notes Date and Time Date of Service 06/26/20 Time of Evaluation 1030 Subjective Subjective: No Chest Pain, Other (Breathing, swelling improved ) Vitals Vitals Vital Signs Date Time Temp Pulse Resp B/P (MAP) Pulse Ox O2 Delivery O2 Flow Rate FiO2 06/26/20 09:14 85 06/26/20 07:00 98.5 21 116/66 (83) 97 Room Air 98.5 06/26/20 03:20 2.0 Weight Weight [ ] Input and Output Intake and Output Intake and Output 06/26/20 07:00 Intake Total 1120 ml Output Total 4500 ml Balance -3380 ml Intake Oral 1120 ml Output Urine Total 4500 ml # Bowel Movements 1 Laboratory Labs Laboratory Tests Test 06/25/20 11:37 06/25/20 16:37 06/25/20 21:16 06/26/20 04:05 Glucose (Fingerstick) 71 mg/dL (70-99) 110 mg/dL (70-99) 117 mg/dL (70-99) Sodium Level 145 mmol/L (136-145) Potassium Level 4.1 mmol/L (3.5-5.1) Chloride Level 108 mmol/L (98-107) Carbon Dioxide Level 36 mmol/L (21-32) Anion Gap 1 (6-14) Blood Urea Nitrogen 23 mg/dL (7-20) Creatinine 1.1 mg/dL (0.6-1.0) Estimated GFR (Cockcroft-Gault) 63.1 Glucose Level 108 mg/dL (70-99) Calcium Level 8.0 mg/dL (8.5-10.1) Magnesium Level 1.9 mg/dL (1.8-2.4) Test 06/26/20 07:40 Glucose (Fingerstick) 99 mg/dL (70-99) Microbiology Micro Microbiology 06/24/20 Blood Culture - Preliminary, Resulted NO GROWTH AFTER 2 DAYS 06/23/20 Urine Culture - Final, Complete Physical Exam HEENT: Neck Supple W Full Motion Chest: Symmetric LUNGS: Other (diminished ) Heart: RRR Abdomen: Soft N/T, Other (obese) Neurology: alert, oriented, follow commands Assessment Assessment 1. Acute on chronic systolic CHF; better compensated following diuresis 2. NICM: s/p AICD (Biotronik). LVEF 35-40% per echo 01/28. 3. Possible ELIZABETH/COPD with morbid obesity: BMI at 70 4. Hypertension; controlled 5. DM2/HLP; statin 6. 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 Tobaccoism; cessation encouraged Recommendations HF optimization with Enstresto, BB, and lasix therapy Discussed, encouraged 2 Gm Na diet and [facility] FR Encouraged weight loss Supportive care Routine outpatient echo as scheduled. Follow up in clinic with Dr. Sosa August 08 at 2:30. Justicifation of Admission Dx: Justifications for Admission: Justification of Admission Dx: Yes CAHNTAL SOSA MD 06/26/202101: CARDIO Progress Notes Assessment Assessment Patient seen and examined. Agree with WATERSHED PROGRAM MANAGER's assessment and plan. Ac on chr systolic HF better compensated - continue diuresis NICMP s/p AICD clinically stable Plan repeat echo as outpatient Continue current meds including entresto Follow up as scheduled CINTHIA MICHEL APRN Jun 26, 2020 10:41 CHANTAL SOSA MD Jun 26, 2020 21:02
--- NOTE | 2020-06-26 10:53 | PDOC3 ---
Discharge Summary Visit Information Date of Admission: Jun 22, 2020 Date of Discharge: Jun 26, 2020 Admitting Diagnosis: Acute CHF Final Diagnosis Problems Medical Problems: (1) CHF (congestive heart failure) Status: Acute (2) Dyspnea Status: Acute Brief Hospital Course Allergies Allergies Coded Allergies Type Severity Reaction Last Updated Verified hydrocodone Allergy Intermediate 10/23/18 Yes morphine Allergy Intermediate 10/23/18 Yes Vital Signs Vital Signs Date Time Temp Pulse Resp B/P (MAP) Pulse Ox O2 Delivery O2 Flow Rate FiO2 06/26/20 09:14 85 06/26/20 07:00 98.5 21 116/66 (83) 97 Room Air 98.5 06/26/20 03:20 2.0 Lab Results Laboratory Tests Test 06/24/20 16:34 06/24/20 20:49 06/25/20 03:50 06/25/20 07:22 Glucose (Fingerstick) 79 mg/dL (70-99) 100 mg/dL (70-99) 97 mg/dL (70-99) White Blood Count 4.8 x10^3/uL (4.0-11.0) Red Blood Count 3.37 x10^6/uL (3.50-5.40) Hemoglobin 9.1 g/dL (12.0-15.5) Hematocrit 28.5 % (36.0-47.0) Mean Corpuscular Volume 85 fL (79-100) Mean Corpuscular Hemoglobin 27 pg (25-35) Mean Corpuscular Hemoglobin Concent 32 g/dL (31-37) Red Cell Distribution Width 17.8 % (11.5-14.5) Platelet Count 143 x10^3/uL (140-400) Neutrophils (%) (Auto) 64 % (31-73) Lymphocytes (%) (Auto) 23 % (24-48) Monocytes (%) (Auto) 10 % (0-9) Eosinophils (%) (Auto) 2 % (0-3) Basophils (%) (Auto) 2 % (0-3) Neutrophils # (Auto) 3.0 x10^3/uL (1.8-7.7) Lymphocytes # (Auto) 1.1 x10^3/uL (1.0-4.8) Monocytes # (Auto) 0.5 x10^3/uL (0.0-1.1) Eosinophils # (Auto) 0.1 x10^3/uL (0.0-0.7) Basophils # (Auto) 0.1 x10^3/uL (0.0-0.2) Sodium Level 144 mmol/L (136-145) Potassium Level 4.1 mmol/L (3.5-5.1) Chloride Level 109 mmol/L (98-107) Carbon Dioxide Level 32 mmol/L (21-32) Anion Gap 3 (6-14) Blood Urea Nitrogen 26 mg/dL (7-20) Creatinine 1.1 mg/dL (0.6-1.0) Estimated GFR (Cockcroft-Gault) 63.1 Glucose Level 95 mg/dL (70-99) Calcium Level 7.7 mg/dL (8.5-10.1) Test 06/25/20 11:37 06/25/20 16:37 06/25/20 21:16 06/26/20 04:05 Glucose (Fingerstick) 71 mg/dL (70-99) 110 mg/dL (70-99) 117 mg/dL (70-99) Sodium Level 145 mmol/L (136-145) Potassium Level 4.1 mmol/L (3.5-5.1) Chloride Level 108 mmol/L (98-107) Carbon Dioxide Level 36 mmol/L (21-32) Anion Gap 1 (6-14) Blood Urea Nitrogen 23 mg/dL (7-20) Creatinine 1.1 mg/dL (0.6-1.0) Estimated GFR (Cockcroft-Gault) 63.1 Glucose Level 108 mg/dL (70-99) Calcium Level 8.0 mg/dL (8.5-10.1) Magnesium Level 1.9 mg/dL (1.8-2.4) Test 06/26/20 07:40 Glucose (Fingerstick) 99 mg/dL (70-99) Laboratory Tests Test 06/25/20 11:37 06/25/20 16:37 06/25/20 21:16 06/26/20 04:05 Glucose (Fingerstick) 71 mg/dL (70-99) 110 mg/dL (70-99) 117 mg/dL (70-99) Sodium Level 145 mmol/L (136-145) Potassium Level 4.1 mmol/L (3.5-5.1) Chloride Level 108 mmol/L (98-107) Carbon Dioxide Level 36 mmol/L (21-32) Anion Gap 1 (6-14) Blood Urea Nitrogen 23 mg/dL (7-20) Creatinine 1.1 mg/dL (0.6-1.0) Estimated GFR (Cockcroft-Gault) 63.1 Glucose Level 108 mg/dL (70-99) Calcium Level 8.0 mg/dL (8.5-10.1) Magnesium Level 1.9 mg/dL (1.8-2.4) Test 06/26/20 07:40 Glucose (Fingerstick) 99 mg/dL (70-99) Brief Hospital Course Ms Mayo is a 50yo F w/ PMHx morbid obesity with a BMI of 70, non-ischemic cardiomyopathy, systolic CHF EF 35% s/p AICD, DM2, GERD, HJLD, HTN, ELIZABETH with CPAP compliance difficulties, smoker 1 ppd who p/w worsening shortness of breath. She was initially requiring up to 3 liters of oxygen. She has a cough with white sputum production, no fever, no chills, no chest pain. She has overall increased weight gain and has chronic lymphedema. Her chest x-ray was reviewed and it was consistent with congestive heart failure. Consultation of cardiology and pulmonology as well as ID was requested. BNP 17K on admit. 06/24: has had a cough and told nursing about hemoptysis but denies NOW , AFEBRILE SINCE ADMIT 06/25: Afebrile. Zosyn discontinued by ID. She received an additional dose of IV Lasix this morning. She is on the commode currently. She feels much less short of breath and is asking if she can go back home with home health soon. Afebrile. good UOP. has some tension in her abdominal wall. Still asking to go home. Consults: Cardiology, pulmonology, ID Problem list: Acute systolic CHF Cardiomegaly with bilateral parenchymal opacities c/w pulmonary edema - 12/28 ECHO , left ventricular systolic function is moderately impaired.Ejection Fraction is 35-40%.left atrium is moderately dilated.aortic root is moderately enlarged. multifocal consolidative process as pneumonia possible super morbid obesity UNCONTROLLED HYPERTENSION AICD. Biotronik. // interrogate. PANNICULITIS Gram positive bacteremia Acute hypoxia - likely related to acute CHF, improved with diuresis, has ELIZABETH, on CPAP at home, needs this Plan: Will place on doxy and augmentin, cont home meds, restart home health. 80mg Lasix BID at home Greater than 30 minutes spent on d/c home with home health. Discharge Information Condition at Discharge: Improved Follow Up: Weeks (1) Disposition/Orders: D/C to Home w/ HH Scheduled Carvedilol (Carvedilol ) 12.5 Mg Tablet, 1 TAB PO BID, #180 Ref 1 (Reported) Entered as Reported by: MARGUERITE DEUTSCH on 08/25/141723 Last Action: Continued on 06/22/202051 by FLOWER RHODES MD Furosemide (Furosemide) 80 Mg Tablet, 80 MG PO BID for heart failure for 7 Days, #14 Prescribed by: KINGSLEY HERNANDEZ on 02/12/20 1249 Last Action: HELD on 06/22/202050 by FLOWER RHODES MD Glipizide (Glipizide) 5 Mg Tablet, 1 TAB PO DAILY for dm, #90 Ref 3 (Reported) Entered as Reported by: THA DHILLON on 10/22/18 1355 Last Action: Continued on 06/22/202051 by FLOWER RHODES MD Omeprazole (Omeprazole) 40 Mg Capsule.dr, 1 CAP PO DAILY06 for GERD, #30 Ref 3 (Reported) Entered as Reported by: MARC AGUILA on 01/31/19 172 Last Action: Converted on 06/22/202051 by FLOWER RHODES MD Potassium Chloride (Potassium Chloride ) 20 Meq Tablet.er, 20 MEQ PO BID for supplement, (Reported) Entered as Reported by: GRACIE DUNN on 01/31/19 0750 Last Action: Continued on 06/22/202051 by FLOWER RHODES MD Rosuvastatin Calcium (Crestor) 10 Mg Tablet, 1 TAB PO DAILY, #30 Ref 5 (Reported) Entered as Reported by: MARGUERITE DEUTSCH on 08/25/141723 Last Action: Converted on 06/22/202051 by FLOWER RHODES MD Sacubitril/Valsartan (Entresto 49 mg-51 mg Tablet) 1 Each Tablet, 1 TAB PO BID for Heart Failure, (Reported) Entered as Reported by: GRACIE DUNN on 01/31/19 0750 Last Action: Continued on 06/22/202051 by FLOWER RHODES MD Warfarin Sodium (Warfarin Sodium) 10 Mg Tablet, 10 MG PO DAILY, (Reported) Entered as Reported by: MARGUERITE DEUTSCH on 08/25/14 1724 Scheduled PRN Oxycodone Hcl/Acetaminophen (Oxycodon-Acetaminophen 7.5-325) 1 Each Tablet, 7.5- 325 MG PO PRN Q6HRS PRN for SEVERE PAIN, (Reported) Entered as Reported by: NATALIE LONG RN on 01/31/192026 Last Action: Continued on 06/22/202051 by FLOWER RHODES MD Justicifation of Admission Dx: Justifications for Admission: Justification of Admission Dx: Yes BELA DELGADO MD Jun 26, 2020 10:53
--- NOTE | 2020-06-26 10:55 | PDOC ---
PULMONARY PROGRESS NOTES DATE: 06/26/20 TIME: 10:53 Subjective no soa Vitals Vital Signs Date Time Temp Pulse Resp B/P (MAP) Pulse Ox O2 Delivery O2 Flow Rate FiO2 06/26/20 09:14 85 06/26/20 07:00 98.5 21 116/66 (83) 97 Room Air 98.5 06/26/20 03:20 2.0 General: Alert, No acute distress Lungs: Clear Cardiovascular: S1 Abdomen: Soft, Other (obese) Extremities: Other (lymphedema) Labs Laboratory Tests Test 06/24/20 16:34 06/24/20 20:49 06/25/20 03:50 06/25/20 07:22 Glucose (Fingerstick) 79 mg/dL (70-99) 100 mg/dL (70-99) 97 mg/dL (70-99) White Blood Count 4.8 x10^3/uL (4.0-11.0) Red Blood Count 3.37 x10^6/uL (3.50-5.40) Hemoglobin 9.1 g/dL (12.0-15.5) Hematocrit 28.5 % (36.0-47.0) Mean Corpuscular Volume 85 fL (79-100) Mean Corpuscular Hemoglobin 27 pg (25-35) Mean Corpuscular Hemoglobin Concent 32 g/dL (31-37) Red Cell Distribution Width 17.8 % (11.5-14.5) Platelet Count 143 x10^3/uL (140-400) Neutrophils (%) (Auto) 64 % (31-73) Lymphocytes (%) (Auto) 23 % (24-48) Monocytes (%) (Auto) 10 % (0-9) Eosinophils (%) (Auto) 2 % (0-3) Basophils (%) (Auto) 2 % (0-3) Neutrophils # (Auto) 3.0 x10^3/uL (1.8-7.7) Lymphocytes # (Auto) 1.1 x10^3/uL (1.0-4.8) Monocytes # (Auto) 0.5 x10^3/uL (0.0-1.1) Eosinophils # (Auto) 0.1 x10^3/uL (0.0-0.7) Basophils # (Auto) 0.1 x10^3/uL (0.0-0.2) Sodium Level 144 mmol/L (136-145) Potassium Level 4.1 mmol/L (3.5-5.1) Chloride Level 109 mmol/L (98-107) Carbon Dioxide Level 32 mmol/L (21-32) Anion Gap 3 (6-14) Blood Urea Nitrogen 26 mg/dL (7-20) Creatinine 1.1 mg/dL (0.6-1.0) Estimated GFR (Cockcroft-Gault) 63.1 Glucose Level 95 mg/dL (70-99) Calcium Level 7.7 mg/dL (8.5-10.1) Test 06/25/20 11:37 06/25/20 16:37 06/25/20 21:16 06/26/20 04:05 Glucose (Fingerstick) 71 mg/dL (70-99) 110 mg/dL (70-99) 117 mg/dL (70-99) Sodium Level 145 mmol/L (136-145) Potassium Level 4.1 mmol/L (3.5-5.1) Chloride Level 108 mmol/L (98-107) Carbon Dioxide Level 36 mmol/L (21-32) Anion Gap 1 (6-14) Blood Urea Nitrogen 23 mg/dL (7-20) Creatinine 1.1 mg/dL (0.6-1.0) Estimated GFR (Cockcroft-Gault) 63.1 Glucose Level 108 mg/dL (70-99) Calcium Level 8.0 mg/dL (8.5-10.1) Magnesium Level 1.9 mg/dL (1.8-2.4) Test 06/26/20 07:40 Glucose (Fingerstick) 99 mg/dL (70-99) Laboratory Tests Test 06/25/20 11:37 06/25/20 16:37 06/25/20 21:16 06/26/20 04:05 Glucose (Fingerstick) 71 mg/dL (70-99) 110 mg/dL (70-99) 117 mg/dL (70-99) Sodium Level 145 mmol/L (136-145) Potassium Level 4.1 mmol/L (3.5-5.1) Chloride Level 108 mmol/L (98-107) Carbon Dioxide Level 36 mmol/L (21-32) Anion Gap 1 (6-14) Blood Urea Nitrogen 23 mg/dL (7-20) Creatinine 1.1 mg/dL (0.6-1.0) Estimated GFR (Cockcroft-Gault) 63.1 Glucose Level 108 mg/dL (70-99) Calcium Level 8.0 mg/dL (8.5-10.1) Magnesium Level 1.9 mg/dL (1.8-2.4) Test 06/26/20 07:40 Glucose (Fingerstick) 99 mg/dL (70-99) Medications Active Scripts Medications Dose Route/Sig Max Daily Dose Days Date Category Furosemide 80 Mg Tablet 80 Mg PO BID 7 02/12/20 Rx Oxycodon-Acetaminophen 7.5-325 (Oxycodone Hcl/Acetaminophen) 1 Each Tablet 7.5-325 Mg PO PRN Q6HRS PRN 01/31/19 Reported Omeprazole 40 Mg Capsule.dr Soares Cap PO DAILY06 01/31/19 Reported Potassium Chloride (Potassium Chloride) 20 Meq Tablet.er 20 Meq PO BID 01/31/19 Reported Entresto 49 mg-51 mg Tablet (Sacubitril/Valsartan) 1 Each Tablet 1 Tab PO BID 01/31/19 Reported Glipizide 5 Mg Tablet 1 Tab PO DAILY 10/22/18 Reported Warfarin Sodium 10 Mg Tablet 10 Mg PO DAILY 08/25/14 Reported Crestor (Rosuvastatin Calcium) 10 Mg Tablet 1 Tab PO DAILY 08/25/14 Reported Carvedilol (Carvedilol) 12.5 Mg Tablet 1 Tab PO BID 08/25/14 Reported Impression . 1. Acute hypoxic respiratory failure secondary to acute on chronic systolic heart failure. There is also a component of right heart failure as well. 2. Ongoing tobacco use, suspect underlying chronic obstructive pulmonary disease. 3. Underlying obstructive sleep apnea/obesity hypoventilation syndrome. She has evidence of chronic hypercarbia. Bicarb is elevated. She is noncompliant to CPAP. Plan . 1. Continue with present diuresis. 2. off oxygen. 3. Smoking cessation counseling provided. 4. Clinically do not see a need for antibiotics. Clinically, less likely pneumonia. 5. Lovenox for DVT prophylaxis. 6. Follow Cardiology and ID recommendation. 7. Weight loss is strongly emphasized to the patient. 8. Discussed with RN. 9. Procalcitonin level normal SUSAN MELARA MD Jun 26, 2020 10:55
[2020-06-26] MEDS ORDERED: AMOX1TAB11 PO (10:56)
[2020-06-26] MEDS ORDERED: DOXY100T PO (10:56)
--- NOTE | 2020-06-26 10:57 | SNU/HH DC ---
DISCHARGE WITH HOME HEALTH DISCHARGE INFORMATION: Discharge Date: Jun 26, 2020 Final Diagnosis: Problems Medical Problems: (1) CHF (congestive heart failure) Status: Acute (2) Dyspnea Status: Acute Condition on Discharge: Stable CODE STATUS: Code Status: Full HOME HEALTH: Face to Face: I certify this patient is under my care and that I, or a nurse practitioner or physician's assistant counsel working with me, had a face to face encounter that meets the physician face to face encounter requirements with this patient on 06/26/2020. Medical Complications: CHF Chcf For: Assess Cardiopulm Status, Assess/Skilled Observatio RN For Eval/Treatment: Yes Physical Therapy For: Evalulation/Treatment Occupational Therapy For: Evaluation/Treatment Pt Meets Homebound Status: Fatigue w/ amb. POST DISCHARGE ORDERS: Activity Instructions for Disc: Activity as tolerated Weight Bearing Status after Di: As tolerated Bathing Instructions: Shower-keep dressing dry, No Tub Bath until see Dr. LEGGETT AFTER DISCHARGE: Cardiac Wound/Incision Care: No wound care needed CHECKS AFTER DISCHARGE: Checks after discharge: Check blood press - daily, Weigh Yourself Daily TREATMENT/EQUIPMENT ORDERS: Adaptive Equipment Issued: None Discharge Respiratory Equipmen: CPAP CERTIFICATION STATEMENT: Certification Statement: Certification Statement: Based on the above finding, I certify that this patient is confined to the home and needs intermittent half-way care, physical therapy and/or speech therapy, or continues to need occupational therapy.~ This patient is under my care, and I have initiated the establishment of the plan of care.~ This patient will be followed by myself or a community physician who will periodically review the plan of care. Home Meds Active Scripts Doxycycline Hyclate (DOXYCYCLINE HYCLATE) 100 Mg Tablet, 100 MG PO BID for Cellulitis for 7 Days, #14 TAB Prov:BELA DELGADO MD 06/26/20 Amoxicillin/Potassium Clav (AMOX TR-K CLV 875-125 MG TAB) 1 Each Tablet, 1 TAB PO BID for Cellulitis for 7 Days, #14 TAB Prov:BELA DELGADO MD 06/26/20 Furosemide (FUROSEMIDE) 80 Mg Tablet, 80 MG PO BID for heart failure for 7 Days, #14 TAB Prov:KINGSLEY HERNANDEZ MD 02/12/20 Reported Medications Oxycodone Hcl/Acetaminophen (OXYCODON-ACETAMINOPHEN 7.5-325) 1 Each Tablet, 7.5- 325 MG PO PRN Q6HRS PRN for SEVERE PAIN 01/31/19 Omeprazole (OMEPRAZOLE) 40 Mg Capsule.dr, 1 CAP PO DAILY06 for GERD, #30 CAP 3 Refills 01/31/19 Potassium Chloride (POTASSIUM CHLORIDE ) 20 Meq Tablet.er, 20 MEQ PO BID for supplement, TAB.SR 01/31/19 Sacubitril/Valsartan (Entresto 49 mg-51 mg Tablet) 1 Each Tablet, 1 TAB PO BID for Heart Failure, TAB 01/31/19 Glipizide (GLIPIZIDE) 5 Mg Tablet, 1 TAB PO DAILY for dm, #90 TAB 3 Refills 10/22/18 Warfarin Sodium (WARFARIN SODIUM) 10 Mg Tablet, 10 MG PO DAILY, TAB 08/25/14 Rosuvastatin Calcium (CRESTOR) 10 Mg Tablet, 1 TAB PO DAILY, #30 TAB 5 Refills 08/25/14 Carvedilol (CARVEDILOL ) 12.5 Mg Tablet, 1 TAB PO BID, #180 TAB 1 Refill 08/25/14 BELA DELGADO MD Jun 26, 2020 10:57
[2020-06-26 11:00] VITALS: BP 130/73
--- NOTE | 2020-06-26 16:12 | NUR ---
Discharge: Teaching verbal and written. Reviewed medications, CHF, cellulitis, follow-up, ect. Patient verbalized understanding. All belongings with patient. Patient assisted off of unit via wheelchair accompanied by KAMILA
== END 2020-06-26 15:55 | disposition home health service (06) | DRG 291 ==
LOC: ER 16:48 → 6 SOUTH 22:24 → OBSVTOIN 22:24 → 2 NORTH 06-24 19:36
PROVIDERS: ADMIT Internal Medicine; ATTEND Internal Medicine
DX: I11.0 Hypertensive heart disease with heart failure (principal); J96.00 Acute respiratory failure, unspecified whether with hypoxia or hypercapnia; J18.9 Pneumonia, unspecified organism; J96.01 Acute respiratory failure with hypoxia; E66.2 Morbid (severe) obesity with alveolar hypoventilation; I69.354 Hemiplegia and hemiparesis following cerebral infarction affecting left non-dominant side; R45.851 Suicidal ideations; Z68.45 Body mass index [BMI] 70 or greater, adult; I50.23 Acute on chronic systolic (congestive) heart failure; I42.8 Other cardiomyopathies; B96.89 Other specified bacterial agents as the cause of diseases classified elsewhere; E11.9 Type 2 diabetes mellitus without complications; E78.00 Pure hypercholesterolemia, unspecified; E78.5 Hyperlipidemia, unspecified; F17.210 Nicotine dependence, cigarettes, uncomplicated; I50.82 Biventricular heart failure; I77.810 Thoracic aortic ectasia; I89.0 Lymphedema, not elsewhere classified; K21.9 Gastro-esophageal reflux disease without esophagitis; M79.3 Panniculitis, unspecified; Z20.828 Contact with and (suspected) exposure to other viral communicable diseases; Z82.49 Family history of ischemic heart disease and other diseases of the circulatory system; Z83.3 Family history of diabetes mellitus; Z91.19 Patient's noncompliance with other medical treatment and regimen; Z95.810 Presence of automatic (implantable) cardiac defibrillator; G89.29 Other chronic pain; M19.90 Unspecified osteoarthritis, unspecified site; Z88.8 Allergy status to other drugs, medicaments and biological substances; Z79.899 Other long term (current) drug therapy; Z71.6 Tobacco abuse counseling
CPT/HCPCS: 36415; 71045; 80048; 80053; 81001; 82962; 83605; 83735; 83880; 84145; 84443; 84484; 85025; 85610; 85730; 87040; 87077; 87086; 87205; 93005; 96374; J0360; J1650; J1940; J2405; J2543; J3475; 97116-GP; 97530-GP; 99285-25; G0378; U0003-CS

== ENCOUNTER 2020-09-07 08:42 | Emergency (ER) | payer MEDICARE ==
[~2020-09-07] VITALS: Ht 180.3 cm; Wt 200.4 kg
--- NOTE | 2020-09-07 09:55 | RAD ---
PROCEDURE: SHOULDER 2+V RIGHT STUDY DATE: 09/07/2020 CLINICAL INDICATION / HISTORY: Reason: Right shoulder pain, trauma / Spl. Instructions: / History: . TECHNIQUE: AP internal and external rotation views with a Y- view were obtained. COMPARISON: 06/22/2020 chest x-ray FINDINGS: No fracture, dislocation or bone destruction is identified. There are moderately advanced degenerative changes at the right AC joint. No calcifications are seen in relation to the rotator cuff insertion. IMPRESSION: No acute osseous abnormality. Right acromioclavicular degenerative change is present. EXAM: CHEST AP ONLY INDICATION: Reason: pain, trauma / Spl. Instructions: / History: . TECHNIQUE: Single view COMPARISON: 06/22/2020 chest x-ray FINDINGS: Moderate cardiomegaly is redemonstrated. Multichamber left chest AICD remains present Patient is rotated, obscuring the mediastinal contours. No mediastinal widening is apparent. The thoracic aorta appears unchanged There is central pulmonary vascular congestion. No mediastinal mass or adenopathy is appreciated.. Lungs show bilateral interstitial thickening similar to prior There is no pleural effusion or pneumothorax. There are no significant osseous abnormalities. IMPRESSION: Stable cardiomegaly and central pulmonary vascular congestion. No acute traumatic findings otherwise noted on single view chest x-ray PROCEDURE: HIP LEFT 2V WITH PELVIS STUDY DATE: 09/07/2020 CLINICAL INDICATION / HISTORY: Reason: Left hip pain, trauma / Spl. Instructions: / History: . TECHNIQUE:Three views of the left hip were obtained. COMPARISON: None FINDINGS: The osseous structures are normally mineralized. There is normal bony alignment present with the femoral heads well-seated within the acetabuli. Mild bilateral medial hip joint space narrowing is suggested. There is no evidence of acute fracture or dislocation identified. The overlying soft tissues are grossly unremarkable. IMPRESSION: Mild bilateral hip degenerative changes. Otherwise unremarkable x-ray of the pelvis and left hip Electronically signed by: Sweetie Camacho MD (09/07/2020 9:52 AM) [facility]
[2020-09-07 10:11] VITALS: BP 146/81
[2020-09-07] MEDS ORDERED: oxyCODONE/APAP 5/325 1 TAB TABLET PO ONE (10:15)
--- NOTE | 2020-09-07 11:23 | ED.ADGEN ---
Past Medical History Past Medical History: CHF, COPD, Diabetes-Type II, Gallstones, GERD, High Cholesterol, Hypertension, Stroke, Other Additional Past Medical Histor: CHRONIC PAIN Past Surgical History: Cholecystectomy, Other Additional Past Surgical Histo: kidney cyst removal, tracheostomy, defibrillator Smoking Status: Current Every Day Smoker Alcohol Use: None Drug Use: Marijuana Social History Narrative: LAST USED LAST NIGHT General Adult EDM: Chief Complaint: MECHANICAL FALL HPI: HPI: Patient is 50-year-old female with past medical history of morbid obesity who presents to the emergency room after having a fall at home. She states she has been having knee pain and her knee gave out on her today. She fell and hit her left hip. She is having left hip and right shoulder pain. She denies any other injuries. She not hit her head. She not lose consciousness. She does not have any neck or back pain. She did not have any dizziness or syncope. She does not have any chest pain. She does not have any shortness of breath. Review of Systems: Review of Systems: Complete ROS is negative unless otherwise documented in HPI Current Medications: Current Medications Medications (Trade) Dose Ordered Sig/Liam Start Time Stop Time Status Last Admin Dose Admin Oxycodone/ Acetaminophen (Percocet 5/325) 1 tab 1X ONCE 09/07/20 10:15 09/07/20 10:16 DC 09/07/20 10:16 1 TAB Allergies: Allergies: Allergies Coded Allergies Type Severity Reaction Last Updated Verified hydrocodone Allergy Intermediate 10/23/18 Yes morphine Allergy Intermediate 10/23/18 Yes Physical Exam: PE: General: Awake, alert, NAD. Well Nourished, well hydrated. Cooperative. Morbid obesity HEENT: Atraumatic, EOMI, PERRL, airway patent, moist oral mucosa Neck: Supple, trachea midline Respiratory: CTA bilaterally, normal effort, no wheezing/crackles CV: RRR, no murmur, cap refill <2 GI: Soft, nondistended, nontender, no masses MSK: No obvious deformities, tenderness along the left hip and right shoulder without obvious deformity, intact distal pulses, sensation, strength Skin: Warm, dry, intact Neuro: A&O x3, speech NL, sensory and motor grossly intact, no focal deficits Psych: Normal affect, normal mood, not suicidal or homicidal Current Patient Data: Vital Signs: Vital Signs Date Time Temp Pulse Resp B/P (MAP) Pulse Ox O2 Delivery O2 Flow Rate FiO2 09/07/20 10:18 20 95 09/07/20 10:16 Nasal Cannula 2.0 09/07/20 10:11 82 09/07/20 08:43 97.7 151/92 (111) 97.7 EKG: EKG: [] Heart Score: Risk Factors: Risk Factors: DM, Current or recent (<one month) smoker, HTN, HLP, family history of CAD, obesity. Risk Scores: Score 0 - 3: 2.5% MACE over next 6 weeks - Discharge Home Score 4 - 6: 20.3% MACE over next 6 weeks - Admit for Clinical Observation Score 7 - 10: 72.7% MACE over next 6 weeks - Early Invasive Strategies Radiology/Procedures: Radiology/Procedures: [] Course & Med Decision Making: Course & Med Decision Making Pertinent Labs and Imaging studies reviewed. (See chart for details) Patient is a 50-year-old female who presents to the emergency room with hip and shoulder pain after a fall. X-rays are normal. Patient was able to ambulate in the emergency room with a walker. She uses a walker at home. Patient's test results and vitals while in the ED were fully reviewed and discussed with the patient. Patient is stable and at this time does not need admission to the hospital. We have discussed strict return precautions and the importance of following up with their Primary Care Physician. Patient stated understanding and was given an opportunity to ask any questions. Patient is in agreement with plan. Dragon Disclaimer: Dragon Disclaimer: This electronic medical record was generated, in whole or in part, using a voice recognition dictation system. Departure Departure Impression: Primary Impression: Fall Additional Impressions: Left hip pain Right shoulder pain Disposition: 01 DC HOME SELF CARE/HOMELESS Condition: STABLE Referrals: MECHELLE ROSADO MD (PCP) Patient Instructions: Fall Prevention and Home Safety Problem Qualifiers CONNER SALINAS MD Sep 07, 2020 11:23
== END 2020-09-07 11:46 | disposition home or self-care (01) ==
LOC: ER 08:42
DX: M25.552 Pain in left hip (principal); M25.511 Pain in right shoulder; G89.11 Acute pain due to trauma; M54.5 Low back pain; R07.89 Other chest pain; M25.569 Pain in unspecified knee; J44.9 Chronic obstructive pulmonary disease, unspecified; K21.9 Gastro-esophageal reflux disease without esophagitis; E78.00 Pure hypercholesterolemia, unspecified; G89.29 Other chronic pain; I11.0 Hypertensive heart disease with heart failure; I50.9 Heart failure, unspecified; E11.9 Type 2 diabetes mellitus without complications; Z86.73 Personal history of transient ischemic attack (TIA), and cerebral infarction without residual deficits; Z90.49 Acquired absence of other specified parts of digestive tract; F17.200 Nicotine dependence, unspecified, uncomplicated; E66.01 Morbid (severe) obesity due to excess calories; Z68.44 Body mass index [BMI] 60.0-69.9, adult; Z88.5 Allergy status to narcotic agent; W18.39XA Other fall on same level, initial encounter; Y93.89 Activity, other specified; Y92.89 Other specified places as the place of occurrence of the external cause; Y99.8 Other external cause status
CPT/HCPCS: 71045; 73030; 73502; 99284

== ENCOUNTER → 2020-09-07 | Outpatient (CLI) | payer MEDICARE ==
[~2020-09-07] MED LIST changes: +AMLO-187 PO; -AMLO10TA8 PO; +AMOX1TAB11 PO; +DOXY100T PO; +SPIR25TA PO
[2020-09-07 10:11] VITALS: BP 146/81
[2020-09-07 15:36] LABS: GFR 70.5; MAGNESIUM 1.9 mg/dL (1.8-2.4)
[2020-09-07 15:44] LABS: CALCIUM 8.3 mg/dL (8.5-10.1)
== END ==
LOC: SPEC 15:11
PROVIDERS: ATTEND Internal Medicine Cardiovascular Disease
DX: I11.0 Hypertensive heart disease with heart failure (principal)
CPT/HCPCS: 36415; 80048; 83735

== ENCOUNTER 2020-11-01 14:04 | Inpatient (IN) | payer MEDICARE ==
[~2020-11-01] VITALS: Ht 180.3 cm; Wt 194.6 kg
[~2020-11-01 14:04] MED LIST changes: -CLIN150C14 PO; +CLIN150C15 PO
[2020-11-01 14:19] LABS: BASE EXCESS ABG 2 mmol/L (-3-3); HCO3 ABG 26 mmol/L (21-28); PCO2 ABG 37 mmHg (35-46); PO2 ABG 62 mmHg (75-108); SAT O2 ABG 92 % (92-99)
[2020-11-01 14:21] LABS: FIO2 ABG 21%
[2020-11-01 14:42] LABS: BASO # 0.1 x10^3/uL (0.0-0.2); BASO % 2 % (0-3); EOS # 0.1 x10^3/uL (0.0-0.7); EOS % 2 % (0-3); HEMATOCRIT 32.6 % (36.0-47.0); HEMOGLOBIN 10.2 g/dL (12.0-15.5); LYMPH # 1.4 x10^3/uL (1.0-4.8); LYMPH % 25 % (24-48); MEAN CORPUSCULAR HEMOGLOBIN 25 pg (25-35); MEAN CORPUSCULAR HGB CONC 31 g/dL (31-37); MEAN CORPUSCULAR VOLUME 79 fL (79-100); MONO # 0.5 x10^3/uL (0.0-1.1); MONO % 9 % (0-9); NEUT # 3.5 x10^3/uL (1.8-7.7); NEUT % 62 % (31-73); PLATELET COUNT 224 x10^3/uL (140-400); RED BLOOD COUNT 4.14 x10^6/uL (3.50-5.40); WHITE BLOOD COUNT 5.6 x10^3/uL (4.0-11.0)
[2020-11-01 14:54] LABS: CALCIUM 8.4 mg/dL (8.5-10.1); CREATININE 1.1 mg/dL (0.6-1.0); GFR 63.1; POTASSIUM 4.1 mmol/L (3.5-5.1); PROTHROMBIN TIME PATIENT 15.4 SEC (11.7-14.0)
[2020-11-01 15:00] LABS: ALBUMIN 3.1 g/dL (3.4-5.0); ALBUMIN/GLOBULIN RATIO 0.9 (1.0-1.7); MAGNESIUM 2.1 mg/dL (1.8-2.4); TOTAL BILIRUBIN 0.7 mg/dL (0.2-1.0); TOTAL PROTEIN 6.6 g/dL (6.4-8.2)
--- NOTE | 2020-11-01 15:08 | RAD ---
Single view chest dated 11/01/2020. Comparison made to 09/07/2020. CLINICAL INDICATION: Shortness of breath. FINDINGS: Single upright portable exam performed. Heart size is moderately enlarged, stable. There is a dual le ad left subclavian pacer/AICD in place, unchanged. Hazy airspace disease in the perihilar regions and retrocardiac left base, similar to prior study. There is blunting of the left costophrenic sulcus, u nchanged. No pneumothorax. IMPRESSION: 1. Perihilar and left basilar airspace disease, similar to prior study. Although findings could be ch ronic, recurrent edema or pneumonia not excluded. Poorly clinically. Electronically signed by: Iron Cruz MD (11/01/2020 3:06 PM) [id number]
--- NOTE | 2020-11-01 15:26 | PHYS DOC ---
Past Medical History Past Medical History: CHF, COPD, Diabetes-Type II, Gallstones, GERD, High Cholesterol, Hypertension, Stroke, Other Additional Past Medical Histor: CHRONIC PAIN Past Surgical History: Cholecystectomy, Other Additional Past Surgical Histo: kidney cyst removal, tracheostomy, defibr illator Smoking Status: Current Every Day Smoker Alcohol Use: None Drug Use: Marijuana Social History Narrative: DAILY MARIJUANA USE General Adult EDM: Chief Complaint: SHORTNESS OF BREATH HPI: HPI: Patient is a 50 year old female who was brought here by EMS from home due to trouble breathing and nonproductive cough for 4 days. Patient is a smoker, she used CPAP at home at night.. Patient had some cough, nonproductive in nature, patient denies any fever. Patient was tested negative for COVID-19 last month. Patient has history of CHF, she is on Lasix at home. Review of Systems: Review of Systems: Constitutional: Denies fever or chills. [] Eyes: Denies change in visual acuity. [] HENT: Denies nasal congestion or sore throat. [] Respiratory: positive for cough or shortness of breath. [] Cardiovascular: Denies chest pain or edema. [] GI: Denies abdominal pain, nausea, vomiting, bloody stools or diarrhea. [] : Denies dysuria. [] Musculoskeletal: Denies back pain or joint pain. [] Integument: Denies rash. [] Neurologic: Denies headache, focal weakness or sensory changes. [] Endocrine: Denies polyuria or polydipsia. [] Lymphatic: Denies swollen glands. [] Psychiatric: Denies depression or anxiety. [] Heart Score: Risk Factors: Risk Factors: DM, Current or recent (<one month) smoker, HTN, HLP, family history of CAD, obesity. Risk Scores: Score 0 - 3: 2.5% MACE over next 6 weeks - Discharge Home Score 4 - 6: 20.3% MACE over next 6 weeks - Admit for Clinical Observation Score 7 - 10: 72.7% MACE over next 6 weeks - Early Invasive Strategies Current Medications: Current Medications Medications (Trade) Dose Ordered Sig/Liam Start Time Stop Time Status Last Admin Dose Admin Furosemide (Lasix) 80 mg 1X ONCE 11/01/20 15:30 11/01/20 15:31 UNV Allergies: Allergies: Allergies Coded Allergies Type Severity Reaction Last Updated Verified hydrocodone Allergy Intermediate 1/12/19 Yes morphine Allergy Intermediate 10/23/18 Yes Physical Exam: PE: Constitutional: Well developed, well nourished, no acute distress, non-toxic appearance. [] HENT: Normocephalic, atraumatic, bilateral external ears normal, oropharynx moist, no oral exudates, nose normal. [] Eyes: PERRLA, EOMI, conjunctiva normal, no discharge. [] Neck: Normal range of motion, no tenderness, supple, no stridor. [] Cardiovascular:Heart rate regular rhythm, no murmur [] Lungs & Thorax: Bilateral breath sounds with rales, TACHYPNIC. ] Abdomen: Bowel sounds normal, soft, no tenderness, no masses, no pulsatile masses. [] Skin: Warm, dry, no erythema, no rash. [] Back: No tenderness, no CVA tenderness. [] Extremities: No tenderness, no cyanosis, no clubbing, ROM intact, BILATERAL EXTREMITIES WITH PITTING EDEMA. Neurologic: Alert and oriented X 3, normal motor function, normal sensory function, no focal deficits noted. [] Psychologic: Affect normal, judgement normal, mood normal. [] Current Patient Data: Labs: Laboratory Tests Test 11/01/20 14:10 11/01/20 14:14 O2 Saturation 92 % (92-99) Arterial Blood pH 7.46 (7.35-7.45) H Arterial Blood pCO2 at Patient Temp 37 mmHg (35-46) Arterial Blood pO2 at Patient Temp 62 mmHg (75-108) L Arterial Blood HCO3 26 mmol/L (21-28) Arterial Blood Base Excess 2 mmol/L (-3-3) FiO2 21% White Blood Count 5.6 x10^3/uL (4.0-11.0) Red Blood Count 4.14 x10^6/uL (3.50-5.40) Hemoglobin 10.2 g/dL (12.0-15.5) L Hematocrit 32.6 % (36.0-47.0) L Mean Corpuscular Volume 79 fL (79-100) Mean Corpuscular Hemoglobin 25 pg (25-35) Mean Corpuscular Hemoglobin Concent 31 g/dL (31-37) Red Cell Distribution Width 20.0 % (11.5-14.5) H Platelet Count 224 x10^3/uL (140-400) Neutrophils (%) (Auto) 62 % (31-73) Lymphocytes (%) (Auto) 25 % (24-48) Monocytes (%) (Auto) 9 % (0-9) Eosinophils (%) (Auto) 2 % (0-3) Basophils (%) (Auto) 2 % (0-3) Neutrophils # (Auto) 3.5 x10^3/uL (1.8-7.7) Lymphocytes # (Auto) 1.4 x10^3/uL (1.0-4.8) Monocytes # (Auto) 0.5 x10^3/uL (0.0-1.1) Eosinophils # (Auto) 0.1 x10^3/uL (0.0-0.7) Basophils # (Auto) 0.1 x10^3/uL (0.0-0.2) Prothrombin Time 15.4 SEC (11.7-14.0) H Prothrombin Time INR 1.3 (0.8-1.1) H Activated Partial Thromboplast Time 27 SEC (24-38) Sodium Level 142 mmol/L (136-145) Potassium Level 4.1 mmol/L (3.5-5.1) Chloride Level 105 mmol/L (98-107) Carbon Dioxide Level 31 mmol/L (21-32) Anion Gap 6 (6-14) Blood Urea Nitrogen 20 mg/dL (7-20) Creatinine 1.1 mg/dL (0.6-1.0) H Estimated GFR (Cockcroft-Gault) 63.1 BUN/Creatinine Ratio 18 (6-20) Glucose Level 105 mg/dL (70-99) H Calcium Level 8.4 mg/dL (8.5-10.1) L Magnesium Level 2.1 mg/dL (1.8-2.4) Total Bilirubin 0.7 mg/dL (0.2-1.0) Aspartate Amino Transferase (AST) 13 U/L (15-37) L Alanine Aminotransferase (ALT) 24 U/L (14-59) Alkaline Phosphatase 60 U/L (46-116) Troponin I Quantitative 0.030 ng/mL (0.000-0.055) SB-Mde-H-Type Natriuretic Peptide 20698 pg/mL (0-124) H Total Protein 6.6 g/dL (6.4-8.2) Albumin 3.1 g/dL (3.4-5.0) L Albumin/Globulin Ratio 0.9 (1.0-1.7) L Laboratory Tests 11/01/20 14:14 Laboratory Tests 11/01/20 14:14 Vital Signs: Vital Signs Date Time Temp Pulse Resp B/P (MAP) Pulse Ox O2 Delivery O2 Flow Rate FiO2 11/01/20 14:26 89 Room Air 11/01/20 14:26 36 2.0 11/01/20 14:04 98.3 83 160/103 (122) 98.3 EKG: EKG: EKG was done at 1420, heart rate 86/min, sinus rhythm, no ST segment elevation. Radiology/Procedures: Radiology/Procedures: [][facility] [address] [place] [address] IMAGING REPORT Signed PATIENT: KAITY JACOBS ACCOUNT: [id number] : 1970 LOCATION: ER AGE: 50 SEX: F EXAM STATUS: REG ER ORD. PHYSICIAN: YARELI WASHINGTON DO REASON: soa PROCEDURE: PORTABLE CHEST 1V Single view chest dated 11/01/2020. Comparison made to 09/07/2020. CLINICAL INDICATION: Shortness of breath. FINDINGS: Single upright portable exam performed. Heart size is moderately enlarged, stable. There is a dual lead left subclavian pacer/AICD in place, unchanged. Hazy airspace disease in the perihilar regions and retrocardiac left base, similar to prior study. There is blunting of the left costophrenic sulcus, unchanged. No pneumothorax. IMPRESSION: 1. Perihilar and left basilar airspace disease, similar to prior study. Although findings could be chronic, recurrent edema or pneumonia not excluded. Poorly clinically. Electronically signed by: Iron Cruz MD (11/01/2020 3:06 PM) [id number] DICTATED and SIGNED BY: IRON CRUZ MD DATE: 11/01/20 [id number] Course & Med Decision Making: Course & Med Decision Making Pertinent Labs and Imaging studies reviewed. (See chart for details) Patient is a 50-year-old female who presented to ER for evaluation of trouble breathing, nonproductive cough. Patient has CHF exacerbation, suspect COVID-19 infection as well. Patient will be admitted to hospital for further evaluation and treatment Dragon Disclaimer: Dragon Disclaimer: This electronic medical record was generated, in whole or in part, using a voice recognition dictation system. Departure Departure Impression: Primary Impression: CHF exacerbation Additional Impression: Person under investigation for COVID-19 Disposition: ADMITTED INPT THIS HOSP Admitting Physician: SERGEI (DR. DELGADO) Condition: STABLE Referrals: MECHELLE ROSADO MD (PCP) YARELI WASHINGTON DO Nov 01, 2020 15:26
[2020-11-01] MEDS ORDERED: FUROSEMIDE 40 MG/4 ML VIAL. IVP ONE (15:30)
--- NOTE | 2020-11-01 16:16 | PDOC1 ---
History and Physical Date of Admission Date of Admission DATE: 11/01/20 TIME: 16:15 Identification/Chief Complaint Chief Complaint Shortness of breath Source Source: Patient History of Present Illness History of Present Illness Ms Mayo is a 50yo F w/ PMHx morbid obesity with a BMI of 70, non-ischemic cardiomyopathy, systolic CHF EF 35% s/p AICD, DM2, GERD, HJLD, HTN, ELIZABETH with CPAP compliance difficulties, smoker 1 ppd who p/w worsening shortness of breath. Brought here by EMS from home due to trouble breathing and nonproductive cough for 4 days. Patient is still a smoker. Patient had some cough, nonproductive i n nature, patient denies any fever. Patient was tested negative for COVID-19 last month She was initially requiring up to 3 liters of oxygen. She has a cough with white sputum production, no fever, no chills, no chest pain. She has overall increased weight gain and has chronic lymphedema. Her chest x-ray was reviewed and it was consistent with congestive heart failure Labs significant for BNP 54934, troponin 0.030, NA 142, K3.7, BUN 18, CR 0.9, glucose 105, albumin 2.5, INR 1.8, WBC 6, Hb 10.4, platelets 174 EKG NSR with multiple PVCs, high lateral T-wave flattening and long QTc 479. heart rate 86/min, sinus rhythm, no ST segment elevation. Admitted for further treatment. Past Medical History Cardiovascular: CHF, HTN, Hyperlipidemia Pulmonary: Bronchitis, Other CENTRAL NERVOUS SYSTEM: CVA GI: No pertinent hx Heme/Onc: Other Hepatobiliary: No pertinent hx Psych: No pertinent hx Musculoskeletal: Osteoarthritis Rheumatologic: No pertinent hx Infectious disease: No pertinent hx Renal/: No pertinent hx Endocrine: Diabetes Past Surgical History Past Surgical History: Cholecystectomy, Other Family History Family History: Diabetes, Hypertension Social History Smoke: 1 pack per day ALCOHOL: none Drugs: None Current Problem List Problem List Problems Medical Problems: (1) Person under investigation for COVID-19 Status: Acute Current Medications Current Medications Current Medications Furosemide (Lasix) 80 mg 1X ONCE IVP Last administered on 11/01/20at 15:55; Start 11/01/20 at 15:30; Stop 11/01/20 at 15:31; Status DC Active Scripts Active Aldactone (Spironolactone) 25 Mg Tablet 25 Mg PO DAILY 30 Days Furosemide 80 Mg Tablet 80 Mg PO BID 7 Days Reported Oxycodon-Acetaminophen 7.5-325 (Oxycodone Hcl/Acetaminophen) 1 Each Tablet 7.5- 325 Mg PO PRN Q6HRS PRN Omeprazole 40 Mg Capsule.dr 1 Cap PO DAILY06 Potassium Chloride (Potassium Chloride) 20 Meq Tablet.er 20 Meq PO BID Entresto 49 mg-51 mg Tablet (Sacubitril/Valsartan) 1 Each Tablet 1 Tab PO BID Glipizide 5 Mg Tablet 1 Tab PO DAILY Warfarin Sodium 10 Mg Tablet 10 Mg PO DAILY Crestor (Rosuvastatin Calcium) 10 Mg Tablet 1 Tab PO DAILY Carvedilol (Carvedilol) 12.5 Mg Tablet 1 Tab PO BID Allergies Allergies: Coded Allergies: hydrocodone (Verified Allergy, Intermediate, 10/23/18) morphine (Verified Allergy, Intermediate, 10/23/18) ROS General: YES: Fatigue, Malaise; No: Chills, Night Sweats, Appetite, Other PSYCHOLOGICAL ROS: No: Anxiety, Behavioral Disorder, Concentration difficultie, Decreased libido, Depression, Disorientation, Hallucinations, Hostility, Irritablity, Memory difficulties, Mood Swings, Obsessive thoughts, Physical abuse, Sexual abuse, Sleep disturbances, Suicidal ideation, Other Eyes: No Blurry vision, No Decreased vision, No Double vision, No Dry eyes, No Excessive tearing, No Eye Pain, No Itchy Eyes, No Loss of vision, No Photophobia, No Scotomata, No Uses contacts, No Uses glasses, No Other HEENT: No: Heacaches, Visual Changes, Hearing change, Nasal congestion, Nasal discharge, Oral lesions, Sinus pain, Sore Throat, Epistaxis, Sneezing, Snoring, Tinnitus, Vertigo, Vocal changes, Other ALLERGY AND IMMUNOLOGY: No: Hives, Insect Bite Sensitivity, Itchy/Watery Eyes, Nasal Congestion, Post Nasal Drip, Seasonal Allergies, Other Hematological and Lymphatic: No: Bleeding Problems, Blood Clots, Blood Transfusions, Brusing, Night Sweats, Pallor, Swollen Lymph Nodes, Other ENDOCRINE: No: Breast Changes, Galactorrhea, Hair Pattern Changes, Hot Flashes, Malaise/lethargy, Mood Swings, Palpitations, Polydipsia/polyuria, Skin Changes, Temperature Intolerance, Unexpected Weight Changes, Other Breast: No New/Changing Breast Lumps, No Nipple changes, No Nipple discharge, No Other Respiratory: YES: Cough, Shortness of breath, SOB with excertion; No: Hemoptysis, Orthopnea, Pleuritic Pain, Sputum Changes, Stridor, Tachypnea, Wheezing, Other Cardiovascular: yes Chest Pain, yes Edema; No Palpitations, No Orthopnea, No Paroxysmal Noc. Dyspnea, No Lt Headedness, No Other Gastrointestinal: No Nausea, No Vomiting, No Abdominal Pain, No Diarrhea, No Constipation, No Melena, No Hematochezia, No Other Genitourinary: No Dysuria, No Frequency, No Incontinence, No Hematuria, No Retention, No Discharge, No Urgency, No Pain, No Flank Pain, No Other, No , No , No , No , No , No , No Musculoskeletal: No Gait Disturbance, No Joint Pain, No Joint Stiffness, No Rosario int Swelling, No Muscle Pain, No Muscular Weakness, No Pain In:, No Swelling In:, No Other Neurological: No Behavorial Changes, No Bowel/Bladder ControlChng, No Confusion, No Dizziness, No Gait Disturbance, No Headaches, No Impaired C oord/balance, No Memory Loss, No Numbness/Tingling, No Seizures, No Speech Problems, No Tremors, No Visual Changes, No Weakness, No Other Skin: No Dry Skin, No Eczema, No Hair Changes, No Lumps, No Mole Changes, No Mottling, No Nail Changes, No Pruritus, No Rash, No Skin Lesion Changes, No Other, No Acne Physical Exam General: Alert, Oriented X3, Cooperative, moderate distress HEENT: Atraumatic, PERRLA, EOMI, Mucous membr. moist/pink Lungs: Other (bilateral crackles) Heart: S1S2, RRR, no thrills, no rubs, no gallops, no murmurs Abdomen: Normal bowel sounds, Soft, No tenderness, No hepatosplenomegaly, No masses Extremities: No clubbing, No cyanosis, Normal pulses, No tenderness/swelling, Other (3+ edema) Skin: No rashes, No breakdown, No significant lesion Neuro: Normal gait, Normal speech, Strength at 5/5 X4 ext, Normal tone, Sensation intact, Cranial nerves 3-12 NL, Reflexes 2+ Psych/Mental Status: Mental status NL, Mood NL Vitals Vitals Vital Signs Date Time Temp Pulse Resp B/P (MAP) Pulse Ox O2 Delivery O2 Flow Rate FiO2 11/01/20 14:26 89 Room Air 11/01/20 14:26 36 2.0 11/01/20 14:04 98.3 83 160/103 (122) 98.3 Labs Labs Laboratory Tests Test 11/01/20 14:10 11/01/20 14:14 O2 Saturation 92 % (92-99) Arterial Blood pH 7.46 (7.35-7.45) Arterial Blood pCO2 at Patient Temp 37 mmHg (35-46) Arterial Blood pO2 at Patient Temp 62 mmHg (75-108) Arterial Blood HCO3 26 mmol/L (21-28) Arterial Blood Base Excess 2 mmol/L (-3-3) FiO2 21% White Blood Count 5.6 x10^3/uL (4.0-11.0) Red Blood Count 4.14 x10^6/uL (3.50-5.40) Hemoglobin 10.2 g/dL (12.0-15.5) Hematocrit 32.6 % (36.0-47.0) Mean Corpuscular Volume 79 fL (79-100) Mean Corpuscular Hemoglobin 25 pg (25-35) Mean Corpuscular Hemoglobin Concent 31 g/dL (31-37) Red Cell Distribution Width 20.0 % (11.5-14.5) Platelet Count 224 x10^3/uL (140-400) Neutrophils (%) (Auto) 62 % (31-73) Lymphocytes (%) (Auto) 25 % (24-48) Monocytes (%) (Auto) 9 % (0-9) Eosinophils (%) (Auto) 2 % (0-3) Basophils (%) (Auto) 2 % (0-3) Neutrophils # (Auto) 3.5 x10^3/uL (1.8-7.7) Lymphocytes # (Auto) 1.4 x10^3/uL (1.0-4.8) Monocytes # (Auto) 0.5 x10^3/uL (0.0-1.1) Eosinophils # (Auto) 0.1 x10^3/uL (0.0-0.7) Basophils # (Auto) 0.1 x10^3/uL (0.0-0.2) Prothrombin Time 15.4 SEC (11.7-14.0) Prothromb Time International Ratio 1.3 (0.8-1.1) Activated Partial Thromboplast Time 27 SEC (24-38) Sodium Level 142 mmol/L (136-145) Potassium Level 4.1 mmol/L (3.5-5.1) Chloride Level 105 mmol/L (98-107) Carbon Dioxide Level 31 mmol/L (21-32) Anion Gap 6 (6-14) Blood Urea Nitrogen 20 mg/dL (7-20) Creatinine 1.1 mg/dL (0.6-1.0) Estimated GFR (Cockcroft-Gault) 63.1 BUN/Creatinine Ratio 18 (6-20) Glucose Level 105 mg/dL (70-99) Calcium Level 8.4 mg/dL (8.5-10.1) Magnesium Level 2.1 mg/dL (1.8-2.4) Total Bilirubin 0.7 mg/dL (0.2-1.0) Aspartate Amino Transf (AST/SGOT) 13 U/L (15-37) Alanine Aminotransferase (ALT/SGPT) 24 U/L (14-59) Alkaline Phosphatase 60 U/L (46-116) Troponin I Quantitative 0.030 ng/mL (0.000-0.055) UR-Rue-H-Type Natriuretic Peptide 31547 pg/mL (0-124) Total Protein 6.6 g/dL (6.4-8.2) Albumin 3.1 g/dL (3.4-5.0) Albumin/Globulin Ratio 0.9 (1.0-1.7) Laboratory Tests Test 11/01/20 14:10 11/01/20 14:14 O2 Saturation 92 % (92-99) Arterial Blood pH 7.46 (7.35-7.45) Arterial Blood pCO2 at Patient Temp 37 mmHg (35-46) Arterial Blood pO2 at Patient Temp 62 mmHg (75-108) Arterial Blood HCO3 26 mmol/L (21-28) Arterial Blood Base Excess 2 mmol/L (-3-3) FiO2 21% White Blood Count 5.6 x10^3/uL (4.0-11.0) Red Blood Count 4.14 x10^6/uL (3.50-5.40) Hemoglobin 10.2 g/dL (12.0-15.5) Hematocrit 32.6 % (36.0-47.0) Mean Corpuscular Volume 79 fL (79-100) Mean Corpuscular Hemoglobin 25 pg (25-35) Mean Corpuscular Hemoglobin Concent 31 g/dL (31-37) Red Cell Distribution Width 20.0 % (11.5-14.5) Platelet Count 224 x10^3/uL (140-400) Neutrophils (%) (Auto) 62 % (31-73) Lymphocytes (%) (Auto) 25 % (24-48) Monocytes (%) (Auto) 9 % (0-9) Eosinophils (%) (Auto) 2 % (0-3) Basophils (%) (Auto) 2 % (0-3) Neutrophils # (Auto) 3.5 x10^3/uL (1.8-7.7) Lymphocytes # (Auto) 1.4 x10^3/uL (1.0-4.8) Monocytes # (Auto) 0.5 x10^3/uL (0.0-1.1) Eosinophils # (Auto) 0.1 x10^3/uL (0.0-0.7) Basophils # (Auto) 0.1 x10^3/uL (0.0-0.2) Prothrombin Time 15.4 SEC (11.7-14.0) Prothromb Time International Ratio 1.3 (0.8-1.1) Activated Partial Thromboplast Time 27 SEC (24-38) Sodium Level 142 mmol/L (136-145) Potassium Level 4.1 mmol/L (3.5-5.1) Chloride Level 105 mmol/L (98-107) Carbon Dioxide Level 31 mmol/L (21-32) Anion Gap 6 (6-14) Blood Urea Nitrogen 20 mg/dL (7-20) Creatinine 1.1 mg/dL (0.6-1.0) Estimated GFR (Cockcroft-Gault) 63.1 BUN/Creatinine Ratio 18 (6-20) Glucose Level 105 mg/dL (70-99) Calcium Level 8.4 mg/dL (8.5-10.1) Magnesium Level 2.1 mg/dL (1.8-2.4) Total Bilirubin 0.7 mg/dL (0.2-1.0) Aspartate Amino Transf (AST/SGOT) 13 U/L (15-37) Alanine Aminotransferase (ALT/SGPT) 24 U/L (14-59) Alkaline Phosphatase 60 U/L (46-116) Troponin I Quantitative 0.030 ng/mL (0.000-0.055) CK-Tkb-R-Type Natriuretic Peptide 06669 pg/mL (0-124) Total Protein 6.6 g/dL (6.4-8.2) Albumin 3.1 g/dL (3.4-5.0) Albumin/Globulin Ratio 0.9 (1.0-1.7) Images Images Chest radiograph: Single upright portable exam performed. Heart size is moderately enlarged, stable. There is a dual lead left subclavian pacer/AICD in place, unchanged. Hazy airspace disease in the perihilar regions and retrocardiac left base, similar to prior study. There is blunting of the left costophrenic sulcus, unchanged. No pneumothorax. IMPRESSION: 1. Perihilar and left basilar airspace disease, similar to prior study. Although findings could be chronic, recurrent edema or pneumonia not excluded. Poorly clinically. VTE Prophylaxis Ordered VTE Prophylaxis Devices: Yes VTE Pharmacological Prophylaxi: Yes Assessment/Plan Assessment/Plan A/P: Acute systolic CHF - will continue BB, entresto, warfarin. IV diuresis. Consult cardiology. Strict I/O, daily weights Acute hypoxic respiratory failure - likely related to acute CHF, IV diuresis, h as ELIZABETH, on CPAP at home, needs this. Wean O2 as tolerated ELIZABETH on CPAP - will bring in home device, otherwise nocturnal O2 Cardiomyopathy - left ventricular systolic function is moderately impaired.Ejection Fraction is 35-40%.left atrium is moderately dilated.aortic root is moderately enlarged. Super morbid obesity - diet and cardiac rehab counseling performed Accelerated HTN - will cont meds Elevated troponin - will trend, likely demand ischemia from acute CHF exacerbation S/p AICD. Biotronik. Cardiology consulted Severe protein calorie malnutrition - home restoration service cleaner to see DM2 - A1c 5.9 in pre-diabetic range in July 2020, will place on low sliding scale HLD - cont statin Hx of CVA: in 2002 with left side hemiparesis, on warfarin Tobacco abuse - counseled on cessation FEN - Cardiac diet PPX - warfarin FULL CODE Dispo - inpatient CVC at least 2 midnights COVID-19 CRITERIA: The patient was evaluated during the global COVID-19 pandemic, and that diagnosis was suspected/considered upon their initial presentation. Their evaluation, treatment and testing was consistent with current guidelines for patients who present with complaints or symptoms that may be related to COVID-19. Justifications for Admission Other Justification BELA DELGADO MD Nov 01, 2020 16:16
[2020-11-01] MEDS ORDERED: ZOLPIDEM 5 MG TABLET. PO PRN (17:30)
[2020-11-01] MEDS ORDERED: ONDANSETRON PF 4 MG/2 ML VIAL. IVP PRN (17:30)
[2020-11-01] MEDS ORDERED: MAGNESIUM HYDROXIDE 2,400 MG/30 ML ORAL.SUSP. PO PRN (17:30)
[2020-11-01] MEDS ORDERED: ACETAMINOPHEN 325 MG TABLET. PO PRN (17:30)
[2020-11-01 18:30] VITALS: BP 135/78
[2020-11-01] MEDS: WARFARIN 5 MG TABLET. PO SCH (20:22)
[2020-11-01] MEDS: ATORVASTATIN CALCIUM 40 MG TABLET. PO SCH (20:23)
[2020-11-01] MEDS: CARVEDILOL 12.5 MG TABLET. PO SCH (20:23)
[2020-11-01] MEDS: SENNOSIDES/DOCUSATE 8.6/50MG TABLET. PO SCH (20:23)
[2020-11-01] MEDS: ENOXAPARIN 40 MG/0.4 ML SYRINGE. SQ SCH (20:23)
[2020-11-01] MEDS: SACUBITRIL/VALSARTAN 49/51MG TABLET. PO SCH (20:24)
[2020-11-01] MEDS ORDERED: DEXTROSE 50% 25 GM / 50ML DISP.SYRIN. IV PRN (20:45)
[2020-11-01 23:20] VITALS: BP 138/62
[2020-11-02 03:05] VITALS: BP 143/93
[2020-11-02 07:00] VITALS: BP 143/74
[2020-11-02 07:51] LABS: PROTHROMBIN TIME PATIENT 16.3 SEC (11.7-14.0)
[2020-11-02] MEDS: INSULIN LISPRO 300 UNITS/3 ML VIAL. SQ SCH ×3 (08:00→17:00)
[2020-11-02 08:08] LABS: CALCIUM 7.4 mg/dL (8.5-10.1); GFR 70.5; POTASSIUM 3.6 mmol/L (3.5-5.1)
--- NOTE | 2020-11-02 08:31 | PDOC ---
[employer] PROGRESS NOTE Date of Service DOS: DATE: 11/02/20 TIME: 08:29 Chief Complaint Chief Complaint A/P: Acute systolic CHF - will continue BB, entresto, warfarin. IV diuresis. Consult cardiology. Strict I/O, daily weights Acute hypoxic respiratory failure - likely related to acute CHF, IV diuresis, has ELIZABETH, on CPAP at home, needs this. Wean O2 as tolerated ELIZABETH on CPAP - will bring in home device, otherwise nocturnal O2 Cardiomyopathy - left ventricular systolic function is moderately impaired.Ejection Fraction is 35-40%.left atrium is moderately dilated.aortic root is moderately enlarged. Super morbid obesity - diet and cardiac rehab counseling performed Accelerated HTN - will cont meds Elevated troponin - will trend, likely demand ischemia from acute CHF exacerbation S/p AICD. Biotronik. Cardiology consulted Severe protein calorie malnutrition - cotton weigher to see DM2 - A1c 5.9 in pre-diabetic range in July 2020, will place on low sliding scale HLD - cont statin Hx of CVA: in 2002 with left side hemiparesis, on warfarin Tobacco abuse - counseled on cessation FEN - Cardiac diet PPX - warfarin FULL CODE Dispo - inpatient CVC at least 2 midnights History of Present Illness History of Present Illness Ms Mayo is a 50yo F w/ PMHx morbid obesity with a BMI of 70, non-ischemic cardiomyopathy, systolic CHF EF 35% s/p AICD, DM2, GERD, HJLD, HTN, ELIZABETH with CPAP compliance difficulties, smoker 1 ppd who p/w worsening shortness of breath. Brought here by EMS from home due to trouble breathing and nonproductive cough for 4 days. Patient is still a smoker. Patient had some cough, nonproductive in nature, patient denies any fever. Patient was tested negative for COVID-19 last month She was initially requiring up to 3 liters of oxygen. She has a cough with white sputum production, no fever, no chills, no chest pain. She has overall increased weight gain and has chronic lymphedema. Her chest x-ray was reviewed and it was consistent with congestive heart failure Labs significant for BNP 82572, troponin 0.030, NA 142, K3.7, BUN 18, CR 0.9, glucose 105, albumin 2.5, INR 1.8, WBC 6, Hb 10.4, platelets 174 EKG NSR with multiple PVCs, high lateral T-wave flattening and long QTc 479. heart rate 86/min, sinus rhythm, no ST segment elevation. Admitted for further treatment. Good uop overnight. 3L in andrade bag currently. Still requiring O2 and short of breath. Feeling a bit better today. Has some right eye and maxilla pain. Notes she has been falling frequently ever since August, feels her left ankle and knee give out on her. Vitals/I&O Vitals/I&O: Vital Signs Date Time Temp Pulse Resp B/P (MAP) Pulse Ox O2 Delivery O2 Flow Rate FiO2 11/02/20 03:05 97.8 82 20 143/93 (110) 97 Nasal Cannula 3.0 97.8 I & O 0 11/01/20 11/01/20 11/02/20 15:00 23:00 07:00 Intake Total 500 ml Output Total 750 ml 950 ml Balance -750 ml -450 ml Physical Exam General: Alert, Oriented X3, Cooperative, moderate distress Lungs: Clear Abdomen: Normal bowel sounds, Soft, No tenderness, No hepatosplenomegaly, No masses Extremities: No clubbing, No cyanosis, Normal pulses, No tenderness/swelling, Other (3+ edema) Skin: No rashes, No breakdown, No significant lesion Labs Labs: Laboratory Tests Test 11/01/20 14:10 11/01/20 14:14 11/01/20 20:20 11/02/20 07:10 O2 Saturation 92 % (92-99) Arterial Blood pH 7.46 (7.35-7.45) Arterial Blood pCO2 at Patient Temp 37 mmHg (35-46) Arterial Blood pO2 at Patient Temp 62 mmHg (75-108) Arterial Blood HCO3 26 mmol/L (21-28) Arterial Blood Base Excess 2 mmol/L (-3-3) FiO2 21% White Blood Count 5.6 x10^3/uL (4.0-11.0) Red Blood Count 4.14 x10^6/uL (3.50-5.40) Hemoglobin 10.2 g/dL (12.0-15.5) Hematocrit 32.6 % (36.0-47.0) Mean Corpuscular Volume 79 fL (79-100) Mean Corpuscular Hemoglobin 25 pg (25-35) Mean Corpuscular Hemoglobin Concent 31 g/dL (31-37) Red Cell Distribution Width 20.0 % (11.5-14.5) Platelet Count 224 x10^3/uL (140-400) Neutrophils (%) (Auto) 62 % (31-73) Lymphocytes (%) (Auto) 25 % (24-48) Monocytes (%) (Auto) 9 % (0-9) Eosinophils (%) (Auto) 2 % (0-3) Basophils (%) (Auto) 2 % (0-3) Neutrophils # (Auto) 3.5 x10^3/uL (1.8-7.7) Lymphocytes # (Auto) 1.4 x10^3/uL (1.0-4.8) Monocytes # (Auto) 0.5 x10^3/uL (0.0-1.1) Eosinophils # (Auto) 0.1 x10^3/uL (0.0-0.7) Basophils # (Auto) 0.1 x10^3/uL (0.0-0.2) Prothrombin Time 15.4 SEC (11.7-14.0) 16.3 SEC (11.7-14.0) Prothromb Time International Ratio 1.3 (0.8-1.1) 1.3 (0.8-1.1) Activated Partial Thromboplast Time 27 SEC (24-38) Sodium Level 142 mmol/L (136-145) 145 mmol/L (136-145) Potassium Level 4.1 mmol/L (3.5-5.1) 3.6 mmol/L (3.5-5.1) Chloride Level 105 mmol/L (98-107) 108 mmol/L (98-107) Carbon Dioxide Level 31 mmol/L (21-32) 31 mmol/L (21-32) Anion Gap 6 (6-14) 6 (6-14) Blood Urea Nitrogen 20 mg/dL (7-20) 19 mg/dL (7-20) Creatinine 1.1 mg/dL (0.6-1.0) 1.0 mg/dL (0.6-1.0) Estimated GFR (Cockcroft-Gault) 63.1 70.5 BUN/Creatinine Ratio 18 (6-20) Glucose Level 105 mg/dL (70-99) 114 mg/dL (70-99) Calcium Level 8.4 mg/dL (8.5-10.1) 7.4 mg/dL (8.5-10.1) Magnesium Level 2.1 mg/dL (1.8-2.4) 2.0 mg/dL (1.8-2.4) Total Bilirubin 0.7 mg/dL (0.2-1.0) Aspartate Amino Transf (AST/SGOT) 13 U/L (15-37) Alanine Aminotransferase (ALT/SGPT) 24 U/L (14-59) Alkaline Phosphatase 60 U/L (46-116) Troponin I Quantitative 0.030 ng/mL (0.000-0.055) TA-Byp-R-Type Natriuretic Peptide 92356 pg/mL (0-124) Total Protein 6.6 g/dL (6.4-8.2) Albumin 3.1 g/dL (3.4-5.0) Albumin/Globulin Ratio 0.9 (1.0-1.7) Thyroid Stimulating Hormone (TSH) 1.811 uIU/mL (0.358-3.74) Glucose (Fingerstick) 120 mg/dL (70-99) Assessment and Plan Assessmemt and Plan Problems Medical Problems: (1) Person under investigation for COVID-19 Status: Acute Comment Review of Relevant I have reviewed the following items cuate (where applicable) has been applied. Medications: Current Medications Medications (Trade) Dose Ordered Sig/Liam Route PRN Reason Start Time Stop Time Status Last Admin Dose Admin Furosemide (Lasix) 80 mg 1X ONCE IVP 11/01/20 15:30 11/01/20 15:31 DC 11/01/20 15:55 Senna/Docusate Sodium (Senna Plus) 1 tab BID PO 11/01/20 21:00 11/01/20 20:23 Enoxaparin Sodium (Lovenox 40mg Syringe) 40 mg Q24H SQ 11/01/20 18:00 11/01/20 20:23 Carvedilol (Coreg) 12.5 mg BIDWMEALS PO 11/01/20 18:00 11/01/20 20:23 Sacubitril/ Valsartan (Entresto 49 Mg-51 Mg) 1 tab BID PO 11/01/20 21:00 11/01/20 20:24 Atorvastatin Calcium (Lipitor) 40 mg QHS PO 11/01/20 21:00 11/01/20 20:23 Warfarin Sodium (Coumadin) 10 mg DAILY16 PO 11/01/20 18:00 11/01/20 20:22 Justifications for Admission Chest Pain Indications Hemodynamically unstable?: Yes Justification for admission: Patient hemodynamically unstable as indicated by persistent orthostatic vital signs changes ie fall of SBP of 20 mmHg or more OR fall in DBP of 10mmHg or more, 1 to 3 minutes after patient sits/stands from recumbent position. Respiratory Distress?: Yes Justification for admission: Patient's respiratory distress as indicated by (SOB/tachypnea/abnormal breathing pattern plus hypoxemia/AMS/other evidence of respiratory compromise such as pulmonary edema on chest x-ray) will need inpatient level of care. Other Justification BELA DELGADO MD Nov 02, 2020 08:31
[2020-11-02] MEDS: SENNOSIDES/DOCUSATE 8.6/50MG TABLET. PO SCH ×2 (08:56→20:28)
[2020-11-02] MEDS: FUROSEMIDE 100 MG/10 ML VIAL. IVP SCH ×2 (08:56→15:33)
[2020-11-02] MEDS: SPIRONOLACTONE 25 MG TABLET PO SCH (08:57)
[2020-11-02] MEDS: PANTOPRAZOLE 40 MG TABLET.DR. PO SCH (08:57)
[2020-11-02] MEDS: CARVEDILOL 12.5 MG TABLET. PO SCH ×2 (08:57→17:09)
[2020-11-02] MEDS: SACUBITRIL/VALSARTAN 49/51MG TABLET. PO SCH ×2 (08:57→20:50)
[2020-11-02] MEDS ORDERED: FUROSEMIDE 40 MG/4 ML VIAL. IVP SCH (09:00)
[2020-11-02] MEDS ORDERED: POTASSIUM BICARB 20 MEQ EFFERVESCENT TABLET. PO ONE (10:15)
[2020-11-02] MEDS ORDERED: SODIUM CHL/ALOE VERA NASAL GEL 14.1GM TUBE. NS PRN (10:30)
[2020-11-02 11:00] VITALS: BP 133/64
[2020-11-02 15:00] VITALS: BP 129/80
--- NOTE | 2020-11-02 15:21 | NUR ---
SS following for discharge planning. SS reviewed pt chart and discussed with pt RN. Pt is from home and is currently requiring oxygen at three liters nasal canula. PT/OT ordered. COVID19 test pending. Pt had previous services with [facility], ; fax [phone]. SS will continue to follow for discharge planning.
[2020-11-02] MEDS: ENOXAPARIN 40 MG/0.4 ML SYRINGE. SQ SCH (17:09)
[2020-11-02] MEDS: WARFARIN 5 MG TABLET. PO SCH (17:09)
[2020-11-02 19:25] VITALS: BP 148/78
[2020-11-02] MEDS: ATORVASTATIN CALCIUM 40 MG TABLET. PO SCH (20:50)
[2020-11-02] MEDS: oxyCODONE/APAP 7.5/325 1 TAB TABLET PO PRN (20:51)
[2020-11-02 23:15] VITALS: BP 118/71
[2020-11-03] VITALS (7 sets, daily range): BP systolic 110–141; BP diastolic 56–86
[2020-11-03] MEDS: INSULIN LISPRO 300 UNITS/3 ML VIAL. SQ SCH ×3 (08:00→16:43)
[2020-11-03] MEDS: CARVEDILOL 12.5 MG TABLET. PO SCH ×2 (08:50→17:12)
[2020-11-03] MEDS: SPIRONOLACTONE 25 MG TABLET PO SCH (08:50)
[2020-11-03] MEDS: oxyCODONE/APAP 7.5/325 1 TAB TABLET PO PRN ×2 (08:50→23:46)
[2020-11-03] MEDS: PANTOPRAZOLE 40 MG TABLET.DR. PO SCH (08:50)
[2020-11-03] MEDS: SACUBITRIL/VALSARTAN 49/51MG TABLET. PO SCH ×2 (08:50→20:55)
[2020-11-03] MEDS: SENNOSIDES/DOCUSATE 8.6/50MG TABLET. PO SCH ×2 (08:50→20:55)
[2020-11-03] MEDS: ENOXAPARIN 40 MG/0.4 ML SYRINGE. SQ SCH (08:51)
[2020-11-03] MEDS: FUROSEMIDE 100 MG/10 ML VIAL. IVP SCH ×2 (08:51→14:07)
[2020-11-03 09:07] LABS: CALCIUM 7.9 mg/dL (8.5-10.1); GFR 70.5; POTASSIUM 3.8 mmol/L (3.5-5.1)
--- NOTE | 2020-11-03 09:43 | PDOC ---
[employer] PROGRESS NOTE Date of Service DOS: DATE: 11/03/20 TIME: 09:41 Chief Complaint Chief Complaint A/P: Acute systolic CHF - will continue BB, entresto, warfarin. IV diuresis. Consult cardiology. Strict I/O, daily weights Acute hypoxic respiratory failure - likely related to acute CHF, IV diuresis, has ELIZABETH, on CPAP at home, needs this. Wean O2 as tolerated ELIZABETH on CPAP - will bring in home device, otherwise nocturnal O2 Cardiomyopathy - left ventricular systolic function is moderately impaired.Ejection Fraction is 35-40%.left atrium is moderately dilated.aortic root is moderately enlarged. Super morbid obesity - diet and cardiac rehab counseling performed Accelerated HTN - will cont meds Elevated troponin - will trend, likely demand ischemia from acute CHF exacerbation S/p AICD. Biotronik. 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 Brought here by EMS from home due to trouble breathing and nonproductive cough for 4 days. Patient is still a smoker. Patient had some cough, nonproductive in nature, patient denies any fever. Patient was tested negative for COVID-19 last month She was initially requiring up to 3 liters of oxygen. She has a cough with white sputum production, no fever, no chills, no chest pain. She has overall increased weight gain and has chronic lymphedema. Her chest x-ray was reviewed and it was consistent with congestive heart failure Labs significant for BNP 67918, troponin 0.030, NA 142, K3.7, BUN 18, CR 0.9, glucose 105, albumin 2.5, INR 1.8, WBC 6, Hb 10.4, platelets 174 EKG NSR with multiple PVCs, high lateral T-wave flattening and long QTc 479. heart rate 86/min, sinus rhythm, no ST segment elevation. Admitted for further treatment. 11/02: Good uop overnight. 3L in andrade bag currently. Still requiring O2 and short of breath. Feeling a bit better today. Has some right eye and maxilla pain. Notes she has been falling frequently ever since August, feels her left ankle and knee give out on her. 5 L urine output over the last 24 hours. Off O2 currently. Sitting up in chair. Still with dry nares. Overall she is feeling a bit improved. Worked with PT, recommends ok for home independent. Vitals/I&O Vitals/I&O: Vital Signs Date Time Temp Pulse Resp B/P (MAP) Pulse Ox O2 Delivery O2 Flow Rate FiO2 11/03/20 08:50 72 115/65 11/03/20 04:07 98.2 21 94 Room Air 98.2 11/02/20 23:15 3.0 I & O 11/02/20 11/02/20 11/03/20 14:55 22:55 06:55 Intake Total 825 ml 740 ml 600 ml Output Total 1700 ml 1800 ml 1450 ml Balance -875 ml -1060 ml -850 ml Physical Exam General: Alert, Oriented X3, Cooperative, moderate distress Lungs: Clear Abdomen: Normal bowel sounds, Soft, No tenderness, No hepatosplenomegaly, No masses Extremities: No clubbing, No cyanosis, Normal pulses, No tenderness/swelling, Other (3+ edema) Skin: No rashes, No breakdown, No significant lesion Labs Labs: Laboratory Tests Test 11/02/20 11:48 11/02/20 17:11 11/02/20 20:56 11/03/20 07:46 Glucose (Fingerstick) 174 mg/dL (70-99) 110 mg/dL (70-99) 140 mg/dL (70-99) 92 mg/dL (70-99) Test 11/03/20 07:55 Sodium Level 145 mmol/L (136-145) Potassium Level 3.8 mmol/L (3.5-5.1) Chloride Level 106 mmol/L (98-107) Carbon Dioxide Level 35 mmol/L (21-32) Anion Gap 4 (6-14) Blood Urea Nitrogen 16 mg/dL (7-20) Creatinine 1.0 mg/dL (0.6-1.0) Estimated GFR (Cockcroft-Gault) 70.5 Glucose Level 85 mg/dL (70-99) Calcium Level 7.9 mg/dL (8.5-10.1) Assessment and Plan Assessmemt and Plan Problems Medical Problems: (1) Person under investigation for COVID-19 Status: Acute Comment Review of Relevant I have reviewed the following items cuate (where applicable) has been applied. Medications: Current Medications Medications (Trade) Dose Ordered Sig/Liam Route PRN Reason Start Time Stop Time Status Last Admin Dose Admin Potassium Bicarbonate (Potassium Effervescent Tablet) 40 meq 1X ONCE PO 11/02/20 10:15 11/02/20 10:17 DC 11/02/20 12:25 Sodium Chloride (Teachey Saline Nasal) 1 edie PRN DAILY PRN NS NASAL CONGESTION 11/02/20 10:30 11/02/20 12:31 Justifications for Admission Chest Pain Indications Hemodynamically unstable?: Yes Justification for admission: Patient hemodynamically unstable as indicated by persistent orthostatic vital signs changes ie fall of SBP of 20 mmHg or more OR fall in DBP of 10mmHg or more, 1 to 3 minutes after patient sits/stands from recumbent position. Respiratory Distress?: Yes Justification for admission: Patient's respiratory distress as indicated by (SOB/tachypnea/abnormal breathing pattern plus hypoxemia/AMS/other evidence of respiratory compromise such as pulmonary edema on chest x-ray) will need inpatient level of care. Other Justification BELA DELGADO MD Nov 03, 2020 09:43
[2020-11-03] MEDS ORDERED: POTASSIUM BICARB 10 MEQ EFFERVESCENT TABLET. PO ONE (09:45)
--- NOTE | 2020-11-03 15:07 | NUR ---
Patient had a 10 beat run of [facility] at 1349- Dr. Best notified. Will continue to monitor.
[2020-11-03] MEDS: WARFARIN 5 MG TABLET. PO SCH (16:34)
[2020-11-03] MEDS: ATORVASTATIN CALCIUM 40 MG TABLET. PO SCH (20:55)
--- NOTE | 2020-11-04 00:10 | NUR ---
Pt had 550 in andrade catheter before discontinuing. She urinated about 45 minutes after removing it and the amount was 50ml. Addendum: 11/04/20 at 0012 by JD APODACA RN Amended: Links added.
[2020-11-04 03:00] VITALS: BP 130/70
[2020-11-04 07:59] VITALS: BP 127/72
--- NOTE | 2020-11-04 08:22 | PDOC ---
[employer] PROGRESS NOTE Date of Service DOS: DATE: 11/04/20 TIME: 08:18 Chief Complaint Chief Complaint A/P: Acute systolic CHF - will continue BB, entresto, warfarin. IV diuresis. Consult cardiology. Strict I/O, daily weights Acute hypoxic respiratory failure - likely related to acute CHF, IV diuresis, has ELIZABETH, on CPAP at home, needs this. Wean O2 as tolerated ELIZABETH on CPAP - will bring in home device, otherwise nocturnal O2 Cardiomyopathy - left ventricular systolic function is moderately impaired.Ejection Fraction is 35-40%.left atrium is moderately dilated.aortic root is moderately enlarged. Super morbid obesity - diet and cardiac rehab counseling performed Accelerated HTN - will cont meds Elevated troponin - will trend, likely demand ischemia from acute CHF exacerbation S/p AICD. Biotronik. 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 Brought here by EMS from home due to trouble breathing and nonproductive cough for 4 days. Patient is still a smoker. Patient had some cough, nonproductive in nature, patient denies any fever. Patient was tested negative for COVID-19 last month She was initially requiring up to 3 liters of oxygen. She has a cough with white sputum production, no fever, no chills, no chest pain. She has overall increased weight gain and has chronic lymphedema. Her chest x-ray was reviewed and it was consistent with congestive heart failure Labs significant for BNP 28295, troponin 0.030, NA 142, K3.7, BUN 18, CR 0.9, glucose 105, albumin 2.5, INR 1.8, WBC 6, Hb 10.4, platelets 174 EKG NSR with multiple PVCs, high lateral T-wave flattening and long QTc 479. heart rate 86/min, sinus rhythm, no ST segment elevation. Admitted for further treatment. 11/02: Good uop overnight. 3L in adnrade bag currently. Still requiring O2 and short of breath. Feeling a bit better today. Has some right eye and maxilla pain. Notes she has been falling frequently ever since August, feels her left ankle and knee give out on her. 11/03: 5 L urine output over the last 24 hours. Off O2 currently. Sitting up in chair. Still with dry nares. Overall she is feeling a bit improved. Worked with PT, recommends ok for home independent. 11/04: Roughly 6 L total urine output and 3 kg weight loss. Patient breathing on room air. PT recommending home independently. Will discharge patient home with close PCP follow-up. Greater than 30 minutes was spent managing discharge patient. Vitals/I&O Vitals/I&O: Vital Signs Date Time Temp Pulse Resp B/P (MAP) Pulse Ox O2 Delivery O2 Flow Rate FiO2 11/04/20 03:00 98.0 76 20 130/70 (90) 95 Room Air 98.0 11/04/20 00:50 3.0 I & O 11/03/20 11/03/20 11/04/20 15:00 23:00 07:00 Intake Total 380 ml 120 ml 200 ml Output Total 3000 ml 2900 ml 50 ml Balance -2620 ml -2780 ml 150 ml Physical Exam General: Alert, Oriented X3, Cooperative, No acute distress Lungs: Clear Abdomen: Normal bowel sounds, Soft, No tenderness, No hepatosplenomegaly, No masses Extremities: No clubbing, No cyanosis, Normal pulses, No tenderness/swelling, Other (3+ edema) Skin: No rashes, No breakdown, No significant lesion Labs Labs: Laboratory Tests Test 11/03/20 16:26 11/03/20 20:41 Glucose (Fingerstick) 130 mg/dL (70-99) 153 mg/dL (70-99) Assessment and Plan Assessmemt and Plan Problems Medical Problems: (1) Person under investigation for COVID-19 Status: Acute Comment Review of Relevant I have reviewed the following items cuate (where applicable) has been applied. Medications: Current Medications Medications (Trade) Dose Ordered Sig/Liam Route PRN Reason Start Time Stop Time Status Last Admin Dose Admin Potassium Bicarbonate (Potassium Effervescent Tablet) 20 meq 1X ONCE PO 11/03/20 09:45 11/03/20 09:46 DC 11/03/20 10:48 Justifications for Admission Chest Pain Indications Hemodynamically unstable?: Yes Justification for admission: Patient hemodynamically unstable as indicated by persistent orthostatic vital signs changes ie fall of SBP of 20 mmHg or more OR fall in DBP of 10mmHg or more, 1 to 3 minutes after patient sits/stands from recumbent position. Respiratory Distress?: Yes Justification for admission: Patient's respiratory distress as indicated by (SOB/tachypnea/abnormal breathing pattern plus hypoxemia/AMS/other evidence of respiratory compromise such as pulmonary edema on chest x-ray) will need inpatient level of care. Other Justification BRADLEY CHAMPAGNE MD Nov 04, 2020 08:22
[2020-11-04] MEDS: SACUBITRIL/VALSARTAN 49/51MG TABLET. PO SCH ×2 (08:53→22:07)
[2020-11-04] MEDS: SENNOSIDES/DOCUSATE 8.6/50MG TABLET. PO SCH ×2 (08:53→22:07)
[2020-11-04] MEDS: FUROSEMIDE 80 MG TABLET. PO SCH ×2 (08:54→15:27)
[2020-11-04] MEDS: PANTOPRAZOLE 40 MG TABLET.DR. PO SCH (08:54)
[2020-11-04] MEDS: CARVEDILOL 12.5 MG TABLET. PO SCH ×2 (08:55→17:39)
[2020-11-04] MEDS: SPIRONOLACTONE 25 MG TABLET PO SCH (08:55)
[2020-11-04] MEDS: INSULIN LISPRO 300 UNITS/3 ML VIAL. SQ SCH ×3 (08:59→16:55)
[2020-11-04 09:00] LABS: PROTHROMBIN TIME PATIENT 18.5 SEC (11.7-14.0)
--- NOTE | 2020-11-04 10:58 | PDOC3 ---
Discharge Summary Visit Information Date of Admission: Nov 01, 2020 Date of Discharge: Nov 04, 2020 Final Diagnosis Problems Medical Problems: (1) Person under investigation for COVID-19 Status: Acute Brief Hospital Course Allergies Allergies Coded Allergies Type Severity Reaction Last Updated Verified hydrocodone Allergy Intermediate 10/23/18 Yes morphine Allergy Intermediate 10/23/18 Yes Vital Signs Vital Signs Date Time Temp Pulse Resp B/P (MAP) Pulse Ox O2 Delivery O2 Flow Rate FiO2 11/04/20 08:55 75 127/72 11/04/20 07:59 98.0 18 93 Room Air 98.0 11/04/20 00:50 3.0 Lab Results Laboratory Tests Test 11/02/20 11:48 11/02/20 17:11 11/02/20 20:56 11/03/20 07:46 Glucose (Fingerstick) 174 mg/dL (70-99) 110 mg/dL (70-99) 140 mg/dL (70-99) 92 mg/dL (70-99) Test 11/03/20 07:55 11/03/20 16:26 11/03/20 20:41 11/04/20 08:25 Sodium Level 145 mmol/L (136-145) Potassium Level 3.8 mmol/L (3.5-5.1) Chloride Level 106 mmol/L (98-107) Carbon Dioxide Level 35 mmol/L (21-32) Anion Gap 4 (6-14) Blood Urea Nitrogen 16 mg/dL (7-20) Creatinine 1.0 mg/dL (0.6-1.0) Estimated GFR (Cockcroft-Gault) 70.5 Glucose Level 85 mg/dL (70-99) Calcium Level 7.9 mg/dL (8.5-10.1) Magnesium Level 1.9 mg/dL (1.8-2.4) Glucose (Fingerstick) 130 mg/dL (70-99) 153 mg/dL (70-99) Prothrombin Time 18.5 SEC (11.7-14.0) Prothromb Time International Ratio 1.6 (0.8-1.1) Test 11/04/20 08:41 Glucose (Fingerstick) 167 mg/dL (70-99) Laboratory Tests Test 11/03/20 16:26 11/03/20 20:41 11/04/20 08:25 11/04/20 08:41 Glucose (Fingerstick) 130 mg/dL (70-99) 153 mg/dL (70-99) 167 mg/dL (70-99) Prothrombin Time 18.5 SEC (11.7-14.0) Prothromb Time International Ratio 1.6 (0.8-1.1) Brief Hospital Course Ms. Mayo is a 50 old female who presented with acute CHF exacerbation. She was aggressively diuresed with IV and oral diuretics to the point where she was breathing comfortably on room air. She felt comfortable discharging home on 11/04/2020. Discharge Information Condition at Discharge: Improved Follow Up: Weeks Disposition/Orders: D/C to Home Scheduled Carvedilol (Carvedilol ) 12.5 Mg Tablet, 1 TAB PO BID, #180 Ref 1 (Reported) Entered as Reported by: MARGUERITE DEUTSCH on 08/25/141723 Last Action: Continued on 11/01/201734 by BELA DELGADO MD Furosemide (Furosemide) 80 Mg Tablet, 80 MG PO BID for heart failure for 7 Days, #14 Prescribed by: KINGSLEY HERNANDEZ on 02/12/20 1249 Last Action: Continued on 11/03/20 0943 by BELA DELGADO MD Glipizide (Glipizide) 5 Mg Tablet, 1 TAB PO DAILY for dm, #90 Ref 3 (Reported) Entered as Reported by: THA DHILLON on 10/22/18 1355 Omeprazole (Omeprazole) 40 Mg Capsule.dr, 1 CAP PO DAILY06 for GERD, #30 Ref 3 (Reported) Entered as Reported by: MARC AGUILA on 01/31/19 172 Last Action: Converted on 11/01/201735 by BELA DELGADO MD Potassium Chloride (Potassium Chloride ) 20 Meq Tablet.er, 20 MEQ PO BID for supplement, (Reported) Entered as Reported by: GRACIE DUNN on 01/31/19 0750 Last Action: Continued on 11/01/201735 by BELA DELGADO MD Rosuvastatin Calcium (Crestor) 10 Mg Tablet, 1 TAB PO DAILY, #30 Ref 5 (Reported) Entered as Reported by: MARGUERITE DEUTSCH on 08/25/141723 Last Action: Converted on 11/01/201735 by BELA DELGADO MD Sacubitril/Valsartan (Entresto 49 mg-51 mg Tablet) 1 Each Tablet, 1 TAB PO BID for Heart Failure, (Reported) Entered as Reported by: GRACIE DUNN on 01/31/19 0750 Last Action: Continued on 11/01/201735 by BELA DELGADO MD Spironolactone (Aldactone) 25 Mg Tablet, 25 MG PO DAILY for CHF for 30 Days, #30 Prescribed by: FLOWER RHODES MD on 07/16/20 1450 Last Action: Continued on 11/01/201735 by BELA DELGADO MD Warfarin Sodium (Warfarin Sodium) 10 Mg Tablet, 10 MG PO DAILY, (Reported) Entered as Reported by: MARGUERITE DEUTSCH on 08/25/14 172 Last Action: Converted on 11/01/201735 by BELA DELGADO MD Scheduled PRN Oxycodone Hcl/Acetaminophen (Oxycodon-Acetaminophen 7.5-325) 1 Each Tablet, 7.5- 325 MG PO PRN Q6HRS PRN for SEVERE PAIN, (Reported) Entered as Reported by: NATALIE LONG RN on 01/31/192026 Last Action: Continued on 11/01/201734 by BELA DELGADO MD Justicifation of Admission Dx: Justifications for Admission: Justification of Admission Dx: Yes BRADLEY CHAMPAGNE MD Nov 04, 2020 10:58
[2020-11-04 11:33] LABS: CALCIUM 7.8 mg/dL (8.5-10.1); CREATININE 1.1 mg/dL (0.6-1.0); GFR 63.1; POTASSIUM 3.9 mmol/L (3.5-5.1)
--- NOTE | 2020-11-04 11:52 | NUR ---
Rapid Response: upon entering RN states that the patient got up to the commode and then become light headed and felt light she was going to pass out. BP was 137/86 HR 77. Pt helped back to the chair and placed in the reclined position. Pt able to answer questions appropriately. repeat BP 126/85 with heart rate int he 70's. Oxygen saturation is 98% on room air. Dr Best was at the bedside upon this RN's entering the room. Pt will remain on unit. Addendum: 11/04/20 at 1156 by CHRIS MAYERS RN Amended: Links added.
[2020-11-04 11:59] VITALS: BP 137/86
--- NOTE | 2020-11-04 12:00 | NUR ---
Rapid Response called on patient d/t patient sitting on bedside commode and telling me she thought she was going to pass out, and leaned back and for a second I thought she had lost consciousness, however she immediately came back and moaned. I did have to hold her back up for about 30 seconds or more when this occurred. Patient discharge cancelled d/t this episode.
[2020-11-04] MEDS: WARFARIN 5 MG TABLET. PO SCH (15:27)
[2020-11-04 15:59] VITALS: BP 107/59
--- NOTE | 2020-11-04 16:51 | NUR ---
Patient had another set of 2 runs of Vtach with 8 or more beats per episode and Dr. Lowe was paged. Dr. Best returned call first and then Dr. Lowe called, and both agreed that patient needs a cardiology consult. Dr. Juarez consulted and Dr. Shah returned consult page and requested patient moved to [address] [place] [address]. Nursing Ordnance Engineer notified, will continue to monitor.
[2020-11-04] MEDS: ENOXAPARIN 40 MG/0.4 ML SYRINGE. SQ SCH (18:00)
[2020-11-04 19:45] VITALS: BP 113/63
[2020-11-04] MEDS: ATORVASTATIN CALCIUM 40 MG TABLET. PO SCH (22:08)
[2020-11-04 22:45] VITALS: BP 115/73
[2020-11-05] VITALS (7 sets, daily range): BP systolic 96–127; BP diastolic 52–83
[2020-11-05] MEDS: INSULIN LISPRO 300 UNITS/3 ML VIAL. SQ SCH ×3 (08:00→17:00)
[2020-11-05] MEDS: SACUBITRIL/VALSARTAN 49/51MG TABLET. PO SCH ×2 (08:07→20:56)
[2020-11-05] MEDS: FUROSEMIDE 80 MG TABLET. PO SCH ×2 (08:08→15:21)
[2020-11-05] MEDS: CARVEDILOL 12.5 MG TABLET. PO SCH ×2 (08:08→17:15)
[2020-11-05] MEDS: PANTOPRAZOLE 40 MG TABLET.DR. PO SCH (08:08)
[2020-11-05] MEDS: SENNOSIDES/DOCUSATE 8.6/50MG TABLET. PO SCH ×2 (08:09→20:56)
[2020-11-05] MEDS: SPIRONOLACTONE 25 MG TABLET PO SCH (08:09)
[2020-11-05 09:48] LABS: PROTHROMBIN TIME PATIENT 18.1 SEC (11.7-14.0)
--- NOTE | 2020-11-05 11:12 | PDOC ---
[facility] PROGRESS NOTE Date of Service DOS: DATE: 11/05/20 TIME: 11:06 Chief Complaint Chief Complaint 11/05/2020 CHF exacerbation History of Present Illness History of Present Illness Ms Mayo is a 50yo F w/ PMHx morbid obesity with a BMI of 70, non-ischemic cardiomyopathy, systolic CHF EF 35% s/p AICD, DM2, GERD, HJLD, HTN, ELIZABETH with CPAP compliance difficulties, smoker 1 ppd who p/w worsening shortness of breath. Brought here by EMS from home due to trouble breathing and nonproductive cough for 4 days. Patient is still a smoker. Patient had some cough, nonproductive in nature, patient denies any fever. Patient was tested negative for COVID-19 last month She was initially requiring up to 3 liters of oxygen. She has a cough with white sputum production, no fever, no chills, no chest pain. She has overall increased weight gain and has chronic lymphedema. Her chest x-ray was reviewed and it was consistent with congestive heart failure Labs significant for BNP 34944, troponin 0.030, NA 142, K3.7, BUN 18, CR 0.9, glucose 105, albumin 2.5, INR 1.8, WBC 6, Hb 10.4, platelets 174 EKG NSR with multiple PVCs, high lateral T-wave flattening and long QTc 479. heart rate 86/min, sinus rhythm, no ST segment elevation. Admitted for further treatment. 11/02: Good uop overnight. 3L in andrade bag currently. Still requiring O2 and short of breath. Feeling a bit better today. Has some right eye and maxilla pain. Notes she has been falling frequently ever since August, feels her left ankle and knee give out on her. 11/03: 5 L urine output over the last 24 hours. Off O2 currently. Sitting up in chair. Still with dry nares. Overall she is feeling a bit improved. Worked with PT, recommends ok for home independent. 11/04: Roughly 6 L total urine output and 3 kg weight loss. Patient breathing on room air. PT recommending home independently. Will discharge patient home with close PCP follow-up. Greater than 30 minutes was spent managing discharge patient. 11/05/2020 -Patient seen and examined -Patient had near syncope yesterday -Legs are less swollen -Brief runs of VTAC -DW RN -Chart reviewed Vitals/I&O Vitals/I&O: Vital Signs Date Time Temp Pulse Resp B/P (MAP) Pulse Ox O2 Delivery O2 Flow Rate FiO2 11/05/20 08:08 66 127/83 11/05/20 08:06 98.4 18 98 Room Air 98.4 I & O 11/04/20 11/04/20 11/05/20 14:59 22:59 06:59 Intake Total 200 ml 1040 ml Output Total 3500 ml 200 ml Balance 200 ml -3500 ml 840 ml Physical Exam General: Alert, Oriented X3, Cooperative, No acute distress Lungs: Clear Abdomen: Normal bowel sounds, Soft, No tenderness, No hepatosplenomegaly, No masses Extremities: No clubbing, No cyanosis, Normal pulses, No tenderness/swelling, Other (3+ edema) Skin: No rashes, No breakdown, No significant lesion Labs Labs: Laboratory Tests Test 11/04/20 11:27 11/05/20 08:11 11/05/20 09:00 Glucose (Fingerstick) 92 mg/dL (70-99) 99 mg/dL (70-99) Prothrombin Time 18.1 SEC (11.7-14.0) Prothromb Time International Ratio 1.5 (0.8-1.1) Review of Systems Review of Systems: 11/05/2020 Edema, no clubbing Assessment and Plan Assessmemt and Plan Problems Medical Problems: (1) Person under investigation for COVID-19 Status: Acute 11/05/2020 A: Acute systolic CHF Acute hypoxic respiratory failure ELIZABETH on CPAP Cardiomyopathy Super morbid obesity Accelerated HTN Elevated troponin S/p AICD. Biotronik Severe protein calorie malnutrition DM2 HLD Tobacco abuse P: -Awaiting cardiology input -Trend electrolytes and troponin -Encourage diuresis -Cardiac monitoring -Full code -DVT prophylaxis -Probably d/c 1-2 days Comment Review of Relevant I have reviewed the following items cuate (where applicable) has been applied. Justifications for Admission Chest Pain Indications Hemodynamically unstable?: Yes Justification for admission: Patient hemodynamically unstable as indicated by persistent orthostatic vital signs changes ie fall of SBP of 20 mmHg or more OR fall in DBP of 10mmHg or more, 1 to 3 minutes after patient sits/stands from recumbent position. Respiratory Distress?: Yes Justification for admission: Patient's respiratory distress as indicated by (SOB/tachypnea/abnormal breathing pattern plus hypoxemia/AMS/other evidence of respiratory compromise such as pulmonary edema on chest x-ray) will need inpatient level of care. Other Justification JOSE RAMON BERMUDEZ III DO Nov 05, 2020 11:12
--- NOTE | 2020-11-05 11:48 | NUR ---
SW following. Discussed with RN, pt from home, room air, cardiac diet, COVID-19 negative. PT/OT ordered. RN advised no SW needs, self care discharge when medically ready. SW will continue to follow.
--- NOTE | 2020-11-05 13:09 | PDOC2 ---
CINTHIA MICHEL PAMPHLET DISTRIBUTOR 11/05/20 1309: CARDIAC CONSULT DATE OF CONSULT Date of Consult DATE: 11/05/20 TIME: 13:03 REASON FOR CONSULT Reason for Consult: V-tach REFERRING PHYSICIAN Referring Physician: Dr. Best SOURCE Source: Chart review, Patient HISTORY OF PRESENT ILLNESS HISTORY OF PRESENT ILLNESS This is a 50 yo female who presented secondary to shortness of breath and non- productive cough. Yesterday afternoon, patient got up to the commode and then become light headed, dizzy. [place] as if she could pass out. Rapid response was called. Blood pressure and HR were stable. Patient noted with bursts of NSVT on tele, which prompted this consult. She denies any chest pain, palpitations, diaphoresis, or nausea/vomiting. PAST MEDICAL HISTORY Past Medical History Cardiovascular: HTN, Hyperlipidemia, CHF Pulmonary: Other (was told of ELIZABETH but has not been tested) CENTRAL NERVOUS SYSTEM: CVA (2002) GI: No pertinent hx Heme/Onc: Other (Chronic warfarin use) Hepatobiliary: No pertinent hx Psych: No pertinent hx Musculoskeletal: Osteoarthritis Rheumatologic: No pertinent hx Infectious disease: No pertinent hx ENT: No pertinent hx Renal/: No pertinent hx Endocrine: Diabetes (2) Dermatology: No pertinent hx PAST SURGICAL HISTORY Past Surgical History Cholecystectomy, Other (tracheostomy related to stroke) FAMILY HISTORY Family History: Diabetes SOCIAL HISTORY Social History Smoke: <1 pack per day (>20 yrs on and off) ALCOHOL: none Drugs: None Lives: with Family ALLERGIES ALLERGIES: Coded Allergies: hydrocodone (Verified Allergy, Intermediate, 10/23/18) morphine (Verified Allergy, Intermediate, 10/23/18) ROS Review of System 14 point ROS conducted with pertinent positives noted above in hPi PHYSICAL EXAM General: Alert, Oriented X3, Cooperative, No acute distress HEENT: Atraumatic, Mucous membr. moist/pink Lungs: Clear to auscultation, Other (diminished bases) Heart: Regular rate Abdomen: Soft, Other (obese) Extremities: Other (1+ bilateral LE edema ) Skin: No significant lesion Neuro: Normal speech, Sensation intact Psych/Mental Status: Mental status NL, Mood NL MUSCULOSKELETAL: Osteoarthritic changes both hands VITALS/I&O VITALS/I&O: Vital Signs Date Time Temp Pulse Resp B/P (MAP) Pulse Ox O2 Delivery O2 Flow Rate FiO2 11/05/20 11:00 98.2 63 20 96/61 (73) 96 Room Air 98.2 I & O 11/04/20 11/04/20 11/05/20 15:00 23:00 07:00 Intake Total 200 ml 1040 ml Output Total 3500 ml 200 ml Balance 200 ml -3500 ml 840 ml LABS Lab: Laboratory Tests Test 11/05/20 08:11 11/05/20 09:00 11/05/20 11:48 Glucose (Fingerstick) 99 mg/dL (70-99) 144 mg/dL (70-99) H Prothrombin Time 18.1 SEC (11.7-14.0) H Prothrombin Time INR 1.5 (0.8-1.1) H Magnesium Level 1.8 mg/dL (1.8-2.4) ECHOCARDIOGRAM ECHOCARDIOGRAM <Conclusion> The left ventricular systolic function is moderately impaired. The Ejection Fraction is 35-40%. Pacer/ICD lead noted RA/RV. Trace mitral regurgitation. Trace tricuspid regurgitation with an estimated PAP of 43 mmHg. There is no evidence of significant pericardial effusion. DATE: 07/16/201838 HEART CATH HEART CATH CORONARY ANGIOGRAPHY: LM is a large caliber vessel with normal angiographic appearance. LAD is a large caliber vessel with normal angiographic appearance. D1 is a moderate caliber vessel with normal angiographic apeparance. LCx is a moderate caliber non-dominant vessel with normal angiographic appearance. OM1 is a moderate caliber vessel with normal angiographic appearance. RCA is a large caliber dominant vessel with normal angiographic appearance. RPDA and RPL are moderate caliber vessels with normal angiographic appearance. Conclusion 1. Elevated left sided filling pressures (LVEDP 35 mm Hg) consistent with acute on chronic decompensated HF. 2. No angiographic evidence of coronary disease. Recommendations Aggressive Medical Therapy DATE: 10/25/181816 ASSESSMENT/PLAN ASSESSMENT/PLAN 1. Dyspnea with acute on chronic diastolic/systolic CHF; improved s/p IV diuresis 2. NICM: s/p AICD (Biotronik). LVEF 35-40% per echo 07/31. Cath 2018 without significant CAD 3. Possible ELIZABETH/COPD with morbid obesity: BMI at 60 4. Hypertension; labile 5. DM2/HLP; statin 6. 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 Tobaccoism 8. Chronic warfarin therapy: unclear use was told due to CVA but no notation of past AFIB/flutter. Most recent device check wtih 0% AFIB burden 9. Arrhythmia; bursts of NSVT noted on tele. TSH WNL 10. Near syncope; ? vasovagal 11. PUI; COVID negative Recommendations Check orthos Device interrogation Continue BB Replace Mg HF optimization with Entresto, Aldactone, Lasix, and Coreg. Hold as warranted if orthostasis + Smoking cessation Wt loss and secondary prevention measures. Supportive care CHANTAL PEÑA MD 11/06/20 0842: CARDIAC CONSULT ASSESSMENT/PLAN ASSESSMENT/PLAN Patient seen and examined 11/05/20. Agree with DIE OUT WORKER's assessment and plan. Acute on chronic systolic heart failure better compensated with diuresis. Recent 2D echo showed LVEF 35 to 40% and cardiac catheterization did not show any significant CAD. Brief episodes of NSVT noted on telemetry. Replace magnesium. Continue current medications including Entresto and follow-up as scheduled. Thank you for your consultation CINTHIA MICHEL APRN Nov 05, 2020 13:09 CHANTAL PEÑA MD Nov 06, 2020 08:42
[2020-11-05] MEDS: ENOXAPARIN 40 MG/0.4 ML SYRINGE. SQ SCH (17:15)
[2020-11-05] MEDS: WARFARIN 5 MG TABLET. PO SCH (17:16)
[2020-11-05] MEDS ORDERED: MAGNESIUM SULFATE 2GM 50 ML IV ONE (20:45)
[2020-11-05] MEDS: ATORVASTATIN CALCIUM 40 MG TABLET. PO SCH (20:56)
[2020-11-06 02:34] VITALS: BP 116/62
[2020-11-06 06:09] LABS: BASO % 1 % (0-3); EOS # 0.1 x10^3/uL (0.0-0.7); EOS % 3 % (0-3); HEMATOCRIT 29.2 % (36.0-47.0); LYMPH # 1.6 x10^3/uL (1.0-4.8); LYMPH % 35 % (24-48); MEAN CORPUSCULAR HEMOGLOBIN 25 pg (25-35); MEAN CORPUSCULAR HGB CONC 31 g/dL (31-37); MEAN CORPUSCULAR VOLUME 80 fL (79-100); MONO # 0.6 x10^3/uL (0.0-1.1); MONO % 14 % (0-9); NEUT # 2.1 x10^3/uL (1.8-7.7); NEUT % 47 % (31-73); PLATELET COUNT 171 x10^3/uL (140-400); RED BLOOD COUNT 3.67 x10^6/uL (3.50-5.40); RED CELL DISTRIBUTION WIDTH 19.6 % (11.5-14.5); WHITE BLOOD COUNT 4.5 x10^3/uL (4.0-11.0)
[2020-11-06 06:13] LABS: PROTHROMBIN TIME PATIENT 19.7 SEC (11.7-14.0)
[2020-11-06 06:28] LABS: ALBUMIN 2.4 g/dL (3.4-5.0); ALBUMIN/GLOBULIN RATIO 0.7 (1.0-1.7); CREATININE 0.9 mg/dL (0.6-1.0); GFR 79.6; POTASSIUM 3.8 mmol/L (3.5-5.1); TOTAL BILIRUBIN 0.2 mg/dL (0.2-1.0); TOTAL PROTEIN 5.9 g/dL (6.4-8.2)
[2020-11-06 07:00] VITALS: BP 137/86
[2020-11-06] MEDS: INSULIN LISPRO 300 UNITS/3 ML VIAL. SQ SCH ×2 (08:00→12:00)
[2020-11-06] MEDS: PANTOPRAZOLE 40 MG TABLET.DR. PO SCH (08:08)
[2020-11-06] MEDS: SACUBITRIL/VALSARTAN 49/51MG TABLET. PO SCH (08:08)
[2020-11-06] MEDS: SPIRONOLACTONE 25 MG TABLET PO SCH (08:09)
[2020-11-06] MEDS: SENNOSIDES/DOCUSATE 8.6/50MG TABLET. PO SCH (08:09)
[2020-11-06] MEDS: CARVEDILOL 12.5 MG TABLET. PO SCH (08:09)
[2020-11-06] MEDS: FUROSEMIDE 80 MG TABLET. PO SCH ×2 (08:09→14:00)
[2020-11-06 11:00] VITALS: BP 123/74
--- NOTE | 2020-11-06 11:22 | SNU/HH DC ---
DISCHARGE WITH HOME HEALTH DISCHARGE INFORMATION: Final Diagnosis: Problems Medical Problems: (1) Person under investigation for COVID-19 Status: Acute Condition on Discharge: Stable CODE STATUS: Code Status: Full HOME HEALTH: Face to Face: I certify this patient is under my care and that I, or a nurse practitioner or physician's assistant reading teacher working with me, had a face to face encounter that meets the physician face to face encounter requirements with this patient on []. Medical Complications: CHF Prison For: Assess & Educate Safety RN For Eval/Treatment: Yes Physical Therapy For: Evalulation/Treatment Occupational Therapy For: Evaluation/Treatment Home Health Aide For: Self-care SECURITY [employer]ESSIONALS For: Community Resources Pt Meets Homebound Status: Poor coordination w/ amb. POST DISCHARGE ORDERS: Activity Instructions for Disc: Activity as tolerated Weight Bearing Status after Di: As tolerated Bathing Instructions: Shower-keep dressing dry, No Tub Bath until see Dr. LEGGETT AFTER DISCHARGE: Cardiac Wound/Incision Care: No wound care needed CHECKS AFTER DISCHARGE: Checks after discharge: Check blood press - daily, Weigh Yourself Daily FOLLOW-UP: Follow up with: Zinc Skimmer as needed or next regularly scheduled appointment. Follow Up With: Primary Care Physician in 1-2 weeks or as needed. TREATMENT/EQUIPMENT ORDERS: Adaptive Equipment Issued: None Discharge Respiratory Equipmen: CPAP CERTIFICATION STATEMENT: Certification Statement: Certification Statement: Based on the above finding, I certify that this patient is confined to the home and needs intermittent shelter care, physical therapy and/or speech therapy, or continues to need occupational therapy.~ This patient is under my care, and I have initiated the establishment of the plan of care.~ This patient will be followed by myself or a community physician who will periodically review the plan of care. Home Meds Active Scripts Spironolactone (ALDACTONE) 25 Mg Tablet, 25 MG PO DAILY for CHF for 30 Days, #30 TAB Prov:FLOWER RHODES MD 07/16/20 Furosemide (FUROSEMIDE) 80 Mg Tablet, 80 MG PO BID for heart failure for 7 Days, #14 TAB Prov:KINGSLEY HERNANDEZ MD 02/12/20 Reported Medications Oxycodone Hcl/Acetaminophen (OXYCODON-ACETAMINOPHEN 7.5-325) 1 Each Tablet, 7.5- 325 MG PO PRN Q6HRS PRN for SEVERE PAIN 01/31/19 Omeprazole (OMEPRAZOLE) 40 Mg Capsule.dr, 1 CAP PO DAILY06 for GERD, #30 CAP 3 Refills 01/31/19 Potassium Chloride (POTASSIUM CHLORIDE ) 20 Meq Tablet.er, 20 MEQ PO BID for supplement, TAB.SR 01/31/19 Sacubitril/Valsartan (Entresto 49 mg-51 mg Tablet) 1 Each Tablet, 1 TAB PO BID for Heart Failure, TAB 01/31/19 Glipizide (GLIPIZIDE) 5 Mg Tablet, 1 TAB PO DAILY for dm, #90 TAB 3 Refills 10/22/18 Warfarin Sodium (WARFARIN SODIUM) 10 Mg Tablet, 10 MG PO DAILY, TAB 08/25/14 Rosuvastatin Calcium (CRESTOR) 10 Mg Tablet, 1 TAB PO DAILY, #30 TAB 5 Refills 08/25/14 Carvedilol (CARVEDILOL ) 12.5 Mg Tablet, 1 TAB PO BID, #180 TAB 1 Refill 08/25/14 JOSE RAMON BERMUDEZ III DO Nov 06, 2020 11:21
--- NOTE | 2020-11-06 11:28 | PDOC ---
[facility] [facility] PROGRESS NOTE Date of Service DOS: DATE: 11/06/20 TIME: 11:25 Chief Complaint Chief Complaint CC: CHF exacerbation History of Present Illness History of Present Illness Ms Mayo is a 50yo F w/ PMHx morbid obesity with a BMI of 70, non-ischemic cardiomyopathy, systolic CHF EF 35% s/p AICD, DM2, GERD, HJLD, HTN, ELIZABETH with CPAP compliance difficulties, smoker 1 ppd who p/w worsening shortness of breath. Brought here by EMS from home due to trouble breathing and nonproductive cough for 4 days. Patient is still a smoker. Patient had some cough, nonproductive in nature, patient denies any fever. Patient was tested negative for COVID-19 last month She was initially requiring up to 3 liters of oxygen. She has a cough with white sputum production, no fever, no chills, no chest pain. She has overall increased weight gain and has chronic lymphedema. Her chest x-ray was reviewed and it was consistent with congestive heart failure Labs significant for BNP 46841, troponin 0.030, NA 142, K3.7, BUN 18, CR 0.9, glucose 105, albumin 2.5, INR 1.8, WBC 6, Hb 10.4, platelets 174 EKG NSR with multiple PVCs, high lateral T-wave flattening and long QTc 479. heart rate 86/min, sinus rhythm, no ST segment elevation. Admitted for further treatment. 11/02: Good uop overnight. 3L in andrade bag currently. Still requiring O2 and short of breath. Feeling a bit better today. Has some right eye and maxilla pain. Notes she has been falling frequently ever since August, feels her left ankle and knee give out on her. 11/03: 5 L urine output over the last 24 hours. Off O2 currently. Sitting up in chair. Still with dry nares. Overall she is feeling a bit improved. Worked with PT, recommends ok for home independent. 11/04: Roughly 6 L total urine output and 3 kg weight loss. Patient breathing on room air. PT recommending home independently. Will discharge patient home with close PCP follow-up. Greater than 30 minutes was spent managing discharge patient. 11/05/2020 -Patient seen and examined -Patient had near syncope yesterday -Legs are less swollen -Brief runs of VTAC -ALVA RN -Chart reviewed 11/06/2020: -Patient seen and examined -ALVA RN -Chart reviewed Vitals/I&O Vitals/I&O: Vital Signs Date Time Temp Pulse Resp B/P (MAP) Pulse Ox O2 Delivery O2 Flow Rate FiO2 11/06/20 08:09 75 137/86 11/06/20 08:00 Room Air 11/06/20 07:00 97.8 20 100 97.8 I & O 11/05/20 11/05/20 11/06/20 15:00 23:00 07:00 Intake Total 800 ml 500 ml 0 ml Output Total 100 ml Balance 800 ml 400 ml 0 ml Physical Exam General: Alert, Oriented X3, Cooperative, No acute distress Heart: Regular rate Lungs: Clear Abdomen: Normal bowel sounds, Soft, No hepatosplenomegaly, Other (obese) Extremities: No clubbing, No cyanosis, No edema, Other (1+ bilateral LE edema ) Skin: No rashes, No breakdown, No significant lesion Labs Labs: Laboratory Tests Test 11/05/20 11:48 11/05/20 17:05 11/05/20 20:42 11/06/20 05:15 Glucose (Fingerstick) 144 mg/dL (70-99) 156 mg/dL (70-99) 186 mg/dL (70-99) White Blood Count 4.5 x10^3/uL (4.0-11.0) Red Blood Count 3.67 x10^6/uL (3.50-5.40) Hemoglobin 9.0 g/dL (12.0-15.5) Hematocrit 29.2 % (36.0-47.0) Mean Corpuscular Volume 80 fL (79-100) Mean Corpuscular Hemoglobin 25 pg (25-35) Mean Corpuscular Hemoglobin Concent 31 g/dL (31-37) Red Cell Distribution Width 19.6 % (11.5-14.5) Platelet Count 171 x10^3/uL (140-400) Neutrophils (%) (Auto) 47 % (31-73) Lymphocytes (%) (Auto) 35 % (24-48) Monocytes (%) (Auto) 14 % (0-9) Eosinophils (%) (Auto) 3 % (0-3) Basophils (%) (Auto) 1 % (0-3) Neutrophils # (Auto) 2.1 x10^3/uL (1.8-7.7) Lymphocytes # (Auto) 1.6 x10^3/uL (1.0-4.8) Monocytes # (Auto) 0.6 x10^3/uL (0.0-1.1) Eosinophils # (Auto) 0.1 x10^3/uL (0.0-0.7) Basophils # (Auto) 0.0 x10^3/uL (0.0-0.2) Prothrombin Time 19.7 SEC (11.7-14.0) Prothromb Time International Ratio 1.7 (0.8-1.1) Sodium Level 144 mmol/L (136-145) Potassium Level 3.8 mmol/L (3.5-5.1) Chloride Level 106 mmol/L (98-107) Carbon Dioxide Level 36 mmol/L (21-32) Anion Gap 2 (6-14) Blood Urea Nitrogen 17 mg/dL (7-20) Creatinine 0.9 mg/dL (0.6-1.0) Estimated GFR (Cockcroft-Gault) 79.6 BUN/Creatinine Ratio 19 (6-20) Glucose Level 94 mg/dL (70-99) Calcium Level 8.0 mg/dL (8.5-10.1) Total Bilirubin 0.2 mg/dL (0.2-1.0) Aspartate Amino Transf (AST/SGOT) 10 U/L (15-37) Alanine Aminotransferase (ALT/SGPT) 15 U/L (14-59) Alkaline Phosphatase 46 U/L (46-116) Total Protein 5.9 g/dL (6.4-8.2) Albumin 2.4 g/dL (3.4-5.0) Albumin/Globulin Ratio 0.7 (1.0-1.7) Test 11/06/20 07:54 Glucose (Fingerstick) 104 mg/dL (70-99) Review of Systems Review of Systems: Denies headache, no clubbing Assessment and Plan Assessmemt and Plan Problems Medical Problems: (1) Person under investigation for COVID-19 Status: Acute 11/06/2020 A: Acute systolic CHF Acute hypoxic respiratory failure ELIZABETH on CPAP Cardiomyopathy Super morbid obesity Accelerated HTN Elevated troponin S/p AICD. Biotronik Severe protein calorie malnutrition DM2 HLD Tobacco abuse P: -Encourage diuresis -Cardiac monitoring -Full code -DVT prophylaxis -Probable d/c if cleared w/ cardiology post-AICD interrogation Comment Review of Relevant I have reviewed the following items cuate (where applicable) has been applied. Medications: Current Medications Medications (Trade) Dose Ordered Sig/Liam Route PRN Reason Start Time Stop Time Status Last Admin Dose Admin Magnesium Sulfate 50 ml @ 25 mls/hr 1X ONCE IV 11/05/20 20:45 11/05/20 22:44 DC 11/05/20 21:54 Justifications for Admission Chest Pain Indications Hemodynamically unstable?: Yes Justification for admission: Patient hemodynamically unstable as indicated by persistent orthostatic vital signs changes ie fall of SBP of 20 mmHg or more OR fall in DBP of 10mmHg or more, 1 to 3 minutes after patient sits/stands from recumbent position. Respiratory Distress?: Yes Justification for admission: Patient's respiratory distress as indicated by (SOB/tachypnea/abnormal breathing pattern plus hypoxemia/AMS/other evidence of respiratory compromise such as pulmonary edema on chest x-ray) will need inpatient level of care. Other Justification JOSE RAMON BERMUDEZ III DO Nov 06, 2020 11:28
--- NOTE | 2020-11-06 12:18 | DS ---
DATE OF DISCHARGE: 11/06/2020 ADMISSION DIAGNOSIS: Acute on chronic systolic and diastolic heart failure. DISCHARGE DIAGNOSES: Resolving acute on chronic systolic and diastolic heart failure; obesity; history of automatic implantable cardioverter-defibrillator; diabetes; hypertension; obstructive sleep apnea, on CPAP; cardiomyopathy; severe protein-calorie malnutrition; hyperlipidemia; tobacco abuse. CONSULTS: Cardiology. PROCEDURES: None. HOSPITAL COURSE: The patient is a pleasant middle-aged female who presented with heart failure. She was admitted. We diuresed her. We consulted Cardiology. We did cardiac monitoring, serial enzymes, serial EKGs, did an echocardiogram and leave and she is scheduled to get her AICD interrogated today. This morning, I saw her and examined her. She is at her baseline. We plan to discharge if okay with Cardiology. DISPOSITION: Home. ACTIVITY: As tolerated. DIET: Low sodium. MEDICATIONS: Please see the MRAD. TOTAL TIME: 36 minutes. JOSE RAMON BERMUDEZ DO DR: LISSETH/evelina JOB#: [id number] / [id number]
--- NOTE | 2020-11-06 12:33 | PDOC ---
CINTHIA MICHEL FURNACE RELINER 11/06/20 1233: CARDIO Progress Notes Date and Time Date of Service 11/06/20 Time of Evaluation 1230 Subjective Subjective: No Chest Pain, No shortness of breath, No Palpitations Vitals Vitals Vital Signs Date Time Temp Pulse Resp B/P (MAP) Pulse Ox O2 Delivery O2 Flow Rate FiO2 11/06/20 11:00 97.5 67 20 123/74 (90) 95 Room Air 97.5 Weight Weight [ ] Input and Output Intake and Output Intake and Output 11/06/20 07:00 Intake Total 1300 ml Output Total 100 ml Balance 1200 ml Intake Oral 1300 ml Output Urine Total 100 ml # Voids 3 Laboratory Labs Laboratory Tests Test 11/05/20 17:05 11/05/20 20:42 11/06/20 05:15 11/06/20 07:54 Glucose (Fingerstick) 156 mg/dL (70-99) 186 mg/dL (70-99) 104 mg/dL (70-99) White Blood Count 4.5 x10^3/uL (4.0-11.0) Red Blood Count 3.67 x10^6/uL (3.50-5.40) Hemoglobin 9.0 g/dL (12.0-15.5) Hematocrit 29.2 % (36.0-47.0) Mean Corpuscular Volume 80 fL (79-100) Mean Corpuscular Hemoglobin 25 pg (25-35) Mean Corpuscular Hemoglobin Concent 31 g/dL (31-37) Red Cell Distribution Width 19.6 % (11.5-14.5) Platelet Count 171 x10^3/uL (140-400) Neutrophils (%) (Auto) 47 % (31-73) Lymphocytes (%) (Auto) 35 % (24-48) Monocytes (%) (Auto) 14 % (0-9) Eosinophils (%) (Auto) 3 % (0-3) Basophils (%) (Auto) 1 % (0-3) Neutrophils # (Auto) 2.1 x10^3/uL (1.8-7.7) Lymphocytes # (Auto) 1.6 x10^3/uL (1.0-4.8) Monocytes # (Auto) 0.6 x10^3/uL (0.0-1.1) Eosinophils # (Auto) 0.1 x10^3/uL (0.0-0.7) Basophils # (Auto) 0.0 x10^3/uL (0.0-0.2) Prothrombin Time 19.7 SEC (11.7-14.0) Prothromb Time International Ratio 1.7 (0.8-1.1) Sodium Level 144 mmol/L (136-145) Potassium Level 3.8 mmol/L (3.5-5.1) Chloride Level 106 mmol/L (98-107) Carbon Dioxide Level 36 mmol/L (21-32) Anion Gap 2 (6-14) Blood Urea Nitrogen 17 mg/dL (7-20) Creatinine 0.9 mg/dL (0.6-1.0) Estimated GFR (Cockcroft-Gault) 79.6 BUN/Creatinine Ratio 19 (6-20) Glucose Level 94 mg/dL (70-99) Calcium Level 8.0 mg/dL (8.5-10.1) Total Bilirubin 0.2 mg/dL (0.2-1.0) Aspartate Amino Transf (AST/SGOT) 10 U/L (15-37) Alanine Aminotransferase (ALT/SGPT) 15 U/L (14-59) Alkaline Phosphatase 46 U/L (46-116) Total Protein 5.9 g/dL (6.4-8.2) Albumin 2.4 g/dL (3.4-5.0) Albumin/Globulin Ratio 0.7 (1.0-1.7) Test 11/06/20 11:31 Glucose (Fingerstick) 157 mg/dL (70-99) Physical Exam HEENT: Neck Supple W Full Motion Chest: Symmetric LUNGS: Other (diminished bases) Heart: S1S2, RRR Abdomen: Soft N/T Extremities: Other (1+ bilateral LE edema ) Neurology: alert, oriented, follow commands Assessment Assessment 1. Dyspnea with acute on chronic diastolic/systolic CHF; due to noncompliance with Lasix therapy. improved s/p IV diuresis 2. NICM: s/p AICD (Biotronik). LVEF 35-40% per echo 07/31. Cath 2018 without significant CAD 3. Possible ELIZABETH/COPD with morbid obesity: BMI at 60 4. Hypertension; labile 5. DM2/HLP; statin 6. 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 Tobaccoism 8. Chronic warfarin therapy: unclear use was told due to CVA but no notation of past AFIB/flutter. Most recent device check wtih 0% AFIB burden 9. Arrhythmia; bursts of NSVT noted on tele. TSH WNL. Device interrogated showed normal function. Did have episode of SVT 10/30/19 and brief episode of VT on 11/02/20- resolved without therapy 10. Near syncope; ? vasovagal. Orthos negative 11. PUI; COVID negative Recommendations Continue BB; will covert Coreg to Toprol for VT suppression Will monitor for arrhythimas with remote device downloads. Consider antiarrhythmic therapy if any recurrent VT/VF. HF optimization with Entresto, Aldactone, Lasix, and Toprol Secondary prevention measures. Consider discontinuing warfarin if AFIB burden remain 0%. Encouraged weight loss Discussed importance of compliance with diuretic therapy. Okay to discharge from a CV standpoint. Follow up with Dr. Sosa as scheduled Justicifation of Admission Dx: Justifications for Admission: Justification of Admission Dx: Yes CHANTAL SOSA MD 11/06/202114: CARDIO Progress Notes Assessment Assessment Patient seen and examined. Agree with [employer]EL[employer]'s assessment and plan. Acute on chronic systolic heart failure better compensated with diuresis. Recent 2D echo showed LVEF 35 to 40% and cardiac catheterization did not show any significant CAD. Brief episodes of NSVT noted on telemetry and recent device downloads. Mg replaced. Agree with changing BB to metoprololm continue other medications including Entresto and follow-up as scheduled. We will consider antiarrhythmic therapy if she continues to have NSVT. CINTHIA MICHEL APRN Nov 06, 2020 12:33 CHANTAL SOSA MD Nov 06, 2020 21:15
[2020-11-06 12:56] VITALS: BP 130/74
[2020-11-06 12:57] VITALS: BP 161/108
--- NOTE | 2020-11-06 13:04 | NUR ---
SS following up with discharge planning. SS reviewed pt chart and discussed with pt RN. Pt is currently on room air. COVID19 negative. PT/OT recommended home independent. Discharge orders received for home with home healthcare. Pt has had services with [facility], ; fax [phone]. SS phoned and faxed discharge orders and referral to [facility]. Pt's RN notified.
[2020-11-06] MEDS ORDERED: METO-239 PO (14:02)
[2020-11-06] MEDS ORDERED: METO50TA4 PO (14:08)
[2020-11-06] MEDS ORDERED: METOPROLOL SUCC 24HR ER 50 MG TAB.ER.24H. PO SCH (14:30)
[2020-11-06 15:00] VITALS: BP 124/77
[2020-11-06] MEDS: WARFARIN 5 MG TABLET. PO SCH (16:11)
--- NOTE | 2020-11-06 16:37 | NUR ---
Discharge Note: [facility] Discharge instructions and discharge home medications reviewed with Patient and a copy given. All questions have been answered and understanding verbalized. The following instructions and handouts were given: CHF Discontinued lines and drains: Peripheral IV intact. Patient discharged to Home with HH with Family Member via Wheelchair
[2020-11-07] MEDS ORDERED: METOPROLOL SUCC 24HR ER 50 MG TAB.ER.24H. PO SCH (09:00)
== END 2020-11-06 16:41 | disposition home health service (06) | DRG 291 ==
LOC: ER 14:04 → 2 SOUTH 16:03 → 5 NORTH 11-03 12:22 → 2 SOUTH 11-04 18:33
PROVIDERS: ADMIT Internal Medicine; ATTEND Internal Medicine
PROC: 4B02XTZ Measurement of Cardiac Defibrillator, External Approach (ICD-10-PCS; principal; 2020-11-06)
DX: I11.0 Hypertensive heart disease with heart failure (principal); J96.01 Acute respiratory failure with hypoxia; E43 Unspecified severe protein-calorie malnutrition; I47.2 Ventricular tachycardia; I69.354 Hemiplegia and hemiparesis following cerebral infarction affecting left non-dominant side; Z68.43 Body mass index [BMI] 50.0-59.9, adult; E11.9 Type 2 diabetes mellitus without complications; E66.01 Morbid (severe) obesity due to excess calories; E78.00 Pure hypercholesterolemia, unspecified; E78.5 Hyperlipidemia, unspecified; F17.210 Nicotine dependence, cigarettes, uncomplicated; G47.33 Obstructive sleep apnea (adult) (pediatric); I42.8 Other cardiomyopathies; I49.3 Ventricular premature depolarization; I50.43 Acute on chronic combined systolic (congestive) and diastolic (congestive) heart failure; I77.810 Thoracic aortic ectasia; I89.0 Lymphedema, not elsewhere classified; G89.29 Other chronic pain; M19.90 Unspecified osteoarthritis, unspecified site; Z20.822 Contact with and (suspected) exposure to COVID-19; J44.9 Chronic obstructive pulmonary disease, unspecified; K21.9 Gastro-esophageal reflux disease without esophagitis; Z79.01 Long term (current) use of anticoagulants; Z82.49 Family history of ischemic heart disease and other diseases of the circulatory system; Z83.3 Family history of diabetes mellitus; Z91.14 Patient's other noncompliance with medication regimen; Z95.810 Presence of automatic (implantable) cardiac defibrillator; Z90.49 Acquired absence of other specified parts of digestive tract; Z93.0 Tracheostomy status; Z88.5 Allergy status to narcotic agent; Z88.8 Allergy status to other drugs, medicaments and biological substances; Z71.6 Tobacco abuse counseling
CPT/HCPCS: 36415; 51702; 71045; 80048; 80053; 82805; 82962; 83735; 83880; 84443; 84484; 85025; 85610; 85730; 93005; 96374; A4314; J1650; J1815; J1940; J2405; J3475; U0003; 97530-GO; 97535-GO; 99285-25; G0378

== ENCOUNTER → 2021-02-18 | Outpatient (CLI) | payer MEDICARE ==
[2021-01-27 15:00] VITALS: BP 133/87
[~2021-02-18] MED LIST changes: +BUME1TAB3 PO; +FERR325T72 PO; +INSU100V35 SQ; +IPRA3AMP29 NEB; +METO-239 PO; +METO50TA4 PO; +POLY17PO52 PO
--- NOTE | 2021-02-18 14:39 | RAD ---
DATE: February 18, 2021 EXAM: DIGITAL SCREEN BILAT W/CAD HISTORY: Screening Study. COMPARISON: 2019 This study was interpreted with the benefit of Computerized Aided Detection (CAD). FINDINGS: Breast Density: SCATTERED The breast parenchyma shows scattered fibroglandular densities. Breast parenchyma level B.. There are no dominant suspicious masses, suspicious microcalcifications or evidence of architectural distortion. A pacemaker is present on the left side which makes positioning difficult. IMPRESSION: No mammographic indicators for malignancy. BI-RADS CATEGORY: 1 NEGATIVE RECOMMENDED FOLLOW-UP: 12M 12 MONTH FOLLOW-UP PQRS compliance statement: Patient information was entered into a reminder system with a target due date February 19, 2022 for the next mammogram. Mammography is a sensitive method for finding small breast cancers, but it does not detect them all and is not a substitute for careful clinical examination. A negative mammogram does not negate a clinically suspicious finding and should not result in delay in biopsying a clinically suspicious abnormality. "Our facility is accredited by the [employer] Mammography Program." The patient's breast density may affect the ability of mammography to detect breast cancer. There are 4 categories of breast density, A, B, C and D. Breast density A means that most of the breast tissue is replaced with adipose tissue and therefore is not dense. Breast density B means that the breast tissue is mildly dense and scattered. Breast density C means that the breast tissue is heterogeneously dense. Breast density D means that the breast tissue is very dense. Breast densities especially C and D may decrease the sensitivity of mammography to detect breast cancer. Therefore, the patient may benefit from 3-D breast mammography (3D breast tomography) as a part of their screening mammogram. Insurance may or may not pay for this additional imaging. The patient's breast density based on today's mammogram is category B.
== END ==
LOC: MAMMO 14:32
PROVIDERS: ATTEND Obstetrics & Gynecology
DX: Z12.31 Encounter for screening mammogram for malignant neoplasm of breast (principal)
CPT/HCPCS: 77067

== ENCOUNTER 2021-03-06 16:00 | Inpatient (IN) | payer MEDICARE ==
[~2021-03-06] VITALS: Ht 180.3 cm; Wt 240.6 kg
[~2021-03-06 16:00] MED LIST changes: -OMEP40CA45 PO; +OMEP40CA7 PO
--- NOTE | 2021-03-06 16:14 | ED.ADGEN ---
Past Medical History Past Medical History: CHF, COPD, Diabetes-Type II, Gallstones, GERD, High Cholesterol, Hypertension, Stroke, Other Additional Past Medical Histor: CHRONIC PAIN,OBSITY Past Surgical History: Cholecystectomy, Other Additional Past Surgical Histo: kidney cyst removal, tracheostomy, defibrillator Smoking Status: Current Every Day Smoker Alcohol Use: None Drug Use: Marijuana General Adult HPI: HPI: Patient is a 50-year-old female who arrives via EMS complaining of shortness of air in addition to chest tightness. Patient reports this began today and states despite taking breathing treatments she has not had any relief. Patient has a history of both COPD as well as CHF and states she did not feel that there is anything more she could do at home. Patient states that her chest tightness feels as if there is an elephant on top of it. Patient was quickly transitioned to CPAP by EMS and reported to feeling much better after that had been administered. Patient denies any fevers. She further denies any known sick contacts and states she has not received the coronavirus vaccines. Additionally she states that she has had some increased swelling of her lower extremities. She is awake, alert and uncomfortable appearing Review of Systems: Review of Systems: Constitutional: Denies fever or chills. [] Eyes: Denies change in visual acuity. [] HENT: Denies nasal congestion or sore throat. [] Respiratory: Reports to shortness of air. Denies cough. [] Cardiovascular: Reports of chest heaviness as well as developing edema. [] GI: Denies abdominal pain, nausea, vomiting, bloody stools or diarrhea. [] : Denies dysuria. [] Musculoskeletal: Denies back pain or joint pain. [] Integument: Denies rash. [] Neurologic: Denies headache, focal weakness or sensory changes. [] Endocrine: Denies polyuria or polydipsia. [] Lymphatic: Denies swollen glands. [] Psychiatric: Denies depression or anxiety. [] Current Medications: Current Medications Medications (Trade) Dose Ordered Sig/Liam Start Time Stop Time Status Last Admin Dose Admin Methylprednisolone Sodium Succinate (SOLU-Medrol 125MG VIAL) 125 mg 1X ONCE 03/06/21 16:15 03/06/21 16:16 DC 03/06/21 17:11 125 MG Allergies: Allergies: Allergies Coded Allergies Type Severity Reaction Last Updated Verified hydrocodone Allergy Intermediate 10/23/18 Yes morphine Allergy Intermediate 10/23/18 Yes Physical Exam: PE: Constitutional: Morbidly obese in respiratory distress. Well developed, well nourished, non-toxic appearance. [] HENT: Normocephalic, atraumatic, bilateral external ears normal, oropharynx moist, no oral exudates, nose normal. [] Eyes: PERRLA, EOMI, conjunctiva normal, no discharge. [] Neck: Normal range of motion, no tenderness, supple, no stridor. [] Cardiovascular:Heart rate regular rhythm, no murmur [] Lungs & Thorax: Diminished bilaterally with compromised evaluation given her habitus. [] Abdomen: Bowel sounds normal, soft, no tenderness, no masses, no pulsatile masses. [] Skin: Warm, dry, no erythema, no rash. [] Back: No tenderness, no CVA tenderness. [] Extremities: Patient has lower extremity swelling consistent with venous stasis. There are bandages in place with evidence of weeping present. No tenderness, no cyanosis, no clubbing, ROM intact. [] Neurologic: Alert and oriented X 3, normal motor function, normal sensory function, no focal deficits noted. [] Psychologic: Affect normal, judgement normal, mood normal. [] Current Patient Data: Labs: Laboratory Tests Test 03/06/21 16:37 White Blood Count 5.5 x10^3/uL (4.0-11.0) Red Blood Count 4.08 x10^6/uL (3.50-5.40) Hemoglobin 10.6 g/dL (12.0-15.5) L Hematocrit 33.7 % (36.0-47.0) L Mean Corpuscular Volume 82 fL (79-100) Mean Corpuscular Hemoglobin 26 pg (25-35) Mean Corpuscular Hemoglobin Concent 32 g/dL (31-37) Red Cell Distribution Width 23.2 % (11.5-14.5) H Platelet Count 188 x10^3/uL (140-400) Neutrophils (%) (Auto) 73 % (31-73) Lymphocytes (%) (Auto) 17 % (24-48) L Monocytes (%) (Auto) 9 % (0-9) Eosinophils (%) (Auto) 1 % (0-3) Basophils (%) (Auto) 1 % (0-3) Neutrophils # (Auto) 4.0 x10^3/uL (1.8-7.7) Lymphocytes # (Auto) 0.9 x10^3/uL (1.0-4.8) L Monocytes # (Auto) 0.5 x10^3/uL (0.0-1.1) Eosinophils # (Auto) 0.0 x10^3/uL (0.0-0.7) Basophils # (Auto) 0.0 x10^3/uL (0.0-0.2) Platelet Estimate Adequate (ADEQUATE) Polychromasia Slight Hypochromasia Mod Anisocytosis Mod Ovalocytes Few Sodium Level 146 mmol/L (136-145) H Potassium Level 4.4 mmol/L (3.5-5.1) Chloride Level 110 mmol/L (98-107) H Carbon Dioxide Level 28 mmol/L (21-32) Anion Gap 8 (6-14) Blood Urea Nitrogen 36 mg/dL (7-20) H Creatinine 1.3 mg/dL (0.6-1.0) H Estimated GFR (Cockcroft-Gault) 52.0 BUN/Creatinine Ratio 28 (6-20) H Glucose Level 74 mg/dL (70-99) Calcium Level 7.9 mg/dL (8.5-10.1) L Total Bilirubin 0.9 mg/dL (0.2-1.0) Aspartate Amino Transferase (AST) 31 U/L (15-37) Alanine Aminotransferase (ALT) 41 U/L (14-59) Alkaline Phosphatase 85 U/L (46-116) Creatine Kinase 168 U/L (26-192) Troponin I Quantitative 0.030 ng/mL (0.000-0.055) IR-Enk-U-Type Natriuretic Peptide 72124 pg/mL (0-124) H Total Protein 6.5 g/dL (6.4-8.2) Albumin 3.1 g/dL (3.4-5.0) L Albumin/Globulin Ratio 0.9 (1.0-1.7) L Laboratory Tests 03/06/21 16:37 Laboratory Tests 03/06/21 16:37 EKG: EKG: [] EKG was obtained at 1609 hrs. and reveals a normal sinus rhythm with a ventricular rate of 92 bpm. There is left axis deviation present with QT prolongation. There are no ST/T wave changes to denote ischemia. Heart Score: C/O Chest Pain: Yes HEART Score for Chest Pain: HEART Score for Chest Pain Response (Comments) Value History Moderately Suspicious 1 ECG Nonspecific Repolarizatio 1 Age >45 - < 65 1 Risk Factors >3 Risk Factors or Hx CAD 2 Troponin < Normal Limit 0 Total 5 Risk Factors: Risk Factors: DM, Current or recent (<one month) smoker, HTN, HLP, family history of CAD, obesity. Risk Scores: Score 0 - 3: 2.5% MACE over next 6 weeks - Discharge Home Score 4 - 6: 20.3% MACE over next 6 weeks - Admit for Clinical Observation Score 7 - 10: 72.7% MACE over next 6 weeks - Early Invasive Strategies Radiology/Procedures: Radiology/Procedures: [] Impression: [facility] [address] [place] [address] IMAGING REPORT Signed PATIENT: KAITY JACOBS ACCOUNT: [id number] : 1970 LOCATION: ER AGE: 50 SEX: F EXAM STATUS: REG ER ORD. PHYSICIAN: DM JACK DO REASON: Shortness of air PROCEDURE: PORTABLE CHEST 1V EXAM: Chest, single view. HISTORY: Shortness of air. COMPARISON: 01/25/2021 FINDINGS: A frontal view of the chest is obtained. There is stable diffuse central predominant interstitial infiltrate. There is stable cardiomegaly. There is a cardiac pacemaker defibrillator in expected position. There is no pneumothorax. IMPRESSION: Stable diffuse interstitial infiltrate and cardiomegaly. Electronically signed by: Vanessa Boss MD (03/06/2021 4:57 PM) [id number] DICTATED and SIGNED BY: VANESSA BOSS MD DATE: 03/06/21 [id number] 0 Course & Med Decision Making: Course & Med Decision Making Pertinent Labs and Imaging studies reviewed. (See chart for details) [] Dragon Disclaimer: Dragon Disclaimer: This electronic medical record was generated, in whole or in part, using a voice recognition dictation system. Departure Departure Impression: Primary Impression: CHF exacerbation Additional Impressions: History of COPD Chest pain Respiratory distress Person under investigation for COVID-19 Disposition: 09 ADMITTED INPATIENT Admitting Physician: SERGEI Condition: GUARDED Referrals: MECHELLE ROSADO MD (PCP) Problem Qualifiers DM JACK DO March 06, 2021 16:14
[2021-03-06] MEDS ORDERED: methylPREDNISolone SOD SUCC PF 125 MG/2 ML VIAL. IV ONE (16:15)
[2021-03-06 16:50] LABS: BASO % 1 % (0-3); EOS % 1 % (0-3); HEMATOCRIT 33.7 % (36.0-47.0); HEMOGLOBIN 10.6 g/dL (12.0-15.5); LYMPH # 0.9 x10^3/uL (1.0-4.8); LYMPH % 17 % (24-48); MEAN CORPUSCULAR HEMOGLOBIN 26 pg (25-35); MEAN CORPUSCULAR HGB CONC 32 g/dL (31-37); MEAN CORPUSCULAR VOLUME 82 fL (79-100); MONO # 0.5 x10^3/uL (0.0-1.1); MONO % 9 % (0-9); NEUT % 73 % (31-73); PLATELET COUNT 188 x10^3/uL (140-400); RED BLOOD COUNT 4.08 x10^6/uL (3.50-5.40); RED CELL DISTRIBUTION WIDTH 23.2 % (11.5-14.5); WHITE BLOOD COUNT 5.5 x10^3/uL (4.0-11.0)
--- NOTE | 2021-03-06 17:00 | RAD ---
EXAM: Chest, single view. HISTORY: Shortness of air. COMPARISON: 01/25/2021 FINDINGS: A frontal view of the chest is obtained. There is stable diffuse central predominant inters titial infiltrate. There is stable cardiomegaly. There is a cardiac pacemaker defibrillator in expect ed position. There is no pneumothorax. IMPRESSION: Stable diffuse interstitial infiltrate and cardiomegaly. Electronically signed by: Vanessa Watkins MD (03/06/2021 4:57 PM) [id number]
[2021-03-06 17:03] LABS: CALCIUM 7.9 mg/dL (8.5-10.1); CREATININE 1.3 mg/dL (0.6-1.0); POTASSIUM 4.4 mmol/L (3.5-5.1)
[2021-03-06 17:10] LABS: ALBUMIN 3.1 g/dL (3.4-5.0); ALBUMIN/GLOBULIN RATIO 0.9 (1.0-1.7); TOTAL BILIRUBIN 0.9 mg/dL (0.2-1.0); TOTAL PROTEIN 6.5 g/dL (6.4-8.2)
[2021-03-06 17:32] LABS: ANISOCYTOSIS MOD; HYPOCHROMIA MOD; OVALOCYTES FEW; PLT ESTIMATE ADEQUATE (ADEQUATE); POLYCHROMASIA SLIGHT
[2021-03-06] MEDS ORDERED: ONDANSETRON PF 4 MG/2 ML VIAL. IV PRN (17:45)
[2021-03-06 21:20] LABS: BILIRUBIN,URINE NEGATIVE (NEG); CLARITY,URINE CLEAR; COLOR,URINE YELLOW; NITRITE,URINE NEGATIVE (NEG); PROTEIN,URINE 30 mg/dL (NEG-TRACE); UROBILINOGEN,URINE 0.2 mg/dL (0.2 mg/dL)
[2021-03-06 21:25] LABS: BACTERIA,URINE MANY /HPF (0-FEW); RBC,URINE OCC /HPF (0-2)
[2021-03-06 23:00] VITALS: BP 133/91
[2021-03-07] VITALS (7 sets, daily range): BP systolic 90–148; BP diastolic 70–93
--- NOTE | 2021-03-07 09:15 | PDOC1 ---
History and Physical Date of Admission Date of Admission DATE: 03/07/21 TIME: 09:13 Identification/Chief Complaint Chief Complaint DYSPNEA, CHEST DISCOMFORT History of Present Illness History of Present Illness chronic extensive multimorbidity, admitted with shortness of air secondary to acute on chronic combined systolic and diastolic congestive heart failure. 50-year-old female who arriveed via EMS 03-06 complaining of shortness of air in addition to chest tightness. Patient reports this began 03-06 and states despite taking breathing treatments she has not had any relief. Patient has a history of both COPD as well as CHF Patient states that her chest tightness feels as if there is an elephant on top of it. Patient was quickly transitioned to CPAP by EMS and reported to feeling much better Patient denies any fevers. She further denies any known sick contacts and states she has not received the coronavirus vaccines. she states that she has had some increased swelling of her lower extremeties //has known NICM: s/p AICD (Biotronik). LVEF 35-40% per echo 07/31. Cath 2018 without significant CAD chronic extensive multimorbidity, admitted with shortness of air secondary to acute on chronic combined systolic and diastolic congestive heart failure. PT IS A PUI NEG stat ABGs to rule out worsening hypercapnia. //BiPAP. Past Medical History Past Medical History Past Medical History Past Medical History: CHF, COPD, Diabetes-Type II, Gallstones, GERD, High Cholesterol, Hypertension, Stroke, Other Additional Past Medical Histor: CHRONIC PAIN,OBSITY Past Surgical History: Cholecystectomy, Other Additional Past Surgical Histo: kidney cyst removal, tracheostomy, defibrillator Smoking Status: Current Every Day Smoker Alcohol Use: None Drug Use: Marijuana fhx obesity Cardiovascular: CHF, HTN, Hyperlipidemia Pulmonary: Bronchitis, Other CENTRAL NERVOUS SYSTEM: CVA GI: No pertinent hx Heme/Onc: Anemia NOS, Other Hepatobiliary: No pertinent hx Psych: No pertinent hx Musculoskeletal: Osteoarthritis Rheumatologic: No pertinent hx Infectious disease: No pertinent hx Renal/: No pertinent hx Endocrine: Diabetes Past Surgical History Past Surgical History: Cholecystectomy, Other Family History Family History: Diabetes, Hypertension Social History Smoke: <1 pack per day ALCOHOL: none Drugs: Marijuana Current Problem List Problem List Problems Medical Problems: (1) Chest pain Status: Acute (2) History of COPD Status: Acute (3) Person under investigation for COVID-19 Status: Acute (4) Respiratory distress Status: Acute Current Medications Current Medications Current Medications Methylprednisolone Sodium Succinate (SOLU-Medrol 125MG VIAL) 125 mg 1X ONCE IV Last administered on 03/06/21at 17:11; Start 03/06/21 at 16:15; Stop 03/06/21 at 16:16; Status DC Ondansetron HCl (Zofran) 4 mg PRN Q8HRS PRN IV NAUSEA/VOMITING; Start 03/06/21 at 17:45; Stop 03/07/21 at 17:44 Active Scripts Active Admelog (Insulin Lispro) 100 Unit/1 Ml Vial 0 Units SQ TIDWMEALS 30 Days Polyethylene Glycol 3350 17 Gm Powd.pack 17 Gm PO PRN DAILY PRN 30 Days Bumetanide 1 Mg Tablet 1 Mg PO BID92 30 Days Metoprolol Succinate ( Xl ) (Metoprolol Succinate) 25 Mg Tab.er.24h 75 Mg PO DAILY 30 Days Feosol (Ferrous Sulfate) 325 Mg Tablet 325 Mg PO BIDWMEALS 30 Days Duoneb 0.5-3(2.5) Mg/3 Ml (Albuterol/Ipratropium) 3 Ml Ampul.neb 3 Ml NEB RTQID 30 Days Aldactone (Spironolactone) 25 Mg Tablet 25 Mg PO DAILY 30 Days Reported Oxycodon-Acetaminophen 7.5-325 (Oxycodone Hcl/Acetaminophen) 1 Each Tablet 7.5- 325 Mg PO PRN Q6HRS PRN Omeprazole 40 Mg Capsule.dr 1 Cap PO DAILY06 Potassium Chloride (Potassium Chloride) 20 Meq Tablet.er 20 Meq PO BID Entresto 49 mg-51 mg Tablet (Sacubitril/Valsartan) 1 Each Tablet 1 Tab PO BID Glipizide 5 Mg Tablet 1 Tab PO DAILY Warfarin Sodium 10 Mg Tablet 10 Mg PO DAILY Crestor (Rosuvastatin Calcium) 10 Mg Tablet 1 Tab PO DAILY Allergies Allergies: Coded Allergies: hydrocodone (Verified Allergy, Intermediate, 10/23/18) morphine (Verified Allergy, Intermediate, 10/23/18) ROS General: YES: Fatigue, Malaise PSYCHOLOGICAL ROS: YES: Depression; No: Anxiety, Behavioral Disorder, Concentration difficultie, Decreased libid o, Disorientation, Hallucinations, Hostility, Irritablity, Memory difficulties, Mood Swings, Obsessive thoughts, Physical abuse, Sexual abuse, Sleep disturbances, Suicidal ideation, Other Eyes: No Blurry vision, No Decreased vision, No Double vision, No Dry eyes, No Excessive tearing, No Eye Pain, No Itchy Eyes, No Loss of vision, No Photophobia, No Scotomata, No Uses contacts, No Uses glasses, No Other HEENT: YES: Heacaches; No: Visual Changes, Hearing change, Nasal congestion, Nasal discharge, Oral lesions, Sinus pain, Sore Throat, Epistaxis, Sneezing, Snoring, Tinnitus, Vertigo, Vocal changes, Other ALLERGY AND IMMUNOLOGY: YES: Hives; No: Insect Bite Sensitivity, Itchy/Watery Eyes, Nasal Congestion, Post Nasal Drip, Seasonal Allergies, Other Hematological and Lymphatic: No: Bleeding Problems, Blood Clots, Blood Transfusions, Brusing, Night Sweats, Pallor, Swollen Lymph Nodes, Other ENDOCRINE: No: Breast Changes, Galactorrhea, Hair Pattern Changes, Hot Flashes, Malaise/lethargy, Mood Swings, Palpitations, Polydipsia/polyuria, Skin Changes, Temperature Intolerance, Unexpected Weight Changes, Other Breast: No New/Changing Breast Lumps, No Nipple changes, No Nipple discharge, No Other Respiratory: YES: Shortness of breath, SOB with excertion; No: Cough, Hemoptysis, Orthopnea, Pleuritic Pain, Sputum Changes, Stridor, Tachypnea, Wheezing, Other Cardiovascular: yes Chest Pain; No Palpitations, No Orthopnea, No Paroxysmal Noc. Dyspnea, No Edema, No Lt Headedness, No Other Gastrointestinal: No Nausea, No Vomiting, No Abdominal Pain, No Diarrhea, No Constipation, No Melena, No Hematochezia, No Other Genitourinary: No Dysuria, No Frequency, No Incontinence, No Hematuria, No Retention, No Discharge, No Urgency, No Pain, No Flank Pain, No Other, No , No , No , No , No , No , No Musculoskeletal: Yes Gait Disturbance, Yes Joint Stiffness Neurological: Yes Gait Disturbance; No Behavorial Changes, No Bowel/Bladder ControlChng, No Confusion, No Dizziness, No Headaches, No Impaired Coord/balance, No Memory Loss, No Numbness/Tingling, No Seizures, No Speech Problems, No Tremors, No Visual Changes, No Weakness, No Other Skin: Yes Dry Skin, Yes Skin Lesion Changes; No Eczema, No Hair Changes, No Lumps, No Mole Changes, No Mottling, No Nail Changes, No Pruritus, No Rash, No Other, No Acne Physical Exam Physical Exam vitiligo over her left forehead and eyelid. General: Alert, Oriented X3, Cooperative, No acute distress, mild distress HEENT: PERRLA, EOMI Lungs: Normal air movement, Other (DIMINISHED) Heart: RRR, no thrills Breasts: Not examined Abdomen: Soft, No tenderness, Other (VERY OBESE) Rectal Exam: not examined PELVIC: Examination not indicated Extremities: No cyanosis, Other (2 plus ankle edema bilaterally) Skin: No breakdown Neuro: Normal speech, Sensation intact, Cranial nerves 3-12 NL Psych/Mental Status: Mental status NL, Mood NL General: Alert, Oriented X3, Cooperative, No acute distress Heart: Regular rate, Normal S1 Lungs: Clear, Crackles Abdomen: Soft, No tenderness, Other (VERY OBESE) Extremities: No cyanosis, Other (3 plus ankle edema bilaterally) Skin: No breakdown Lungs & Thorax: Diminished bilaterally with compromised evaluation given her obesity . [] Abdomen: Bowel sounds normal, soft, no tenderness, no masses, no pulsatile masses. [] Skin: Warm, dry, no erythema, no rash. [] Back: No tenderness, no CVA tenderness. [] Extremities: Patient has lower extremity swelling consistent with venous stasis. There are bandages in place with evidence of weeping present. No tenderness, no cyanosis, no clubbing, ROM intact. [] Neurologic: Alert and oriented X 3, normal motor function, normal sensory function, no focal deficits noted. [] Psychologic: Affect normal, judgement normal, mood normal. [] General: Alert, Oriented X3, Cooperative, No acute distress, mild distress HEENT: Atraumatic, EOMI Breasts: Not examined Abdomen: Soft Rectal Exam: not examined PELVIC: Examination not indicated Extremities: No cyanosis Neuro: Normal speech, Cranial nerves 3-12 NL Vitals Vitals Vital Signs Date Time Temp Pulse Resp B/P (MAP) Pulse Ox O2 Delivery O2 Flow Rate FiO2 03/07/21 07:44 97.7 95 20 90/70 (77) 97 Nasal Cannula 5.0 97.7 Labs Labs Laboratory Tests Test 03/06/21 16:37 03/06/21 17:07 03/06/21 21:00 03/06/21 22:28 White Blood Count 5.5 x10^3/uL (4.0-11.0) Red Blood Count 4.08 x10^6/uL (3.50-5.40) Hemoglobin 10.6 g/dL (12.0-15.5) Hematocrit 33.7 % (36.0-47.0) Mean Corpuscular Volume 82 fL (79-100) Mean Corpuscular Hemoglobin 26 pg (25-35) Mean Corpuscular Hemoglobin Concent 32 g/dL (31-37) Red Cell Distribution Width 23.2 % (11.5-14.5) Platelet Count 188 x10^3/uL (140-400) Neutrophils (%) (Auto) 73 % (31-73) Lymphocytes (%) (Auto) 17 % (24-48) Monocytes (%) (Auto) 9 % (0-9) Eosinophils (%) (Auto) 1 % (0-3) Basophils (%) (Auto) 1 % (0-3) Neutrophils # (Auto) 4.0 x10^3/uL (1.8-7.7) Lymphocytes # (Auto) 0.9 x10^3/uL (1.0-4.8) Monocytes # (Auto) 0.5 x10^3/uL (0.0-1.1) Eosinophils # (Auto) 0.0 x10^3/uL (0.0-0.7) Basophils # (Auto) 0.0 x10^3/uL (0.0-0.2) Platelet Estimate Adequate (ADEQUATE) Polychromasia Slight Hypochromasia Mod Anisocytosis Mod Ovalocytes Few Sodium Level 146 mmol/L (136-145) Potassium Level 4.4 mmol/L (3.5-5.1) Chloride Level 110 mmol/L (98-107) Carbon Dioxide Level 28 mmol/L (21-32) Anion Gap 8 (6-14) Blood Urea Nitrogen 36 mg/dL (7-20) Creatinine 1.3 mg/dL (0.6-1.0) Estimated GFR (Cockcroft-Gault) 52.0 BUN/Creatinine Ratio 28 (6-20) Glucose Level 74 mg/dL (70-99) Calcium Level 7.9 mg/dL (8.5-10.1) Total Bilirubin 0.9 mg/dL (0.2-1.0) Aspartate Amino Transf (AST/SGOT) 31 U/L (15-37) Alanine Aminotransferase (ALT/SGPT) 41 U/L (14-59) Alkaline Phosphatase 85 U/L (46-116) Creatine Kinase 168 U/L (26-192) Troponin I Quantitative 0.030 ng/mL (0.000-0.055) CB-Apm-T-Type Natriuretic Peptide 21725 pg/mL (0-124) Total Protein 6.5 g/dL (6.4-8.2) Albumin 3.1 g/dL (3.4-5.0) Albumin/Globulin Ratio 0.9 (1.0-1.7) SARS-CoV-2 RNA (EDMAR) Negative (Negative) SARS-CoV-2 Antigen (Rapid) Negative (NEGATIVE) Urine Collection Type Unknown Urine Color Yellow Urine Clarity Clear Urine pH 5.0 (<5.0-8.0) Urine Specific [place] 1.015 (1.000-1.030) Urine Protein 30 mg/dL (NEG-TRACE) Urine Glucose (UA) Negative mg/dL (NEG) Urine Ketones (Stick) Negative mg/dL (NEG) Urine Blood Trace (NEG) Urine Nitrite Negative (NEG) Urine Bilirubin Negative (NEG) Urine Urobilinogen Dipstick 0.2 mg/dL (0.2 mg/dL) Urine Leukocyte Esterase Negative (NEG) Urine RBC Occ /HPF (0-2) Urine WBC 1-4 /HPF (0-4) Urine Squamous Epithelial Cells Many /LPF Urine Bacteria Many /HPF (0-FEW) Urine Mucus Slight /LPF Glucose (Fingerstick) 67 mg/dL (70-99) Test 03/07/21 05:01 Glucose (Fingerstick) 152 mg/dL (70-99) Laboratory Tests Test 03/06/21 16:37 03/06/21 17:07 03/06/21 21:00 03/06/21 22:28 White Blood Count 5.5 x10^3/uL (4.0-11.0) Red Blood Count 4.08 x10^6/uL (3.50-5.40) Hemoglobin 10.6 g/dL (12.0-15.5) Hematocrit 33.7 % (36.0-47.0) Mean Corpuscular Volume 82 fL (79-100) Mean Corpuscular Hemoglobin 26 pg (25-35) Mean Corpuscular Hemoglobin Concent 32 g/dL (31-37) Red Cell Distribution Width 23.2 % (11.5-14.5) Platelet Count 188 x10^3/uL (140-400) Neutrophils (%) (Auto) 73 % (31-73) Lymphocytes (%) (Auto) 17 % (24-48) Monocytes (%) (Auto) 9 % (0-9) Eosinophils (%) (Auto) 1 % (0-3) Basophils (%) (Auto) 1 % (0-3) Neutrophils # (Auto) 4.0 x10^3/uL (1.8-7.7) Lymphocytes # (Auto) 0.9 x10^3/uL (1.0-4.8) Monocytes # (Auto) 0.5 x10^3/uL (0.0-1.1) Eosinophils # (Auto) 0.0 x10^3/uL (0.0-0.7) Basophils # (Auto) 0.0 x10^3/uL (0.0-0.2) Platelet Estimate Adequate (ADEQUATE) Polychromasia Slight Hypochromasia Mod Anisocytosis Mod Ovalocytes Few Sodium Level 146 mmol/L (136-145) Potassium Level 4.4 mmol/L (3.5-5.1) Chloride Level 110 mmol/L (98-107) Carbon Dioxide Level 28 mmol/L (21-32) Anion Gap 8 (6-14) Blood Urea Nitrogen 36 mg/dL (7-20) Creatinine 1.3 mg/dL (0.6-1.0) Estimated GFR (Cockcroft-Gault) 52.0 BUN/Creatinine Ratio 28 (6-20) Glucose Level 74 mg/dL (70-99) Calcium Level 7.9 mg/dL (8.5-10.1) Total Bilirubin 0.9 mg/dL (0.2-1.0) Aspartate Amino Transf (AST/SGOT) 31 U/L (15-37) Alanine Aminotransferase (ALT/SGPT) 41 U/L (14-59) Alkaline Phosphatase 85 U/L (46-116) Creatine Kinase 168 U/L (26-192) Troponin I Quantitative 0.030 ng/mL (0.000-0.055) PI-Nuv-S-Type Natriuretic Peptide 57979 pg/mL (0-124) Total Protein 6.5 g/dL (6.4-8.2) Albumin 3.1 g/dL (3.4-5.0) Albumin/Globulin Ratio 0.9 (1.0-1.7) SARS-CoV-2 RNA (EDMAR) Negative (Negative) SARS-CoV-2 Antigen (Rapid) Negative (NEGATIVE) Urine Collection Type Unknown Urine Color Yellow Urine Clarity Clear Urine pH 5.0 (<5.0-8.0) Urine Specific [place] 1.015 (1.000-1.030) Urine Protein 30 mg/dL (NEG-TRACE) Urine Glucose (UA) Negative mg/dL (NEG) Urine Ketones (Stick) Negative mg/dL (NEG) Urine Blood Trace (NEG) Urine Nitrite Negative (NEG) Urine Bilirubin Negative (NEG) Urine Urobilinogen Dipstick 0.2 mg/dL (0.2 mg/dL) Urine Leukocyte Esterase Negative (NEG) Urine RBC Occ /HPF (0-2) Urine WBC 1-4 /HPF (0-4) Urine Squamous Epithelial Cells Many /LPF Urine Bacteria Many /HPF (0-FEW) Urine Mucus Slight /LPF Glucose (Fingerstick) 67 mg/dL (70-99) Test 03/07/21 05:01 Glucose (Fingerstick) 152 mg/dL (70-99) Images Images EXAM: DIGITAL SCREEN BILAT W/CAD HISTORY: Screening Study. COMPARISON: 2018 This study was interpreted with the benefit of Computerized Aided Detection (CAD). FINDINGS: Breast Density: SCATTERED The breast parenchyma shows scattered fibroglandular densities. Breast parenchyma level B.. There are no dominant suspicious masses, suspicious microcalcifications or evidence of architectural distortion. A pacemaker is present on the left side which makes positioning difficult. IMPRESSION: No mammographic indicators for malignancy. BI-RADS CATEGORY: 1 NEGATIVE RECOMMENDED FOLLOW-UP: 12M 12 MONTH FOLLOW-UP PQRS compliance statement: Patient information was entered into a reminder system with a target due date February 19, 2022 for the next mammogram. Mammography is a sensitive method for finding small breast cancers, but it does not detect them all and is not a substitute for careful clinical examination. A negative mammogram does not negate a clinically suspicious finding and should not result in delay in biopsying a clinically suspicious abnormality. "Our facility is accredited by the [employer] Mammography Program." The patient's breast density may affect the ability of mammography to detect breast cancer. There are 4 categories of breast density, A, B, C and D. Breast density A means that most of the breast tissue is replaced with adipose tissue and therefore is not dense. Breast density B means that the breast tissue is mildly dense and scattered. Breast density C means that the breast tissue is heterogeneously dense. Breast density D means that the breast tissue is very dense. Breast densities especially C and D may decrease the sensitivity of mammography to detect breast cancer. Therefore, the patient may benefit from 3-D breast mammography (3D breast tomography) as a part of their screening mammogram. Insurance may or may not pay for this additional imaging. The patient's breast density based on today's mammogram is category B. Result Comment: The immunofixation pattern appears unremarkable. Evidence of monoclonal protein is not apparent. Performed at: [facility] [id number], [place], [place] [id number] [employer] Helper: LAUREN Zhao MD, Phone: [phone] Specimen Comment: Has specimen been collected/obtained? Y PATIENT: KAITY JACOBS ACCOUNT: [id number] : 1970 LOCATION: ER AGE: 50 SEX: F EXAM STATUS: REG ER ORD. PHYSICIAN: DM AJCK DO REASON: Shortness of air PROCEDURE: PORTABLE CHEST 1V EXAM: Chest, single view. HISTORY: Shortness of air. COMPARISON: 01/25/2021 FINDINGS: A frontal view of the chest is obtained. There is stable diffuse central predominant interstitial infiltrate. There is stable cardiomegaly. There is a cardiac pacemaker defibrillator in expected position. There is no pneumothorax. IMPRESSION: Stable diffuse interstitial infiltrate and cardiomegaly. Electronically signed by: Vanessa Boss MD (03/06/2021 4:57 PM) [id number] DICTATED and SIGNED BY: VANESSA BOSS MD PATIENT: KAITY JACOBS ACCOUNT: [id number] : 1970 LOCATION: ER AGE: 50 SEX: F EXAM STATUS: REG ER ORD. PHYSICIAN: DM JACK DO REASON: Shortness of air PROCEDURE: PORTABLE CHEST 1V EXAM: Chest, single view. HISTORY: Shortness of air. COMPARISON: 01/25/2021 FINDINGS: A frontal view of the chest is obtained. There is stable diffuse central predominant interstitial infiltrate. There is stable cardiomegaly. There is a cardiac pacemaker defibrillator in expected position. There is no pneumothorax. IMPRESSION: Stable diffuse interstitial infiltrate and cardiomegaly. Electronically signed by: Vanessa Boss MD (03/06/2021 4:57 PM) [id number] DICTATED and SIGNED BY: VANESSA BOSS MD DATE: 03/06/21 [id number] VTE Prophylaxis Ordered VTE Prophylaxis Devices: Yes VTE Pharmacological Prophylaxi: Yes Assessment/Plan Assessment/Plan Assessment/Plan ASSESSMENT 1. Dyspnea with acute on chronic diastolic/systolic CHF; 2. NICM: s/p AICD (Biotronik). LVEF 35-40% per echo 07/31. Cath 2018 without significant CAD 3. Possible ELIZABETH/COPD with morbid severe obesity: BMI at 63 4. Hypertension; labile 5. DM2/HLP; statin 6. 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 Tobaccoism 8. Chronic warfarin therapy: unclear use was told due to CVA but no notation of past AFIB/flutter. Most recent device check wtih 0% AFIB burden 9. Arrhythmia; bursts of NSVT noted on tele RECENT VISIT . TSH WNL 10. super MORBID OBESITY 11. neg recent SPIE 12. microcytic anemia 13. ACUTE HYPOXIC RESP FAILURE 14. SEVERE protein-caloric malnutrition 15. proteinuria plan ADMIT CVC BED CONSULT CARDIOLOGY Device interrogation Continue BB Replace Mg HF optimization with Entresto, Aldactone, Lasix, and Coreg. Hold as warranted if orthostasis + Smoking cessation Wt loss and secondary prevention measures. consult pulmonary fe panel SPIE, UPIE RECENT NO MONOCLONAL PROTEIN ABG use cpap qhs regularly elizabeth the importance of tx discussed continue to diurese-- daily lasix, PT IS A PUI NEG stat ABGs to rule out worsening hypercapnia. BiPAP. NEPHROLOGY CONSULT REFUSING BIPAP, MAY NEED HOSPICE informational visit and PAT TEAM CONSULT 36 min cc time Justifications for Admission Other Justification RICARDO BLACK MD March 07, 2021 09:15
[2021-03-07] MEDS ORDERED: FUROSEMIDE 40 MG/4 ML VIAL. IVP ONE (10:00)
--- NOTE | 2021-03-07 10:24 | CONS ---
DATE OF CONSULTATION: 03/07/2021 PULMONARY CONSULTATION ATTENDING PHYSICIAN: Dr. Hawkins. REASON FOR CONSULTATION: Respiratory failure. HISTORY OF PRESENT ILLNESS: The patient is a 50-year-old morbidly obese female with a BMI of 74. The patient is known to us from previous admission. She has a history of CVA, history of chronic lower extremity lymphedema, history of COPD, history of chronic systolic heart failure and obstructive sleep apnea and obesity hypoventilation syndrome. She has prior admissions for congestive heart failure. She was brought into the hospital with complaint of shortness of breath which was not being relieved with the breathing treatments. She has some reported chest tightness as well. The patient reportedly had no nausea, vomiting. No diarrhea. No fever or chills. She has not received her COVID vaccine. She has also increased lower extremity edema. Upon my arrival in the room, the patient is not responsive to commands. She does get some answers, but then dozes off. Arterial blood gases were routinely ordered, but has not been done yet. Chest x-ray revealed bilateral interstitial infiltrates. Consultation requested for further evaluation and management. Her SARS-COVID test was negative. Her BUN was 36 with a creatinine of 1.3. PAST MEDICAL HISTORY: Significant for history of COPD, history of chronic congestive heart failure, EF of 35%, history of morbid obesity, ELIZABETH and OHS, history of COPD, CHF, gallstones, GERD, dyslipidemia, hypertension, CVA. PAST SURGICAL HISTORY: Cholecystectomy, cyst removal, tracheostomy and defibrillator. SOCIAL HISTORY: Has history of tobacco use on a daily basis. REVIEW OF SYSTEMS: Unable to obtain due to her mental status. ALLERGIES: HYDROCODONE AND MORPHINE. MEDICATIONS: Reviewed as listed in the MRAD. REVIEW OF SYSTEMS: Unable to obtain from the patient. FAMILY HISTORY: Unable to obtain. PHYSICAL EXAMINATION: GENERAL: She is lethargic. VITAL SIGNS: Blood pressure 90/70, pulse ox 97% on 5 liters. NECK: Supple. LUNGS: With diminished breath sounds bilaterally. CARDIOVASCULAR: With a regular rate. ABDOMEN: Markedly obese. EXTREMITIES: Bilateral lymphedema. LABORATORY DATA: Reviewed. BUN 36, creatinine 1.3. ProBNP is 20,000, white cell count 5.5, hemoglobin 10.6, and platelets 188. IMPRESSION: 1. Acute on chronic hypoxic and suspected hypercapnic respiratory failure secondary to acute on chronic systolic heart failure. 2. Encephalopathy, metabolic and toxic, suspect hypercapnia. 3. Acute on chronic systolic congestive heart failure. 4. Abnormal chest x-ray with bilateral interstitial infiltrates. 5. Previous echo with EF of 35%. 6. Morbid obesity with obstructive sleep apnea with marginal compliance with CPAP and obesity hypoventilation syndrome. 7. Mild acute kidney injury. RECOMMENDATIONS: 1. Discussed with RN. We will obtain a stat ABGs to rule out worsening hypercapnia. 2. The patient will need BiPAP. 3. Diuresis per cardiology. 4. Follow cardiology consult and recommendation. 5. Renal consultation and recommendation. 6. Cautious diuresis keeping an eye of her renal function. 7. Avoid any sedatives or narcotics. 8. Add bronchodilators. 9. Discussed with RN and chart reviewed, imaging studies reviewed. Total critical care time 35 minutes including decision making. ADALID DR: Daniel TID: [id number]
--- NOTE | 2021-03-07 10:49 | NUR ---
pt very agitated after ABG draw. not willing to respond to orientation questions until much prodding, then patient verbalized she was in [facility]. immediately grabbed cell phone off of bedside table to call her brother. was cussing over the phone telling him to "come get me out of this mother fucking place. all these mother fuckers sticking needles in me! take me home cause i ain't gonna up in here!" did allow staff to replace soiled chux and draw sheet. RN encouraged her to stay and patient saying she's going to walk home. Dr. Buckley informed.
[2021-03-07] MEDS ORDERED: ACETAMINOPHEN 325 MG TABLET. PO PRN (11:00)
[2021-03-07] MEDS ORDERED: SODIUM PHOSPHATES 19/7GM 133 ML ENEMA. PR PRN (11:00)
[2021-03-07] MEDS ORDERED: DOCUSATE SODIUM 100 MG CAPSULE. PO PRN (11:00)
[2021-03-07] MEDS ORDERED: 0.9 % SODIUM CHLORIDE 10 ML DISP.SYRIN. IV PRN (11:00)
[2021-03-07] MEDS ORDERED: guaiFENesin ORAL 200 MG/10 ML LIQUID. PO PRN (11:00)
[2021-03-07] MEDS ORDERED: POLYETHYLENE GLYCOL 3350 17 GM PACKET. PO PRN (11:00)
[2021-03-07] MEDS ORDERED: MAG HYDROX/ALUMINUM HYD/SIMETH 30 ML ORAL.SUSP PO PRN (11:00)
[2021-03-07] MEDS ORDERED: ONDANSETRON PF 4 MG/2 ML VIAL. IV PRN (11:00)
--- NOTE | 2021-03-07 11:12 | NUR ---
Attempted to place patient on Bipap, however she will not allow us to touch her. She is refusing treatment and states she is leaving AMA.
[2021-03-07] MEDS: METOPROLOL SUCC 24HR ER 25 MG TAB.ER.24H. PO SCH (12:00)
[2021-03-07] MEDS ORDERED: INSULIN LISPRO 100 UNIT/ML 3ML VIAL for OP,RR ONLY. SQ SCH (12:00)
[2021-03-07] MEDS: SACUBITRIL/VALSARTAN 49/51MG TABLET. PO SCH ×2 (12:00→21:21)
[2021-03-07] MEDS ORDERED: IPRATRPIUM/ALBUTEROL 0.5/2.5MG 3 ML NEBU. NEB SCH (12:00)
[2021-03-07] MEDS: IPRATRPIUM/ALBUTEROL 0.5/2.5MG 3 ML NEBU. NEB SCH ×3 (12:00→20:00)
[2021-03-07] MEDS: glipiZIDE 5 MG TABLET PO SCH (12:00)
[2021-03-07] MEDS: SPIRONOLACTONE 25 MG TABLET PO SCH (12:00)
--- NOTE | 2021-03-07 12:09 | NUR ---
pt refusing andrade catheter. when staff explained the need for one, that she is getting diuretics, and that she would be urinating more frequently, patient indicated she would just "lay here in it". also refusing breathing treatments and medications. patient raised arm in a threatening way as if to punch the [employer]. RN informed patient that was unacceptable and that security would be called if she threatened staff. patient then got on her phone and called the brother asking for him to bring her clothes and pick her up again.
--- NOTE | 2021-03-07 12:12 | PDOC2 ---
CINTHIA MICHEL [employer] MAINTENANCE 03/07/21 1212: CARDIAC CONSULT DATE OF CONSULT Date of Consult DATE: 03/07/21 TIME: 12:06 REASON FOR CONSULT Reason for Consult: CHF REFERRING PHYSICIAN Referring Physician: Dr. Buckley SOURCE Source: Chart review, Patient HISTORY OF PRESENT ILLNESS HISTORY OF PRESENT ILLNESS This is a 50 yo male who presented secondary to shortness of breath and tightness in the central chest. Has been quite agitated with staff this morning; cursing and treating to hit staff. Was agreeable to place BiPAP. HPI difficult to obtained. Patient reports shortness of breath for some time. Associated with LE edema. No dizziness, diaphoresis, or nausea/vomiting. PAST MEDICAL HISTORY Past Medical History Cardiovascular: HTN, Hyperlipidemia, CHF Pulmonary: ELIZABETH CENTRAL NERVOUS SYSTEM: CVA (2002) GI: No pertinent hx Heme/Onc: Other (Chronic warfarin use) Hepatobiliary: No pertinent hx Psych: No pertinent hx Musculoskeletal: Osteoarthritis Rheumatologic: No pertinent hx Infectious disease: No pertinent hx ENT: No pertinent hx Renal/: No pertinent hx Endocrine: Diabetes (2) Dermatology: No pertinent hx PAST SURGICAL HISTORY Past Surgical History Cholecystectomy, Other (tracheostomy related to stroke) FAMILY HISTORY Family History: Diabetes SOCIAL HISTORY Social History Smoke: <1 pack per day (>20 yrs on and off) ALCOHOL: none Drugs: None Lives: with Family CURRENT MEDICATIONS CURRENT MEDICATIONS Current Medications Medications (Trade) Dose Ordered Sig/Liam Route PRN Reason Start Time Stop Time Status Last Admin Dose Admin Methylprednisolone Sodium Succinate (SOLU-Medrol 125MG VIAL) 125 mg 1X ONCE IV 03/06/21 16:15 03/06/21 16:16 DC 03/06/21 17:11 Furosemide (Lasix) 40 mg 1X ONCE IVP 03/07/21 10:00 03/07/21 10:04 DC 03/07/21 10:15 Enoxaparin Sodium (Lovenox 60mg Syringe) 60 mg Q12HR SQ 03/07/21 11:00 03/07/21 10:14 ALLERGIES ALLERGIES: Coded Allergies: hydrocodone (Verified Allergy, Intermediate, 10/23/18) morphine (Verified Allergy, Intermediate, 10/23/18) ROS Review of System 14 point ROS conducted with pertinent positives noted above in HPI, although limited due to cooperation PHYSICAL EXAM PHYSICAL EXAM General: NAD HEENT: Atraumatic, Mucous membr. moist/pink Lungs: BiPAP, diminished bases Heart: Regular rate and rate Abdomen: Soft, Other (obese) Extremities: Other (3+ bilateral LE edema ) Skin: No significant lesion Neuro: Sensation intact Psych/Mental Status: flat affect, appears withdrawn and has been agitated with staff this morning MUSCULOSKELETAL: Osteoarthritic changes both hands VITALS/I&O VITALS/I&O: Vital Signs Date Time Temp Pulse Resp B/P (MAP) Pulse Ox O2 Delivery O2 Flow Rate FiO2 03/07/21 11:48 100 03/07/21 10:11 98.7 95 22 116/71 (86) Nasal Cannula 5.0 98.7 I & O 03/06/21 03/06/21 03/07/21 15:00 23:00 07:00 Intake Total 800 ml Output Total 700 ml Balance 100 ml LABS Lab: Laboratory Tests Test 03/06/21 16:37 03/06/21 17:07 03/06/21 21:00 03/06/21 22:28 White Blood Count 5.5 x10^3/uL (4.0-11.0) Red Blood Count 4.08 x10^6/uL (3.50-5.40) Hemoglobin 10.6 g/dL (12.0-15.5) L Hematocrit 33.7 % (36.0-47.0) L Mean Corpuscular Volume 82 fL (79-100) Mean Corpuscular Hemoglobin 26 pg (25-35) Mean Corpuscular Hemoglobin Concent 32 g/dL (31-37) Red Cell Distribution Width 23.2 % (11.5-14.5) H Platelet Count 188 x10^3/uL (140-400) Neutrophils (%) (Auto) 73 % (31-73) Lymphocytes (%) (Auto) 17 % (24-48) L Monocytes (%) (Auto) 9 % (0-9) Eosinophils (%) (Auto) 1 % (0-3) Basophils (%) (Auto) 1 % (0-3) Neutrophils # (Auto) 4.0 x10^3/uL (1.8-7.7) Lymphocytes # (Auto) 0.9 x10^3/uL (1.0-4.8) L Monocytes # (Auto) 0.5 x10^3/uL (0.0-1.1) Eosinophils # (Auto) 0.0 x10^3/uL (0.0-0.7) Basophils # (Auto) 0.0 x10^3/uL (0.0-0.2) Platelet Estimate Adequate (ADEQUATE) Polychromasia Slight Hypochromasia Mod Anisocytosis Mod Ovalocytes Few Sodium Level 146 mmol/L (136-145) H Potassium Level 4.4 mmol/L (3.5-5.1) Chloride Level 110 mmol/L (98-107) H Carbon Dioxide Level 28 mmol/L (21-32) Anion Gap 8 (6-14) Blood Urea Nitrogen 36 mg/dL (7-20) H Creatinine 1.3 mg/dL (0.6-1.0) H Estimated GFR (Cockcroft-Gault) 52.0 BUN/Creatinine Ratio 28 (6-20) H Glucose Level 74 mg/dL (70-99) Calcium Level 7.9 mg/dL (8.5-10.1) L Total Bilirubin 0.9 mg/dL (0.2-1.0) Aspartate Amino Transferase (AST) 31 U/L (15-37) Alanine Aminotransferase (ALT) 41 U/L (14-59) Alkaline Phosphatase 85 U/L (46-116) Creatine Kinase 168 U/L (26-192) Troponin I Quantitative 0.030 ng/mL (0.000-0.055) XH-Ilx-V-Type Natriuretic Peptide 45549 pg/mL (0-124) H Total Protein 6.5 g/dL (6.4-8.2) Albumin 3.1 g/dL (3.4-5.0) L Albumin/Globulin Ratio 0.9 (1.0-1.7) L SARS-CoV-2 RNA (EDMAR) Negative (Negative) SARS-CoV-2 Antigen (Rapid) Negative (NEGATIVE) Urine Collection Type Unknown Urine Color Yellow Urine Clarity Clear Urine pH 5.0 (<5.0-8.0) Urine Specific [place] 1.015 (1.000-1.030) Urine Protein 30 mg/dL (NEG-TRACE) Urine Glucose (UA) Negative mg/dL (NEG) Urine Ketones (Stick) Negative mg/dL (NEG) Urine Blood Trace (NEG) Urine Nitrite Negative (NEG) Urine Bilirubin Negative (NEG) Urine Urobilinogen Dipstick 0.2 mg/dL (0.2 mg/dL) Urine Leukocyte Esterase Negative (NEG) Urine RBC Occ /HPF (0-2) Urine WBC 1-4 /HPF (0-4) Urine Squamous Epithelial Cells Many /LPF Urine Bacteria Many /HPF (0-FEW) Urine Mucus Slight /LPF Glucose (Fingerstick) 67 mg/dL (70-99) L Test 03/07/21 05:01 03/07/21 11:45 Glucose (Fingerstick) 152 mg/dL (70-99) H 174 mg/dL (70-99) H Laboratory Tests 03/06/21 16:37 Laboratory Tests 03/06/21 16:37 ECHOCARDIOGRAM ECHOCARDIOGRAM <Conclusion> The left ventricular systolic function is moderately impaired. The Ejection Fraction is 35-40%. Pacer/ICD lead noted RA/RV. Trace mitral regurgitation. Trace tricuspid regurgitation with an estimated PAP of 43 mmHg. There is no evidence of significant pericardial effusion. DATE: 07/16/201838 HEART CATH HEART CATH CORONARY ANGIOGRAPHY: LM is a large caliber vessel with normal angiographic appearance. LAD is a large caliber vessel with normal angiographic appearance. D1 is a moderate caliber vessel with normal angiographic apeparance. LCx is a moderate caliber non-dominant vessel with normal angiographic appearance. OM1 is a moderate caliber vessel with normal angiographic appearance. RCA is a large caliber dominant vessel with normal angiographic appearance. RPDA and RPL are moderate caliber vessels with normal angiographic appearance. Conclusion 1. Elevated left sided filling pressures (LVEDP 35 mm Hg) consistent with acute on chronic decompensated HF. 2. No angiographic evidence of coronary disease. Recommendations Aggressive Medical Therapy DATE: 10/25/181816 ASSESSMENT/PLAN ASSESSMENT/PLAN 1. Acute respiratory failure; multifactorial. with a/c CHF, COPD, and obesity/hypoventilation. on BiPAP 2. Acute on chronic diastolic/systolic CHF 2. NICM: s/p AICD (Biotronik). LVEF 35-40% per echo 07/31. Cath 2018 without significant CAD. Device check 01/30 with normal function and stable lead impedances 3. Possible ELIZABETH/COPD with morbid obesity: BMI at 73 4. Hypertension; controlled 5. Hyperlipidemia; statin 5. Diabetes, II 7. Hx of CVA: in 2002 with left side hemiparesis 8. Tobaccoism 9. Chronic warfarin therapy:due to remote CVA. No h/o AFIB/flutter. Most recent device check wtih 0% AFIB burden. Recommendations Diuresis with monitoring of renal function Resume HF optimization with Entresto, Aldactone, and Toprol Wt loss and secondary prevention measures. Ongoing lung optimization Supportive care HIREN HEARN MD 03/07/21 1810: CARDIAC CONSULT ASSESSMENT/PLAN ASSESSMENT/PLAN Patient seen and examined. I agree with our nurse practitioners assessment and plan. Acute respiratory failure; multifactorial. with a/c CHF, COPD, and obesity/hypoventilation. on BiPAP. Being evaluated by pulmonary. Echo pending. Acute on chronic diastolic/systolic CHF NICM: s/p AICD (Biotronik). LVEF 35-40% per echo 07/31. Cath 2018 without significant CAD. Device check 01/30 with normal function and stable lead impedan adriana Possible ELIZABETH/COPD with morbid obesity: BMI at 73 Hypertension; controlled Hyperlipidemia; statin Diabetes, II Hx of CVA: in 2002 with left side hemiparesis Chronic warfarin therapy:due to remote CVA. No h/o AFIB/flutter. Most recent device check wtih 0% AFIB burden. CINTHIA MICHEL APRN March 07, 2021 12:12 HIREN HEARN MD March 07, 2021 18:10
[2021-03-07] MEDS ORDERED: BUMETANIDE 1 MG TABLET. PO SCH (14:00)
[2021-03-07] MEDS ORDERED: DEXTROSE 50% 25 GM / 50ML DISP.SYRIN. IV PRN (14:30)
--- NOTE | 2021-03-07 15:26 | NUR ---
patient requesting to be made DNR. orders obtained from Dr. Hawkins
--- NOTE | 2021-03-07 15:28 | NUR ---
SS following for discharge planning. SS reviewed pt chart and discussed with pt RN. Pt is from home and is currently on room air. Pt has been on BIPAP intermittently. Pt requesting to be DNR/DNI. Pt on IV Bumex. PT/OT ordered. SS will continue to follow for discharge planning.
--- NOTE | 2021-03-07 16:41 | NUR ---
patient refusing to have PICC line placed. IR consult cancelled
--- NOTE | 2021-03-07 16:43 | NUR ---
report given to SUDHAKAR Herndon. Patient transferred via bed to [facility]. pt refused to wear O2 during transfer.
[2021-03-07] MEDS: INSULIN LISPRO 300 UNITS/3 ML VIAL. SQ SCH (17:00)
--- NOTE | 2021-03-07 17:00 | NUR ---
Patient has been received to room 656. Pt alert and oriented, oriented to room, unit. Call light and room phone within easy reach. Pt also has her cell phone. O2 resumed at 2L per nc, bubbler added for pt comfort. Pt calling family to bring food as well as ordering from kitchen. No visitors with patient at this time. Patient placed on telemetry upon arrival. Occ non productive cough. O2 sat approx low to mid 90's (96%), having some difficulty maintaining consistent sat readings due to variations in perfusion.
[2021-03-07] MEDS: FERROUS SULFATE 325 MG TABLET. PO SCH (17:26)
[2021-03-07] MEDS: WARFARIN 5 MG TABLET. PO SCH (17:27)
[2021-03-07] MEDS: POTASSIUM CHLORIDE 20 MEQ TABLET.ER. PO SCH (21:21)
[2021-03-07] MEDS: BUMETANIDE 1 MG/4 ML VIAL. IV SCH (21:22)
[2021-03-08 03:00] VITALS: BP 118/72
[2021-03-08 05:39] LABS: PROTHROMBIN TIME PATIENT 30.4 SEC (11.7-14.0)
[2021-03-08 07:00] VITALS: BP 141/75
--- NOTE | 2021-03-08 07:12 | NUR ---
Pt refused bipap the whole shift last night and had her oxygen per NC on and off. Pt at times refuses her v/s taken. At some point last night pt told this RN to just leave her alone..
[2021-03-08] MEDS: PANTOPRAZOLE 40 MG TABLET.DR. PO SCH (07:21)
[2021-03-08] MEDS: IPRATRPIUM/ALBUTEROL 0.5/2.5MG 3 ML NEBU. NEB SCH ×4 (07:21→20:43)
[2021-03-08 07:41] LABS: BASO % 0 % (0-3); EOS % 0 % (0-3); HEMOGLOBIN 9.8 g/dL (12.0-15.5); LYMPH # 0.8 x10^3/uL (1.0-4.8); LYMPH % 13 % (24-48); MEAN CORPUSCULAR HEMOGLOBIN 26 pg (25-35); MEAN CORPUSCULAR HGB CONC 31 g/dL (31-37); MEAN CORPUSCULAR VOLUME 85 fL (79-100); MONO # 0.6 x10^3/uL (0.0-1.1); MONO % 9 % (0-9); NEUT # 4.9 x10^3/uL (1.8-7.7); NEUT % 77 % (31-73); PLATELET COUNT 166 x10^3/uL (140-400); RED BLOOD COUNT 3.78 x10^6/uL (3.50-5.40); RED CELL DISTRIBUTION WIDTH 23.2 % (11.5-14.5); WHITE BLOOD COUNT 6.4 x10^3/uL (4.0-11.0)
[2021-03-08] MEDS: INSULIN LISPRO 300 UNITS/3 ML VIAL. SQ SCH ×3 (08:00→17:00)
[2021-03-08 08:13] LABS: CALCIUM 7.6 mg/dL (8.5-10.1); CREATININE 1.2 mg/dL (0.6-1.0); GFR 57.1; POTASSIUM 4.3 mmol/L (3.5-5.1)
--- NOTE | 2021-03-08 09:39 | PDOC ---
PULMONARY PROGRESS NOTES DATE: 03/08/21 TIME: 09:37 Subjective Patient refused arterial blood gases. She also refused to be placed on BiPAP. She answers questions. She states she is hurting. She is now DNR/DNI. Vitals Vital Signs Date Time Temp Pulse Resp B/P (MAP) Pulse Ox O2 Delivery O2 Flow Rate FiO2 03/08/21 07:24 99 Nasal Cannula 2.0 03/08/21 07:00 98.0 85 18 141/75 (97) 98.0 General: Alert, Oriented X4, No acute distress Lungs: Clear, Crackles Cardiovascular: S1 Abdomen: Soft, Other Extremities: Other Labs Laboratory Tests Test 03/06/21 16:37 03/06/21 17:07 03/06/21 21:00 03/06/21 22:28 White Blood Count 5.5 x10^3/uL (4.0-11.0) Red Blood Count 4.08 x10^6/uL (3.50-5.40) Hemoglobin 10.6 g/dL (12.0-15.5) Hematocrit 33.7 % (36.0-47.0) Mean Corpuscular Volume 82 fL (79-100) Mean Corpuscular Hemoglobin 26 pg (25-35) Mean Corpuscular Hemoglobin Concent 32 g/dL (31-37) Red Cell Distribution Width 23.2 % (11.5-14.5) Platelet Count 188 x10^3/uL (140-400) Neutrophils (%) (Auto) 73 % (31-73) Lymphocytes (%) (Auto) 17 % (24-48) Monocytes (%) (Auto) 9 % (0-9) Eosinophils (%) (Auto) 1 % (0-3) Basophils (%) (Auto) 1 % (0-3) Neutrophils # (Auto) 4.0 x10^3/uL (1.8-7.7) Lymphocytes # (Auto) 0.9 x10^3/uL (1.0-4.8) Monocytes # (Auto) 0.5 x10^3/uL (0.0-1.1) Eosinophils # (Auto) 0.0 x10^3/uL (0.0-0.7) Basophils # (Auto) 0.0 x10^3/uL (0.0-0.2) Platelet Estimate Adequate (ADEQUATE) Polychromasia Slight Hypochromasia Mod Anisocytosis Mod Ovalocytes Few Sodium Level 146 mmol/L (136-145) Potassium Level 4.4 mmol/L (3.5-5.1) Chloride Level 110 mmol/L (98-107) Carbon Dioxide Level 28 mmol/L (21-32) Anion Gap 8 (6-14) Blood Urea Nitrogen 36 mg/dL (7-20) Creatinine 1.3 mg/dL (0.6-1.0) Estimated GFR (Cockcroft-Gault) 52.0 BUN/Creatinine Ratio 28 (6-20) Glucose Level 74 mg/dL (70-99) Calcium Level 7.9 mg/dL (8.5-10.1) Total Bilirubin 0.9 mg/dL (0.2-1.0) Aspartate Amino Transf (AST/SGOT) 31 U/L (15-37) Alanine Aminotransferase (ALT/SGPT) 41 U/L (14-59) Alkaline Phosphatase 85 U/L (46-116) Creatine Kinase 168 U/L (26-192) Troponin I Quantitative 0.030 ng/mL (0.000-0.055) CB-Qeu-Y-Type Natriuretic Peptide 24192 pg/mL (0-124) Total Protein 6.5 g/dL (6.4-8.2) Albumin 3.1 g/dL (3.4-5.0) Albumin/Globulin Ratio 0.9 (1.0-1.7) SARS-CoV-2 RNA (EDMAR) Negative (Negative) SARS-CoV-2 Antigen (Rapid) Negative (NEGATIVE) Urine Collection Type Unknown Urine Color Yellow Urine Clarity Clear Urine pH 5.0 (<5.0-8.0) Urine Specific [place] 1.015 (1.000-1.030) Urine Protein 30 mg/dL (NEG-TRACE) Urine Glucose (UA) Negative mg/dL (NEG) Urine Ketones (Stick) Negative mg/dL (NEG) Urine Blood Trace (NEG) Urine Nitrite Negative (NEG) Urine Bilirubin Negative (NEG) Urine Urobilinogen Dipstick 0.2 mg/dL (0.2 mg/dL) Urine Leukocyte Esterase Negative (NEG) Urine RBC Occ /HPF (0-2) Urine WBC 1-4 /HPF (0-4) Urine Squamous Epithelial Cells Many /LPF Urine Bacteria Many /HPF (0-FEW) Urine Mucus Slight /LPF Glucose (Fingerstick) 67 mg/dL (70-99) Test 03/07/21 05:01 03/07/21 11:45 03/07/21 16:15 03/07/21 21:32 Glucose (Fingerstick) 152 mg/dL (70-99) 174 mg/dL (70-99) 143 mg/dL (70-99) 124 mg/dL (70-99) Test 03/08/21 03:30 03/08/21 07:37 White Blood Count 6.4 x10^3/uL (4.0-11.0) Red Blood Count 3.78 x10^6/uL (3.50-5.40) Hemoglobin 9.8 g/dL (12.0-15.5) Hematocrit 32.0 % (36.0-47.0) Mean Corpuscular Volume 85 fL (79-100) Mean Corpuscular Hemoglobin 26 pg (25-35) Mean Corpuscular Hemoglobin Concent 31 g/dL (31-37) Red Cell Distribution Width 23.2 % (11.5-14.5) Platelet Count 166 x10^3/uL (140-400) Neutrophils (%) (Auto) 77 % (31-73) Lymphocytes (%) (Auto) 13 % (24-48) Monocytes (%) (Auto) 9 % (0-9) Eosinophils (%) (Auto) 0 % (0-3) Basophils (%) (Auto) 0 % (0-3) Neutrophils # (Auto) 4.9 x10^3/uL (1.8-7.7) Lymphocytes # (Auto) 0.8 x10^3/uL (1.0-4.8) Monocytes # (Auto) 0.6 x10^3/uL (0.0-1.1) Eosinophils # (Auto) 0.0 x10^3/uL (0.0-0.7) Basophils # (Auto) 0.0 x10^3/uL (0.0-0.2) Prothrombin Time 30.4 SEC (11.7-14.0) Prothromb Time International Ratio 2.9 (0.8-1.1) Sodium Level 147 mmol/L (136-145) Potassium Level 4.3 mmol/L (3.5-5.1) Chloride Level 111 mmol/L (98-107) Carbon Dioxide Level 29 mmol/L (21-32) Anion Gap 7 (6-14) Blood Urea Nitrogen 35 mg/dL (7-20) Creatinine 1.2 mg/dL (0.6-1.0) Estimated GFR (Cockcroft-Gault) 57.1 Glucose Level 132 mg/dL (70-99) Calcium Level 7.6 mg/dL (8.5-10.1) Magnesium Level 2.0 mg/dL (1.8-2.4) Glucose (Fingerstick) 127 mg/dL (70-99) Laboratory Tests Test 03/07/21 11:45 03/07/21 16:15 03/07/21 21:32 03/08/21 03:30 Glucose (Fingerstick) 174 mg/dL (70-99) 143 mg/dL (70-99) 124 mg/dL (70-99) White Blood Count 6.4 x10^3/uL (4.0-11.0) Red Blood Count 3.78 x10^6/uL (3.50-5.40) Hemoglobin 9.8 g/dL (12.0-15.5) Hematocrit 32.0 % (36.0-47.0) Mean Corpuscular Volume 85 fL (79-100) Mean Corpuscular Hemoglobin 26 pg (25-35) Mean Corpuscular Hemoglobin Concent 31 g/dL (31-37) Red Cell Distribution Width 23.2 % (11.5-14.5) Platelet Count 166 x10^3/uL (140-400) Neutrophils (%) (Auto) 77 % (31-73) Lymphocytes (%) (Auto) 13 % (24-48) Monocytes (%) (Auto) 9 % (0-9) Eosinophils (%) (Auto) 0 % (0-3) Basophils (%) (Auto) 0 % (0-3) Neutrophils # (Auto) 4.9 x10^3/uL (1.8-7.7) Lymphocytes # (Auto) 0.8 x10^3/uL (1.0-4.8) Monocytes # (Auto) 0.6 x10^3/uL (0.0-1.1) Eosinophils # (Auto) 0.0 x10^3/uL (0.0-0.7) Basophils # (Auto) 0.0 x10^3/uL (0.0-0.2) Prothrombin Time 30.4 SEC (11.7-14.0) Prothromb Time International Ratio 2.9 (0.8-1.1) Sodium Level 147 mmol/L (136-145) Potassium Level 4.3 mmol/L (3.5-5.1) Chloride Level 111 mmol/L (98-107) Carbon Dioxide Level 29 mmol/L (21-32) Anion Gap 7 (6-14) Blood Urea Nitrogen 35 mg/dL (7-20) Creatinine 1.2 mg/dL (0.6-1.0) Estimated GFR (Cockcroft-Gault) 57.1 Glucose Level 132 mg/dL (70-99) Calcium Level 7.6 mg/dL (8.5-10.1) Magnesium Level 2.0 mg/dL (1.8-2.4) Test 03/08/21 07:37 Glucose (Fingerstick) 127 mg/dL (70-99) Medications Active Scripts Medications Dose Route/Sig Max Daily Dose Days Date Category Admelog (Insulin Lispro) 100 Unit/1 Ml Vial 0 Units SQ TIDWMEALS 01/27/21 Rx Polyethylene Glycol 3350 17 Gm Powd.pack 17 Gm PO PRN DAILY PRN 01/27/21 Rx Bumetanide 1 Mg Tablet 1 Mg PO BID92 01/27/21 Rx Metoprolol Succinate ( Xl ) (Metoprolol Succinate) 25 Mg Tab.er.24h 75 Mg PO DAILY 01/27/21 Rx Feosol (Ferrous Sulfate) 325 Mg Tablet 325 Mg PO BIDWMEALS 01/27/21 Rx Duoneb 0.5-3(2.5) Mg/3 Ml (Albuterol/Ipratropium) 3 Ml Ampul.neb 3 Ml NEB RTQID 01/27/21 Rx Aldactone (Spironolactone) 25 Mg Tablet 25 Mg PO DAILY 30 07/16/20 Rx Oxycodon-Acetaminophen 7.5-325 (Oxycodone Hcl/Acetaminophen) 1 Each Tablet 7.5-325 Mg PO PRN Q6HRS PRN 01/31/19 Reported Omeprazole 40 Mg Capsule.dr 1 Cap PO DAILY06 01/31/19 Reported Potassium Chloride (Potassium Chloride) 20 Meq Tablet.er 20 Meq PO BID 01/31/19 Reported Entresto 49 mg-51 mg Tablet (Sacubitril/Valsartan) 1 Each Tablet 1 Tab PO BID 01/31/19 Reported Glipizide 5 Mg Tablet 1 Tab PO DAILY 10/22/18 Reported Warfarin Sodium 10 Mg Tablet 10 Mg PO DAILY 08/25/14 Reported Crestor (Rosuvastatin Calcium) 10 Mg Tablet 1 Tab PO DAILY 08/25/14 Reported Impression . 1. Acute on chronic hypoxic and suspected hypercapnic respiratory failure secondary to acute on chronic systolic heart failure. 2. Encephalopathy, metabolic and toxic, suspect hypercapnia. 3. Acute on chronic systolic congestive heart failure. 4. Abnormal chest x-ray with bilateral interstitial infiltrates. 5. Previous echo with EF of 35%. 6. Morbid obesity with obstructive sleep apnea with marginal compliance with CPAP and obesity hypoventilation syndrome. 7. Mild acute kidney injury. Plan . 1. Discussed with RN. Patient refused arterial blood gases and also refused BiPAP. She remains on nasal cannula. 2. Encephalopathy mildly improved. 3. Diuresis per cardiology. 4. Follow cardiology recommendation. 5. Renal consultation and recommendation. 6. Cautious diuresis keeping an eye of her renal function. 7. Avoid any sedatives or narcotics. 8. bronchodilators. 9. Discussed with RN Patient is DNR/DNI now. SUSAN MELARA MD March 08, 2021 09:39
--- NOTE | 2021-03-08 10:41 | PDOC2 ---
CONSULT Date of Consult Date of Consult DATE: 03/08/21 TIME: 10:41 Reason for Consult Reason for Consult: RADHA Source Source: Chart review, Patient History of Present Illness Reason for Visit: This is a 50 yo AAF who presented secondary to shortness of breath and tightness in the central chest. Has been quite agitated with staff this morning; cursing and treating to hit staff. Was agreeable to place BiPAP. HPI difficult to obtained. Patient reports shortness of breath for some time. Associated with LE edema. No dizziness, diaphoresis, or nausea/vomiting. Currently calm, No acute complaints. Denies any recent UTI. Denies use of NSAID's. States she is on percocet . Past Medical History Cardiovascular: CHF, HTN, Hyperlipidemia Pulmonary: Bronchitis, Other CENTRAL NERVOUS SYSTEM: CVA GI: No pertinent hx Heme/Onc: Anemia NOS, Other Hepatobiliary: No pertinent hx Psych: No pertinent hx Musculoskeletal: Osteoarthritis Rheumatologic: No pertinent hx Infectious disease: No pertinent hx Renal/: No pertinent hx Endocrine: Diabetes Past Surgical History Past Surgical History: Cholecystectomy, Other Family History Family History: Diabetes Social History <1 pack per day ALCOHOL: none Drugs: Marijuana Lives: with Family Current Problem List Problem List Problems Medical Problems: (1) Chest pain Status: Acute (2) History of COPD Status: Acute (3) Person under investigation for COVID-19 Status: Acute (4) Respiratory distress Status: Acute Current Medications Current Medications Current Medications Methylprednisolone Sodium Succinate (SOLU-Medrol 125MG VIAL) 125 mg 1X ONCE IV Last administered on 03/06/21at 17:11; Start 03/06/21 at 16:15; Stop 03/06/21 at 16:16; Status DC Ondansetron HCl (Zofran) 4 mg PRN Q8HRS PRN IV NAUSEA/VOMITING; Start 03/06/21 at 17:45; Stop 03/07/21 at 10:59; Status DC Furosemide (Lasix) 40 mg 1X ONCE IVP Last administered on 03/07/21at 10:15; Start 03/07/21 at 10:00; Stop 03/07/21 at 10:04; Status DC Albuterol/ Ipratropium (Duoneb) 3 ml RTQID NEB Last administered on 03/08/21at 07:21; Start 03/07/21 at 12:00 Enoxaparin Sodium (Lovenox 60mg Syringe) 60 mg Q12HR SQ Last administered on 03/07/21at 10:14; Start 03/07/21 at 11:00; Stop 03/07/21 at 14:34; Status DC Bumetanide (Bumex) 1 mg BID92 PO ; Start 03/07/21 at 14:00; Stop 03/07/21 at 15:04; Status DC Ferrous Sulfate (Feosol) 325 mg BIDWMEALS PO Last administered on 03/07/21at 17:26; Start 03/07/21 at 17:00 Glipizide (Glucotrol) 5 mg DAILY PO ; Start 03/07/21 at 12:00 Insulin Human Lispro (HumaLOG VIAL for OP,RR ONLY) TIDWMEALS SQ ; Start 03/07/21 at 12:00; Stop 03/07/21 at 14:31; Status DC Albuterol/ Ipratropium (Duoneb) 3 ml RTQID NEB ; Start 03/07/21 at 12:00; Status Cancel Metoprolol Succinate (Toprol Xl) 75 mg DAILY PO ; Start 03/07/21 at 12:00 Polyethylene Glycol (miraLAX PACKET) 17 gm PRN DAILY PRN PO CONSTIPATION (1st Choice); Start 03/07/21 at 11:00 Potassium Chloride (Klor-Con) 20 meq BID PO Last administered on 03/07/21at 21:21; Start 03/07/21 at 21:00 Sacubitril/ Valsartan (Entresto 49 Mg-51 Mg) 1 tab BID PO Last administered on 03/07/21at 21:21; Start 03/07/21 at 12:00 Spironolactone (Aldactone) 25 mg DAILY PO ; Start 03/07/21 at 12:00 Pantoprazole Sodium (Protonix) 40 mg DAILY06 PO Last administered on 03/08/21at 07:21; Start 03/08/21 at 06:00 Atorvastatin Calcium (Lipitor) 40 mg DAILY PO ; Start 03/08/21 at 09:00 Warfarin Sodium (Coumadin) 10 mg DAILY16 PO Last administered on 03/07/21at 17:27; Start 03/07/21 at 16:00 Sodium Chloride (Normal Saline Flush) 3 ml QSHIFT PRN IV AFTER MEDS AND BLOOD DRAWS; Start 03/07/21 at 11:00 Ondansetron HCl (Zofran) 4 mg PRN Q4HRS PRN IV NAUSEA/VOMITING; Start 03/07/21 at 11:00 Acetaminophen (Tylenol) 650 mg PRN Q4HRS PRN PO TEMP OVER 100.4F OR MILD PAIN; Start 03/07/21 at 11:00 Al Hydroxide/Mg Hydroxide (Mylanta Plus Xs) 30 ml PRN DAILY PRN PO HEARTBURN / GAS; Start 03/07/21 at 11:00 Sodium Monofluorophosphate (Fleet Adult) 133 ml PRN DAILY PRN IN CONSTIPATION; Start 03/07/21 at 11:00 Docusate Sodium (Colace) 100 mg PRN BID PRN PO HARD STOOLS; Start 03/07/21 at 11:00 Guaifenesin (Robitussin) 200 mg PRN Q4HRS PRN PO COUGH; Start 03/07/21 at 11:00 Insulin Human Lispro (HumaLOG) 0-7 UNITS TIDWMEALS SQ ; Start 03/07/21 at 17:00 Dextrose (Dextrose 50%-Water Syringe) 12.5 gm PRN Q15MIN PRN IV SEE COMMENTS; Start 03/07/21 at 14:30 Warfarin Sodium (Coumadin Per Physician) 1 each PRN DAILY PRN MC SEE COMMENTS; Start 03/07/21 at 14:45 Bumetanide (Bumex) 1 mg BID IV Last administered on 03/07/21at 21:22; Start 03/07/21 at 21:00 Active Scripts Active Admelog (Insulin Lispro) 100 Unit/1 Ml Vial 0 Units SQ TIDWMEALS 30 Days Polyethylene Glycol 3350 17 Gm Powd.pack 17 Gm PO PRN DAILY PRN 30 Days Bumetanide 1 Mg Tablet 1 Mg PO BID92 30 Days Metoprolol Succinate ( Xl ) (Metoprolol Succinate) 25 Mg Tab.er.24h 75 Mg PO DAILY 30 Days Feosol (Ferrous Sulfate) 325 Mg Tablet 325 Mg PO BIDWMEALS 30 Days Duoneb 0.5-3(2.5) Mg/3 Ml (Albuterol/Ipratropium) 3 Ml Ampul.neb 3 Ml NEB RTQID 30 Days Aldactone (Spironolactone) 25 Mg Tablet 25 Mg PO DAILY 30 Days Reported Oxycodon-Acetaminophen 7.5-325 (Oxycodone Hcl/Acetaminophen) 1 Each Tablet 7.5- 325 Mg PO PRN Q6HRS PRN Omeprazole 40 Mg Capsule. 1 Cap PO DAILY06 Potassium Chloride (Potassium Chloride) 20 Meq Tablet.er 20 Meq PO BID Entresto 49 mg-51 mg Tablet (Sacubitril/Valsartan) 1 Each Tablet 1 Tab PO BID Glipizide 5 Mg Tablet 1 Tab PO DAILY Warfarin Sodium 10 Mg Tablet 10 Mg PO DAILY Crestor (Rosuvastatin Calcium) 10 Mg Tablet 1 Tab PO DAILY Allergies Allergies: Coded Allergies: hydrocodone (Verified Allergy, Intermediate, 10/23/18) morphine (Verified Allergy, Intermediate, 10/23/18) ROS Review of System As per HPI, rest of the ROS is negative Physical Exam Physical Exam General: NAD. Super Morbid obese HEENT: Mucous membr. moist/pink Neck supple Lungs: Pn O2 by NC, Decreased at bases, Non labored Heart: Regular rate and rate, distant Abdomen: Soft, obese) Extremities: 2+ bilateral LE edema Skin: No significant lesion Neuro: Sensation intact Psych/Mental Status: flat affect, appears withdrawn Flores +, No CVA or SP tenderness Vital Signs Vital Signs Date Time Temp Pulse Resp B/P (MAP) Pulse Ox O2 Delivery O2 Flow Rate FiO2 03/08/21 07:24 99 Nasal Cannula 2.0 03/08/21 07:00 98.0 85 18 141/75 (97) 98.0 Assessment & Plan RADHA Cardiorenal, Stable renal function,Non oliguric Supportive care, I/o , Avoid nephrotoxins. Has been on Bumex since her recent hospitalization . 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 with a/c CHF, COPD, and obe sity/hypoventilation. on BiPAP Acute on chronic diastolic/systolic CHF . NICM: s/p AICD LVEF 35-40% per echo 07/31. Cath 2018 without significant CAD. Device check 01/30 with normal function and stable lead impedances Possible ELIZABETH/COPD with morbid obesity: BMI at 73 Hypertension; controlled Diabetes, II Hx of CVA: in 2002 with left side hemiparesis Tobaccoism Chronic warfarin therapy:due to remote CVA. No h/o AFIB/flutter. Most recent device check wtih 0% AFIB burden. Morbidly Obese Labs Labs Laboratory Tests Test 03/06/21 16:37 03/06/21 17:07 03/06/21 21:00 03/06/21 22:28 White Blood Count 5.5 x10^3/uL (4.0-11.0) Red Blood Count 4.08 x10^6/uL (3.50-5.40) Hemoglobin 10.6 g/dL (12.0-15.5) Hematocrit 33.7 % (36.0-47.0) Mean Corpuscular Volume 82 fL (79-100) Mean Corpuscular Hemoglobin 26 pg (25-35) Mean Corpuscular Hemoglobin Concent 32 g/dL (31-37) Red Cell Distribution Width 23.2 % (11.5-14.5) Platelet Count 188 x10^3/uL (140-400) Neutrophils (%) (Auto) 73 % (31-73) Lymphocytes (%) (Auto) 17 % (24-48) Monocytes (%) (Auto) 9 % (0-9) Eosinophils (%) (Auto) 1 % (0-3) Basophils (%) (Auto) 1 % (0-3) Neutrophils # (Auto) 4.0 x10^3/uL (1.8-7.7) Lymphocytes # (Auto) 0.9 x10^3/uL (1.0-4.8) Monocytes # (Auto) 0.5 x10^3/uL (0.0-1.1) Eosinophils # (Auto) 0.0 x10^3/uL (0.0-0.7) Basophils # (Auto) 0.0 x10^3/uL (0.0-0.2) Platelet Estimate Adequate (ADEQUATE) Polychromasia Slight Hypochromasia Mod Anisocytosis Mod Ovalocytes Few Sodium Level 146 mmol/L (136-145) Potassium Level 4.4 mmol/L (3.5-5.1) Chloride Level 110 mmol/L (98-107) Carbon Dioxide Level 28 mmol/L (21-32) Anion Gap 8 (6-14) Blood Urea Nitrogen 36 mg/dL (7-20) Creatinine 1.3 mg/dL (0.6-1.0) Estimated GFR (Cockcroft-Gault) 52.0 BUN/Creatinine Ratio 28 (6-20) Glucose Level 74 mg/dL (70-99) Calcium Level 7.9 mg/dL (8.5-10.1) Total Bilirubin 0.9 mg/dL (0.2-1.0) Aspartate Amino Transf (AST/SGOT) 31 U/L (15-37) Alanine Aminotransferase (ALT/SGPT) 41 U/L (14-59) Alkaline Phosphatase 85 U/L (46-116) Creatine Kinase 168 U/L (26-192) Troponin I Quantitative 0.030 ng/mL (0.000-0.055) LF-Mlq-J-Type Natriuretic Peptide 49454 pg/mL (0-124) Total Protein 6.5 g/dL (6.4-8.2) Albumin 3.1 g/dL (3.4-5.0) Albumin/Globulin Ratio 0.9 (1.0-1.7) SARS-CoV-2 RNA (EDMAR) Negative (Negative) SARS-CoV-2 Antigen (Rapid) Negative (NEGATIVE) Urine Collection Type Unknown Urine Color Yellow Urine Clarity Clear Urine pH 5.0 (<5.0-8.0) Urine Specific [place] 1.015 (1.000-1.030) Urine Protein 30 mg/dL (NEG-TRACE) Urine Glucose (UA) Negative mg/dL (NEG) Urine Ketones (Stick) Negative mg/dL (NEG) Urine Blood Trace (NEG) Urine Nitrite Negative (NEG) Urine Bilirubin Negative (NEG) Urine Urobilinogen Dipstick 0.2 mg/dL (0.2 mg/dL) Urine Leukocyte Esterase Negative (NEG) Urine RBC Occ /HPF (0-2) Urine WBC 1-4 /HPF (0-4) Urine Squamous Epithelial Cells Many /LPF Urine Bacteria Many /HPF (0-FEW) Urine Mucus Slight /LPF Glucose (Fingerstick) 67 mg/dL (70-99) Test 03/07/21 05:01 03/07/21 11:45 03/07/21 16:15 03/07/21 21:32 Glucose (Fingerstick) 152 mg/dL (70-99) 174 mg/dL (70-99) 143 mg/dL (70-99) 124 mg/dL (70-99) Test 03/08/21 03:30 03/08/21 07:37 White Blood Count 6.4 x10^3/uL (4.0-11.0) Red Blood Count 3.78 x10^6/uL (3.50-5.40) Hemoglobin 9.8 g/dL (12.0-15.5) Hematocrit 32.0 % (36.0-47.0) Mean Corpuscular Volume 85 fL (79-100) Mean Corpuscular Hemoglobin 26 pg (25-35) Mean Corpuscular Hemoglobin Concent 31 g/dL (31-37) Red Cell Distribution Width 23.2 % (11.5-14.5) Platelet Count 166 x10^3/uL (140-400) Neutrophils (%) (Auto) 77 % (31-73) Lymphocytes (%) (Auto) 13 % (24-48) Monocytes (%) (Auto) 9 % (0-9) Eosinophils (%) (Auto) 0 % (0-3) Basophils (%) (Auto) 0 % (0-3) Neutrophils # (Auto) 4.9 x10^3/uL (1.8-7.7) Lymphocytes # (Auto) 0.8 x10^3/uL (1.0-4.8) Monocytes # (Auto) 0.6 x10^3/uL (0.0-1.1) Eosinophils # (Auto) 0.0 x10^3/uL (0.0-0.7) Basophils # (Auto) 0.0 x10^3/uL (0.0-0.2) Prothrombin Time 30.4 SEC (11.7-14.0) Prothromb Time International Ratio 2.9 (0.8-1.1) Sodium Level 147 mmol/L (136-145) Potassium Level 4.3 mmol/L (3.5-5.1) Chloride Level 111 mmol/L (98-107) Carbon Dioxide Level 29 mmol/L (21-32) Anion Gap 7 (6-14) Blood Urea Nitrogen 35 mg/dL (7-20) Creatinine 1.2 mg/dL (0.6-1.0) Estimated GFR (Cockcroft-Gault) 57.1 Glucose Level 132 mg/dL (70-99) Calcium Level 7.6 mg/dL (8.5-10.1) Magnesium Level 2.0 mg/dL (1.8-2.4) Glucose (Fingerstick) 127 mg/dL (70-99) Laboratory Tests Test 03/07/21 11:45 03/07/21 16:15 03/07/21 21:32 03/08/21 03:30 Glucose (Fingerstick) 174 mg/dL (70-99) 143 mg/dL (70-99) 124 mg/dL (70-99) White Blood Count 6.4 x10^3/uL (4.0-11.0) Red Blood Count 3.78 x10^6/uL (3.50-5.40) Hemoglobin 9.8 g/dL (12.0-15.5) Hematocrit 32.0 % (36.0-47.0) Mean Corpuscular Volume 85 fL (79-100) Mean Corpuscular Hemoglobin 26 pg (25-35) Mean Corpuscular Hemoglobin Concent 31 g/dL (31-37) Red Cell Distribution Width 23.2 % (11.5-14.5) Platelet Count 166 x10^3/uL (140-400) Neutrophils (%) (Auto) 77 % (31-73) Lymphocytes (%) (Auto) 13 % (24-48) Monocytes (%) (Auto) 9 % (0-9) Eosinophils (%) (Auto) 0 % (0-3) Basophils (%) (Auto) 0 % (0-3) Neutrophils # (Auto) 4.9 x10^3/uL (1.8-7.7) Lymphocytes # (Auto) 0.8 x10^3/uL (1.0-4.8) Monocytes # (Auto) 0.6 x10^3/uL (0.0-1.1) Eosinophils # (Auto) 0.0 x10^3/uL (0.0-0.7) Basophils # (Auto) 0.0 x10^3/uL (0.0-0.2) Prothrombin Time 30.4 SEC (11.7-14.0) Prothromb Time International Ratio 2.9 (0.8-1.1) Sodium Level 147 mmol/L (136-145) Potassium Level 4.3 mmol/L (3.5-5.1) Chloride Level 111 mmol/L (98-107) Carbon Dioxide Level 29 mmol/L (21-32) Anion Gap 7 (6-14) Blood Urea Nitrogen 35 mg/dL (7-20) Creatinine 1.2 mg/dL (0.6-1.0) Estimated GFR (Cockcroft-Gault) 57.1 Glucose Level 132 mg/dL (70-99) Calcium Level 7.6 mg/dL (8.5-10.1) Magnesium Level 2.0 mg/dL (1.8-2.4) Test 03/08/21 07:37 Glucose (Fingerstick) 127 mg/dL (70-99) Review All relevant outside records, renal labs, imaging studies, telemetry/EKG's were reviewed. Images Images 1. Right PICC line extends to the right atrium. 2. Cardiomegaly. 3. Vascular congestion and evidence suggesting heart failure. CHUNG HURTADO MD March 08, 2021 10:41
[2021-03-08 10:51] VITALS: BP 111/94
[2021-03-08] MEDS: BUMETANIDE 1 MG/4 ML VIAL. IV SCH ×2 (11:13→21:17)
[2021-03-08] MEDS: FERROUS SULFATE 325 MG TABLET. PO SCH ×3 (11:22→21:17)
[2021-03-08] MEDS: POTASSIUM CHLORIDE 20 MEQ TABLET.ER. PO SCH ×2 (11:23→21:16)
[2021-03-08] MEDS: glipiZIDE 5 MG TABLET PO SCH (11:23)
[2021-03-08] MEDS: METOPROLOL SUCC 24HR ER 25 MG TAB.ER.24H. PO SCH (11:24)
[2021-03-08] MEDS: SPIRONOLACTONE 25 MG TABLET PO SCH (11:24)
[2021-03-08] MEDS: SACUBITRIL/VALSARTAN 49/51MG TABLET. PO SCH ×2 (11:25→21:15)
[2021-03-08] MEDS: ATORVASTATIN CALCIUM 40 MG TABLET. PO SCH (11:38)
--- NOTE | 2021-03-08 13:26 | PDOC ---
[employer] PROGRESS NOTE Date of Service DOS: DATE: 03/08/21 TIME: 13:24 Chief Complaint Chief Complaint 1. Acute hypercapnic respiratory failure, multifactorial 2. Acute on chronic systolic CHF, and toxic, suspect hypercapnia. 3. Acute metabolic encephalopathy. 4. Abnormal chest x-ray with bilateral interstitial infiltrates. 5. Previous echo with EF of 35%. 6. Morbid obesity with obstructive sleep apnea with marginal compliance with CPAP and obesity hypoventilation syndrome. 7. pickwickian habitus History of Present Illness History of Present Illness has refused, refused BiPAP. wean NC as able mental status imrpvoed cont diuresis Vitals/I&O Vitals/I&O: Vital Signs Date Time Temp Pulse Resp B/P (MAP) Pulse Ox O2 Delivery O2 Flow Rate FiO2 03/08/21 11:39 Nasal Cannula 2.0 03/08/21 11:25 68 111/94 03/08/21 10:51 98.0 18 96 98.0 I & O 03/07/21 03/07/21 03/08/21 15:00 23:00 07:00 Intake Total 500 ml 360 ml Output Total 1100 ml Balance 500 ml -1100 ml 360 ml Physical Exam General: Alert, Oriented X3, Cooperative, No acute distress, mild distress Heart: No murmurs Lungs: Clear, Crackles Abdomen: Soft Extremities: No cyanosis Labs Labs: Laboratory Tests Test 03/07/21 16:15 03/07/21 21:32 03/08/21 03:30 03/08/21 07:37 Glucose (Fingerstick) 143 mg/dL (70-99) 124 mg/dL (70-99) 127 mg/dL (70-99) White Blood Count 6.4 x10^3/uL (4.0-11.0) Red Blood Count 3.78 x10^6/uL (3.50-5.40) Hemoglobin 9.8 g/dL (12.0-15.5) Hematocrit 32.0 % (36.0-47.0) Mean Corpuscular Volume 85 fL (79-100) Mean Corpuscular Hemoglobin 26 pg (25-35) Mean Corpuscular Hemoglobin Concent 31 g/dL (31-37) Red Cell Distribution Width 23.2 % (11.5-14.5) Platelet Count 166 x10^3/uL (140-400) Neutrophils (%) (Auto) 77 % (31-73) Lymphocytes (%) (Auto) 13 % (24-48) Monocytes (%) (Auto) 9 % (0-9) Eosinophils (%) (Auto) 0 % (0-3) Basophils (%) (Auto) 0 % (0-3) Neutrophils # (Auto) 4.9 x10^3/uL (1.8-7.7) Lymphocytes # (Auto) 0.8 x10^3/uL (1.0-4.8) Monocytes # (Auto) 0.6 x10^3/uL (0.0-1.1) Eosinophils # (Auto) 0.0 x10^3/uL (0.0-0.7) Basophils # (Auto) 0.0 x10^3/uL (0.0-0.2) Prothrombin Time 30.4 SEC (11.7-14.0) Prothromb Time International Ratio 2.9 (0.8-1.1) Sodium Level 147 mmol/L (136-145) Potassium Level 4.3 mmol/L (3.5-5.1) Chloride Level 111 mmol/L (98-107) Carbon Dioxide Level 29 mmol/L (21-32) Anion Gap 7 (6-14) Blood Urea Nitrogen 35 mg/dL (7-20) Creatinine 1.2 mg/dL (0.6-1.0) Estimated GFR (Cockcroft-Gault) 57.1 Glucose Level 132 mg/dL (70-99) Calcium Level 7.6 mg/dL (8.5-10.1) Magnesium Level 2.0 mg/dL (1.8-2.4) Assessment and Plan Assessmemt and Plan Problems Medical Problems: (1) Chest pain Status: Acute (2) History of COPD Status: Acute (3) Person under investigation for COVID-19 Status: Acute (4) Respiratory distress Status: Acute Comment Review of Relevant I have reviewed the following items cuate (where applicable) has been applied. Medications: Current Medications Medications (Trade) Dose Ordered Sig/Liam Route PRN Reason Start Time Stop Time Status Last Admin Dose Admin Ferrous Sulfate (Feosol) 325 mg BIDWMEALS PO 03/07/21 17:00 03/08/21 11:22 Potassium Chloride (Klor-Con) 20 meq BID PO 03/07/21 21:00 03/08/21 11:23 Pantoprazole Sodium (Protonix) 40 mg DAILY06 PO 03/08/21 06:00 03/08/21 07:21 Atorvastatin Calcium (Lipitor) 40 mg DAILY PO 03/08/21 09:00 03/08/21 11:38 Warfarin Sodium (Coumadin) 10 mg DAILY16 PO 03/07/21 16:00 03/07/21 17:27 Bumetanide (Bumex) 1 mg BID IV 03/07/21 21:00 03/08/21 11:13 Justifications for Admission Other Justification EXAC CHF MARGY PIERSON MD March 08, 2021 13:26
--- NOTE | 2021-03-08 13:27 | RAD ---
AP chest. HISTORY: PICC line placement AP view was taken of the chest. There is a right PICC line extends to the right atrium. Heart is enla rged. There is pulmonary vascular congestion. There are hazy interstitial changes most consistent wit h pulmonary edema although atypical pneumonia would be possible. There is a left pacemaker with atria l and ventricular pacing leads. IMPRESSION: 1. Right PICC line extends to the right atrium. 2. Cardiomegaly. 3. Vascular congestion and evidence suggesting heart failure. Electronically signed by: Cipriano Lorenzo MD (03/08/2021 1:24 PM) [id number]
[2021-03-08] MEDS: MICONAZOLE NITRATE 2% TOPICAL CREAM 30GM TUBE. TP SCH ×2 (13:45→21:00)
[2021-03-08 15:00] VITALS: BP 122/58
--- NOTE | 2021-03-08 15:56 | NUR ---
Wound Care Wound Type/Assessment: Consult to eval and treat for wounds to BLE. Pt is known to the wound clinic. Legs cleansed and dried, multiple small openings with purulent drainage and slough, pink granular margins. Legs are edematous with dry, thickened skin. Small open area to R 5th toe, red, dry wound base. Pt states the wound occurred after bumping it on the wheels of her walker. No other open wounds noted on head to toe assessment. See addendum for behavioral note. Treatment Recommendations/Plan: BLE apply xeroform gauze, ABDs, Kerlix and tape. Change QOD and PRN to manage drainage. Wear tubigrip G BLE R 5th toe: Apply skin prep BID and leave MAUREEN Education provided: Educated to turn Q2H to prevent skin breakdown. Offloading surface/device: Bariatric HERLINDA bed. Wedge and pillows for positioning and comfort. Turned Left Recommended Referrals/Tests: See addendum Discharge Recommendations for dressings: As above. Addendum: 03/08/21 at 1632 by TAYLOR CALIX RN BEHAVIOR NOTE: During assessment patient mentioned that she had tried to kill herself yesterday. Rosemary Phillips RN and Brina Kam RN were present in the room and witness to the statement and subsequent conversation. Pt declined for us to call someone for her to talk to stating, "You can call whoever you want and they can talk to me, but nobody can stop me from thinking about suicide in my mind." When asked if she had a suicide plan, pt stated, "Oh, I have 3 or 4 plans but I'm not going to tell you what they are because you will just try to stop me." Rosemary RN informed pt that we have a duty to report her statements to her nurse and follow the hospital suicide protocol, pt stated understanding. Pt then stated, "I tried to strangle myself with my phone cord yesterday with the doctor in the room and he didn't even notice. The nurse had to come in and stop me." Pt declined to answer when asked if any of her suicide methods were achievable while in the hospital. Notified pt's nurse Katrina RN, charge nurse Yu RN. scale technician in the room with pt for testing at completion of wound assessment, and during reporting of incident
[2021-03-08] MEDS: WARFARIN 5 MG TABLET. PO SCH ×2 (16:00→21:17)
--- NOTE | 2021-03-08 16:32 | NUR ---
BEHAVIOR NOTE: During assessment patient mentioned that she had tried to kill herself yesterday. Rosemary Phillips RN and Brina Kam RN were present in the room and witness to the statement and subsequent conversation. Pt declined for us to call someone for her to talk to stating, "You can call whoever you want and they can talk to me, but nobody can stop me from thinking about suicide in my mind." When asked if she had a suicide plan, pt stated, "Oh, I have 3 or 4 plans but I'm not going to tell you what they are because you will just try to stop me." Rosemary [place] informed pt that we have a duty to report her statements to her nurse and follow the hospital suicide protocol, pt stated understanding. Pt then stated, "I tried to strangle myself with my phone cord yesterday with the doctor in the room and he didn't even notice. The nurse had to come in and stop me." Pt declined to answer when asked if any of her suicide methods were achievable while in the hospital. See wound note for additional details.
[2021-03-08] MEDS ORDERED: PERFLUTREN PROTEIN-A MICROSPHR 0.22 MG/ML 3 ML VIAL. IV ONE (16:40)
--- NOTE | 2021-03-08 16:58 | PDOC ---
PROGRESS NOTES Date of Service DATE: 03/08/21 TIME: 16:56 Subjective Subjective Patient seen and examined Objective Objective Vital Signs Date Time Temp Pulse Resp B/P (MAP) Pulse Ox O2 Delivery O2 Flow Rate FiO2 03/08/21 15:00 97.7 74 18 122/58 (79) 98 Nasal Cannula 2.0 97.7 Intake and Output 03/08/21 07:00 Intake Total 860 ml Output Total 1100 ml Balance -240 ml Intake Oral 860 ml Output Urine Total 1100 ml # Voids 1 Physical Exam Abdomen: Normal bowel sounds Heart: Regular rate General: mild distress Lungs: Other (Decreased breath sounds) Assessment Assessment Problems Medical Problems: (1) Chest pain Status: Acute (2) History of COPD Status: Acute (3) Person under investigation for COVID-19 Status: Acute (4) Respiratory distress Status: Acute Acute respiratory failure; multifactorial. with a/c CHF, COPD, and obesity/hypoventilation. Patient has refused BiPAP. Is followed by the pulmonary service. Acute on chronic diastolic/systolic CHF. Mild diuresis as tolerated. Will monitor lab. NICM: s/p AICD (Biotronik). LVEF 35-40% per echo 07/31. Cath 2018 without significant CAD. Device check 01/30 with normal function and stable lead impedances. We will attempt to repeat an echo today. Possible ELIZABETH/COPD with morbid obesity: BMI at 73 Hypertension; controlled Hyperlipidemia; statin Diabetes, II Hx of CVA: in 2002 with left side hemiparesis Chronic warfarin therapy:due to remote CVA. No h/o AFIB/flutter. Most recent device check wtih 0% AFIB burden. Comment Review of Relevant I have reviewed the following items cuate (where applicable) has been applied. Labs Laboratory Tests Test 03/06/21 17:07 03/06/21 21:00 03/06/21 22:28 03/07/21 05:01 SARS-CoV-2 RNA (EDMAR) Negative (Negative) SARS-CoV-2 Antigen (Rapid) Negative (NEGATIVE) Urine Collection Type Unknown Urine Color Yellow Urine Clarity Clear Urine pH 5.0 (<5.0-8.0) Urine Specific [place] 1.015 (1.000-1.030) Urine Protein 30 mg/dL (NEG-TRACE) Urine Glucose (UA) Negative mg/dL (NEG) Urine Ketones (Stick) Negative mg/dL (NEG) Urine Blood Trace (NEG) Urine Nitrite Negative (NEG) Urine Bilirubin Negative (NEG) Urine Urobilinogen Dipstick 0.2 mg/dL (0.2 mg/dL) Urine Leukocyte Esterase Negative (NEG) Urine RBC Occ /HPF (0-2) Urine WBC 1-4 /HPF (0-4) Urine Squamous Epithelial Cells Many /LPF Urine Bacteria Many /HPF (0-FEW) Urine Mucus Slight /LPF Glucose (Fingerstick) 67 mg/dL (70-99) 152 mg/dL (70-99) Test 03/07/21 11:45 03/07/21 16:15 03/07/21 21:32 03/08/21 03:30 Glucose (Fingerstick) 174 mg/dL (70-99) 143 mg/dL (70-99) 124 mg/dL (70-99) White Blood Count 6.4 x10^3/uL (4.0-11.0) Red Blood Count 3.78 x10^6/uL (3.50-5.40) Hemoglobin 9.8 g/dL (12.0-15.5) Hematocrit 32.0 % (36.0-47.0) Mean Corpuscular Volume 85 fL (79-100) Mean Corpuscular Hemoglobin 26 pg (25-35) Mean Corpuscular Hemoglobin Concent 31 g/dL (31-37) Red Cell Distribution Width 23.2 % (11.5-14.5) Platelet Count 166 x10^3/uL (140-400) Neutrophils (%) (Auto) 77 % (31-73) Lymphocytes (%) (Auto) 13 % (24-48) Monocytes (%) (Auto) 9 % (0-9) Eosinophils (%) (Auto) 0 % (0-3) Basophils (%) (Auto) 0 % (0-3) Neutrophils # (Auto) 4.9 x10^3/uL (1.8-7.7) Lymphocytes # (Auto) 0.8 x10^3/uL (1.0-4.8) Monocytes # (Auto) 0.6 x10^3/uL (0.0-1.1) Eosinophils # (Auto) 0.0 x10^3/uL (0.0-0.7) Basophils # (Auto) 0.0 x10^3/uL (0.0-0.2) Prothrombin Time 30.4 SEC (11.7-14.0) Prothromb Time International Ratio 2.9 (0.8-1.1) Sodium Level 147 mmol/L (136-145) Potassium Level 4.3 mmol/L (3.5-5.1) Chloride Level 111 mmol/L (98-107) Carbon Dioxide Level 29 mmol/L (21-32) Anion Gap 7 (6-14) Blood Urea Nitrogen 35 mg/dL (7-20) Creatinine 1.2 mg/dL (0.6-1.0) Estimated GFR (Cockcroft-Gault) 57.1 Glucose Level 132 mg/dL (70-99) Calcium Level 7.6 mg/dL (8.5-10.1) Magnesium Level 2.0 mg/dL (1.8-2.4) Test 03/08/21 07:37 Glucose (Fingerstick) 127 mg/dL (70-99) Laboratory Tests Test 03/07/21 21:32 03/08/21 03:30 03/08/21 07:37 Glucose (Fingerstick) 124 mg/dL (70-99) 127 mg/dL (70-99) White Blood Count 6.4 x10^3/uL (4.0-11.0) Red Blood Count 3.78 x10^6/uL (3.50-5.40) Hemoglobin 9.8 g/dL (12.0-15.5) Hematocrit 32.0 % (36.0-47.0) Mean Corpuscular Volume 85 fL (79-100) Mean Corpuscular Hemoglobin 26 pg (25-35) Mean Corpuscular Hemoglobin Concent 31 g/dL (31-37) Red Cell Distribution Width 23.2 % (11.5-14.5) Platelet Count 166 x10^3/uL (140-400) Neutrophils (%) (Auto) 77 % (31-73) Lymphocytes (%) (Auto) 13 % (24-48) Monocytes (%) (Auto) 9 % (0-9) Eosinophils (%) (Auto) 0 % (0-3) Basophils (%) (Auto) 0 % (0-3) Neutrophils # (Auto) 4.9 x10^3/uL (1.8-7.7) Lymphocytes # (Auto) 0.8 x10^3/uL (1.0-4.8) Monocytes # (Auto) 0.6 x10^3/uL (0.0-1.1) Eosinophils # (Auto) 0.0 x10^3/uL (0.0-0.7) Basophils # (Auto) 0.0 x10^3/uL (0.0-0.2) Prothrombin Time 30.4 SEC (11.7-14.0) Prothromb Time International Ratio 2.9 (0.8-1.1) Sodium Level 147 mmol/L (136-145) Potassium Level 4.3 mmol/L (3.5-5.1) Chloride Level 111 mmol/L (98-107) Carbon Dioxide Level 29 mmol/L (21-32) Anion Gap 7 (6-14) Blood Urea Nitrogen 35 mg/dL (7-20) Creatinine 1.2 mg/dL (0.6-1.0) Estimated GFR (Cockcroft-Gault) 57.1 Glucose Level 132 mg/dL (70-99) Calcium Level 7.6 mg/dL (8.5-10.1) Magnesium Level 2.0 mg/dL (1.8-2.4) Medications Current Medications Methylprednisolone Sodium Succinate (SOLU-Medrol 125MG VIAL) 125 mg 1X ONCE IV Last administered on 03/06/21at 17:11; Start 03/06/21 at 16:15; Stop 03/06/21 at 16:16; Status DC Ondansetron HCl (Zofran) 4 mg PRN Q8HRS PRN IV NAUSEA/VOMITING; Start 03/06/21 at 17:45; Stop 03/07/21 at 10:59; Status DC Furosemide (Lasix) 40 mg 1X ONCE IVP Last administered on 03/07/21at 10:15; Start 03/07/21 at 10:00; Stop 03/07/21 at 10:04; Status DC Albuterol/ Ipratropium (Duoneb) 3 ml RTQID NEB Last administered on 03/08/21at 11:38; Start 03/07/21 at 12:00 Enoxaparin Sodium (Lovenox 60mg Syringe) 60 mg Q12HR SQ Last administered on 03/07/21at 10:14; Start 03/07/21 at 11:00; Stop 03/07/21 at 14:34; Status DC Bumetanide (Bumex) 1 mg BID92 PO ; Start 03/07/21 at 14:00; Stop 03/07/21 at 15:04; Status DC Ferrous Sulfate (Feosol) 325 mg BIDWMEALS PO Last administered on 03/08/21at 11:22; Start 03/07/21 at 17:00 Glipizide (Glucotrol) 5 mg DAILY PO Last administered on 03/08/21at 11:23; Start 03/07/21 at 12:00 Insulin Human Lispro (HumaLOG VIAL for OP,RR ONLY) TIDWMEALS SQ ; Start 03/07/21 at 12:00; Stop 03/07/21 at 14:31; Status DC Albuterol/ Ipratropium (Duoneb) 3 ml RTQID NEB ; Start 03/07/21 at 12:00; Status Cancel Metoprolol Succinate (Toprol Xl) 75 mg DAILY PO Last administered on 03/08/21at 11:24; Start 03/07/21 at 12:00 Polyethylene Glycol (miraLAX PACKET) 17 gm PRN DAILY PRN PO CONSTIPATION (1st Choice); Start 03/07/21 at 11:00 Potassium Chloride (Klor-Con) 20 meq BID PO Last administered on 03/08/21at 11:23; Start 03/07/21 at 21:00 Sacubitril/ Valsartan (Entresto 49 Mg-51 Mg) 1 tab BID PO Last administered on 03/08/21at 11:25; Start 03/07/21 at 12:00 Spironolactone (Aldactone) 25 mg DAILY PO Last administered on 03/08/21at 11:24; Start 03/07/21 at 12:00 Pantoprazole Sodium (Protonix) 40 mg DAILY06 PO Last administered on 03/08/21at 07:21; Start 03/08/21 at 06:00 Atorvastatin Calcium (Lipitor) 40 mg DAILY PO Last administered on 03/08/21at 11:38; Start 03/08/21 at 09:00 Warfarin Sodium (Coumadin) 10 mg DAILY16 PO Last administered on 03/07/21at 17:27; Start 03/07/21 at 16:00 Sodium Chloride (Normal Saline Flush) 3 ml QSHIFT PRN IV AFTER MEDS AND BLOOD DRAWS; Start 03/07/21 at 11:00 Ondansetron HCl (Zofran) 4 mg PRN Q4HRS PRN IV NAUSEA/VOMITING; Start 03/07/21 at 11:00 Acetaminophen (Tylenol) 650 mg PRN Q4HRS PRN PO TEMP OVER 100.4F OR MILD PAIN; Start 03/07/21 at 11:00 Al Hydroxide/Mg Hydroxide (Mylanta Plus Xs) 30 ml PRN DAILY PRN PO HEARTBURN / GAS; Start 03/07/21 at 11:00 Sodium Monofluorophosphate (Fleet Adult) 133 ml PRN DAILY PRN MD CONSTIPATION; Start 03/07/21 at 11:00 Docusate Sodium (Colace) 100 mg PRN BID PRN PO HARD STOOLS; Start 03/07/21 at 11:00 Guaifenesin (Robitussin) 200 mg PRN Q4HRS PRN PO COUGH Last administered on 03/08/21at 11:13; Start 03/07/21 at 11:00 Insulin Human Lispro (HumaLOG) 0-7 UNITS TIDWMEALS SQ ; Start 03/07/21 at 17:00 Dextrose (Dextrose 50%-Water Syringe) 12.5 gm PRN Q15MIN PRN IV SEE COMMENTS; Start 03/07/21 at 14:30 Warfarin Sodium (Coumadin Per Physician) 1 each PRN DAILY PRN MC SEE COMMENTS; Start 03/07/21 at 14:45 Bumetanide (Bumex) 1 mg BID IV Last administered on 03/08/21at 11:13; Start 03/07/21 at 21:00 Miconazole Nitrate (Monistat-Derm) 1 edie BID TP ; Start 03/08/21 at 13:45 Perflutren Protein Type A Microsphe (Optison) 0.66 mg STK-MED ONCE IV ; Start 03/08/21 at 16:40; Stop 03/08/21 at 16:41; Status DC Active Scripts Active Admelog (Insulin Lispro) 100 Unit/1 Ml Vial 0 Units SQ TIDWMEALS 30 Days Polyethylene Glycol 3350 17 Gm Powd.pack 17 Gm PO PRN DAILY PRN 30 Days Bumetanide 1 Mg Tablet 1 Mg PO BID92 30 Days Metoprolol Succinate ( Xl ) (Metoprolol Succinate) 25 Mg Tab.er.24h 75 Mg PO DAILY 30 Days Feosol (Ferrous Sulfate) 325 Mg Tablet 325 Mg PO BIDWMEALS 30 Days Duoneb 0.5-3(2.5) Mg/3 Ml (Albuterol/Ipratropium) 3 Ml Ampul.neb 3 Ml NEB RTQID 30 Days Aldactone (Spironolactone) 25 Mg Tablet 25 Mg PO DAILY 30 Days Reported Oxycodon-Acetaminophen 7.5-325 (Oxycodone Hcl/Acetaminophen) 1 Each Tablet 7.5- 325 Mg PO PRN Q6HRS PRN Omeprazole 40 Mg Capsule.dr 1 Cap PO DAILY06 Potassium Chloride (Potassium Chloride) 20 Meq Tablet.er 20 Meq PO BID Entresto 49 mg-51 mg Tablet (Sacubitril/Valsartan) 1 Each Tablet 1 Tab PO BID Glipizide 5 Mg Tablet 1 Tab PO DAILY Warfarin Sodium 10 Mg Tablet 10 Mg PO DAILY Crestor (Rosuvastatin Calcium) 10 Mg Tablet 1 Tab PO DAILY Vitals/I & O Vital Sign - Last 24 Hours 03/07/21 03/07/21 03/07/21 03/07/21 18:25 19:00 20:00 20:07 Temp 98.0 98.0 Pulse 78 82 Resp 19 20 B/P (MAP) 148/93 (111) 134/92 (106) Pulse Ox 90 96 90 O2 Delivery Room Air Nasal Cannula Nasal Cannula O2 Flow Rate 5.0 2.0 03/07/21 03/07/21 03/08/21 03/08/21 21:21 23:00 03:00 07:00 Temp 97.4 98.0 97.4 98.0 Pulse 82 75 80 85 Resp 18 B/P (MAP) 116/84 123/81 (95) 118/72 (87) 141/75 (97) Pulse Ox 94 99 O2 Delivery Nasal Cannula Nasal Cannula O2 Flow Rate 2.0 2.0 03/08/21 03/08/21 03/08/21 03/08/21 07:24 10:51 11:24 11:25 Temp 98.0 98.0 Pulse 68 68 68 Resp 18 B/P (MAP) 111/94 (100) 111/94 111/94 Pulse Ox 99 96 O2 Delivery Nasal Cannula Nasal Cannula O2 Flow Rate 2.0 2.0 03/08/21 03/08/21 11:39 15:00 Temp 97.7 97.7 Pulse 74 Resp 18 B/P (MAP) 122/58 (79) Pulse Ox 98 O2 Delivery Nasal Cannula Nasal Cannula O2 Flow Rate 2.0 2.0 Intake and Output 03/07/21 03/07/21 03/08/21 15:00 23:00 07:00 Intake Total 500 ml 360 ml Output Total 1100 ml Balance 500 ml -1100 ml 360 ml Justifications for Admission Other Justification EXAC CHF HIREN HEARN MD March 08, 2021 16:58
--- NOTE | 2021-03-08 18:00 | NUR ---
ECHO has been done. Patient refusing shayy meds at this time. PICC flushed, good blood return. Patient did not allow nurse to take out saline lock at this time. Patient verbalizing that she thinks about killing herself every day all her life, "But thinking and doing are 2 different things" Questioned patient about her reporting that she had attempted to kill herself yesterday, and that the dr was in room. "That was yesterday, today is a different day. Related that she does have one person that she is very close to, but did not give his name. Patient related that she was not going to do anything, just think about it. Pt indicated that she would like to have her cell phone back.
--- NOTE | 2021-03-08 18:35 | NUR ---
PAT team has been in to see patient, determined that one to one observation not needed. 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
--- NOTE | 2021-03-08 18:36 | NUR ---
pt had been on SI precautions after verbalizing to wound care that she had a plan to kill herself. Amina pollard/ CHARIS team here to assess patient. pt found not to be a harm to self, that it was attention seeking behaviors. 1:1 discontinued per verbal order from Dr. Espinoza.
--- NOTE | 2021-03-08 18:45 | CARD ---
MR#: [id number] Date of Study: 03/08/2021 Ordering Physician: SANTINO CANTOR, Referring Physician: SANTINO CANTOR, Tech: Luzmaria Banks, [facility] APPROVED REPORT EXAM: Two-dimensional and M-mode echocardiogram with Doppler, color Doppler with contrast. Other Information Quality : PoorHR: 79bpm Technically limited study due to mobid obesity INDICATION Dyspnea Echo Enhancing Agent Indication: Endocardial border delineation Agent/Amount Used: Optison 9mL RISK FACTORS Smoking 2D DIMENSIONS RVDd4.4 (2.9-3.5cm)Left Atrium(2D)5.7 (1.6-4.0cm) IVSd1.6 (0.7-1.1cm)Aortic Root(2D)4.6 (2.0-3.7cm) LVDd7.2 (3.9-5.9cm)LVOT Diameter2.1 (1.8-2.4cm) PWd1.6 (0.7-1.1cm)LVDs6.4 (2.5-4.0cm) FS (%) 11.5 %SV66.1 ml Mitral Valve MV E Ghxyyaid90.0cm/sMV DECEL [id number] MV A Kikdhenu21.5cm/sE/A Ratio1.6 Tricuspid Valve TR P. [id number]/sRAP [id number] TR Peak Gr.[id number] LEFT VENTRICLE Technically difficult study. The Left Ventricle is moderately dilated. There is moderate concentric left ventricular hypertrophy. The systolic function is severely impaired. The Ejection Fraction is es timated at 25%. There is severe global hypokinesis of the left ventricle. RIGHT VENTRICLE The right ventricle is mildly dilated. The right ventricle is borderline hypertrophied. Systolic func tion is borderline reduced. ATRIA The left atrium is moderately dilated. The right atrium is not well visualized. AORTIC VALVE The aortic valve is not well visualized. Doppler and color-flow analysis was not performed. There is no significant aortic valvular stenosis. MITRAL VALVE The mitral valve is normal in structure and function. There is no evidence of mitral valve prolapse. There is no mitral valve stenosis. Doppler and Color-flow revealed trace to mild mitral regurgitation . TRICUSPID VALVE The tricuspid valve is normal in structure and function. Doppler and Color Flow revealed trace to mil d tricuspid regurgitation with an estimated PAP of 38 mmHg. There is no tricuspid valve stenosis. PULMONIC VALVE The pulmonic valve is not well visualized. Doppler and Color Flow revealed trace pulmonic valvular re gurgitation. GREAT VESSELS The aortic root is mildly to moderately enlarged measuring 4.69 cm. The IVC was not visualized. PERICARDIAL EFFUSION There is a trace pericardial effusion. Critical Notification Critical Value: No <Conclusion> Technically difficult study. The Left Ventricle is moderately dilated. The systolic function is severely impaired. The Ejection Fraction is estimated at 25%. There is severe global hypokinesis of the left ventricle. There is moderate concentric left ventricular hypertrophy. There is no significant aortic valvular stenosis. Doppler and Color-flow revealed trace to mild mitral regurgitation. Doppler and Color Flow revealed trace to mild tricuspid regurgitation with an estimated PAP of 38 mm Hg. The aortic root is mildly to moderately enlarged measuring 4.69 cm. Signed by : Santino Cantor MD Electronically Approved : 03/08/2021 18:45:32
[2021-03-08 19:50] VITALS: BP 113/49
[2021-03-08 23:40] VITALS: BP 133/56
--- NOTE | 2021-03-09 02:34 | NUR ---
NURSING NOTE Pt stated she wanted to get up to bsc to have BM. Pt attempted to get OOB with staff assistance, but pt unable to bear weight on legs. Pt needed extensive assistance of 3 staff to help get legs back into the bed and moved up. Pt is able to use arms to help with moving. Pt using bedpan instead. Will monitor.
[2021-03-09 03:27] VITALS: BP 133/68
[2021-03-09] MEDS: PANTOPRAZOLE 40 MG TABLET.DR. PO SCH (06:03)
[2021-03-09 06:20] LABS: CALCIUM 7.5 mg/dL (8.5-10.1); CREATININE 1.1 mg/dL (0.6-1.0); GFR 63.1; POTASSIUM 4.2 mmol/L (3.5-5.1)
[2021-03-09 07:00] VITALS: BP 133/71
[2021-03-09] MEDS: IPRATRPIUM/ALBUTEROL 0.5/2.5MG 3 ML NEBU. NEB SCH ×4 (07:34→21:13)
[2021-03-09] MEDS: INSULIN LISPRO 300 UNITS/3 ML VIAL. SQ SCH ×3 (08:00→16:59)
[2021-03-09] MEDS: BUMETANIDE 1 MG/4 ML VIAL. IV SCH ×2 (08:35→21:14)
[2021-03-09] MEDS: METOPROLOL SUCC 24HR ER 25 MG TAB.ER.24H. PO SCH (08:35)
[2021-03-09] MEDS: ATORVASTATIN CALCIUM 40 MG TABLET. PO SCH (08:35)
[2021-03-09] MEDS: FERROUS SULFATE 325 MG TABLET. PO SCH ×2 (08:36→17:06)
[2021-03-09] MEDS: glipiZIDE 5 MG TABLET PO SCH (08:36)
[2021-03-09] MEDS: SPIRONOLACTONE 25 MG TABLET PO SCH (08:36)
[2021-03-09] MEDS: SACUBITRIL/VALSARTAN 49/51MG TABLET. PO SCH ×2 (08:36→21:12)
[2021-03-09] MEDS: POTASSIUM CHLORIDE 20 MEQ TABLET.ER. PO SCH ×2 (08:36→21:12)
[2021-03-09] MEDS: MICONAZOLE NITRATE 2% TOPICAL CREAM 30GM TUBE. TP SCH ×2 (08:37→22:17)
--- NOTE | 2021-03-09 10:08 | PDOC ---
PULMONARY PROGRESS NOTES DATE: 03/09/21 TIME: 10:06 Subjective sob better, has occ cough used bipap for 2 hrs last night DNR/DNI. Vitals Vital Signs Date Time Temp Pulse Resp B/P (MAP) Pulse Ox O2 Delivery O2 Flow Rate FiO2 03/09/21 08:36 75 133/71 03/09/21 07:34 97 Room Air 03/09/21 07:00 97.9 18 2.0 97.9 ROS: No Nausea General: Alert, Oriented X4, No acute distress Lungs: Clear, Crackles Cardiovascular: S1 Abdomen: Soft, Other Extremities: Other Skin: Warm Labs Laboratory Tests Test 03/07/21 11:45 03/07/21 16:15 03/07/21 21:32 03/08/21 03:30 Glucose (Fingerstick) 174 mg/dL (70-99) 143 mg/dL (70-99) 124 mg/dL (70-99) White Blood Count 6.4 x10^3/uL (4.0-11.0) Red Blood Count 3.78 x10^6/uL (3.50-5.40) Hemoglobin 9.8 g/dL (12.0-15.5) Hematocrit 32.0 % (36.0-47.0) Mean Corpuscular Volume 85 fL (79-100) Mean Corpuscular Hemoglobin 26 pg (25-35) Mean Corpuscular Hemoglobin Concent 31 g/dL (31-37) Red Cell Distribution Width 23.2 % (11.5-14.5) Platelet Count 166 x10^3/uL (140-400) Neutrophils (%) (Auto) 77 % (31-73) Lymphocytes (%) (Auto) 13 % (24-48) Monocytes (%) (Auto) 9 % (0-9) Eosinophils (%) (Auto) 0 % (0-3) Basophils (%) (Auto) 0 % (0-3) Neutrophils # (Auto) 4.9 x10^3/uL (1.8-7.7) Lymphocytes # (Auto) 0.8 x10^3/uL (1.0-4.8) Monocytes # (Auto) 0.6 x10^3/uL (0.0-1.1) Eosinophils # (Auto) 0.0 x10^3/uL (0.0-0.7) Basophils # (Auto) 0.0 x10^3/uL (0.0-0.2) Prothrombin Time 30.4 SEC (11.7-14.0) Prothromb Time International Ratio 2.9 (0.8-1.1) Sodium Level 147 mmol/L (136-145) Potassium Level 4.3 mmol/L (3.5-5.1) Chloride Level 111 mmol/L (98-107) Carbon Dioxide Level 29 mmol/L (21-32) Anion Gap 7 (6-14) Blood Urea Nitrogen 35 mg/dL (7-20) Creatinine 1.2 mg/dL (0.6-1.0) Estimated GFR (Cockcroft-Gault) 57.1 Glucose Level 132 mg/dL (70-99) Calcium Level 7.6 mg/dL (8.5-10.1) Magnesium Level 2.0 mg/dL (1.8-2.4) Test 03/08/21 07:37 03/08/21 20:46 03/09/21 06:00 03/09/21 07:26 Glucose (Fingerstick) 127 mg/dL (70-99) 100 mg/dL (70-99) 82 mg/dL (70-99) Sodium Level 145 mmol/L (136-145) Potassium Level 4.2 mmol/L (3.5-5.1) Chloride Level 109 mmol/L (98-107) Carbon Dioxide Level 34 mmol/L (21-32) Anion Gap 2 (6-14) Blood Urea Nitrogen 33 mg/dL (7-20) Creatinine 1.1 mg/dL (0.6-1.0) Estimated GFR (Cockcroft-Gault) 63.1 Glucose Level 88 mg/dL (70-99) Calcium Level 7.5 mg/dL (8.5-10.1) Laboratory Tests Test 03/08/21 20:46 03/09/21 06:00 03/09/21 07:26 Glucose (Fingerstick) 100 mg/dL (70-99) 82 mg/dL (70-99) Sodium Level 145 mmol/L (136-145) Potassium Level 4.2 mmol/L (3.5-5.1) Chloride Level 109 mmol/L (98-107) Carbon Dioxide Level 34 mmol/L (21-32) Anion Gap 2 (6-14) Blood Urea Nitrogen 33 mg/dL (7-20) Creatinine 1.1 mg/dL (0.6-1.0) Estimated GFR (Cockcroft-Gault) 63.1 Glucose Level 88 mg/dL (70-99) Calcium Level 7.5 mg/dL (8.5-10.1) Medications Active Scripts Medications Dose Route/Sig Max Daily Dose Days Date Category Admelog (Insulin Lispro) 100 Unit/1 Ml Vial 0 Units SQ TIDWMEALS 30 01/27/21 Rx Polyethylene Glycol 3350 17 Gm Powd.pack 17 Gm PO PRN DAILY PRN 30 01/27/21 Rx Bumetanide 1 Mg Tablet 1 Mg PO BID92 01/27/21 Rx Metoprolol Succinate ( Xl ) (Metoprolol Succinate) 25 Mg Tab.er.24h 75 Mg PO DAILY 30 01/27/21 Rx Feosol (Ferrous Sulfate) 325 Mg Tablet 325 Mg PO BIDWMEALS 01/27/21 Rx Duoneb 0.5-3(2.5) Mg/3 Ml (Albuterol/Ipratropium) 3 Ml Ampul.neb 3 Ml NEB RTQID 30 01/27/21 Rx Aldactone (Spironolactone) 25 Mg Tablet 25 Mg PO DAILY 30 07/16/20 Rx Oxycodon-Acetaminophen 7.5-325 (Oxycodone Hcl/Acetaminophen) 1 Each Tablet 7.5-325 Mg PO PRN Q6HRS PRN 01/31/19 Reported Omeprazole 40 Mg Capsule.dr 1 Cap PO DAILY06 01/31/19 Reported Potassium Chloride (Potassium Chloride) 20 Meq Tablet.er 20 Meq PO BID 01/31/19 Reported Entresto 49 mg-51 mg Tablet (Sacubitril/Valsartan) 1 Each Tablet 1 Tab PO BID 01/31/19 Reported Glipizide 5 Mg Tablet 1 Tab PO DAILY 10/22/18 Reported Warfarin Sodium 10 Mg Tablet 10 Mg PO DAILY 08/25/14 Reported Crestor (Rosuvastatin Calcium) 10 Mg Tablet 1 Tab PO DAILY 08/25/14 Reported Impression . 1. Acute on chronic hypoxic and suspected hypercapnic respiratory failure secondary to acute on chronic systolic heart failure. 2. Encephalopathy, metabolic and toxic, suspect hypercapnia. resolved 3. Acute on chronic systolic congestive heart failure. 4. Abnormal chest x-ray with bilateral interstitial infiltrates. 5. Previous echo with EF of 35%. 6. Morbid obesity with obstructive sleep apnea with marginal compliance with CPAP and obesity hypoventilation syndrome. 7. Mild acute kidney injury. Plan . 1. bipap setting reviewed, the importance of use discussed 2. Encephalopathy resolved 3. Diuresis per cardiology. 4. Follow cardiology recommendation. 5. Renal consultation and recommendation. 6. Cautious diuresis monitor renal function. 7. Avoid any sedatives or narcotics. 8. bronchodilators. 9. lose wt Discussed with RN patient and her family Patient is DNR/DNI CHRISTIANO BLACK MD March 09, 2021 10:08
[2021-03-09 11:00] VITALS: BP 109/71
[2021-03-09] MEDS: NYSTATIN TOPICAL POWDER 15GM BOTTLE. TP SCH ×2 (11:45→21:14)
--- NOTE | 2021-03-09 11:57 | PDOC ---
DATE OF SERVICE DATE: 03/09/21 TIME: 11:56 SUBJECTIVE ROS stable , states feeling better, On RA OBJECTIVE Vital Signs Vital Signs Date Time Temp Pulse Resp B/P (MAP) Pulse Ox O2 Delivery O2 Flow Rate FiO2 03/09/21 11:29 94 Room Air 03/09/21 11:00 99.3 65 18 109/71 (84) 99.3 03/09/21 08:00 2.0 I & 0 Intake and Output 03/09/21 07:00 Intake Total 1310 ml Output Total 5300 ml Balance -3990 ml Intake Oral 1310 ml Output Urine Total 5300 ml PHYSICAL EXAM Physical Exam General: NAD. Super Morbid obese HEENT: Mucous membr. moist/pink, On RA Neck supple Lungs: Decreased at bases, Non labored Heart: Regular rate and rate, distant Abdomen: Soft, obese) Extremities: 2+ bilateral LE edema Skin: No significant lesion Neuro: grossly normal Flores +, No CVA or SP tenderness DIAGNOSIS/ASSESSMENT Assessment & Plan RADHA Cardiorenal, Stable renal function,Non oliguric , UA unremarkable Supportive care, I/o , Avoid nephrotoxins. Has been on Bumex since her recent hospitalization . 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 with a/c CHF, COPD, and obesity/hypoventilation. on BiPAP Acute on chronic diastolic/systolic CHF . NICM: s/p AICD LVEF 35-40% per echo 07/31. Cath 2018 without significant CAD. Device check 01/30 with normal function and stable lead impedances Possible ELIZABETH/COPD with morbid obesity: BMI at 73 Hypertension; controlled Diabetes, II Hx of CVA: in 2002 with left side hemiparesis Tobaccoism Chronic warfarin therapy:due to remote CVA. No h/o AFIB/flutter. Most recent device check wtih 0% AFIB burden. Morbidly Obese COMMENT/RELEVANT DATA Meds Current Medications Medications (Trade) Dose Ordered Sig/Liam Start Time Stop Time Status Last Admin Dose Admin Acetaminophen (Tylenol) 650 mg PRN Q4HRS PRN 03/07/21 11:00 Al Hydroxide/Mg Hydroxide (Mylanta Plus Xs) 30 ml PRN DAILY PRN 03/07/21 11:00 Albuterol/ Ipratropium (Duoneb) 3 ml RTQID 03/07/21 12:00 Cancel Atorvastatin Calcium (Lipitor) 40 mg DAILY 03/08/21 09:00 03/09/21 08:35 40 MG Bumetanide (Bumex) 1 mg BID 03/07/21 21:00 03/09/21 08:35 1 MG Dextrose (Dextrose 50%-Water Syringe) 12.5 gm PRN Q15MIN PRN 03/07/21 14:30 Docusate Sodium (Colace) 100 mg PRN BID PRN 03/07/21 11:00 Enoxaparin Sodium (Lovenox 60mg Syringe) 60 mg Q12HR 03/07/21 11:00 03/07/21 14:34 DC 03/07/21 10:14 60 MG Ferrous Sulfate (Feosol) 325 mg BIDWMEALS 03/07/21 17:00 03/09/21 08:36 325 MG Furosemide (Lasix) 40 mg 1X ONCE 03/07/21 10:00 03/07/21 10:04 DC 03/07/21 10:15 40 MG Glipizide (Glucotrol) 5 mg DAILY 03/07/21 12:00 03/09/21 08:36 5 MG Guaifenesin (Robitussin) 200 mg PRN Q4HRS PRN 03/07/21 11:00 03/08/21 11:13 200 MG Insulin Human Lispro (HumaLOG VIAL for OP,RR ONLY) TIDWMEALS 03/07/21 12:00 03/07/21 14:31 DC Insulin Human Lispro (HumaLOG) 0-7 UNITS TIDWMEALS 03/07/21 17:00 Methylprednisolone Sodium Succinate (SOLU-Medrol 125MG VIAL) 125 mg 1X ONCE 03/06/21 16:15 03/06/21 16:16 DC 03/06/21 17:11 125 MG Metoprolol Succinate (Toprol Xl) 75 mg DAILY 03/07/21 12:00 03/09/21 08:35 75 MG Miconazole Nitrate (Monistat-Derm) 1 edie BID 03/08/21 13:45 03/09/21 08:37 1 EDIE Nystatin (Nystop) 1 edie BID 03/09/21 11:45 Ondansetron HCl (Zofran) 4 mg PRN Q4HRS PRN 03/07/21 11:00 Pantoprazole Sodium (Protonix) 40 mg DAILY06 03/08/21 06:00 03/09/21 06:03 40 MG Perflutren Protein Type A Microsphe (Optison) 0.66 mg STK-MED ONCE 03/08/21 16:40 03/08/21 16:41 DC Polyethylene Glycol (miraLAX PACKET) 17 gm PRN DAILY PRN 03/07/21 11:00 Potassium Chloride (Klor-Con) 20 meq BID 03/07/21 21:00 03/09/21 08:36 20 MEQ Sacubitril/ Valsartan (Entresto 49 Mg-51 Mg) 1 tab BID 03/07/21 12:00 03/09/21 08:36 1 TAB Sodium Monofluorophosphate (Fleet Adult) 133 ml PRN DAILY PRN 03/07/21 11:00 Sodium Chloride (Normal Saline Flush) 3 ml QSHIFT PRN 03/07/21 11:00 Spironolactone (Aldactone) 25 mg DAILY 03/07/21 12:00 03/09/21 08:36 25 MG Warfarin Sodium (Coumadin Per Physician) 1 each PRN DAILY PRN 03/07/21 14:45 Warfarin Sodium (Coumadin) 10 mg DAILY16 03/07/21 16:00 03/08/21 21:17 10 MG Lab Laboratory Tests Test 03/08/21 20:46 03/09/21 06:00 03/09/21 07:26 03/09/21 11:46 Glucose (Fingerstick) 100 mg/dL (70-99) 82 mg/dL (70-99) 89 mg/dL (70-99) Sodium Level 145 mmol/L (136-145) Potassium Level 4.2 mmol/L (3.5-5.1) Chloride Level 109 mmol/L (98-107) Carbon Dioxide Level 34 mmol/L (21-32) Anion Gap 2 (6-14) Blood Urea Nitrogen 33 mg/dL (7-20) Creatinine 1.1 mg/dL (0.6-1.0) Estimated GFR (Cockcroft-Gault) 63.1 Glucose Level 88 mg/dL (70-99) Calcium Level 7.5 mg/dL (8.5-10.1) Results All relevant outside records, renal labs, imaging studies, telemetry/EKG's were reviewed. Justicifation of Admission Dx: Justifications for Admission: Justification of Admission Dx: Yes CHUNG HURTADO MD March 09, 2021 11:57
--- NOTE | 2021-03-09 14:15 | PDOC ---
PROGRESS NOTES Date of Service DATE: 03/09/21 TIME: 14:13 Subjective Subjective Patient seen and examined Objective Objective Vital Signs Date Time Temp Pulse Resp B/P (MAP) Pulse Ox O2 Delivery O2 Flow Rate FiO2 03/09/21 11:29 94 Room Air 03/09/21 11:00 99.3 65 18 109/71 (84) 99.3 03/09/21 08:00 2.0 Intake and Output 03/09/21 07:00 Intake Total 1310 ml Output Total 5300 ml Balance -3990 ml Intake Oral 1310 ml Output Urine Total 5300 ml Physical Exam Abdomen: Normal bowel sounds Heart: Regular rate General: mild distress Lungs: Other (Mildly decreased breath sounds) Assessment Assessment Problems Medical Problems: (1) Chest pain Status: Acute (2) History of COPD Status: Acute (3) Person under investigation for COVID-19 Status: Acute (4) Respiratory distress Status: Acute Acute respiratory failure; multifactorial. with a/c CHF, COPD, and obesity/hypoventilation. Patient has refused BiPAP. She is feeling mildly better today. We will continue present treatment. She is also followed by the pulmonary service. Acute on chronic diastolic/systolic CHF. Mild diuresis as tolerated. Creatinine mildly up from 1.8-1.9 today. NICM: s/p AICD (Biotronik). LVEF 35-40% per echo 07/31. Cath 2018 without significant CAD. Device check 01/30 with normal function and stable lead impedances. Updated echocardiogram now shows an ejection fraction of 25%. Possible ELIZABETH/COPD with morbid obesity: BMI at 73 Hypertension; controlled Hyperlipidemia; statin Diabetes, II Hx of CVA: in 2002 with left side hemiparesis Chronic warfarin therapy:due to remote CVA. No h/o AFIB/flutter. Most recent device check wtih 0% AFIB burden. Comment Review of Relevant I have reviewed the following items cuate (where applicable) has been applied. Labs Laboratory Tests Test 03/07/21 16:15 03/07/21 21:32 03/08/21 03:30 03/08/21 07:37 Glucose (Fingerstick) 143 mg/dL (70-99) 124 mg/dL (70-99) 127 mg/dL (70-99) White Blood Count 6.4 x10^3/uL (4.0-11.0) Red Blood Count 3.78 x10^6/uL (3.50-5.40) Hemoglobin 9.8 g/dL (12.0-15.5) Hematocrit 32.0 % (36.0-47.0) Mean Corpuscular Volume 85 fL (79-100) Mean Corpuscular Hemoglobin 26 pg (25-35) Mean Corpuscular Hemoglobin Concent 31 g/dL (31-37) Red Cell Distribution Width 23.2 % (11.5-14.5) Platelet Count 166 x10^3/uL (140-400) Neutrophils (%) (Auto) 77 % (31-73) Lymphocytes (%) (Auto) 13 % (24-48) Monocytes (%) (Auto) 9 % (0-9) Eosinophils (%) (Auto) 0 % (0-3) Basophils (%) (Auto) 0 % (0-3) Neutrophils # (Auto) 4.9 x10^3/uL (1.8-7.7) Lymphocytes # (Auto) 0.8 x10^3/uL (1.0-4.8) Monocytes # (Auto) 0.6 x10^3/uL (0.0-1.1) Eosinophils # (Auto) 0.0 x10^3/uL (0.0-0.7) Basophils # (Auto) 0.0 x10^3/uL (0.0-0.2) Prothrombin Time 30.4 SEC (11.7-14.0) Prothromb Time International Ratio 2.9 (0.8-1.1) Sodium Level 147 mmol/L (136-145) Potassium Level 4.3 mmol/L (3.5-5.1) Chloride Level 111 mmol/L (98-107) Carbon Dioxide Level 29 mmol/L (21-32) Anion Gap 7 (6-14) Blood Urea Nitrogen 35 mg/dL (7-20) Creatinine 1.2 mg/dL (0.6-1.0) Estimated GFR (Cockcroft-Gault) 57.1 Glucose Level 132 mg/dL (70-99) Calcium Level 7.6 mg/dL (8.5-10.1) Magnesium Level 2.0 mg/dL (1.8-2.4) Test 03/08/21 20:46 03/09/21 06:00 03/09/21 07:26 03/09/21 11:46 Glucose (Fingerstick) 100 mg/dL (70-99) 82 mg/dL (70-99) 89 mg/dL (70-99) Sodium Level 145 mmol/L (136-145) Potassium Level 4.2 mmol/L (3.5-5.1) Chloride Level 109 mmol/L (98-107) Carbon Dioxide Level 34 mmol/L (21-32) Anion Gap 2 (6-14) Blood Urea Nitrogen 33 mg/dL (7-20) Creatinine 1.1 mg/dL (0.6-1.0) Estimated GFR (Cockcroft-Gault) 63.1 Glucose Level 88 mg/dL (70-99) Calcium Level 7.5 mg/dL (8.5-10.1) Laboratory Tests Test 03/08/21 20:46 03/09/21 06:00 03/09/21 07:26 03/09/21 11:46 Glucose (Fingerstick) 100 mg/dL (70-99) 82 mg/dL (70-99) 89 mg/dL (70-99) Sodium Level 145 mmol/L (136-145) Potassium Level 4.2 mmol/L (3.5-5.1) Chloride Level 109 mmol/L (98-107) Carbon Dioxide Level 34 mmol/L (21-32) Anion Gap 2 (6-14) Blood Urea Nitrogen 33 mg/dL (7-20) Creatinine 1.1 mg/dL (0.6-1.0) Estimated GFR (Cockcroft-Gault) 63.1 Glucose Level 88 mg/dL (70-99) Calcium Level 7.5 mg/dL (8.5-10.1) Medications Current Medications Methylprednisolone Sodium Succinate (SOLU-Medrol 125MG VIAL) 125 mg 1X ONCE IV Last administered on 03/06/21at 17:11; Start 03/06/21 at 16:15; Stop 03/06/21 at 16:16; Status DC Ondansetron HCl (Zofran) 4 mg PRN Q8HRS PRN IV NAUSEA/VOMITING; Start 03/06/21 at 17:45; Stop 03/07/21 at 10:59; Status DC Furosemide (Lasix) 40 mg 1X ONCE IVP Last administered on 03/07/21at 10:15; Start 03/07/21 at 10:00; Stop 03/07/21 at 10:04; Status DC Albuterol/ Ipratropium (Duoneb) 3 ml RTQID NEB Last administered on 03/09/21at 11:29; Start 03/07/21 at 12:00 Enoxaparin Sodium (Lovenox 60mg Syringe) 60 mg Q12HR SQ Last administered on 03/07/21at 10:14; Start 03/07/21 at 11:00; Stop 03/07/21 at 14:34; Status DC Bumetanide (Bumex) 1 mg BID92 PO ; Start 03/07/21 at 14:00; Stop 03/07/21 at 15:04; Status DC Ferrous Sulfate (Feosol) 325 mg BIDWMEALS PO Last administered on 03/09/21at 08:36; Start 03/07/21 at 17:00 Glipizide (Glucotrol) 5 mg DAILY PO Last administered on 03/09/21at 08:36; Start 03/07/21 at 12:00 Insulin Human Lispro (HumaLOG VIAL for OP,RR ONLY) TIDWMEALS SQ ; Start 03/07/21 at 12:00; Stop 03/07/21 at 14:31; Status DC Albuterol/ Ipratropium (Duoneb) 3 ml RTQID NEB ; Start 03/07/21 at 12:00; Status Cancel Metoprolol Succinate (Toprol Xl) 75 mg DAILY PO Last administered on 03/09/21at 08:35; Start 03/07/21 at 12:00 Polyethylene Glycol (miraLAX PACKET) 17 gm PRN DAILY PRN PO CONSTIPATION (1st Choice); Start 03/07/21 at 11:00 Potassium Chloride (Klor-Con) 20 meq BID PO Last administered on 03/09/21at 08:36; Start 03/07/21 at 21:00 Sacubitril/ Valsartan (Entresto 49 Mg-51 Mg) 1 tab BID PO Last administered on 03/09/21at 08:36; Start 03/07/21 at 12:00 Spironolactone (Aldactone) 25 mg DAILY PO Last administered on 03/09/21at 08:36; Start 03/07/21 at 12:00 Pantoprazole Sodium (Protonix) 40 mg DAILY06 PO Last administered on 03/09/21at 06:03; Start 03/08/21 at 06:00 Atorvastatin Calcium (Lipitor) 40 mg DAILY PO Last administered on 03/09/21at 08:35; Start 03/08/21 at 09:00 Warfarin Sodium (Coumadin) 10 mg DAILY16 PO Last administered on 03/08/21at 21:17; Start 03/07/21 at 16:00 Sodium Chloride (Normal Saline Flush) 3 ml QSHIFT PRN IV AFTER MEDS AND BLOOD DRAWS; Start 03/07/21 at 11:00 Ondansetron HCl (Zofran) 4 mg PRN Q4HRS PRN IV NAUSEA/VOMITING; Start 03/07/21 at 11:00 Acetaminophen (Tylenol) 650 mg PRN Q4HRS PRN PO TEMP OVER 100.4F OR MILD PAIN; Start 03/07/21 at 11:00 Al Hydroxide/Mg Hydroxide (Mylanta Plus Xs) 30 ml PRN DAILY PRN PO HEARTBURN / GAS; Start 03/07/21 at 11:00 Sodium Monofluorophosphate (Fleet Adult) 133 ml PRN DAILY PRN OK CONSTIPATION; Start 03/07/21 at 11:00 Docusate Sodium (Colace) 100 mg PRN BID PRN PO HARD STOOLS; Start 03/07/21 at 11:00 Guaifenesin (Robitussin) 200 mg PRN Q4HRS PRN PO COUGH Last administered on 03/08/21at 11:13; Start 03/07/21 at 11:00 Insulin Human Lispro (HumaLOG) 0-7 UNITS TIDWMEALS SQ ; Start 03/07/21 at 17:00 Dextrose (Dextrose 50%-Water Syringe) 12.5 gm PRN Q15MIN PRN IV SEE COMMENTS; Start 03/07/21 at 14:30 Warfarin Sodium (Coumadin Per Physician) 1 each PRN DAILY PRN MC SEE COMMENTS Last administered on 03/09/21at 13:27; Start 03/07/21 at 14:45 Bumetanide (Bumex) 1 mg BID IV Last administered on 03/09/21at 08:35; Start 03/07/21 at 21:00 Miconazole Nitrate (Monistat-Derm) 1 edie BID TP Last administered on 03/09/21at 08:37; Start 03/08/21 at 13:45 Perflutren Protein Type A Microsphe (Optison) 0.66 mg STK-MED ONCE IV ; Start 03/08/21 at 16:40; Stop 03/08/21 at 16:41; Status DC Nystatin (Nystop) 1 edie BID TP ; Start 03/09/21 at 11:45 Active Scripts Active Admelog (Insulin Lispro) 100 Unit/1 Ml Vial 0 Units SQ TIDWMEALS 30 Days Polyethylene Glycol 3350 17 Gm Powd.pack 17 Gm PO PRN DAILY PRN 30 Days Bumetanide 1 Mg Tablet 1 Mg PO BID92 30 Days Metoprolol Succinate ( Xl ) (Metoprolol Succinate) 25 Mg Tab.er.24h 75 Mg PO DAILY 30 Days Feosol (Ferrous Sulfate) 325 Mg Tablet 325 Mg PO BIDWMEALS 30 Days Duoneb 0.5-3(2.5) Mg/3 Ml (Albuterol/Ipratropium) 3 Ml Ampul.neb 3 Ml NEB RTQID 30 Days Aldactone (Spironolactone) 25 Mg Tablet 25 Mg PO DAILY 30 Days Reported Oxycodon-Acetaminophen 7.5-325 (Oxycodone Hcl/Acetaminophen) 1 Each Tablet 7.5- 325 Mg PO PRN Q6HRS PRN Omeprazole 40 Mg Capsule. 1 Cap PO DAILY06 Potassium Chloride (Potassium Chloride) 20 Meq Tablet.er 20 Meq PO BID Entresto 49 mg-51 mg Tablet (Sacubitril/Valsartan) 1 Each Tablet 1 Tab PO BID Glipizide 5 Mg Tablet 1 Tab PO DAILY Warfarin Sodium 10 Mg Tablet 10 Mg PO DAILY Crestor (Rosuvastatin Calcium) 10 Mg Tablet 1 Tab PO DAILY Vitals/I & O Vital Sign - Last 24 Hours 03/08/21 03/08/21 03/08/21 03/08/21 15:00 19:30 19:50 20:43 Temp 97.7 97.7 97.7 97.7 Pulse 74 75 Resp 18 16 B/P (MAP) 122/58 (79) 113/49 (70) Pulse Ox 98 90 91 O2 Delivery Nasal Cannula Room Air Room Air Room Air O2 Flow Rate 2.0 03/08/21 03/08/21 03/09/21 03/09/21 21:15 23:40 03:27 07:00 Temp 97.6 97.9 97.6 97.9 Pulse 75 77 72 75 Resp 16 24 18 B/P (MAP) 113/49 133/56 (81) 133/68 (89) 133/71 (91) Pulse Ox 90 95 91 O2 Delivery Nasal Cannula Nasal Cannula Nasal Cannula O2 Flow Rate 2.0 2.0 2.0 03/09/21 03/09/21 03/09/21 03/09/21 07:34 08:00 08:35 08:36 Pulse 75 75 B/P (MAP) 133/71 133/71 Pulse Ox 97 O2 Delivery Room Air Nasal Cannula O2 Flow Rate 2.0 03/09/21 03/09/21 11:00 11:29 Temp 99.3 99.3 Pulse 65 Resp 18 B/P (MAP) 109/71 (84) Pulse Ox 91 94 O2 Delivery Room Air Intake and Output 03/08/21 03/08/21 03/09/21 15:00 23:00 07:00 Intake Total 720 ml 590 ml Output Total 2000 ml 3300 ml Balance -1280 ml -2710 ml Justifications for Admission Other Justification EXAC CHF HIREN HEARN MD March 09, 2021 14:15
--- NOTE | 2021-03-09 14:17 | PDOC ---
[facility] PROGRESS NOTE Date of Service DOS: DATE: 03/09/21 TIME: 14:16 Chief Complaint Chief Complaint 1. Acute hypercapnic respiratory failure, multifactorial 2. Acute on chronic systolic CHF, and toxic, suspect hypercapnia. 3. Acute metabolic encephalopathy. 4. Abnormal chest x-ray with bilateral interstitial infiltrates. 5. Previous echo with EF of 35%. 6. Morbid obesity, BMI 75, with obstructive sleep apnea with marginal compliance with CPAP and obesity hypoventilation syndrome. 7. pickwickian habitus History of Present Illness History of Present Illness has refused, refused BiPAP. wean NC as able mental status imrpvoed cont diuresis Vitals/I&O Vitals/I&O: Vital Signs Date Time Temp Pulse Resp B/P (MAP) Pulse Ox O2 Delivery O2 Flow Rate FiO2 03/09/21 11:29 94 Room Air 03/09/21 11:00 99.3 65 18 109/71 (84) 99.3 03/09/21 08:00 2.0 I & O 03/08/21 03/08/21 03/09/21 15:00 23:00 07:00 Intake Total 720 ml 590 ml Output Total 2000 ml 3300 ml Balance -1280 ml -2710 ml Physical Exam General: mild distress Heart: Regular rate Lungs: Clear, Crackles Abdomen: Normal bowel sounds Extremities: No cyanosis Labs Labs: Laboratory Tests Test 03/08/21 20:46 03/09/21 06:00 03/09/21 07:26 03/09/21 11:46 Glucose (Fingerstick) 100 mg/dL (70-99) 82 mg/dL (70-99) 89 mg/dL (70-99) Sodium Level 145 mmol/L (136-145) Potassium Level 4.2 mmol/L (3.5-5.1) Chloride Level 109 mmol/L (98-107) Carbon Dioxide Level 34 mmol/L (21-32) Anion Gap 2 (6-14) Blood Urea Nitrogen 33 mg/dL (7-20) Creatinine 1.1 mg/dL (0.6-1.0) Estimated GFR (Cockcroft-Gault) 63.1 Glucose Level 88 mg/dL (70-99) Calcium Level 7.5 mg/dL (8.5-10.1) Assessment and Plan Assessmemt and Plan Problems Medical Problems: (1) Chest pain Status: Acute (2) History of COPD Status: Acute (3) Person under investigation for COVID-19 Status: Acute (4) Respiratory distress Status: Acute Comment Review of Relevant I have reviewed the following items cuate (where applicable) has been applied. Justifications for Admission Other Justification EXAC CHF MARGY PIERSON MD March 09, 2021 14:17
[2021-03-09 15:00] VITALS: BP 131/55
[2021-03-09] MEDS: WARFARIN 5 MG TABLET. PO SCH (17:07)
[2021-03-09 19:00] VITALS: BP 108/58
[2021-03-09 23:13] VITALS: BP 131/54
[2021-03-10 02:42] VITALS: BP 116/59
[2021-03-10] MEDS: PANTOPRAZOLE 40 MG TABLET.DR. PO SCH (06:23)
[2021-03-10 07:00] VITALS: BP 117/70
[2021-03-10] MEDS: IPRATRPIUM/ALBUTEROL 0.5/2.5MG 3 ML NEBU. NEB SCH ×4 (07:26→19:52)
[2021-03-10 07:31] LABS: PROTHROMBIN TIME PATIENT 28.8 SEC (11.7-14.0)
[2021-03-10] MEDS: INSULIN LISPRO 300 UNITS/3 ML VIAL. SQ SCH ×3 (07:48→16:41)
[2021-03-10] MEDS: glipiZIDE 5 MG TABLET PO SCH (08:47)
[2021-03-10] MEDS: METOPROLOL SUCC 24HR ER 25 MG TAB.ER.24H. PO SCH (08:47)
[2021-03-10] MEDS: SPIRONOLACTONE 25 MG TABLET PO SCH (08:48)
[2021-03-10] MEDS: BUMETANIDE 1 MG/4 ML VIAL. IV SCH ×2 (08:48→21:16)
[2021-03-10] MEDS: ATORVASTATIN CALCIUM 40 MG TABLET. PO SCH (08:48)
[2021-03-10] MEDS: POTASSIUM CHLORIDE 20 MEQ TABLET.ER. PO SCH ×2 (08:48→21:16)
[2021-03-10] MEDS: FERROUS SULFATE 325 MG TABLET. PO SCH ×2 (08:48→16:54)
[2021-03-10] MEDS: MICONAZOLE NITRATE 2% TOPICAL CREAM 30GM TUBE. TP SCH ×2 (08:48→21:20)
[2021-03-10] MEDS: SACUBITRIL/VALSARTAN 49/51MG TABLET. PO SCH ×2 (08:48→21:16)
[2021-03-10] MEDS: NYSTATIN TOPICAL POWDER 15GM BOTTLE. TP SCH ×2 (08:49→21:20)
--- NOTE | 2021-03-10 10:16 | PDOC ---
PULMONARY PROGRESS NOTES DATE: 03/10/21 TIME: 10:15 Subjective on RA didnt use bipap last night used bipap for 2 hrs last night DNR/DNI. Vitals Vital Signs Date Time Temp Pulse Resp B/P (MAP) Pulse Ox O2 Delivery O2 Flow Rate FiO2 03/10/21 08:48 79 117/70 03/10/21 08:00 Room Air 03/10/21 07:26 97 03/10/21 07:00 97.4 18 2.0 97.4 ROS: No Nausea General: Alert, No acute distress Lungs: Clear, Crackles Cardiovascular: S1 Abdomen: Soft, Other Extremities: Other Skin: Warm Labs Laboratory Tests Test 03/08/21 20:46 03/09/21 06:00 03/09/21 07:26 03/09/21 11:46 Glucose (Fingerstick) 100 mg/dL (70-99) 82 mg/dL (70-99) 89 mg/dL (70-99) Sodium Level 145 mmol/L (136-145) Potassium Level 4.2 mmol/L (3.5-5.1) Chloride Level 109 mmol/L (98-107) Carbon Dioxide Level 34 mmol/L (21-32) Anion Gap 2 (6-14) Blood Urea Nitrogen 33 mg/dL (7-20) Creatinine 1.1 mg/dL (0.6-1.0) Estimated GFR (Cockcroft-Gault) 63.1 Glucose Level 88 mg/dL (70-99) Calcium Level 7.5 mg/dL (8.5-10.1) Test 03/09/21 16:51 03/09/21 19:34 03/10/21 06:00 03/10/21 07:39 Glucose (Fingerstick) 146 mg/dL (70-99) 141 mg/dL (70-99) 103 mg/dL (70-99) Prothrombin Time 28.8 SEC (11.7-14.0) Prothromb Time International Ratio 2.7 (0.8-1.1) Laboratory Tests Test 03/09/21 11:46 03/09/21 16:51 03/09/21 19:34 03/10/21 06:00 Glucose (Fingerstick) 89 mg/dL (70-99) 146 mg/dL (70-99) 141 mg/dL (70-99) Prothrombin Time 28.8 SEC (11.7-14.0) Prothromb Time International Ratio 2.7 (0.8-1.1) Test 03/10/21 07:39 Glucose (Fingerstick) 103 mg/dL (70-99) Medications Active Scripts Medications Dose Route/Sig Max Daily Dose Days Date Category Admelog (Insulin Lispro) 100 Unit/1 Ml Vial 0 Units SQ TIDWMEALS 30 01/27/21 Rx Polyethylene Glycol 3350 17 Gm Powd.pack 17 Gm PO PRN DAILY PRN 30 01/27/21 Rx Bumetanide 1 Mg Tablet 1 Mg PO BID92 30 01/27/21 Rx Metoprolol Succinate ( Xl ) (Metoprolol Succinate) 25 Mg Tab.er.24h 75 Mg PO DAILY 30 01/27/21 Rx Feosol (Ferrous Sulfate) 325 Mg Tablet 325 Mg PO BIDWMEALS 30 01/27/21 Rx Duoneb 0.5-3(2.5) Mg/3 Ml (Albuterol/Ipratropium) 3 Ml Ampul.neb 3 Ml NEB RTQID 30 01/27/21 Rx Aldactone (Spironolactone) 25 Mg Tablet 25 Mg PO DAILY 30 07/16/20 Rx Oxycodon-Acetaminophen 7.5-325 (Oxycodone Hcl/Acetaminophen) 1 Each Tablet 7.5-325 Mg PO PRN Q6HRS PRN 01/31/19 Reported Omeprazole 40 Mg Capsule. 1 Cap PO DAILY06 01/31/19 Reported Potassium Chloride (Potassium Chloride) 20 Meq Tablet.er 20 Meq PO BID 01/31/19 Reported Entresto 49 mg-51 mg Tablet (Sacubitril/Valsartan) 1 Each Tablet 1 Tab PO BID 01/31/19 Reported Glipizide 5 Mg Tablet 1 Tab PO DAILY 10/22/18 Reported Warfarin Sodium 10 Mg Tablet 10 Mg PO DAILY 08/25/14 Reported Crestor (Rosuvastatin Calcium) 10 Mg Tablet 1 Tab PO DAILY 08/25/14 Reported Impression . 1. Acute on chronic hypoxic and suspected hypercapnic respiratory failure secondary to acute on chronic systolic heart failure. 2. Encephalopathy, metabolic and toxic, suspect hypercapnia. resolved 3. Acute on chronic systolic congestive heart failure. 4. Abnormal chest x-ray with bilateral interstitial infiltrates. 5. Previous echo with EF of 35%. 6. Morbid obesity with obstructive sleep apnea with marginal compliance with CPAP and obesity hypoventilation syndrome. 7. Mild acute kidney injury. Plan . 1. bipap prn during day cont at night bipap setting reviewed, the importance of use discussed in details w pt and rn 2. overall prognosis poor 3. Diuresis per cardiology. 4. Follow cardiology recommendation. 5. follow Renal recommendation. 6. Cautious diuresis monitor renal function. 7. Avoid any sedatives or narcotics. 8. bronchodilators. 9. lose wt Discussed with RN patient Patient is DNR/DNI CHRISTIANO BLACK MD March 10, 2021 10:16
--- NOTE | 2021-03-10 10:40 | PDOC ---
DATE OF SERVICE DATE: 03/10/21 TIME: 10:39 SUBJECTIVE ROS stable , states feeling better, On RA OBJECTIVE Vital Signs Vital Signs Date Time Temp Pulse Resp B/P (MAP) Pulse Ox O2 Delivery O2 Flow Rate FiO2 03/10/21 08:48 79 117/70 03/10/21 08:00 Room Air 03/10/21 07:26 97 03/10/21 07:00 97.4 18 2.0 97.4 I & 0 Intake and Output 03/10/21 07:00 Output Total 5000 ml Balance -5000 ml Output Urine Total 5000 ml # Bowel Movements 1 PHYSICAL EXAM Physical Exam General: NAD. Super Morbid obese HEENT: Mucous membr. moist/pink, On RA Neck supple Lungs: Decreased at bases, Non labored Heart: Regular rate and rate, distant Abdomen: Soft, obese) Extremities: 2+ bilateral LE edema Skin: No significant lesion Neuro: grossly normal Flores +, No CVA or SP tenderness DIAGNOSIS/ASSESSMENT Assessment & Plan RADHA Cardiorenal, Stable renal function,Non oliguric , UA unremarkable Supportive care, I/o , Avoid nephrotoxins. Has been on Bumex since her recent hospitalization . 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 with a/c CHF, COPD, and obesity/hypoventilation. on BiPAP Acute on chronic diastolic/systolic CHF . NICM: s/p AICD LVEF 35-40% per echo 07/31. Cath 2018 without significant CAD. Device check 01/30 with normal function and stable lead impedances Possible ELIZABETH/COPD with morbid obesity: BMI at 73 Hypertension; controlled Diabetes, II Hx of CVA: in 2002 with left side hemiparesis Tobaccoism Chronic warfarin therapy:due to remote CVA. No h/o AFIB/flutter. Most recent device check wtih 0% AFIB burden. Morbidly Obese COMMENT/RELEVANT DATA Meds Current Medications Medications (Trade) Dose Ordered Sig/Liam Start Time Stop Time Status Last Admin Dose Admin Acetaminophen (Tylenol) 650 mg PRN Q4HRS PRN 03/07/21 11:00 Al Hydroxide/Mg Hydroxide (Mylanta Plus Xs) 30 ml PRN DAILY PRN 03/07/21 11:00 Albuterol/ Ipratropium (Duoneb) 3 ml RTQID 03/07/21 12:00 Cancel Atorvastatin Calcium (Lipitor) 40 mg DAILY 03/08/21 09:00 03/10/21 08:48 40 MG Bumetanide (Bumex) 1 mg BID 03/07/21 21:00 03/10/21 08:48 1 MG Dextrose (Dextrose 50%-Water Syringe) 12.5 gm PRN Q15MIN PRN 03/07/21 14:30 Docusate Sodium (Colace) 100 mg PRN BID PRN 03/07/21 11:00 Enoxaparin Sodium (Lovenox 60mg Syringe) 60 mg Q12HR 03/07/21 11:00 03/07/21 14:34 DC 03/07/21 10:14 60 MG Ferrous Sulfate (Feosol) 325 mg BIDWMEALS 03/07/21 17:00 03/10/21 08:48 325 MG Furosemide (Lasix) 40 mg 1X ONCE 03/07/21 10:00 03/07/21 10:04 DC 03/07/21 10:15 40 MG Glipizide (Glucotrol) 5 mg DAILY 03/07/21 12:00 03/10/21 08:47 5 MG Guaifenesin (Robitussin) 200 mg PRN Q4HRS PRN 03/07/21 11:00 03/08/21 11:13 200 MG Insulin Human Lispro (HumaLOG VIAL for OP,RR ONLY) TIDWMEALS 03/07/21 12:00 03/07/21 14:31 DC Insulin Human Lispro (HumaLOG) 0-7 UNITS TIDWMEALS 03/07/21 17:00 Methylprednisolone Sodium Succinate (SOLU-Medrol 125MG VIAL) 125 mg 1X ONCE 03/06/21 16:15 03/06/21 16:16 DC 03/06/21 17:11 125 MG Metoprolol Succinate (Toprol Xl) 75 mg DAILY 03/07/21 12:00 03/10/21 08:47 75 MG Miconazole Nitrate (Monistat-Derm) 1 edie BID 03/08/21 13:45 03/10/21 08:48 1 EDIE Nystatin (Nystop) 1 edie BID 03/09/21 11:45 03/10/21 08:49 1 EDIE Ondansetron HCl (Zofran) 4 mg PRN Q4HRS PRN 03/07/21 11:00 Pantoprazole Sodium (Protonix) 40 mg DAILY06 03/08/21 06:00 03/10/21 06:23 40 MG Perflutren Protein Type A Microsphe (Optison) 0.66 mg STK-MED ONCE 03/08/21 16:40 03/08/21 16:41 DC Polyethylene Glycol (miraLAX PACKET) 17 gm PRN DAILY PRN 03/07/21 11:00 Potassium Chloride (Klor-Con) 20 meq BID 03/07/21 21:00 03/10/21 08:48 20 MEQ Sacubitril/ Valsartan (Entresto 49 Mg-51 Mg) 1 tab BID 03/07/21 12:00 03/10/21 08:48 1 TAB Sodium Monofluorophosphate (Fleet Adult) 133 ml PRN DAILY PRN 03/07/21 11:00 Sodium Chloride (Normal Saline Flush) 3 ml QSHIFT PRN 03/07/21 11:00 Spironolactone (Aldactone) 25 mg DAILY 03/07/21 12:00 03/10/21 08:48 25 MG Warfarin Sodium (Coumadin Per Physician) 1 each PRN DAILY PRN 03/07/21 14:45 03/09/21 13:27 1 EACH Warfarin Sodium (Coumadin) 10 mg DAILY16 03/07/21 16:00 03/09/21 17:07 10 MG Lab Laboratory Tests Test 03/09/21 11:46 03/09/21 16:51 03/09/21 19:34 03/10/21 06:00 Glucose (Fingerstick) 89 mg/dL (70-99) 146 mg/dL (70-99) 141 mg/dL (70-99) Prothrombin Time 28.8 SEC (11.7-14.0) Prothromb Time International Ratio 2.7 (0.8-1.1) Test 03/10/21 07:39 Glucose (Fingerstick) 103 mg/dL (70-99) Results All relevant outside records, renal labs, imaging studies, telemetry/EKG's were reviewed. Justicifation of Admission Dx: Justifications for Admission: Justification of Admission Dx: Yes CHUNG HURTADO MD March 10, 2021 10:40
[2021-03-10 10:47] VITALS: BP 133/71
--- NOTE | 2021-03-10 12:58 | PDOC ---
[facility] PROGRESS NOTE Date of Service DOS: DATE: 03/10/21 TIME: 12:57 Chief Complaint Chief Complaint 1. Acute hypercapnic respiratory failure, multifactorial 2. Acute on chronic systolic CHF, and toxic, suspect hypercapnia. 3. Acute metabolic encephalopathy. 4. Abnormal chest x-ray with bilateral interstitial infiltrates. 5. Previous echo with EF of 35%. 6. Morbid obesity, BMI 75, with obstructive sleep apnea with marginal compliance with CPAP and obesity hypoventilation syndrome. 7. pickwickian habitus History of Present Illness History of Present Illness mental status much better, more pleasant and trying to imrpvoe cont current , still too weak to get up without assist, will likley need skilled mental status imrpvoed cont diuresis Vitals/I&O Vitals/I&O: Vital Signs Date Time Temp Pulse Resp B/P (MAP) Pulse Ox O2 Delivery O2 Flow Rate FiO2 03/10/21 11:18 97 Room Air 03/10/21 10:47 97.7 78 18 133/71 (91) 2.0 97.7 I & O 03/09/21 03/09/21 03/10/21 15:00 23:00 07:00 Output Total 2100 ml 900 ml 2000 ml Balance -2100 ml -900 ml -2000 ml Physical Exam General: mild distress Heart: Regular rate Lungs: Clear, Crackles Abdomen: Normal bowel sounds Extremities: No cyanosis Labs Labs: Laboratory Tests Test 03/09/21 16:51 03/09/21 19:34 03/10/21 06:00 03/10/21 07:39 Glucose (Fingerstick) 146 mg/dL (70-99) 141 mg/dL (70-99) 103 mg/dL (70-99) Prothrombin Time 28.8 SEC (11.7-14.0) Prothromb Time International Ratio 2.7 (0.8-1.1) Test 03/10/21 11:52 Glucose (Fingerstick) 101 mg/dL (70-99) Assessment and Plan Assessmemt and Plan Problems Medical Problems: (1) Chest pain Status: Acute (2) History of COPD Status: Acute (3) Person under investigation for COVID-19 Status: Acute (4) Respiratory distress Status: Acute Comment Review of Relevant I have reviewed the following items cuate (where applicable) has been applied. Justifications for Admission Other Justification EXAC CHF MARGY PIERSON MD March 10, 2021 12:58
--- NOTE | 2021-03-10 13:45 | PDOC ---
PROGRESS NOTES Date of Service DATE: 03/10/21 TIME: 13:42 Subjective Subjective Patient seen and examined Objective Objective Vital Signs Date Time Temp Pulse Resp B/P (MAP) Pulse Ox O2 Delivery O2 Flow Rate FiO2 03/10/21 11:18 97 Room Air 03/10/21 10:47 97.7 78 18 133/71 (91) 2.0 97.7 Intake and Output 03/10/21 07:00 Output Total 5000 ml Balance -5000 ml Output Urine Total 5000 ml # Bowel Movements 1 Physical Exam Abdomen: Normal bowel sounds Heart: Regular rate General: mild distress Lungs: Other (Decreased breath sounds) Assessment Assessment Problems Medical Problems: (1) Chest pain Status: Acute (2) History of COPD Status: Acute (3) Person under investigation for COVID-19 Status: Acute (4) Respiratory distress Status: Acute Acute respiratory failure; multifactorial. with a/c CHF, COPD, and obesity/hypoventilation. Patient has periodically refused BiPAP. She is feeling better today. We will continue present treatment. She is also followed by the pulmonary service. Acute on chronic diastolic/systolic CHF. Mild diuresis as tolerated. Monitoring creatinine. NICM: s/p AICD (Biotronik). LVEF 35-40% per echo 07/31. Cath 2018 without significant CAD. Device check 01/30 with normal function and stable lead impedances. Updated echocardiogram now shows an ejection fraction of 25%. Possible ELIZABETH/COPD with morbid obesity: BMI at 73 Hypertension; controlled Hyperlipidemia; statin Diabetes, II Hx of CVA: in 2002 with left side hemiparesis Chronic warfarin therapy:due to remote CVA. No h/o AFIB/flutter. Most recent device check wtih 0% AFIB burden. Comment Review of Relevant I have reviewed the following items cuate (where applicable) has been applied. Labs Laboratory Tests Test 03/08/21 20:46 03/09/21 06:00 03/09/21 07:26 03/09/21 11:46 Glucose (Fingerstick) 100 mg/dL (70-99) 82 mg/dL (70-99) 89 mg/dL (70-99) Sodium Level 145 mmol/L (136-145) Potassium Level 4.2 mmol/L (3.5-5.1) Chloride Level 109 mmol/L (98-107) Carbon Dioxide Level 34 mmol/L (21-32) Anion Gap 2 (6-14) Blood Urea Nitrogen 33 mg/dL (7-20) Creatinine 1.1 mg/dL (0.6-1.0) Estimated GFR (Cockcroft-Gault) 63.1 Glucose Level 88 mg/dL (70-99) Calcium Level 7.5 mg/dL (8.5-10.1) Test 03/09/21 16:51 03/09/21 19:34 03/10/21 06:00 03/10/21 07:39 Glucose (Fingerstick) 146 mg/dL (70-99) 141 mg/dL (70-99) 103 mg/dL (70-99) Prothrombin Time 28.8 SEC (11.7-14.0) Prothromb Time International Ratio 2.7 (0.8-1.1) Test 03/10/21 11:52 Glucose (Fingerstick) 101 mg/dL (70-99) Laboratory Tests Test 03/09/21 16:51 03/09/21 19:34 03/10/21 06:00 03/10/21 07:39 Glucose (Fingerstick) 146 mg/dL (70-99) 141 mg/dL (70-99) 103 mg/dL (70-99) Prothrombin Time 28.8 SEC (11.7-14.0) Prothromb Time International Ratio 2.7 (0.8-1.1) Test 03/10/21 11:52 Glucose (Fingerstick) 101 mg/dL (70-99) Medications Current Medications Methylprednisolone Sodium Succinate (SOLU-Medrol 125MG VIAL) 125 mg 1X ONCE IV Last administered on 03/06/21at 17:11; Start 03/06/21 at 16:15; Stop 03/06/21 at 16:16; Status DC Ondansetron HCl (Zofran) 4 mg PRN Q8HRS PRN IV NAUSEA/VOMITING; Start 03/06/21 at 17:45; Stop 03/07/21 at 10:59; Status DC Furosemide (Lasix) 40 mg 1X ONCE IVP Last administered on 03/07/21at 10:15; Start 03/07/21 at 10:00; Stop 03/07/21 at 10:04; Status DC Albuterol/ Ipratropium (Duoneb) 3 ml RTQID NEB Last administered on 03/10/21at 11:18; Start 03/07/21 at 12:00 Enoxaparin Sodium (Lovenox 60mg Syringe) 60 mg Q12HR SQ Last administered on 03/07/21at 10:14; Start 03/07/21 at 11:00; Stop 03/07/21 at 14:34; Status DC Bumetanide (Bumex) 1 mg BID92 PO ; Start 03/07/21 at 14:00; Stop 03/07/21 at 15:04; Status DC Ferrous Sulfate (Feosol) 325 mg BIDWMEALS PO Last administered on 03/10/21at 08:48; Start 03/07/21 at 17:00 Glipizide (Glucotrol) 5 mg DAILY PO Last administered on 03/10/21at 08:47; Start 03/07/21 at 12:00 Insulin Human Lispro (HumaLOG VIAL for OP,RR ONLY) TIDWMEALS SQ ; Start 03/07/21 at 12:00; Stop 03/07/21 at 14:31; Status DC Albuterol/ Ipratropium (Duoneb) 3 ml RTQID NEB ; Start 03/07/21 at 12:00; Status Cancel Metoprolol Succinate (Toprol Xl) 75 mg DAILY PO Last administered on 03/10/21at 08:47; Start 03/07/21 at 12:00 Polyethylene Glycol (miraLAX PACKET) 17 gm PRN DAILY PRN PO CONSTIPATION (1st Choice); Start 03/07/21 at 11:00 Potassium Chloride (Klor-Con) 20 meq BID PO Last administered on 03/10/21at 08:48; Start 03/07/21 at 21:00 Sacubitril/ Valsartan (Entresto 49 Mg-51 Mg) 1 tab BID PO Last administered on 03/10/21at 08:48; Start 03/07/21 at 12:00 Spironolactone (Aldactone) 25 mg DAILY PO Last administered on 03/10/21at 08:48; Start 03/07/21 at 12:00 Pantoprazole Sodium (Protonix) 40 mg DAILY06 PO Last administered on 03/10/21at 06:23; Start 03/08/21 at 06:00 Atorvastatin Calcium (Lipitor) 40 mg DAILY PO Last administered on 03/10/21at 08:48; Start 03/08/21 at 09:00 Warfarin Sodium (Coumadin) 10 mg DAILY16 PO Last administered on 03/09/21at 17:07; Start 03/07/21 at 16:00 Sodium Chloride (Normal Saline Flush) 3 ml QSHIFT PRN IV AFTER MEDS AND BLOOD DRAWS; Start 03/07/21 at 11:00 Ondansetron HCl (Zofran) 4 mg PRN Q4HRS PRN IV NAUSEA/VOMITING; Start 03/07/21 at 11:00 Acetaminophen (Tylenol) 650 mg PRN Q4HRS PRN PO TEMP OVER 100.4F OR MILD PAIN; Start 03/07/21 at 11:00 Al Hydroxide/Mg Hydroxide (Mylanta Plus Xs) 30 ml PRN DAILY PRN PO HEARTBURN / GAS; Start 03/07/21 at 11:00 Sodium Monofluorophosphate (Fleet Adult) 133 ml PRN DAILY PRN MD CONSTIPATION; Start 03/07/21 at 11:00 Docusate Sodium (Colace) 100 mg PRN BID PRN PO HARD STOOLS; Start 03/07/21 at 11:00 Guaifenesin (Robitussin) 200 mg PRN Q4HRS PRN PO COUGH Last administered on 03/08/21at 11:13; Start 03/07/21 at 11:00 Insulin Human Lispro (HumaLOG) 0-7 UNITS TIDWMEALS SQ ; Start 03/07/21 at 17:00 Dextrose (Dextrose 50%-Water Syringe) 12.5 gm PRN Q15MIN PRN IV SEE COMMENTS; Start 03/07/21 at 14:30 Warfarin Sodium (Coumadin Per Physician) 1 each PRN DAILY PRN MC SEE COMMENTS Last administered on 03/09/21at 13:27; Start 03/07/21 at 14:45 Bumetanide (Bumex) 1 mg BID IV Last administered on 03/10/21at 08:48; Start 03/07/21 at 21:00 Miconazole Nitrate (Monistat-Derm) 1 edie BID TP Last administered on 03/10/21at 08:48; Start 03/08/21 at 13:45 Perflutren Protein Type A Microsphe (Optison) 0.66 mg STK-MED ONCE IV ; Start at 16:40; Stop 03/08/21 at 16:41; Status DC Nystatin (Nystop) 1 edie BID TP Last administered on 03/10/21at 08:49; Start 03/09/21 at 11:45 Active Scripts Active Admelog (Insulin Lispro) 100 Unit/1 Ml Vial 0 Units SQ TIDWMEALS 30 Days Polyethylene Glycol 3350 17 Gm Powd.pack 17 Gm PO PRN DAILY PRN 30 Days Bumetanide 1 Mg Tablet 1 Mg PO BID92 30 Days Metoprolol Succinate ( Xl ) (Metoprolol Succinate) 25 Mg Tab.er.24h 75 Mg PO DAILY 30 Days Feosol (Ferrous Sulfate) 325 Mg Tablet 325 Mg PO BIDWMEALS 30 Days Duoneb 0.5-3(2.5) Mg/3 Ml (Albuterol/Ipratropium) 3 Ml Ampul.neb 3 Ml NEB RTQID 30 Days Aldactone (Spironolactone) 25 Mg Tablet 25 Mg PO DAILY 30 Days Reported Oxycodon-Acetaminophen 7.5-325 (Oxycodone Hcl/Acetaminophen) 1 Each Tablet 7.5- 325 Mg PO PRN Q6HRS PRN Omeprazole 40 Mg Capsule.dr 1 Cap PO DAILY06 Potassium Chloride (Potassium Chloride) 20 Meq Tablet.er 20 Meq PO BID Entresto 49 mg-51 mg Tablet (Sacubitril/Valsartan) 1 Each Tablet 1 Tab PO BID Glipizide 5 Mg Tablet 1 Tab PO DAILY Warfarin Sodium 10 Mg Tablet 10 Mg PO DAILY Crestor (Rosuvastatin Calcium) 10 Mg Tablet 1 Tab PO DAILY Vitals/I & O Vital Sign - Last 24 Hours 03/09/21 03/09/21 03/09/21 03/09/21 15:00 15:39 19:00 20:00 Temp 97.7 98.6 97.7 98.6 Pulse 96 76 Resp 18 18 B/P (MAP) 131/55 (80) 108/58 (75) Pulse Ox 96 95 98 O2 Delivery Room Air Nasal Cannula Room Air O2 Flow Rate 2.0 03/09/21 03/09/21 03/09/21 03/10/21 21:12 21:13 23:13 02:42 Temp 98.4 97.9 98.4 97.9 Pulse 76 74 86 Resp 20 20 B/P (MAP) 108/58 131/54 (79) 116/59 (78) Pulse Ox 96 94 95 O2 Delivery Room Air Nasal Cannula Nasal Cannula O2 Flow Rate 2.0 2.0 03/10/21 03/10/21 03/10/21 03/10/21 07:00 07:26 08:00 08:47 Temp 97.4 97.4 Pulse 79 79 Resp 18 B/P (MAP) 117/70 (86) 117/70 Pulse Ox 92 97 O2 Delivery Nasal Cannula Room Air Room Air O2 Flow Rate 2.0 03/10/21 03/10/21 03/10/21 08:48 10:47 11:18 Temp 97.7 97.7 Pulse 79 78 Resp 18 B/P (MAP) 117/70 133/71 (91) Pulse Ox 93 97 O2 Delivery Nasal Cannula Room Air O2 Flow Rate 2.0 Intake and Output 03/09/21 03/09/21 03/10/21 15:00 23:00 07:00 Output Total 2100 ml 900 ml 2000 ml Balance -2100 ml -900 ml -2000 ml Justifications for Admission Other Justification EXAC CHF HIREN HEARN MD March 10, 2021 13:45
[2021-03-10 15:00] VITALS: BP 124/64
[2021-03-10] MEDS: WARFARIN 5 MG TABLET. PO SCH (16:54)
[2021-03-10 19:00] VITALS: BP 82/64
[2021-03-10 22:42] VITALS: BP 116/65
[2021-03-11 02:34] VITALS: BP 118/61
[2021-03-11] MEDS: PANTOPRAZOLE 40 MG TABLET.DR. PO SCH (06:15)
[2021-03-11 06:48] LABS: CREATININE 0.9 mg/dL (0.6-1.0); GFR 79.6; POTASSIUM 4.4 mmol/L (3.5-5.1)
[2021-03-11 07:00] VITALS: BP 157/77
[2021-03-11] MEDS: IPRATRPIUM/ALBUTEROL 0.5/2.5MG 3 ML NEBU. NEB SCH ×4 (07:20→18:35)
[2021-03-11] MEDS: INSULIN LISPRO 300 UNITS/3 ML VIAL. SQ SCH ×3 (08:00→16:30)
[2021-03-11] MEDS: POTASSIUM CHLORIDE 20 MEQ TABLET.ER. PO SCH ×2 (08:47→21:43)
[2021-03-11] MEDS: glipiZIDE 5 MG TABLET PO SCH (08:48)
[2021-03-11] MEDS: SACUBITRIL/VALSARTAN 49/51MG TABLET. PO SCH ×2 (08:48→21:43)
[2021-03-11] MEDS: FERROUS SULFATE 325 MG TABLET. PO SCH ×2 (08:48→17:43)
[2021-03-11] MEDS: ATORVASTATIN CALCIUM 40 MG TABLET. PO SCH (08:48)
[2021-03-11] MEDS: BUMETANIDE 1 MG/4 ML VIAL. IV SCH ×2 (08:49→21:43)
[2021-03-11] MEDS: SPIRONOLACTONE 25 MG TABLET PO SCH (08:49)
[2021-03-11] MEDS: METOPROLOL SUCC 24HR ER 25 MG TAB.ER.24H. PO SCH (08:49)
[2021-03-11] MEDS: MICONAZOLE NITRATE 2% TOPICAL CREAM 30GM TUBE. TP SCH ×2 (08:54→21:45)
[2021-03-11] MEDS: NYSTATIN TOPICAL POWDER 15GM BOTTLE. TP SCH ×2 (08:54→21:45)
[2021-03-11 11:00] VITALS: BP 133/59
--- NOTE | 2021-03-11 11:10 | PDOC ---
PULMONARY PROGRESS NOTES DATE: 03/11/21 TIME: 11:10 Subjective Pt. is resting on R/A no cough or SOB, "wore BIPAP for a few hours" no overnight concerns from nursing Vitals Vital Signs Date Time Temp Pulse Resp B/P (MAP) Pulse Ox O2 Delivery O2 Flow Rate FiO2 03/11/21 08:49 87 157/77 03/11/21 07:20 97 Room Air 03/11/21 07:00 98.0 18 2.0 98.0 ROS: No Nausea, No Chest Pain, No Abdominal Pain, No Increase Cough General: Alert, No acute distress Lungs: Clear Cardiovascular: S1 Abdomen: Soft, Other (obese) Skin: Warm, Dry Labs Laboratory Tests Test 03/09/21 11:46 03/09/21 16:51 03/09/21 19:34 03/10/21 06:00 Glucose (Fingerstick) 89 mg/dL (70-99) 146 mg/dL (70-99) 141 mg/dL (70-99) Prothrombin Time 28.8 SEC (11.7-14.0) Prothromb Time International Ratio 2.7 (0.8-1.1) Test 03/10/21 07:39 03/10/21 11:52 03/10/21 16:40 03/10/21 19:29 Glucose (Fingerstick) 103 mg/dL (70-99) 101 mg/dL (70-99) 130 mg/dL (70-99) 123 mg/dL (70-99) Test 03/11/21 06:00 03/11/21 07:19 Sodium Level 148 mmol/L (136-145) Potassium Level 4.4 mmol/L (3.5-5.1) Chloride Level 109 mmol/L (98-107) Carbon Dioxide Level 35 mmol/L (21-32) Anion Gap 4 (6-14) Blood Urea Nitrogen 23 mg/dL (7-20) Creatinine 0.9 mg/dL (0.6-1.0) Estimated GFR (Cockcroft-Gault) 79.6 Glucose Level 110 mg/dL (70-99) Calcium Level 8.0 mg/dL (8.5-10.1) Glucose (Fingerstick) 116 mg/dL (70-99) Laboratory Tests Test 03/10/21 11:52 03/10/21 16:40 03/10/21 19:29 03/11/21 06:00 Glucose (Fingerstick) 101 mg/dL (70-99) 130 mg/dL (70-99) 123 mg/dL (70-99) Sodium Level 148 mmol/L (136-145) Potassium Level 4.4 mmol/L (3.5-5.1) Chloride Level 109 mmol/L (98-107) Carbon Dioxide Level 35 mmol/L (21-32) Anion Gap 4 (6-14) Blood Urea Nitrogen 23 mg/dL (7-20) Creatinine 0.9 mg/dL (0.6-1.0) Estimated GFR (Cockcroft-Gault) 79.6 Glucose Level 110 mg/dL (70-99) Calcium Level 8.0 mg/dL (8.5-10.1) Test 03/11/21 07:19 Glucose (Fingerstick) 116 mg/dL (70-99) Medications Active Scripts Medications Dose Route/Sig Max Daily Dose Days Date Category Admelog (Insulin Lispro) 100 Unit/1 Ml Vial 0 Units SQ TIDWMEALS 30 01/27/21 Rx Polyethylene Glycol 3350 17 Gm Powd.pack 17 Gm PO PRN DAILY PRN 30 01/27/21 Rx Bumetanide 1 Mg Tablet 1 Mg PO BID92 30 01/27/21 Rx Metoprolol Succinate ( Xl ) (Metoprolol Succinate) 25 Mg Tab.er.24h 75 Mg PO DAILY 30 01/27/21 Rx Feosol (Ferrous Sulfate) 325 Mg Tablet 325 Mg PO BIDWMEALS 30 01/27/21 Rx Duoneb 0.5-3(2.5) Mg/3 Ml (Albuterol/Ipratropium) 3 Ml Ampul.neb 3 Ml NEB RTQID 30 01/27/21 Rx Aldactone (Spironolactone) 25 Mg Tablet 25 Mg PO DAILY 30 07/16/20 Rx Oxycodon-Acetaminophen 7.5-325 (Oxycodone Hcl/Acetaminophen) 1 Each Tablet 7.5-325 Mg PO PRN Q6HRS PRN 01/31/19 Reported Omeprazole 40 Mg Capsule.dr 1 Cap PO DAILY06 01/31/19 Reported Potassium Chloride (Potassium Chloride) 20 Meq Tablet.er 20 Meq PO BID 01/31/19 Reported Entresto 49 mg-51 mg Tablet (Sacubitril/Valsartan) 1 Each Tablet 1 Tab PO BID 01/31/19 Reported Glipizide 5 Mg Tablet 1 Tab PO DAILY 10/22/18 Reported Warfarin Sodium 10 Mg Tablet 10 Mg PO DAILY 08/25/14 Reported Crestor (Rosuvastatin Calcium) 10 Mg Tablet 1 Tab PO DAILY 08/25/14 Reported Impression . 1. Acute on chronic hypoxic and suspected hypercapnic respiratory failure secondary to acute on chronic systolic heart failure. 2. Encephalopathy, metabolic and toxic, suspect hypercapnia. resolved 3. Acute on chronic systolic congestive heart failure. 4. Abnormal chest x-ray with bilateral interstitial infiltrates. 5. Previous echo with EF of 35%. 6. Morbid obesity with obstructive sleep apnea with marginal compliance with CPAP and obesity hypoventilation syndrome. 7. Mild acute kidney injury--resolved Plan . PLAN: Stable from a respiratory stand point --remains on room air BIPAP at HS and PRN during the day, importance of compliance discussed Follow cardiology recommendation---Diuresis per cardiology. Follow Renal recommendation-- renal function improved Monitor renal function with diuresis Avoid any sedatives or narcotics. Bronchodilators. Educated on weight loss Discussed with RN patient Patient is DNR/DNI ok to discharge today from our standpoint JUNITO GARCIA MD March 11, 2021 11:10
--- NOTE | 2021-03-11 13:06 | PDOC ---
DATE OF SERVICE DATE: 03/11/21 TIME: 13:04 SUBJECTIVE ROS stable , denies any complaints OBJECTIVE Vital Signs Vital Signs Date Time Temp Pulse Resp B/P (MAP) Pulse Ox O2 Delivery O2 Flow Rate FiO2 03/11/21 11:28 98 Room Air 03/11/21 11:00 98.0 82 18 133/59 (83) 98.0 03/11/21 07:00 2.0 I & 0 Intake and Output 03/11/21 07:00 Intake Total 590 ml Output Total 4900 ml Balance -4310 ml Intake Oral 590 ml Output Urine Total 4900 ml # Bowel Movements 1 PHYSICAL EXAM Physical Exam General: NAD. Super Morbid obese HEENT: Mucous membr. moist/pink, On RA Neck supple Lungs: Decreased at bases, Non labored Heart: Regular rate and rate, distant Abdomen: Soft, obese) Extremities: 2+ bilateral LE edema Skin: No significant lesion Neuro: grossly normal Flores +, No CVA or SP tenderness DIAGNOSIS/ASSESSMENT Assessment & Plan RADHA Cardiorenal, Resolved Non oliguric , UA unremarkable Supportive care, I/o , Avoid nephrotoxins Has been on Bumex since her recent hospitalization . 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 with a/c CHF, COPD, and o besity/hypoventilation. on BiPAP Acute on chronic diastolic/systolic CHF . NICM: s/p AICD LVEF 35-40% per echo 07/31. Cath 2018 without significant CAD. Device check 01/30 with normal function and stable lead impedances Possible ELIZABETH/COPD with morbid obesity: BMI at 73 Hypertension; controlled Diabetes, II Hx of CVA: in 2002 with left side hemiparesis Tobaccoism Chronic warfarin therapy:due to remote CVA. No h/o AFIB/flutter. Most recent device check wtih 0% AFIB burden. Morbidly Obese COMMENT/RELEVANT DATA Meds Current Medications Medications (Trade) Dose Ordered Sig/Liam Start Time Stop Time Status Last Admin Dose Admin Acetaminophen (Tylenol) 650 mg PRN Q4HRS PRN 03/07/21 11:00 Al Hydroxide/Mg Hydroxide (Mylanta Plus Xs) 30 ml PRN DAILY PRN 03/07/21 11:00 Albuterol/ Ipratropium (Duoneb) 3 ml RTQID 03/07/21 12:00 Cancel Atorvastatin Calcium (Lipitor) 40 mg DAILY 03/08/21 09:00 03/11/21 08:48 40 MG Bumetanide (Bumex) 1 mg BID 03/07/21 21:00 03/11/21 08:49 1 MG Dextrose (Dextrose 50%-Water Syringe) 12.5 gm PRN Q15MIN PRN 03/07/21 14:30 Docusate Sodium (Colace) 100 mg PRN BID PRN 03/07/21 11:00 Enoxaparin Sodium (Lovenox 60mg Syringe) 60 mg Q12HR 03/07/21 11:00 03/07/21 14:34 DC 03/07/21 10:14 60 MG Ferrous Sulfate (Feosol) 325 mg BIDWMEALS 03/07/21 17:00 03/11/21 08:48 325 MG Furosemide (Lasix) 40 mg 1X ONCE 03/07/21 10:00 03/07/21 10:04 DC 03/07/21 10:15 40 MG Glipizide (Glucotrol) 5 mg DAILY 03/07/21 12:00 03/11/21 08:48 5 MG Guaifenesin (Robitussin) 200 mg PRN Q4HRS PRN 03/07/21 11:00 03/08/21 11:13 200 MG Insulin Human Lispro (HumaLOG VIAL for OP,RR ONLY) TIDWMEALS 03/07/21 12:00 03/07/21 14:31 DC Insulin Human Lispro (HumaLOG) 0-7 UNITS TIDWMEALS 03/07/21 17:00 Methylprednisolone Sodium Succinate (SOLU-Medrol 125MG VIAL) 125 mg 1X ONCE 03/06/21 16:15 03/06/21 16:16 DC 03/06/21 17:11 125 MG Metoprolol Succinate (Toprol Xl) 75 mg DAILY 03/07/21 12:00 03/11/21 08:49 75 MG Miconazole Nitrate (Monistat-Derm) 1 edie BID 03/08/21 13:45 03/11/21 08:54 1 EDIE Nystatin (Nystop) 1 edie BID 03/09/21 11:45 03/11/21 08:54 1 EDIE Ondansetron HCl (Zofran) 4 mg PRN Q4HRS PRN 03/07/21 11:00 Pantoprazole Sodium (Protonix) 40 mg DAILY06 03/08/21 06:00 03/11/21 06:15 40 MG Perflutren Protein Type A Microsphe (Optison) 0.66 mg STK-MED ONCE 03/08/21 16:40 03/08/21 16:41 DC Polyethylene Glycol (miraLAX PACKET) 17 gm PRN DAILY PRN 03/07/21 11:00 Potassium Chloride (Klor-Con) 20 meq BID 03/07/21 21:00 03/11/21 08:47 20 MEQ Sacubitril/ Valsartan (Entresto 49 Mg-51 Mg) 1 tab BID 03/07/21 12:00 03/11/21 08:48 1 TAB Sodium Monofluorophosphate (Fleet Adult) 133 ml PRN DAILY PRN 03/07/21 11:00 Sodium Chloride (Normal Saline Flush) 3 ml QSHIFT PRN 03/07/21 11:00 Spironolactone (Aldactone) 25 mg DAILY 03/07/21 12:00 03/11/21 08:49 25 MG Warfarin Sodium (Coumadin Per Physician) 1 each PRN DAILY PRN 03/07/21 14:45 03/10/21 15:50 1 EACH Warfarin Sodium (Coumadin) 10 mg DAILY16 03/07/21 16:00 03/10/21 16:54 10 MG Lab Laboratory Tests Test 03/10/21 16:40 03/10/21 19:29 03/11/21 06:00 03/11/21 07:19 Glucose (Fingerstick) 130 mg/dL (70-99) 123 mg/dL (70-99) 116 mg/dL (70-99) Sodium Level 148 mmol/L (136-145) Potassium Level 4.4 mmol/L (3.5-5.1) Chloride Level 109 mmol/L (98-107) Carbon Dioxide Level 35 mmol/L (21-32) Anion Gap 4 (6-14) Blood Urea Nitrogen 23 mg/dL (7-20) Creatinine 0.9 mg/dL (0.6-1.0) Estimated GFR (Cockcroft-Gault) 79.6 Glucose Level 110 mg/dL (70-99) Calcium Level 8.0 mg/dL (8.5-10.1) Test 03/11/21 11:19 Glucose (Fingerstick) 103 mg/dL (70-99) Results All relevant outside records, renal labs, imaging studies, telemetry/EKG's were reviewed. Justicifation of Admission Dx: Justifications for Admission: Justification of Admission Dx: Yes CHUNG HURTADO MD March 11, 2021 13:06
--- NOTE | 2021-03-11 14:48 | PDOC ---
[employer] [facility] PROGRESS NOTE Date of Service DOS: DATE: 03/11/21 TIME: 14:47 Chief Complaint Chief Complaint 1. Acute hypercapnic respiratory failure, multifactorial 2. Acute on chronic systolic CHF, and toxic, suspect hypercapnia. 3. Acute metabolic encephalopathy. 4. Abnormal chest x-ray with bilateral interstitial infiltrates. 5. Previous echo with EF of 35%. 6. Morbid obesity, BMI 75, with obstructive sleep apnea with marginal compliance with CPAP and obesity hypoventilation syndrome. 7. pickwickian habitus History of Present Illness History of Present Illness still very weak, needs full assist to transfer, I would guess she needs skilled, very limited by her obesity mental status much better, more pleasant and trying to imrpvoe cont current , still too weak to get up without assist, will [place] need skilled mental status imrpvoed cont diuresis Vitals/I&O Vitals/I&O: Vital Signs Date Time Temp Pulse Resp B/P (MAP) Pulse Ox O2 Delivery O2 Flow Rate FiO2 03/11/21 11:28 98 Room Air 03/11/21 11:00 98.0 82 18 133/59 (83) 98.0 03/11/21 07:00 2.0 I & O 03/10/21 03/10/21 03/11/21 15:00 23:00 07:00 Intake Total 120 ml 50 ml 420 ml Output Total 1800 ml 3100 ml Balance -1680 ml 50 ml -2680 ml Physical Exam General: Alert, Oriented X3, Cooperative, No acute distress Heart: Regular rate Lungs: Clear Abdomen: Normal bowel sounds Extremities: No cyanosis Labs Labs: Laboratory Tests Test 03/10/21 16:40 03/10/21 19:29 03/11/21 06:00 03/11/21 07:19 Glucose (Fingerstick) 130 mg/dL (70-99) 123 mg/dL (70-99) 116 mg/dL (70-99) Sodium Level 148 mmol/L (136-145) Potassium Level 4.4 mmol/L (3.5-5.1) Chloride Level 109 mmol/L (98-107) Carbon Dioxide Level 35 mmol/L (21-32) Anion Gap 4 (6-14) Blood Urea Nitrogen 23 mg/dL (7-20) Creatinine 0.9 mg/dL (0.6-1.0) Estimated GFR (Cockcroft-Gault) 79.6 Glucose Level 110 mg/dL (70-99) Calcium Level 8.0 mg/dL (8.5-10.1) Test 03/11/21 11:19 Glucose (Fingerstick) 103 mg/dL (70-99) Review of Systems Review of Systems: weakness, lethargy, leg pain is better Assessment and Plan Assessmemt and Plan Problems Medical Problems: (1) Chest pain Status: Acute (2) History of COPD Status: Acute (3) Person under investigation for COVID-19 Status: Acute (4) Respiratory distress Status: Acute Comment Review of Relevant I have reviewed the following items cuate (where applicable) has been applied. Justifications for Admission Other Justification EXAC CHF MARGY PIRESON MD March 11, 2021 14:48
[2021-03-11 15:00] VITALS: BP 135/93
--- NOTE | 2021-03-11 15:38 | PDOC ---
PROGRESS NOTES Date of Service DATE: 03/11/21 TIME: 15:37 Subjective Subjective Patient seen and examined Objective Objective Vital Signs Date Time Temp Pulse Resp B/P (MAP) Pulse Ox O2 Delivery O2 Flow Rate FiO2 03/11/21 15:27 96 Room Air 03/11/21 11:00 98.0 82 18 133/59 (83) 98.0 03/11/21 08:00 2.0 Intake and Output 03/11/21 06:59 Intake Total 590 ml Output Total 4900 ml Balance -4310 ml Intake Oral 590 ml Output Urine Total 4900 ml # Bowel Movements 1 Physical Exam Abdomen: Normal bowel sounds Heart: Regular rate General: No acute distress Lungs: Other (Mildly decreased breath sounds) Assessment Assessment Problems Medical Problems: (1) Chest pain Status: Acute (2) History of COPD Status: Acute (3) Person under investigation for COVID-19 Status: Acute (4) Respiratory distress Status: Acute Acute respiratory failure; multifactorial. with a/c CHF, COPD, and obesity/hypoventilation. Patient has periodically refused BiPAP. She is feeling better again today. We will continue present treatments. She is feeling better today. We will continue present treatment. Acute on chronic diastolic/systolic CHF. Mild diuresis as tolerated. Monitoring creatinine. NICM: s/p AICD (Biotronik). LVEF 35-40% per echo 07/31. Cath 2018 without significant CAD. Device check 01/30 with normal function and stable lead impedances. Updated echocardiogram now shows an ejection fraction of 25%. Possible ELIZABETH/COPD with morbid obesity: BMI at 73 Hypertension; controlled Hyperlipidemia; statin Diabetes, II Hx of CVA: in 2002 with left side hemiparesis Chronic warfarin therapy:due to remote CVA. No h/o AFIB/flutter. Most recent d evice check wtih 0% AFIB burden. Comment Review of Relevant I have reviewed the following items cuate (where applicable) has been applied. Labs Laboratory Tests Test 03/09/21 16:51 03/09/21 19:34 03/10/21 06:00 03/10/21 07:39 Glucose (Fingerstick) 146 mg/dL (70-99) 141 mg/dL (70-99) 103 mg/dL (70-99) Prothrombin Time 28.8 SEC (11.7-14.0) Prothromb Time International Ratio 2.7 (0.8-1.1) Test 03/10/21 11:52 03/10/21 16:40 03/10/21 19:29 03/11/21 06:00 Glucose (Fingerstick) 101 mg/dL (70-99) 130 mg/dL (70-99) 123 mg/dL (70-99) Sodium Level 148 mmol/L (136-145) Potassium Level 4.4 mmol/L (3.5-5.1) Chloride Level 109 mmol/L (98-107) Carbon Dioxide Level 35 mmol/L (21-32) Anion Gap 4 (6-14) Blood Urea Nitrogen 23 mg/dL (7-20) Creatinine 0.9 mg/dL (0.6-1.0) Estimated GFR (Cockcroft-Gault) 79.6 Glucose Level 110 mg/dL (70-99) Calcium Level 8.0 mg/dL (8.5-10.1) Test 03/11/21 07:19 03/11/21 11:19 Glucose (Fingerstick) 116 mg/dL (70-99) 103 mg/dL (70-99) Laboratory Tests Test 03/10/21 16:40 03/10/21 19:29 03/11/21 06:00 03/11/21 07:19 Glucose (Fingerstick) 130 mg/dL (70-99) 123 mg/dL (70-99) 116 mg/dL (70-99) Sodium Level 148 mmol/L (136-145) Potassium Level 4.4 mmol/L (3.5-5.1) Chloride Level 109 mmol/L (98-107) Carbon Dioxide Level 35 mmol/L (21-32) Anion Gap 4 (6-14) Blood Urea Nitrogen 23 mg/dL (7-20) Creatinine 0.9 mg/dL (0.6-1.0) Estimated GFR (Cockcroft-Gault) 79.6 Glucose Level 110 mg/dL (70-99) Calcium Level 8.0 mg/dL (8.5-10.1) Test 03/11/21 11:19 Glucose (Fingerstick) 103 mg/dL (70-99) Medications Current Medications Methylprednisolone Sodium Succinate (SOLU-Medrol 125MG VIAL) 125 mg 1X ONCE IV Last administered on 03/06/21at 17:11; Start 03/06/21 at 16:15; Stop 03/06/21 at 16:16; Status DC Ondansetron HCl (Zofran) 4 mg PRN Q8HRS PRN IV NAUSEA/VOMITING; Start 03/06/21 at 17:45; Stop 03/07/21 at 10:59; Status DC Furosemide (Lasix) 40 mg 1X ONCE IVP Last administered on 03/07/21at 10:15; Start 03/07/21 at 10:00; Stop 03/07/21 at 10:04; Status DC Albuterol/ Ipratropium (Duoneb) 3 ml RTQID NEB Last administered on 03/11/21at 15:27; Start 03/07/21 at 12:00 Enoxaparin Sodium (Lovenox 60mg Syringe) 60 mg Q12HR SQ Last administered on 03/07/21at 10:14; Start 03/07/21 at 11:00; Stop 03/07/21 at 14:34; Status DC Bumetanide (Bumex) 1 mg BID92 PO ; Start 03/07/21 at 14:00; Stop 03/07/21 at 15:04; Status DC Ferrous Sulfate (Feosol) 325 mg BIDWMEALS PO Last administered on 03/11/21at 08:48; Start 03/07/21 at 17:00 Glipizide (Glucotrol) 5 mg DAILY PO Last administered on 03/11/21at 08:48; Start 03/07/21 at 12:00 Insulin Human Lispro (HumaLOG VIAL for OP,RR ONLY) TIDWMEALS SQ ; Start 03/07/21 at 12:00; Stop 03/07/21 at 14:31; Status DC Albuterol/ Ipratropium (Duoneb) 3 ml RTQID NEB ; Start 03/07/21 at 12:00; Status Cancel Metoprolol Succinate (Toprol Xl) 75 mg DAILY PO Last administered on 03/11/21at 08:49; Start 03/07/21 at 12:00 Polyethylene Glycol (miraLAX PACKET) 17 gm PRN DAILY PRN PO CONSTIPATION (1st Choice); Start 03/07/21 at 11:00 Potassium Chloride (Klor-Con) 20 meq BID PO Last administered on 03/11/21at 08:47; Start 03/07/21 at 21:00 Sacubitril/ Valsartan (Entresto 49 Mg-51 Mg) 1 tab BID PO Last administered on 03/11/21at 08:48; Start 03/07/21 at 12:00 Spironolactone (Aldactone) 25 mg DAILY PO Last administered on 03/11/21at 08:49; Start 03/07/21 at 12:00 Pantoprazole Sodium (Protonix) 40 mg DAILY06 PO Last administered on 03/11/21at 06:15; Start 03/08/21 at 06:00 Atorvastatin Calcium (Lipitor) 40 mg DAILY PO Last administered on 03/11/21at 08:48; Start 03/08/21 at 09:00 Warfarin Sodium (Coumadin) 10 mg DAILY16 PO Last administered on 03/10/21at 16:54; Start 03/07/21 at 16:00 Sodium Chloride (Normal Saline Flush) 3 ml QSHIFT PRN IV AFTER MEDS AND BLOOD DRAWS; Start 03/07/21 at 11:00 Ondansetron HCl (Zofran) 4 mg PRN Q4HRS PRN IV NAUSEA/VOMITING; Start 03/07/21 at 11:00 Acetaminophen (Tylenol) 650 mg PRN Q4HRS PRN PO TEMP OVER 100.4F OR MILD PAIN; Start 03/07/21 at 11:00 Al Hydroxide/Mg Hydroxide (Mylanta Plus Xs) 30 ml PRN DAILY PRN PO HEARTBURN / GAS; Start 03/07/21 at 11:00 Sodium Monofluorophosphate (Fleet Adult) 133 ml PRN DAILY PRN PA CONSTIPATION; Start 03/07/21 at 11:00 Docusate Sodium (Colace) 100 mg PRN BID PRN PO HARD STOOLS; Start 03/07/21 at 11:00 Guaifenesin (Robitussin) 200 mg PRN Q4HRS PRN PO COUGH Last administered on 03/08/21at 11:13; Start 03/07/21 at 11:00 Insulin Human Lispro (HumaLOG) 0-7 UNITS TIDWMEALS SQ ; Start 03/07/21 at 17:00 Dextrose (Dextrose 50%-Water Syringe) 12.5 gm PRN Q15MIN PRN IV SEE COMMENTS; Start 03/07/21 at 14:30 Warfarin Sodium (Coumadin Per Physician) 1 each PRN DAILY PRN MC SEE COMMENTS Last administered on 03/11/21at 14:05; Start 03/07/21 at 14:45 Bumetanide (Bumex) 1 mg BID IV Last administered on 03/11/21at 08:49; Start 03/07/21 at 21:00 Miconazole Nitrate (Monistat-Derm) 1 edie BID TP Last administered on 03/11/21at 08:54; Start 03/08/21 at 13:45 Perflutren Protein Type A Microsphe (Optison) 0.66 mg STK-MED ONCE IV ; Start 03/08/21 at 16:40; Stop 03/08/21 at 16:41; Status DC Nystatin (Nystop) 1 edie BID TP Last administered on 03/11/21at 08:54; Start 03/09/21 at 11:45 Active Scripts Active Admelog (Insulin Lispro) 100 Unit/1 Ml Vial 0 Units SQ TIDWMEALS 30 Days Polyethylene Glycol 3350 17 Gm Powd.pack 17 Gm PO PRN DAILY PRN 30 Days Bumetanide 1 Mg Tablet 1 Mg PO BID92 30 Days Metoprolol Succinate ( Xl ) (Metoprolol Succinate) 25 Mg Tab.er.24h 75 Mg PO DAILY 30 Days Feosol (Ferrous Sulfate) 325 Mg Tablet 325 Mg PO BIDWMEALS 30 Days Duoneb 0.5-3(2.5) Mg/3 Ml (Albuterol/Ipratropium) 3 Ml Ampul.neb 3 Ml NEB RTQID 30 Days Aldactone (Spironolactone) 25 Mg Tablet 25 Mg PO DAILY 30 Days Reported Oxycodon-Acetaminophen 7.5-325 (Oxycodone Hcl/Acetaminophen) 1 Each Tablet 7.5- 325 Mg PO PRN Q6HRS PRN Omeprazole 40 Mg Capsule.dr 1 Cap PO DAILY06 Potassium Chloride (Potassium Chloride) 20 Meq Tablet.er 20 Meq PO BID Entresto 49 mg-51 mg Tablet (Sacubitril/Valsartan) 1 Each Tablet 1 Tab PO BID Glipizide 5 Mg Tablet 1 Tab PO DAILY Warfarin Sodium 10 Mg Tablet 10 Mg PO DAILY Crestor (Rosuvastatin Calcium) 10 Mg Tablet 1 Tab PO DAILY Vitals/I & O Vital Sign - Last 24 Hours 03/10/21 03/10/21 03/10/21 03/10/21 16:41 19:00 19:54 20:30 Temp 98.3 98.3 Pulse 82 Resp 20 B/P (MAP) 82/64 (70) Pulse Ox 98 96 99 O2 Delivery Nasal Cannula Nasal Cannula Room Air Room Air O2 Flow Rate 2.0 2.0 03/10/21 03/10/21 03/11/21 03/11/21 21:16 22:42 02:34 07:00 Temp 98.2 98.1 98.0 98.2 98.1 98.0 Pulse 78 78 70 87 Resp 18 18 18 B/P (MAP) 116/67 116/65 (82) 118/61 (80) 157/77 (103) Pulse Ox 95 94 91 O2 Delivery Nasal Cannula Nasal Cannula Nasal Cannula O2 Flow Rate 2.0 2.0 2.0 03/11/21 03/11/21 03/11/21 03/11/21 07:20 08:00 08:48 08:49 Pulse 87 87 B/P (MAP) 157/77 157/77 Pulse Ox 97 O2 Delivery Room Air Room Air O2 Flow Rate 2.0 03/11/21 03/11/21 03/11/21 11:00 11:28 15:27 Temp 98.0 98.0 Pulse 82 Resp 18 B/P (MAP) 133/59 (83) Pulse Ox 90 98 96 O2 Delivery Room Air Room Air Room Air Intake and Output 03/10/21 03/10/21 03/11/21 14:59 22:59 06:59 Intake Total 120 ml 50 ml 420 ml Output Total 1800 ml 3100 ml Balance -1680 ml 50 ml -2680 ml Justifications for Admission Other Justification EXAC CHF HIREN HEARN MD March 11, 2021 15:38
[2021-03-11] MEDS ORDERED: oxyCODONE/APAP 5/325 1 TAB TABLET PO PRN (17:15)
[2021-03-11] MEDS: WARFARIN 5 MG TABLET. PO SCH (17:43)
[2021-03-11 19:00] VITALS: BP 156/93
[2021-03-11 23:03] VITALS: BP 133/74
[2021-03-12] MEDS: diphenhydrAMINE HCL 25 MG CAPSULE PO PRN ×2 (00:33→21:37)
[2021-03-12 03:05] VITALS: BP 127/52
[2021-03-12] MEDS: PANTOPRAZOLE 40 MG TABLET.DR. PO SCH (05:38)
[2021-03-12 06:09] LABS: PROTHROMBIN TIME PATIENT 26.8 SEC (11.7-14.0)
[2021-03-12 07:00] VITALS: BP 153/81
[2021-03-12] MEDS: INSULIN LISPRO 300 UNITS/3 ML VIAL. SQ SCH ×3 (08:00→17:00)
[2021-03-12] MEDS: SACUBITRIL/VALSARTAN 49/51MG TABLET. PO SCH ×2 (08:25→21:37)
[2021-03-12] MEDS: BUMETANIDE 1 MG/4 ML VIAL. IV SCH ×2 (08:25→21:36)
[2021-03-12] MEDS: METOPROLOL SUCC 24HR ER 25 MG TAB.ER.24H. PO SCH (08:26)
[2021-03-12] MEDS: FERROUS SULFATE 325 MG TABLET. PO SCH ×2 (08:26→16:58)
[2021-03-12] MEDS: ATORVASTATIN CALCIUM 40 MG TABLET. PO SCH (08:26)
[2021-03-12] MEDS: POTASSIUM CHLORIDE 20 MEQ TABLET.ER. PO SCH ×2 (08:26→21:37)
[2021-03-12] MEDS: glipiZIDE 5 MG TABLET PO SCH (08:26)
[2021-03-12] MEDS: SPIRONOLACTONE 25 MG TABLET PO SCH (08:27)
[2021-03-12] MEDS: MICONAZOLE NITRATE 2% TOPICAL CREAM 30GM TUBE. TP SCH ×2 (08:33→21:38)
[2021-03-12] MEDS: NYSTATIN TOPICAL POWDER 15GM BOTTLE. TP SCH ×2 (08:34→21:38)
[2021-03-12] MEDS: IPRATRPIUM/ALBUTEROL 0.5/2.5MG 3 ML NEBU. NEB SCH ×4 (08:55→18:13)
--- NOTE | 2021-03-12 10:57 | PDOC ---
PULMONARY PROGRESS NOTES DATE: 03/12/21 TIME: 10:57 Subjective Pt. is resting on R/A no cough or SOB, wore BIPAP for 1 hour last night Vitals Vital Signs Date Time Temp Pulse Resp B/P (MAP) Pulse Ox O2 Delivery O2 Flow Rate FiO2 03/12/21 08:57 98 Room Air 03/12/21 08:26 80 153/81 03/12/21 08:00 2.0 03/12/21 07:00 98.7 18 98.7 ROS: No Nausea, No Chest Pain, No Abdominal Pain, No Increase Cough General: Alert, No acute distress Lungs: Clear Cardiovascular: S1 Abdomen: Soft, Other (obese) Skin: Warm, Dry Labs Laboratory Tests Test 03/10/21 11:52 03/10/21 16:40 03/10/21 19:29 03/11/21 06:00 Glucose (Fingerstick) 101 mg/dL (70-99) 130 mg/dL (70-99) 123 mg/dL (70-99) Sodium Level 148 mmol/L (136-145) Potassium Level 4.4 mmol/L (3.5-5.1) Chloride Level 109 mmol/L (98-107) Carbon Dioxide Level 35 mmol/L (21-32) Anion Gap 4 (6-14) Blood Urea Nitrogen 23 mg/dL (7-20) Creatinine 0.9 mg/dL (0.6-1.0) Estimated GFR (Cockcroft-Gault) 79.6 Glucose Level 110 mg/dL (70-99) Calcium Level 8.0 mg/dL (8.5-10.1) Test 03/11/21 07:19 03/11/21 11:19 03/11/21 16:19 03/11/21 20:21 Glucose (Fingerstick) 116 mg/dL (70-99) 103 mg/dL (70-99) 114 mg/dL (70-99) 157 mg/dL (70-99) Test 03/12/21 05:30 03/12/21 07:16 Prothrombin Time 26.8 SEC (11.7-14.0) Prothromb Time International Ratio 2.5 (0.8-1.1) Glucose (Fingerstick) 115 mg/dL (70-99) Laboratory Tests Test 03/11/21 11:19 03/11/21 16:19 03/11/21 20:21 03/12/21 05:30 Glucose (Fingerstick) 103 mg/dL (70-99) 114 mg/dL (70-99) 157 mg/dL (70-99) Prothrombin Time 26.8 SEC (11.7-14.0) Prothromb Time International Ratio 2.5 (0.8-1.1) Test 03/12/21 07:16 Glucose (Fingerstick) 115 mg/dL (70-99) Medications Active Scripts Medications Dose Route/Sig Max Daily Dose Days Date Category Admelog (Insulin Lispro) 100 Unit/1 Ml Vial 0 Units SQ TIDWMEALS 30 01/27/21 Rx Polyethylene Glycol 3350 17 Gm Powd.pack 17 Gm PO PRN DAILY PRN 30 01/27/21 Rx Bumetanide 1 Mg Tablet 1 Mg PO BID92 30 01/27/21 Rx Metoprolol Succinate ( Xl ) (Metoprolol Succinate) 25 Mg Tab.er.24h 75 Mg PO DAILY 30 01/27/21 Rx Feosol (Ferrous Sulfate) 325 Mg Tablet 325 Mg PO BIDWMEALS 30 01/27/21 Rx Duoneb 0.5-3(2.5) Mg/3 Ml (Albuterol/Ipratropium) 3 Ml Ampul.neb 3 Ml NEB RTQID 30 01/27/21 Rx Aldactone (Spironolactone) 25 Mg Tablet 25 Mg PO DAILY 30 07/16/20 Rx Oxycodon-Acetaminophen 7.5-325 (Oxycodone Hcl/Acetaminophen) 1 Each Tablet 7.5-325 Mg PO PRN Q6HRS PRN 01/31/19 Reported Omeprazole 40 Mg Capsule.dr 1 Cap PO DAILY06 01/31/19 Reported Potassium Chloride (Potassium Chloride) 20 Meq Tablet.er 20 Meq PO BID 01/31/19 Reported Entresto 49 mg-51 mg Tablet (Sacubitril/Valsartan) 1 Each Tablet 1 Tab PO BID 01/31/19 Reported Glipizide 5 Mg Tablet 1 Tab PO DAILY 10/22/18 Reported Warfarin Sodium 10 Mg Tablet 10 Mg PO DAILY 08/25/14 Reported Crestor (Rosuvastatin Calcium) 10 Mg Tablet 1 Tab PO DAILY 08/25/14 Reported Impression . 1. Acute on chronic hypoxic and suspected hypercapnic respiratory failure secondary to acute on chronic systolic heart failure. 2. Encephalopathy, metabolic and toxic, suspect hypercapnia. resolved 3. Acute on chronic systolic congestive heart failure. 4. Abnormal chest x-ray with bilateral interstitial infiltrates. 5. Previous echo with EF of 35%. 6. Morbid obesity with obstructive sleep apnea with marginal compliance with CPAP and obesity hypoventilation syndrome. 7. Mild acute kidney injury--resolved Plan . PLAN: Stable from a respiratory stand point --remains on room air BIPAP at HS and PRN during the day,ongoing education of importance of compliance Follow cardiology recommendation---Diuresis per cardiology.---EF is 25% Follow Renal recommendations---Monitor renal function with diuresis Avoid any sedatives or narcotics. NEBS Educated on weight loss Discussed with RN patient Patient is DNR/DNI ok to discharge today from our standpoint JUNITO GARCIA MD Mar 12, 2021 10:57
[2021-03-12 11:00] VITALS: BP 144/77
--- NOTE | 2021-03-12 11:00 | PDOC ---
[employer] [facility] PROGRESS NOTE Date of Service DOS: DATE: 03/12/21 TIME: 10:58 Chief Complaint Chief Complaint 1. Acute hypercapnic respiratory failure, multifactorial 2. Acute on chronic systolic CHF, and toxic, suspect hypercapnia. 3. Acute metabolic encephalopathy. 4. Abnormal chest x-ray with bilateral interstitial infiltrates. 5. Previous echo with EF of 35%. 6. Morbid obesity, BMI 75, with obstructive sleep apnea with marginal compliance with CPAP and obesity hypoventilation syndrome. 7. pickwickian habitus History of Present Illness History of Present Illness 03/12/2021 Patient seen and examined Discussed with RN Chart reviewed Discussed with case management Patient complains of some persistent swelling in her hands She appears to be approaching her baseline Is using BiPAP at night Is currently in a big boy bed Has a very high BMI She lives at home alone I asked her if she could get up and walk she said some Currently receiving Bumex and Aldactone She might qualify for custodial question still very weak, needs full assist to transfer, I would guess she needs skilled, very limited by her obesity mental status much better, more pleasant and trying to imrpvoe cont current , still too weak to get up without assist, will ar need skilled mental status imrpvoed cont diuresis Vitals/I&O Vitals/I&O: Vital Signs Date Time Temp Pulse Resp B/P (MAP) Pulse Ox O2 Delivery O2 Flow Rate FiO2 03/12/21 08:57 98 Room Air 03/12/21 08:26 80 153/81 03/12/21 08:00 2.0 03/12/21 07:00 98.7 18 98.7 I & O 03/11/21 03/11/21 03/12/21 15:00 23:00 07:00 Intake Total 500 ml Output Total 900 ml 2450 ml Balance -900 ml 500 ml -2450 ml Physical Exam General: No acute distress Heart: Regular rate Lungs: Clear Abdomen: Normal bowel sounds, Other (Obese) Extremities: No cyanosis Skin: Other (Has some vitiligo on the forehead) Labs Labs: Laboratory Tests Test 03/11/21 11:19 03/11/21 16:19 03/11/21 20:21 03/12/21 05:30 Glucose (Fingerstick) 103 mg/dL (70-99) 114 mg/dL (70-99) 157 mg/dL (70-99) Prothrombin Time 26.8 SEC (11.7-14.0) Prothromb Time International Ratio 2.5 (0.8-1.1) Test 03/12/21 07:16 Glucose (Fingerstick) 115 mg/dL (70-99) Assessment and Plan Assessmemt and Plan Problems Medical Problems: (1) Chest pain Status: Acute (2) History of COPD Status: Acute (3) Person under investigation for COVID-19 Status: Acute (4) Respiratory distress Status: Acute 1. Acute hypercapnic respiratory failure, multifactorial 2. Acute on chronic systolic CHF, and toxic, suspect hypercapnia. 3. Acute metabolic encephalopathy. 4. Abnormal chest x-ray with bilateral interstitial infiltrates. 5. Previous echo with EF of 35%. 6. Morbid obesity, BMI 75, with obstructive sleep apnea with marginal compliance with CPAP and obesity hypoventilation syndrome. 7. 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 Medications: Current Medications Medications (Trade) Dose Ordered Sig/Liam Route PRN Reason Start Time Stop Time Status Last Admin Dose Admin Oxycodone/ Acetaminophen (Percocet 5/325) 1 tab PRN Q4HRS PRN PO MODERATE PAIN, SEVERE PAIN 03/11/21 17:15 03/11/21 17:42 Diphenhydramine HCl (Benadryl) 50 mg PRN Q6HRS PRN PO ITCHING 03/12/21 00:30 03/12/21 00:33 Justifications for Admission Other Justification EXAC CHF JOSE RAMON BERMUDEZ K III DO Mar 12, 2021 11:00
--- NOTE | 2021-03-12 12:49 | NUR ---
DWIGHT following. Discussed with RN, pt from home alone, room air, COVID-19 negative. Therapy recommending SNF. DWIGHT met with pt, pt agreeable - would like 1. [facility] 2. [facility] 3. [facility]. DWIGHT phoned and faxed referral to [facility], awaiting acceptance decision. DWIGHT will continue to follow. Addendum: 03/12/21 at 1317 by DANA QUINTANILLA [facility] and [facility] are unable to accept due to not having capabilities to take care of patient. Referral faxed to [facility] - awaiting acceptance decision. DWIGHT will continue to follow. Addendum: 03/12/21 at 1453 by DANA QUINTANILLA Pt accepted at [facility], pending insurance auth.
[2021-03-12 15:00] VITALS: BP 121/47
[2021-03-12] MEDS: WARFARIN 5 MG TABLET. PO SCH (16:58)
[2021-03-12 19:00] VITALS: BP 144/74
--- NOTE | 2021-03-12 21:26 | PDOC ---
PROGRESS NOTES Date of Service: DATE: 03/12/21 TIME: 21:26 Subjective Subjective Feels better with improvement in dyspnea Objective Objective Vital Signs Date Time Temp Pulse Resp B/P (MAP) Pulse Ox O2 Delivery O2 Flow Rate FiO2 03/12/21 18:13 Nasal Cannula 2.0 03/12/21 15:00 97.5 73 18 121/47 (71) 97 97.5 Intake and Output 03/12/21 07:00 Intake Total 500 ml Output Total 3350 ml Balance -2850 ml Intake Oral 500 ml Output Urine Total 3350 ml # Bowel Movements 1 Physical Exam Abdomen: Normal bowel sounds, Other (Obese) Heart: Regular rate Extremities: No cyanosis General: No acute distress HEENT: Atraumatic, EOMI Lungs: Other (Mildly decreased breath sounds) Neuro: Normal speech, Cranial nerves 3-12 NL Skin: Other (Has some vitiligo on the forehead) Assessment Assessment 1. Acute respiratory failure; multifactorial. with a/c CHF, COPD, and obesity/hypoventilation 2. Acute on chronic diastolic/systolic CHF, better compensated after diuresis. Continu current meds including entresto 2. NICM: s/p AICD (Biotronik). LVEF 35-40% per echo 07/31. Cath 2018 without significant CAD. Device check 01/30 with normal function and stable lead impedances. Repeat echo with LVEF 25% 3. Possible ELIZABETH/COPD with morbid obesity: BMI at 73 4. Hypertension; controlled 5. Hyperlipidemia; statin 5. Diabetes, II: per IM 7. Hx of CVA: in 2002 with left side hemiparesis 8. Tobaccoism 9. Chronic warfarin therapy:due to remote CVA. No h/o AFIB/flutter. Most recent device check wtih 0% AFIB burden. Plan Plan of Care Problems Medical Problems: (1) Chest pain Status: Acute (2) History of COPD Status: Acute (3) Person under investigation for COVID-19 Status: Acute (4) Respiratory distress Status: Acute Comment Review of Relevant I have reviewed the following items cuate (where applicable) has been applied. Labs Laboratory Tests Test 03/12/21 05:30 03/12/21 07:16 03/12/21 11:54 03/12/21 16:19 Prothrombin Time 26.8 SEC (11.7-14.0) Prothromb Time International Ratio 2.5 (0.8-1.1) Glucose (Fingerstick) 115 mg/dL (70-99) 109 mg/dL (70-99) 108 mg/dL (70-99) Test 03/12/21 21:14 Glucose (Fingerstick) 92 mg/dL (70-99) Medications Current Medications Diphenhydramine HCl (Benadryl) 50 mg PRN Q6HRS PRN PO ITCHING Last administered on 03/12/21at 00:33; Start 03/12/21 at 00:30 Vitals/I & O Vital Sign - Last 24 Hours 03/11/21 03/11/21 03/11/21 03/12/21 21:43 22:20 23:03 03:05 Temp 98.5 97.2 98.5 97.2 Pulse 75 74 82 Resp 20 20 B/P (MAP) 156/93 133/74 (93) 127/52 (77) Pulse Ox 100 96 96 O2 Delivery BiPAP/CPAP Nasal Cannula 03/12/21 03/12/21 03/12/21 03/12/21 07:00 08:00 08:25 08:26 Temp 98.7 98.7 Pulse 80 80 80 Resp 18 B/P (MAP) 153/81 (105) 153/81 153/81 Pulse Ox 97 O2 Delivery Nasal Cannula Nasal Cannula O2 Flow Rate 2.0 03/12/21 03/12/21 03/12/21 03/12/21 08:57 11:00 12:03 14:57 Temp 98.5 98.5 Pulse 77 Resp 20 B/P (MAP) 144/77 (99) Pulse Ox 98 95 O2 Delivery Room Air Nasal Cannula Nasal Cannula Nasal Cannula O2 Flow Rate 2.0 2.0 03/12/21 03/12/21 15:00 18:13 Temp 97.5 97.5 Pulse 73 Resp 18 B/P (MAP) 121/47 (71) Pulse Ox 97 O2 Delivery Nasal Cannula O2 Flow Rate 2.0 Intake and Output 03/11/21 03/11/21 03/12/21 15:00 23:00 07:00 Intake Total 500 ml Output Total 900 ml 2450 ml Balance -900 ml 500 ml -2450 ml CHANTAL PEÑA MD Mar 12, 2021 21:26
[2021-03-12 22:00] VITALS: BP 141/91
[2021-03-12] MEDS ORDERED: MORPHINE SULFATE 4 MG/ML VIAL. IV PRN (22:30)
[2021-03-12] MEDS ORDERED: NITROGLYCERIN SUBLINGUAL 0.4 MG BOTTLE OF 25. SL PRN (22:30)
[2021-03-12] MEDS ORDERED: MORPHINE SULFATE 2 MG/ML VIAL. IV PRN (22:30)
--- NOTE | 2021-03-12 23:08 | EKG ---
[facility] [address] [place] [address] Test Date: 2021-03-12 Test Time: 21:57:23 Pat Name: KAITY JACOBS Department: Room: 6 Gender: F Contract Administrator: KETAN : 1970 Requested By: JOSE RAMON BERMUDEZ Order Number: [id number] Reading MD: Measurements Intervals Vina Rate: 78 P: 62 WV: 156 QRS: 180 QRSD: 100 T: 43 QT: 390 QTc: 448 Interpretive Statements SINUS RHYTHM LOW LIMB LEAD VOLTAGE QRS(T) CONTOUR ABNORMALITY CONSIDER ANTEROSEPTAL MYOCARDIAL DAMAGE POSSIBLY ABNORMAL ECG RI6.02 No previous ECG available for comparison
--- NOTE | 2021-03-12 23:16 | NUR ---
Rapid response called on patient for a sudden onset of chest pain after eating pork rinds. Patient was gasping for breath during the chest pain and 02 sat went into the 80s. Patient's Bipap was placed on patient prior to this nurses arrival to rapid response. Upon arrival to rapid the patient was calm, vss and 12 lead EKG was in progress. No distress noted. No ST elevation seen on EKG. Patient is not complaining of any chest pain or any other pain at this time. Dr. Millan notified by Lori DE LA FUENTE. Patient to remain on unit. Will monitor.
--- NOTE | 2021-03-13 00:15 | NUR ---
RN was giving patient her HS meds, patient carrying on conversation with RN while laughing and joking, she was eating pork rinds at this time as well. 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 Patient was at that time able to verbalize that she was having chest pain, she denied radiating anywhere, patient clearly not choking at this time as she was talking to RN. Stat EKG ordered, rapid called, patient placed on BIPAP for which she was agreeable to at this time. Patient was crying during this time, and later in the event became less responsive, not knowing where she was or why she was here, blank stare in patient's face noted. patient noted to be SR on telemetry, VS & BS stable at this time. Stat order for cardiac enzymes also placed. Patient had a couple more episodes of severe chest pain during this time, which was also witnessed by nursing cost control supervisor, Patient only to alert to self for about 15 minutes then she became more alert and was able to verbalize to RN that she has these episodes at home. Patient clearly scared at this point, but is able to call her brother, she has this RN talk to him to tell him what happened. RN notified Dr. Millan of this event, morphine and nitro ordered at this point if patient has further episodes. EKG showed no significant events, troponin normal. RN did provide additional education on the importance of refraining from excessive sodium ( 2 grams/day) and reminded patient that pork rinds were loaded with sodium. Patient verbalizes understanding. Will continue to monitor.
[2021-03-13 01:32] VITALS: BP 137/64
--- NOTE | 2021-03-13 01:45 | NUR ---
Patient still not responding normally for her, CBC and BMP ordered. While this RN was in drawing, Yu charge nurse came into to talk to patient, at this time patient started to have what appeared to be a seizure. Patient was non-responsive with total loss of muscle control during this episode. Seizure lasted approximately 4 minutes, Yu RN stays with patient while this RN gets orders for lorazepam and suction supplies. Lorazepam given, patient VS and BS again checked they are both WNL, see VS documentation. Patient noted to be postictal, this is noted for approximately 20 minutes until the patient becomes more alert, at this time she is wanting to get out of bed and go home, she still has BIPAP on from prior epidsode. RN removes BIPAP d/t patient becoming agitated with wearing it, RN placed patient back on O2. RN able to convince patient that she is not able to go home at this point, patient is unaware of seizure activity she just had. This RN called Cipriano (brother) to notify of incident, voicemail left, Dr. iMllan also notified at time of ativan orders and he also orders neurology consult. Side rails padded and suction hooked up. Will continue to monitor.
[2021-03-13 02:03] LABS: BASO # 0.1 x10^3/uL (0.0-0.2); BASO % 1 % (0-3); EOS # 0.1 x10^3/uL (0.0-0.7); EOS % 3 % (0-3); HEMATOCRIT 29.9 % (36.0-47.0); HEMOGLOBIN 9.3 g/dL (12.0-15.5); LYMPH # 1.1 x10^3/uL (1.0-4.8); LYMPH % 20 % (24-48); MEAN CORPUSCULAR HEMOGLOBIN 26 pg (25-35); MEAN CORPUSCULAR HGB CONC 31 g/dL (31-37); MEAN CORPUSCULAR VOLUME 84 fL (79-100); MONO # 0.6 x10^3/uL (0.0-1.1); MONO % 11 % (0-9); NEUT # 3.3 x10^3/uL (1.8-7.7); NEUT % 64 % (31-73); PLATELET COUNT 140 x10^3/uL (140-400); RED BLOOD COUNT 3.54 x10^6/uL (3.50-5.40); RED CELL DISTRIBUTION WIDTH 22.8 % (11.5-14.5); WHITE BLOOD COUNT 5.2 x10^3/uL (4.0-11.0)
[2021-03-13 02:13] LABS: CALCIUM 7.7 mg/dL (8.5-10.1); CREATININE 1.1 mg/dL (0.6-1.0); GFR 63.1; POTASSIUM 4.1 mmol/L (3.5-5.1)
[2021-03-13 03:00] VITALS: BP 120/60
[2021-03-13] MEDS: PANTOPRAZOLE 40 MG TABLET.DR. PO SCH (05:45)
[2021-03-13 07:00] VITALS: BP 121/65
[2021-03-13] MEDS: IPRATRPIUM/ALBUTEROL 0.5/2.5MG 3 ML NEBU. NEB SCH ×4 (07:28→20:00)
[2021-03-13] MEDS: INSULIN LISPRO 300 UNITS/3 ML VIAL. SQ SCH ×3 (08:00→16:48)
[2021-03-13] MEDS: SACUBITRIL/VALSARTAN 49/51MG TABLET. PO SCH (08:32)
[2021-03-13] MEDS: FERROUS SULFATE 325 MG TABLET. PO SCH ×2 (08:33→17:05)
[2021-03-13] MEDS: glipiZIDE 5 MG TABLET PO SCH (08:33)
[2021-03-13] MEDS: ATORVASTATIN CALCIUM 40 MG TABLET. PO SCH (08:33)
[2021-03-13] MEDS: POTASSIUM CHLORIDE 20 MEQ TABLET.ER. PO SCH (08:33)
[2021-03-13] MEDS: METOPROLOL SUCC 24HR ER 25 MG TAB.ER.24H. PO SCH (08:33)
[2021-03-13] MEDS: SPIRONOLACTONE 25 MG TABLET PO SCH (08:33)
[2021-03-13] MEDS: BUMETANIDE 1 MG/4 ML VIAL. IV SCH (08:34)
--- NOTE | 2021-03-13 08:46 | PDOC2 ---
NEUROLOGY CONSULT Date of Service DOS: DATE: 03/13/21 TIME: 08:38 Reason for Consult Reason for Consult: Seizure Referring Physician Referring Physician: Dr. Millan Source Source: Caregiver (Nurse), Chart review, Patient History of Present Illness History of Present Illness Patient is a 50-year-old right-handed female with multiple medical problems who had a witnessed convulsive seizure last night. There was postictal confusion. Patient told the nurse that she has had these episodes for the last few weeks at home, but tells me that she does not have a history of seizures. She has had a stroke in the past. She feels fine now. Past Medical History Cardiovascular: AFIB, CAD, CHF, HTN, Hyperlipidemia, Other (Cardiomyopathy) Pulmonary: COPD, Pneumonia CENTRAL NERVOUS SYSTEM: CVA Psych: Depression Musculoskeletal: low back pain, Osteoarthritis Renal/: Chronic renal insuff, UTI, Urinary Incontinence Endocrine: Diabetes, Other (Super morbid obesity) Past Surgical History Past Surgical History: Pacemaker (Defibrillator), Cholecystectomy, Other (Tracheostomy and movable, right breast cyst) Family History Family History: Other (Negative for seizure) Social History Social History Single, quit smoking 2 months ago, no alcohol, disabled Current Medications Current Medications Current Medications Methylprednisolone Sodium Succinate (SOLU-Medrol 125MG VIAL) 125 mg 1X ONCE IV Last administered on 03/06/21at 17:11; Start 03/06/21 at 16:15; Stop 03/06/21 at 16:16; Status DC Ondansetron HCl (Zofran) 4 mg PRN Q8HRS PRN IV NAUSEA/VOMITING; Start 03/06/21 at 17:45; Stop 03/07/21 at 10:59; Status DC Furosemide (Lasix) 40 mg 1X ONCE IVP Last administered on 03/07/21at 10:15; Start 03/07/21 at 10:00; Stop 03/07/21 at 10:04; Status DC Albuterol/ Ipratropium (Duoneb) 3 ml RTQID NEB Last administered on 03/13/21at 07:28; Start 03/07/21 at 12:00 Enoxaparin Sodium (Lovenox 60mg Syringe) 60 mg Q12HR SQ Last administered on 03/07/21at 10:14; Start 03/07/21 at 11:00; Stop 03/07/21 at 14:34; Status DC Bumetanide (Bumex) 1 mg BID92 PO ; Start 03/07/21 at 14:00; Stop 03/07/21 at 15:04; Status DC Ferrous Sulfate (Feosol) 325 mg BIDWMEALS PO Last administered on 03/12/21at 16 :58; Start 03/07/21 at 17:00 Glipizide (Glucotrol) 5 mg DAILY PO Last administered on 03/12/21at 08:26; Start 03/07/21 at 12:00 Insulin Human Lispro (HumaLOG VIAL for OP,RR ONLY) TIDWMEALS SQ ; Start 03/07/21 at 12:00; Stop 03/07/21 at 14:31; Status DC Albuterol/ Ipratropium (Duoneb) 3 ml RTQID NEB ; Start 03/07/21 at 12:00; Status Cancel Metoprolol Succinate (Toprol Xl) 75 mg DAILY PO Last administered on 03/12/21at 08:26; Start 03/07/21 at 12:00 Polyethylene Glycol (miraLAX PACKET) 17 gm PRN DAILY PRN PO CONSTIPATION (1st Choice); Start 03/07/21 at 11:00 Potassium Chloride (Klor-Con) 20 meq BID PO Last administered on 03/12/21at 21:37; Start 03/07/21 at 21:00 Sacubitril/ Valsartan (Entresto 49 Mg-51 Mg) 1 tab BID PO Last administered on 03/12/21at 21:37; Start 03/07/21 at 12:00 Spironolactone (Aldactone) 25 mg DAILY PO Last administered on 03/12/21at 08:27; Start 03/07/21 at 12:00 Pantoprazole Sodium (Protonix) 40 mg DAILY06 PO Last administered on 03/13/21at 05:45; Start 03/08/21 at 06:00 Atorvastatin Calcium (Lipitor) 40 mg DAILY PO Last administered on 03/12/21at 08:26; Start 03/08/21 at 09:00 Warfarin Sodium (Coumadin) 10 mg DAILY16 PO Last administered on 03/12/21at 16:58; Start 03/07/21 at 16:00 Sodium Chloride (Normal Saline Flush) 3 ml QSHIFT PRN IV AFTER MEDS AND BLOOD DRAWS; Start 03/07/21 at 11:00 Ondansetron HCl (Zofran) 4 mg PRN Q4HRS PRN IV NAUSEA/VOMITING; Start 03/07/21 at 11:00 Acetaminophen (Tylenol) 650 mg PRN Q4HRS PRN PO TEMP OVER 100.4F OR MILD PAIN; Start 03/07/21 at 11:00 Al Hydroxide/Mg Hydroxide (Mylanta Plus Xs) 30 ml PRN DAILY PRN PO HEARTBURN / GAS; Start 03/07/21 at 11:00 Sodium Monofluorophosphate (Fleet Adult) 133 ml PRN DAILY PRN [place] CONSTIPATION; Start 03/07/21 at 11:00 Docusate Sodium (Colace) 100 mg PRN BID PRN PO HARD STOOLS; Start 03/07/21 at 11:00 Guaifenesin (Robitussin) 200 mg PRN Q4HRS PRN PO COUGH Last administered on 03/08/21at 11:13; Start 03/07/21 at 11:00 Insulin Human Lispro (HumaLOG) 0-7 UNITS TIDWMEALS SQ ; Start 03/07/21 at 17:00 Dextrose (Dextrose 50%-Water Syringe) 12.5 gm PRN Q15MIN PRN IV SEE COMMENTS; Start 03/07/21 at 14:30 Warfarin Sodium (Coumadin Per Physician) 1 each PRN DAILY PRN MC SEE COMMENTS Last administered on 03/11/21at 14:05; Start 03/07/21 at 14:45 Bumetanide (Bumex) 1 mg BID IV Last administered on 03/12/21at 21:36; Start 03/07/21 at 21:00 Miconazole Nitrate (Monistat-Derm) 1 edie BID TP Last administered on 03/12/21at 21:38; Start 03/08/21 at 13:45 Perflutren Protein Type A Microsphe (Optison) 0.66 mg STK-MED ONCE IV ; Start 03/08/21 at 16:40; Stop 03/08/21 at 16:41; Status DC Nystatin (Nystop) 1 edie BID TP Last administered on 03/12/21at 21:38; Start 03/09/21 at 11:45 Oxycodone/ Acetaminophen (Percocet 5/325) 1 tab PRN Q4HRS PRN PO MODERATE PAIN, SEVERE PAIN Last administered on 03/11/21at 17:42; Start 03/11/21 at 17:15 Diphenhydramine HCl (Benadryl) 50 mg PRN Q6HRS PRN PO ITCHING Last administered on 03/12/21at 21:37; Start 03/12/21 at 00:30 Nitroglycerin (Nitrostat) 0.4 mg PRN Q5MIN PRN SL CHEST PAIN; Start 03/12/21 at 22:30 Morphine Sulfate (Morphine Sulfate) 2 mg PRN Q2HR PRN IV PAIN mild to mod; Start 03/12/21 at 22:30 Morphine Sulfate (Morphine Sulfate) 4 mg PRN Q2HR PRN IV PAIN severe; Start 03/12/21 at 22:30 Lorazepam (Ativan Inj) 1 mg PRN Q4HRS PRN IVP ANXIETY / AGITATION Last administered on 03/13/21at 02:13; Start 03/13/21 at 01:30 Active Scripts Active Admelog (Insulin Lispro) 100 Unit/1 Ml Vial 0 Units SQ TIDWMEALS 30 Days Polyethylene Glycol 3350 17 Gm Powd.pack 17 Gm PO PRN DAILY PRN 30 Days Bumetanide 1 Mg Tablet 1 Mg PO BID92 30 Days Metoprolol Succinate ( Xl ) (Metoprolol Succinate) 25 Mg Tab.er.24h 75 Mg PO DAILY 30 Days Feosol (Ferrous Sulfate) 325 Mg Tablet 325 Mg PO BIDWMEALS 30 Days Duoneb 0.5-3(2.5) Mg/3 Ml (Albuterol/Ipratropium) 3 Ml Ampul.neb 3 Ml NEB RTQID 30 Days Aldactone (Spironolactone) 25 Mg Tablet 25 Mg PO DAILY 30 Days Reported Oxycodon-Acetaminophen 7.5-325 (Oxycodone Hcl/Acetaminophen) 1 Each Tablet 7.5- 325 Mg PO PRN Q6HRS PRN Omeprazole 40 Mg Capsule. 1 Cap PO DAILY06 Potassium Chloride (Potassium Chloride) 20 Meq Tablet.er 20 Meq PO BID Entresto 49 mg-51 mg Tablet (Sacubitril/Valsartan) 1 Each Tablet 1 Tab PO BID Glipizide 5 Mg Tablet 1 Tab PO DAILY Warfarin Sodium 10 Mg Tablet 10 Mg PO DAILY Crestor (Rosuvastatin Calcium) 10 Mg Tablet 1 Tab PO DAILY Allergies Allergies: Coded Allergies: hydrocodone (Verified Allergy, Intermediate, 10/23/18) morphine (Verified Adverse Reaction, Intermediate, n/v, 03/12/21) ROS Review of System Negative for fever, chills, weight loss, chest pain, indigestion, hematochezia, melena . Positive for dyspnea and dysuria. Full 14-point review of systems is negative. Physical Exam Physical Examination General: Well-developed, well-nourished morbidly obese black female in no acute distress HEENT: Normocephalic andatraumatic. Temporal arteriespulsatile and nontender. Neck: Supple without bruit, no meningismus Musculoskeletal: Stability:see neurologic. Gait exam:see neurologic. Tone:see neurologic.Strength:see neurologic. Neurological: Mental Status:orientation, memory, attention span/concentration, language, fund of knowledge: Does not know the name of the hospital or the precise date. Knows name of the president. Names and repeats well. Cranial Nerves:Pupils equal and reactive to light, extraocular movements areintact, visual thao are full to confrontation. Facial sensation is normal. There is no facial asymmetry. Vestibulo-ocular reflex is intact. Palate elevates and tongue protrudes in midline. All other cranial related problems are negative except as mentioned before.Reflexes:0+ and symmetric with flexor plantar responses. Motor:3/5 strength with normal tone and bulk. Coordination:Finger-nose finger is normal. Rapid alternating movements and fine finger movements are intact. Gait: Not tested. Sensory:Stocking loss Vitals VITALS Vital Signs Date Time Temp Pulse Resp B/P (MAP) Pulse Ox O2 Delivery O2 Flow Rate FiO2 03/13/21 07:28 Nasal Cannula 3.0 03/13/21 03:00 98.4 71 20 120/60 (80) 96 98.4 Labs Labs Laboratory Tests Test 03/11/21 11:19 03/11/21 16:19 03/11/21 20:21 03/12/21 05:30 Glucose (Fingerstick) 103 mg/dL (70-99) 114 mg/dL (70-99) 157 mg/dL (70-99) Prothrombin Time 26.8 SEC (11.7-14.0) Prothromb Time International Ratio 2.5 (0.8-1.1) Test 03/12/21 07:16 03/12/21 11:54 03/12/21 16:19 03/12/21 21:14 Glucose (Fingerstick) 115 mg/dL (70-99) 109 mg/dL (70-99) 108 mg/dL (70-99) 92 mg/dL (70-99) Test 03/12/21 21:47 03/12/21 22:05 03/13/21 00:58 03/13/21 01:15 Glucose (Fingerstick) 125 mg/dL (70-99) 131 mg/dL (70-99) Troponin I Quantitative < 0.017 ng/mL (0.000-0.055) White Blood Count 5.2 x10^3/uL (4.0-11.0) Red Blood Count 3.54 x10^6/uL (3.50-5.40) Hemoglobin 9.3 g/dL (12.0-15.5) Hematocrit 29.9 % (36.0-47.0) Mean Corpuscular Volume 84 fL (79-100) Mean Corpuscular Hemoglobin 26 pg (25-35) Mean Corpuscular Hemoglobin Concent 31 g/dL (31-37) Red Cell Distribution Width 22.8 % (11.5-14.5) Platelet Count 140 x10^3/uL (140-400) Neutrophils (%) (Auto) 64 % (31-73) Lymphocytes (%) (Auto) 20 % (24-48) Monocytes (%) (Auto) 11 % (0-9) Eosinophils (%) (Auto) 3 % (0-3) Basophils (%) (Auto) 1 % (0-3) Neutrophils # (Auto) 3.3 x10^3/uL (1.8-7.7) Lymphocytes # (Auto) 1.1 x10^3/uL (1.0-4.8) Monocytes # (Auto) 0.6 x10^3/uL (0.0-1.1) Eosinophils # (Auto) 0.1 x10^3/uL (0.0-0.7) Basophils # (Auto) 0.1 x10^3/uL (0.0-0.2) Sodium Level 147 mmol/L (136-145) Potassium Level 4.1 mmol/L (3.5-5.1) Chloride Level 108 mmol/L (98-107) Carbon Dioxide Level 37 mmol/L (21-32) Anion Gap 2 (6-14) Blood Urea Nitrogen 20 mg/dL (7-20) Creatinine 1.1 mg/dL (0.6-1.0) Estimated GFR (Cockcroft-Gault) 63.1 Glucose Level 126 mg/dL (70-99) Calcium Level 7.7 mg/dL (8.5-10.1) Test 03/13/21 07:17 Glucose (Fingerstick) 150 mg/dL (70-99) Laboratory Tests Test 03/12/21 11:54 03/12/21 16:19 03/12/21 21:14 03/12/21 21:47 Glucose (Fingerstick) 109 mg/dL (70-99) 108 mg/dL (70-99) 92 mg/dL (70-99) 125 mg/dL (70-99) Test 03/12/21 22:05 03/13/21 00:58 03/13/21 01:15 03/13/21 07:17 Troponin I Quantitative < 0.017 ng/mL (0.000-0.055) Glucose (Fingerstick) 131 mg/dL (70-99) 150 mg/dL (70-99) White Blood Count 5.2 x10^3/uL (4.0-11.0) Red Blood Count 3.54 x10^6/uL (3.50-5.40) Hemoglobin 9.3 g/dL (12.0-15.5) Hematocrit 29.9 % (36.0-47.0) Mean Corpuscular Volume 84 fL (79-100) Mean Corpuscular Hemoglobin 26 pg (25-35) Mean Corpuscular Hemoglobin Concent 31 g/dL (31-37) Red Cell Distribution Width 22.8 % (11.5-14.5) Platelet Count 140 x10^3/uL (140-400) Neutrophils (%) (Auto) 64 % (31-73) Lymphocytes (%) (Auto) 20 % (24-48) Monocytes (%) (Auto) 11 % (0-9) Eosinophils (%) (Auto) 3 % (0-3) Basophils (%) (Auto) 1 % (0-3) Neutrophils # (Auto) 3.3 x10^3/uL (1.8-7.7) Lymphocytes # (Auto) 1.1 x10^3/uL (1.0-4.8) Monocytes # (Auto) 0.6 x10^3/uL (0.0-1.1) Eosinophils # (Auto) 0.1 x10^3/uL (0.0-0.7) Basophils # (Auto) 0.1 x10^3/uL (0.0-0.2) Sodium Level 147 mmol/L (136-145) Potassium Level 4.1 mmol/L (3.5-5.1) Chloride Level 108 mmol/L (98-107) Carbon Dioxide Level 37 mmol/L (21-32) Anion Gap 2 (6-14) Blood Urea Nitrogen 20 mg/dL (7-20) Creatinine 1.1 mg/dL (0.6-1.0) Estimated GFR (Cockcroft-Gault) 63.1 Glucose Level 126 mg/dL (70-99) Calcium Level 7.7 mg/dL (8.5-10.1) Assessment/Plan Assessment/Plan Impression: Seizure in a patient with multiple medical problems including morbid obesity, atrial fibrillation, COPD, cardiomyopathy and heart failure status post pacemaker/defibrillator, renal insufficiency Recommendations: CT of the head, cannot have MRI Electroencephalogram Further decisions regarding starting anticonvulsants depending on these results I left a message with the patient's brother Thank you for letting me help with the patient's care. YANIV SIMPSON MD Mar 13, 2021 08:46
[2021-03-13] MEDS: NYSTATIN TOPICAL POWDER 15GM BOTTLE. TP SCH (09:00)
[2021-03-13] MEDS: MICONAZOLE NITRATE 2% TOPICAL CREAM 30GM TUBE. TP SCH (09:00)
--- NOTE | 2021-03-13 10:14 | SNU/HH DC ---
DISCHARGE ORDERS DISCHARGE INFORMATION: FINAL DIAGNOSIS Problems Medical Problems: (1) Chest pain Status: Acute (2) History of COPD Status: Acute (3) Person under investigation for COVID-19 Status: Acute (4) Respiratory distress Status: Acute CONDITION ON DISCHARGE: Stable CODE STATUS: Code Status: Full ALF: SNF STAY <30 DAYS: Yes HOSPICE: HOSPICE: No HOSPICE EVAL & TREAT: No POST DISCHARGE ORDERS: ACTIVITY ORDERS: Activity as tolerated WEIGHT BEARING STATUS: As tolerated BATHING ORDERS: Shower-keep dressing dry, No Tub Bath until see DIET AFTER DISCHARGE: Cardiac WOUND/INCISION CARE: No wound care needed CHECKS AFTER DISCHARGE: CHECKS AFTER DISCHARGE: Check blood press - daily, Check blood sugar, ac/hs, Weigh Yourself Daily TREATMENT/EQUIPMENT ORDERS: ADAPTIVE EQUIPMENT NEEDED: None RESPIRATORY EQUIPMENT NEEDED: Oxygen, Nebulizer, CPAP Physical Therapy For: Evalulation/Treatment Occupational Therapy For: Evaluation/Treatment Speech Language Pathology For: Evaluation/Treatment DISCHARGE MEDICATIONS: Home Meds Active Scripts Insulin Lispro (Admelog) 100 Unit/1 Ml Vial, 0 UNITS SQ TIDWMEALS for DIABETES for 30 Days, #2 EACH Prov:RICARDO BLACK MD 01/27/21 Polyethylene Glycol 3350 (POLYETHYLENE GLYCOL 3350) 17 Gm Powd.pack, 17 GM PO PRN DAILY PRN for CONSTIPATION (1st Choice) for 30 Days, #30 PKT Prov:RICARDO BLACK MD 01/27/21 Bumetanide (BUMETANIDE) 1 Mg Tablet, 1 MG PO BID92 for HEART FAILURE for 30 Days, #60 TAB Prov:RICARDO BLACK MD 01/27/21 Metoprolol Succinate (METOPROLOL SUCCINATE ( XL )) 25 Mg Tab.er.24h, 75 MG PO DAILY for HEART for 30 Days, #90 TAB.SR Prov:RICARDO BLACK MD 01/27/21 Ferrous Sulfate (FEOSOL) 325 Mg Tablet, 325 MG PO BIDWMEALS for ANEMIA for 30 Days, #60 TAB Prov:RICARDO BLACK MD 01/27/21 Ipratropium/Albuterol Sulfate (DUONEB 0.5-3(2.5) MG/3 ML) 3 Ml Ampul.neb, 3 ML NEB RTQID for COPD for 30 Days, #120 EACH Prov:RICARDO BLACK MD 01/27/21 Spironolactone (ALDACTONE) 25 Mg Tablet, 25 MG PO DAILY for CHF for 30 Days, #30 TAB Prov:FLOWER RHODES MD 07/16/20 Reported Medications Oxycodone Hcl/Acetaminophen (OXYCODON-ACETAMINOPHEN 7.5-325) 1 Each Tablet, 7.5- 325 MG PO PRN Q6HRS PRN for SEVERE PAIN 01/31/19 Omeprazole (OMEPRAZOLE) 40 Mg Capsule.dr, 1 CAP PO DAILY06 for GERD, #30 CAP 3 Refills 01/31/19 Potassium Chloride (POTASSIUM CHLORIDE ) 20 Meq Tablet.er, 20 MEQ PO BID for supplement, TAB.SR 01/31/19 Sacubitril/Valsartan (Entresto 49 mg-51 mg Tablet) 1 Each Tablet, 1 TAB PO BID for Heart Failure, TAB 01/31/19 Glipizide (GLIPIZIDE) 5 Mg Tablet, 1 TAB PO DAILY for dm, #90 TAB 3 Refills 10/22/18 Warfarin Sodium (WARFARIN SODIUM) 10 Mg Tablet, 10 MG PO DAILY, TAB 08/25/14 Rosuvastatin Calcium (CRESTOR) 10 Mg Tablet, 1 TAB PO DAILY, #30 TAB 5 Refills 08/25/14 JOSE RAMON BERMUDEZ III DO Mar 13, 2021 10:14
--- NOTE | 2021-03-13 10:33 | PDOC ---
PULMONARY PROGRESS NOTES DATE: 03/13/21 TIME: 10:33 Subjective Pt. is resting on 3 liters NC no cough or SOB, reports minimal use of BIPAP overnight t Vitals Vital Signs Date Time Temp Pulse Resp B/P (MAP) Pulse Ox O2 Delivery O2 Flow Rate FiO2 03/13/21 08:33 71 120/60 03/13/21 07:28 Nasal Cannula 3.0 03/13/21 07:00 98.2 20 94 98.2 ROS: No Nausea, No Chest Pain, No Abdominal Pain, No Increase Cough General: Alert, No acute distress Lungs: Clear Cardiovascular: S1 Abdomen: Soft, Other (obese) Skin: Warm, Dry Labs Laboratory Tests Test 03/11/21 11:19 03/11/21 16:19 03/11/21 20:21 03/12/21 05:30 Glucose (Fingerstick) 103 mg/dL (70-99) 114 mg/dL (70-99) 157 mg/dL (70-99) Prothrombin Time 26.8 SEC (11.7-14.0) Prothromb Time International Ratio 2.5 (0.8-1.1) Test 03/12/21 07:16 03/12/21 11:54 03/12/21 16:19 03/12/21 21:14 Glucose (Fingerstick) 115 mg/dL (70-99) 109 mg/dL (70-99) 108 mg/dL (70-99) 92 mg/dL (70-99) Test 03/12/21 21:47 03/12/21 22:05 03/13/21 00:58 03/13/21 01:15 Glucose (Fingerstick) 125 mg/dL (70-99) 131 mg/dL (70-99) Troponin I Quantitative < 0.017 ng/mL (0.000-0.055) White Blood Count 5.2 x10^3/uL (4.0-11.0) Red Blood Count 3.54 x10^6/uL (3.50-5.40) Hemoglobin 9.3 g/dL (12.0-15.5) Hematocrit 29.9 % (36.0-47.0) Mean Corpuscular Volume 84 fL (79-100) Mean Corpuscular Hemoglobin 26 pg (25-35) Mean Corpuscular Hemoglobin Concent 31 g/dL (31-37) Red Cell Distribution Width 22.8 % (11.5-14.5) Platelet Count 140 x10^3/uL (140-400) Neutrophils (%) (Auto) 64 % (31-73) Lymphocytes (%) (Auto) 20 % (24-48) Monocytes (%) (Auto) 11 % (0-9) Eosinophils (%) (Auto) 3 % (0-3) Basophils (%) (Auto) 1 % (0-3) Neutrophils # (Auto) 3.3 x10^3/uL (1.8-7.7) Lymphocytes # (Auto) 1.1 x10^3/uL (1.0-4.8) Monocytes # (Auto) 0.6 x10^3/uL (0.0-1.1) Eosinophils # (Auto) 0.1 x10^3/uL (0.0-0.7) Basophils # (Auto) 0.1 x10^3/uL (0.0-0.2) Sodium Level 147 mmol/L (136-145) Potassium Level 4.1 mmol/L (3.5-5.1) Chloride Level 108 mmol/L (98-107) Carbon Dioxide Level 37 mmol/L (21-32) Anion Gap 2 (6-14) Blood Urea Nitrogen 20 mg/dL (7-20) Creatinine 1.1 mg/dL (0.6-1.0) Estimated GFR (Cockcroft-Gault) 63.1 Glucose Level 126 mg/dL (70-99) Calcium Level 7.7 mg/dL (8.5-10.1) Test 03/13/21 07:17 Glucose (Fingerstick) 150 mg/dL (70-99) Laboratory Tests Test 03/12/21 11:54 03/12/21 16:19 03/12/21 21:14 03/12/21 21:47 Glucose (Fingerstick) 109 mg/dL (70-99) 108 mg/dL (70-99) 92 mg/dL (70-99) 125 mg/dL (70-99) Test 03/12/21 22:05 03/13/21 00:58 03/13/21 01:15 03/13/21 07:17 Troponin I Quantitative < 0.017 ng/mL (0.000-0.055) Glucose (Fingerstick) 131 mg/dL (70-99) 150 mg/dL (70-99) White Blood Count 5.2 x10^3/uL (4.0-11.0) Red Blood Count 3.54 x10^6/uL (3.50-5.40) Hemoglobin 9.3 g/dL (12.0-15.5) Hematocrit 29.9 % (36.0-47.0) Mean Corpuscular Volume 84 fL (79-100) Mean Corpuscular Hemoglobin 26 pg (25-35) Mean Corpuscular Hemoglobin Concent 31 g/dL (31-37) Red Cell Distribution Width 22.8 % (11.5-14.5) Platelet Count 140 x10^3/uL (140-400) Neutrophils (%) (Auto) 64 % (31-73) Lymphocytes (%) (Auto) 20 % (24-48) Monocytes (%) (Auto) 11 % (0-9) Eosinophils (%) (Auto) 3 % (0-3) Basophils (%) (Auto) 1 % (0-3) Neutrophils # (Auto) 3.3 x10^3/uL (1.8-7.7) Lymphocytes # (Auto) 1.1 x10^3/uL (1.0-4.8) Monocytes # (Auto) 0.6 x10^3/uL (0.0-1.1) Eosinophils # (Auto) 0.1 x10^3/uL (0.0-0.7) Basophils # (Auto) 0.1 x10^3/uL (0.0-0.2) Sodium Level 147 mmol/L (136-145) Potassium Level 4.1 mmol/L (3.5-5.1) Chloride Level 108 mmol/L (98-107) Carbon Dioxide Level 37 mmol/L (21-32) Anion Gap 2 (6-14) Blood Urea Nitrogen 20 mg/dL (7-20) Creatinine 1.1 mg/dL (0.6-1.0) Estimated GFR (Cockcroft-Gault) 63.1 Glucose Level 126 mg/dL (70-99) Calcium Level 7.7 mg/dL (8.5-10.1) Medications Active Scripts Medications Dose Route/Sig Max Daily Dose Days Date Category Admelog (Insulin Lispro) 100 Unit/1 Ml Vial 0 Units SQ TIDWMEALS 30 01/27/21 Rx Polyethylene Glycol 3350 17 Gm Powd.pack 17 Gm PO PRN DAILY PRN 30 01/27/21 Rx Bumetanide 1 Mg Tablet 1 Mg PO BID92 30 01/27/21 Rx Metoprolol Succinate ( Xl ) (Metoprolol Succinate) 25 Mg Tab.er.24h 75 Mg PO DAILY 30 01/27/21 Rx Feosol (Ferrous Sulfate) 325 Mg Tablet 325 Mg PO BIDWMEALS 30 01/27/21 Rx Duoneb 0.5-3(2.5) Mg/3 Ml (Albuterol/Ipratropium) 3 Ml Ampul.neb 3 Ml NEB RTQID 30 01/27/21 Rx Aldactone (Spironolactone) 25 Mg Tablet 25 Mg PO DAILY 30 07/16/20 Rx Oxycodon-Acetaminophen 7.5-325 (Oxycodone Hcl/Acetaminophen) 1 Each Tablet 7.5-325 Mg PO PRN Q6HRS PRN 01/31/19 Reported Omeprazole 40 Mg Capsule.dr 1 Cap PO DAILY06 01/31/19 Reported Potassium Chloride (Potassium Chloride) 20 Meq Tablet.er 20 Meq PO BID 01/31/19 Reported Entresto 49 mg-51 mg Tablet (Sacubitril/Valsartan) 1 Each Tablet 1 Tab PO BID 01/31/19 Reported Glipizide 5 Mg Tablet 1 Tab PO DAILY 10/22/18 Reported Warfarin Sodium 10 Mg Tablet 10 Mg PO DAILY 08/25/14 Reported Crestor (Rosuvastatin Calcium) 10 Mg Tablet 1 Tab PO DAILY 08/25/[address] head Impression: 1. Significantly degraded evaluation due to patient's body habitus. Essentially nondiagnostic evaluation of the inferior intracranial contents. 2. Multifocal encephalomalacia throughout the right cerebral hemisphere. Impression . 1. Acute on chronic hypoxic and suspected hypercapnic respiratory failure secondary to acute on chronic systolic heart failure. 2. Encephalopathy, metabolic and toxic, suspect hypercapnia. resolved 3. Acute on chronic systolic congestive heart failure. 4. Abnormal chest x-ray with bilateral interstitial infiltrates. 5. Previous echo with EF of 35%. 6. Morbid obesity with obstructive sleep apnea with marginal compliance with CPAP and obesity hypoventilation syndrome. 7. Mild acute kidney injury--resolved Plan . PLAN: Continue supplemental oxygen as needed , now on 3 liters NC Change BIPAP to rate of 10 and 16/4 BIPAP at HS and PRN during the day,ongoing education of importance of compliance Follow cardiology recommendation---Diuresis per cardiology.---EF is 25% Follow Renal recommendations---Monitor renal function with diuresis Follow neurology recs- CT head reviewed Avoid any sedatives or narcotics. NEBS Discussed with RN patient Patient is DNR/DNI JUNITO GARCIA MD Mar 13, 2021 10:33
[2021-03-13 11:00] VITALS: BP 165/57
--- NOTE | 2021-03-13 11:29 | NUR ---
SW following. Discussed with RN, insurance has approved pt to go to SNF at [facility]. Discharge orders in, pending determination from Dr. Garcia RE pt seizure last night. Awaiting confirmation of whether pt can discharge today or not. [facility] will continue to follow. Addendum: 03/13/21 at 1301 by DANA QUINTANILLA Pt will not be discharging to [facility] today. Addendum: 03/13/21 at 1550 by DANA QUINTANILLA Pt okay to discharge to [facility] today. Discharge orders faxed. Per [facility] pt needs to transport by ambulance due to weight limits on their transportation. [facility] gave clearance for [facility] to use [facility]. [facility] arranged stretcher transportation with [facility] for 190. RN and [facility] notified.
--- NOTE | 2021-03-13 11:47 | DS ---
DATE OF DISCHARGE: 03/13/2021 ADMISSION DIAGNOSES: Respiratory failure, congestive heart failure, morbid obesity, chronic obstructive pulmonary disease. DISCHARGE DIAGNOSES: Resolving respiratory failure, morbid obesity, greater than 500 pounds, resolving congestive heart failure, resolving metabolic encephalopathy, possible new seizures (she had a seizure last night, but I spoke with Dr. Garcia, he does not think she will need new seizure medications at this time), chronic obstructive pulmonary disease, Pickwickian syndrome, diabetes, gallstones, gastroesophageal reflux disease, hyperlipidemia, stroke, chronic pain, cholecystectomy, history of tracheostomy, history of defibrillator, tobacco abuse, history of chronic anticoagulation. CONSULTS: Cardiology, Neurology, Nephrology and Pulmonary. HOSPITAL COURSE: The patient is a pleasant, middle-aged female who weighs more than 500 pounds, presented with respiratory failure, was multifactorial including heart failure and COPD and ELIZABETH. Basically, we gave her Lasix. She required some BiPAP for a while. We did cardiac monitoring, trended her labs, gave her home meds, tried to do some physical therapy and occupational therapy. Basically over the past couple of days, she returned to baseline. Today, I saw and examined her, she is doing well and wants to go [facility]. We plan to discharge her to skilled. DISPOSITION: [facility] if okay with consultants. ACTIVITY: As tolerated. DIET: Cardiac. DISCHARGE MEDICATIONS: Please see the MRAD. Bumetanide 1 mg b.i.d., iron 325 a day, glipizide 5 mg a day, lispro insulin, albuterol/Atrovent nebulizers, metoprolol 25 mg a day, omeprazole 40 a day, p.r.n. oxycodone tablets 7.5/325 one q.6 hours, p.r.n. MiraLax, potassium chloride 20 b.i.d., Crestor 1 tablet daily, Entresto 1 tab daily, Aldactone 25 a day and Coumadin 10 p.o. every day. Total time is [address]: Windy TID: [id number]
--- NOTE | 2021-03-13 12:55 | PDOC ---
CARDIO Progress Notes Date and Time Date of Service 03/13/21 Time of Evaluation 1250 Subjective Subjective: No Chest Pain, No Palpitations, Other (breathing improved ) Vitals Vitals Vital Signs Date Time Temp Pulse Resp B/P (MAP) Pulse Ox O2 Delivery O2 Flow Rate FiO2 03/13/21 11:01 99 Nasal Cannula 3.0 03/13/21 11:00 97.6 87 20 165/57 (93) 97.6 Weight Weight [ ] Input and Output Intake and Output Intake and Output 03/13/21 07:00 Intake Total 600 ml Output Total 5200 ml Balance -4600 ml Intake Oral 600 ml Output Urine Total 5200 ml Laboratory Labs Laboratory Tests Test 03/12/21 16:19 03/12/21 21:14 03/12/21 21:47 03/12/21 22:05 Glucose (Fingerstick) 108 mg/dL (70-99) 92 mg/dL (70-99) 125 mg/dL (70-99) Troponin I Quantitative < 0.017 ng/mL (0.000-0.055) Test 03/13/21 00:58 03/13/21 01:15 03/13/21 07:17 03/13/21 11:46 Glucose (Fingerstick) 131 mg/dL (70-99) 150 mg/dL (70-99) 96 mg/dL (70-99) White Blood Count 5.2 x10^3/uL (4.0-11.0) Red Blood Count 3.54 x10^6/uL (3.50-5.40) Hemoglobin 9.3 g/dL (12.0-15.5) Hematocrit 29.9 % (36.0-47.0) Mean Corpuscular Volume 84 fL (79-100) Mean Corpuscular Hemoglobin 26 pg (25-35) Mean Corpuscular Hemoglobin Concent 31 g/dL (31-37) Red Cell Distribution Width 22.8 % (11.5-14.5) Platelet Count 140 x10^3/uL (140-400) Neutrophils (%) (Auto) 64 % (31-73) Lymphocytes (%) (Auto) 20 % (24-48) Monocytes (%) (Auto) 11 % (0-9) Eosinophils (%) (Auto) 3 % (0-3) Basophils (%) (Auto) 1 % (0-3) Neutrophils # (Auto) 3.3 x10^3/uL (1.8-7.7) Lymphocytes # (Auto) 1.1 x10^3/uL (1.0-4.8) Monocytes # (Auto) 0.6 x10^3/uL (0.0-1.1) Eosinophils # (Auto) 0.1 x10^3/uL (0.0-0.7) Basophils # (Auto) 0.1 x10^3/uL (0.0-0.2) Sodium Level 147 mmol/L (136-145) Potassium Level 4.1 mmol/L (3.5-5.1) Chloride Level 108 mmol/L (98-107) Carbon Dioxide Level 37 mmol/L (21-32) Anion Gap 2 (6-14) Blood Urea Nitrogen 20 mg/dL (7-20) Creatinine 1.1 mg/dL (0.6-1.0) Estimated GFR (Cockcroft-Gault) 63.1 Glucose Level 126 mg/dL (70-99) Calcium Level 7.7 mg/dL (8.5-10.1) Physical Exam HEENT: Neck Supple W Full Motion Chest: Symmetric LUNGS: Clear to Auscultation Heart: RRR Abdomen: Soft N/T, Other (obese ) Extremities: Other (chronic lymphedema ) Neurology: alert, oriented, follow commands Assessment Assessment 1. Acute respiratory failure; multifactorial. with a/c CHF, COPD, and obesity/hypoventilation 2. Acute on chronic diastolic/systolic CHF 2. NICM: s/p AICD (Biotronik). LVEF 35-40% per echo 07/31. Cath 2018 without significant CAD. Device check 01/30 with normal function and stable lead impedances. Repeat echo with LVEF 25% 3. Possible ELIZABETH/COPD with morbid obesity: BMI at 73 4. Hypertension; controlled 5. Hyperlipidemia; statin 5. Diabetes, II 7. Hx of CVA: in 2002 with left side hemiparesis 8. Tobaccoism; discussed/encouraged cessation 9. Chronic warfarin therapy:due to remote CVA. No h/o AFIB/flutter. Most recent device check wtih 0% AFIB burden. Recommendations HF optimization with Entresto, Aldactone, Bumex, and Toprol Convert Bumex to oral Wt loss and secondary prevention measures. Ongoing lung optimization Supportive care Justicifation of Admission Dx: Justifications for Admission: Justification of Admission Dx: Yes CINTHIA MICHEL APRN Mar 13, 2021 12:55
--- NOTE | 2021-03-13 13:10 | RAD ---
CT HEAD/BRAIN WO History: Reason: new seizure too big for MRI / Spl. Instructions: / History: Comparison: None. Technique: Noncontrast CT imaging was performed of the head. Exposure: One or more of the following individualized dose reduction techniques were utilized for thi s examination: 1. Automated exposure control 2. Adjustment of the mA and/or kV according to patient size 3. Use of iterative reconstruction technique. Findings: Significantly degraded evaluation due to patient body habitus. Hypoattenuation throughout the right c erebral hemisphere involving the right frontal, parietal and temporal lobes. No definite intracranial hemorrhage although evaluation is significantly degraded. No significant mass effect. No hydrocephal us. Essentially nondiagnostic evaluation of the cerebellum and inferior brainstem. Imaged orbits are unremarkable. Right maxillary sinus mucous retention cyst. Mastoid air cells are cl ear. No acute calvarial fracture. Anterior scalp lipoma. Impression: 1. Significantly degraded evaluation due to patient's body habitus. Essentially nondiagnostic evalua tion of the inferior intracranial contents. 2. Multifocal encephalomalacia throughout the right cerebral hemisphere. Electronically signed by: Misael Stearns DO (03/13/2021 1:07 PM) [id number]
[2021-03-13 15:00] VITALS: BP 133/70
--- NOTE | 2021-03-13 15:18 | EEG ---
DATE OF SERVICE: 03/13/2021 ELECTROENCEPHALOGRAM REPORT OBJECTIVE: The patient is a 50-year-old female with possible new seizure. DESCRIPTION: This is a digital study. Electrodes were placed according to the international 10-20 system. Bipolar and referential montages are available. Activation procedures typically include hyperventilation and intermittent photic stimulation. INTERPRETATION: The waking background consists of 8-9 Hz, 50-100 microvolt activity, symmetrically distributed over parietooccipital regions and reactive to eye opening. Hyperventilation and intermittent photic stimulation are noncontributory. Stage I sleep is achieved with normal electroencephalogram patterns. IMPRESSION: This electroencephalogram with the patient awake and asleep is within normal limits. There is no focal, paroxysmal, or epileptiform activity. Thank you for letting us help with the patient's care. SURJIT DR: Olive TID: [id number]
--- NOTE | 2021-03-13 16:19 | NUR ---
RN reviewed meaning of DNR and asked pt if those were her wishes. Pt states "yes, those are my wishes". RN explained purpose of outside DNR form was so that [facility] and [facility]MR would follow her wishes once she leaves [facility]. patient states "I ain't signing that form." ramifications of not signing form explained to patient. pt then would not acknowledge RN.
[2021-03-13] MEDS ORDERED: BUMETANIDE 1 MG TABLET. PO SCH (17:00)
[2021-03-13] MEDS: WARFARIN 5 MG TABLET. PO SCH (17:05)
--- NOTE | 2021-03-13 18:00 | NUR ---
RN attempted to have discussion with patient regarding discharge. RN explained to patient that andrade would stay in for accurate output measurement and PICC would remain in for lab draws. Patient stated "I'm going home. Take all of this shit off me." RN encouraged patient that a stay at rehab would help build strength and then she could return home. Patient again stated she was going home. RN questioned patient how she would get home, who would come and pick her up. Patient ignored RN and would not respond. RN left room and called NS to inform her. NS said to call brother and inform him. voicemail left with brother, Cipriano.
--- NOTE | 2021-03-13 19:00 | NUR ---
patient refusing to have RN picture wounds and change dressings before discharge
== END 2021-03-13 19:45 | DRG 291 ==
LOC: ER 16:00 → ED HOLD 17:25 → CVICU 21:58 → 6 SOUTH 03-07 16:30
PROVIDERS: ADMIT Family Medicine; ATTEND Family Medicine
PROC: 5A09357 Assistance with Respiratory Ventilation, Less than 24 Consecutive Hours, Continuous Positive Airway Pressure (ICD-10-PCS; 2021-03-06)
PROC: 5A09357 Assistance with Respiratory Ventilation, Less than 24 Consecutive Hours, Continuous Positive Airway Pressure (ICD-10-PCS; 2021-03-07)
PROC: 02H633Z Insertion of Infusion Device into Right Atrium, Percutaneous Approach (ICD-10-PCS; principal; 2021-03-08)
PROC: 5A09357 Assistance with Respiratory Ventilation, Less than 24 Consecutive Hours, Continuous Positive Airway Pressure (ICD-10-PCS; 2021-03-11)
PROC: 5A09357 Assistance with Respiratory Ventilation, Less than 24 Consecutive Hours, Continuous Positive Airway Pressure (ICD-10-PCS; 2021-03-12)
PROC: 4A00X4Z Measurement of Central Nervous Electrical Activity, External Approach (ICD-10-PCS; 2021-03-13)
DX: I13.0 Hypertensive heart and chronic kidney disease with heart failure and stage 1 through stage 4 chronic kidney disease, or unspecified chronic kidney disease (principal); I50.43 Acute on chronic combined systolic (congestive) and diastolic (congestive) heart failure; J96.01 Acute respiratory failure with hypoxia; E43 Unspecified severe protein-calorie malnutrition; G92 Toxic encephalopathy; J96.02 Acute respiratory failure with hypercapnia; E66.2 Morbid (severe) obesity with alveolar hypoventilation; I47.2 Ventricular tachycardia; I69.354 Hemiplegia and hemiparesis following cerebral infarction affecting left non-dominant side; N17.9 Acute kidney failure, unspecified; Z68.45 Body mass index [BMI] 70 or greater, adult; E87.0 Hyperosmolality and hypernatremia; Z66 Do not resuscitate; I42.8 Other cardiomyopathies; Z20.822 Contact with and (suspected) exposure to COVID-19; E78.00 Pure hypercholesterolemia, unspecified; E78.5 Hyperlipidemia, unspecified; F17.210 Nicotine dependence, cigarettes, uncomplicated; G93.89 Other specified disorders of brain; I25.10 Atherosclerotic heart disease of native coronary artery without angina pectoris; I48.91 Unspecified atrial fibrillation; J44.9 Chronic obstructive pulmonary disease, unspecified; R56.9 Unspecified convulsions; Z53.20 Procedure and treatment not carried out because of patient's decision for unspecified reasons; E11.22 Type 2 diabetes mellitus with diabetic chronic kidney disease; F32.9 Major depressive disorder, single episode, unspecified; G89.29 Other chronic pain; K21.9 Gastro-esophageal reflux disease without esophagitis; M19.90 Unspecified osteoarthritis, unspecified site; D50.9 Iron deficiency anemia, unspecified; N18.31 Chronic kidney disease, stage 3a; Z79.01 Long term (current) use of anticoagulants; Z82.49 Family history of ischemic heart disease and other diseases of the circulatory system; Z83.3 Family history of diabetes mellitus; Z95.810 Presence of automatic (implantable) cardiac defibrillator; Z90.49 Acquired absence of other specified parts of digestive tract; Z88.5 Allergy status to narcotic agent; Z88.8 Allergy status to other drugs, medicaments and biological substances; Z93.0 Tracheostomy status
CPT/HCPCS: 96374; 99285; C8929; 36415; 36569; 70450; 71045; 80048; 80053; 81001; 82550; 82962; 83735; 83880; 84484; 85025; 85610; 87426; 93005; 94640; 94660; 94760; 95816; J1650; J1940; J2060; J2930; J3490; Q9956; U0003; U0005; 97110-GP; 97530-GO; 97530-GP; 97535-GO; G0378; Q0163

== ENCOUNTER 2021-07-19 12:48 | Emergency (ER) | payer MEDICARE ==
[~2021-07-19] VITALS: Ht 180.3 cm; Wt 191.8 kg
[~2021-07-19 12:48] MED LIST changes: -CLIN150C15 PO; +CLIN150C16 PO
[2021-07-19 13:00] VITALS: BP 169/83
--- NOTE | 2021-07-19 13:27 | PHYS DOC ---
Past Medical History Past Medical History: CHF, COPD, Diabetes-Type II, Gallstones, GERD, High Cholesterol, Hypertension, Stroke, Other Additional Past Medical Histor: CHRONIC PAIN,OBSITY Past Surgical History: Cholecystectomy, Other Additional Past Surgical Histo: kidney cyst removal, tracheostomy, defibrillator Smoking Status: Former Smoker Alcohol Use: None Drug Use: Marijuana General Adult EDM: Chief Complaint: CHEST PAIN-CARDIAC NATURE HPI: HPI: 51-year-old female with a history of CHF with ICD in place presents to the emergency department complaining of a defibrillation that occurred around 2200 last night. She reports that she was resting at home when the device shocked her. She thought that she got struck by lightning I decided not to seek medical attention. 10 minutes later she had another shock. She states that after this she felt a little bit tired and short of breath but otherwise did not have any chest pain or any other symptoms. Today she states that she feels tired and weak but has no chest pain or shortness of breath. She denies any further episodes of shocks from the defibrillator. The device brand is Biotronik. The patient denies nausea, vomiting, fever, chills, chest pain, abdominal pain, urinary symptoms, cough, recent trauma, or any other complaints. Review of Systems: Review of Systems: ROS is otherwise negative except for what was mentioned in the HPI Heart Score: C/O Chest Pain: No Allergies: Allergies: Allergies Coded Allergies Type Severity Reaction Last Updated Verified hydrocodone Allergy Intermediate 10/23/18 Yes morphine Adverse Reaction Intermediate n/v 03/12/21 Yes Physical Exam: PE: Constitutional: Well developed, well nourished, no acute distress, non-toxic appearance. [] HENT: Normocephalic, atraumatic, bilateral external ears normal, oropharynx moist, no oral exudates, nose normal. [] Eyes: PERRLA, EOMI, conjunctiva normal, no discharge. [] Neck: Normal range of motion, no tenderness, supple, no stridor. [] Cardiovascular:Heart rate regular rhythm, no murmur [] Lungs & Thorax: Bilateral breath sounds clear to auscultation [] Abdomen: Bowel sounds normal, soft, no tenderness, no masses, no pulsatile masses. [] Skin: Warm, dry, no erythema, no rash. [] Back: No tenderness, no CVA tenderness. [] Extremities: No tenderness, no cyanosis, no clubbing, ROM intact, no edema. [] Neurologic: Alert and oriented X 3, normal motor function, normal sensory function, no focal deficits noted. [] Psychologic: Affect normal, judgement normal, mood normal. [] Current Patient Data: Labs: Laboratory Tests Test 07/19/21 13:15 07/19/21 16:20 White Blood Count 5.9 x10^3/uL (4.0-11.0) Red Blood Count 3.99 x10^6/uL (3.50-5.40) Hemoglobin 11.0 g/dL (12.0-15.5) Hematocrit 34.1 % (36.0-47.0) Mean Corpuscular Volume 85 fL (79-100) Mean Corpuscular Hemoglobin 28 pg (25-35) Mean Corpuscular Hemoglobin Concent 32 g/dL (31-37) Red Cell Distribution Width 15.8 % (11.5-14.5) Platelet Count 154 x10^3/uL (140-400) Neutrophils (%) (Auto) 64 % (31-73) Lymphocytes (%) (Auto) 26 % (24-48) Monocytes (%) (Auto) 8 % (0-9) Eosinophils (%) (Auto) 1 % (0-3) Basophils (%) (Auto) 1 % (0-3) Neutrophils # (Auto) 3.8 x10^3/uL (1.8-7.7) Lymphocytes # (Auto) 1.5 x10^3/uL (1.0-4.8) Monocytes # (Auto) 0.5 x10^3/uL (0.0-1.1) Eosinophils # (Auto) 0.1 x10^3/uL (0.0-0.7) Basophils # (Auto) 0.1 x10^3/uL (0.0-0.2) Sodium Level 142 mmol/L (136-145) Potassium Level 4.0 mmol/L (3.5-5.1) Chloride Level 107 mmol/L (98-107) Carbon Dioxide Level 27 mmol/L (21-32) Anion Gap 8 (6-14) Blood Urea Nitrogen 23 mg/dL (7-20) Creatinine 1.1 mg/dL (0.6-1.0) Estimated GFR (Cockcroft-Gault) 62.9 Glucose Level 104 mg/dL (70-99) Calcium Level 8.3 mg/dL (8.5-10.1) Troponin I Quantitative 0.148 ng/mL (0.000-0.055) 0.111 ng/mL (0.000-0.055) VL-Iut-B-Type Natriuretic Peptide 4886 pg/mL (0-124) Vital Signs: Vital Signs Date Time Temp Pulse Resp B/P (MAP) Pulse Ox O2 Delivery O2 Flow Rate FiO2 07/19/21 13:00 97.9 74 16 169/83 (111) 100 Room Air 97.9 EKG: EKG: Time read: 1310 Normal sinus rhythm rate of 74, no ST-T wave changes, no ectopic beats, normal axis, normal MD, QRS, and QTc intervals. Impression: Normal EKG. interpreted by me, Norberto García D.O. Radiology/Procedures: Radiology/Procedures: PROCEDURE: PORTABLE CHEST 1V EXAM: Chest, single view. HISTORY: Pacemaker malfunction. COMPARISON: 03/08/2021 FINDINGS: A frontal view of the chest is obtained. There is a cardiac pacemaker defibrillator overlying expected position. There is no infiltrate, pleural effusion or pneumothorax. There is cardiomegaly. IMPRESSION: 1. Cardiac pacemaker defibrillator in expected position. 2. Mild cardiomegaly. Electronically signed by: Vanessa Watkins MD (07/19/2021 1:25 PM) Course & Med Decision Making: Course & Med Decision Making Patient's pacemaker was interrogated and Yoono evaluated the pacemaker/defibrillator in the emergency department. Patient appeared to have an episode of sinus tachycardia that was paced for certain amount of time and then defibrillated, which is appropriate for the pacemaker settings. Dr. Sosa was consulted, recommended changing the pacemaker settings which the [employer] did. The patient troponin was elevated, Dr. Sosa believes this is likely due to the defibrillation. Troponin was downtrending on second check. Patient is comfortable with plan for discharge home and will follow up with patient's cafe lead. I discussed return precautions and advised the patient to call 911 if the defibrillator goes off again. She understood all instructions and is amenable to the plan. Departure Departure Impression: Primary Impression: Pacemaker complications Disposition: HOME / SELF CARE / HOMELESS Condition: STABLE Referrals: MECHELLE ROSADO MD (PCP) Patient Instructions: Chest Pain (Nonspecific), [id number] Additional Instructions: You're seen in the emergency department for defibrillator shocks, if this happens again please call 911 and proceed to the nearest emergency department. Your pacemaker settings today were changed by Dr. Sosa your cafe lead. Please follow-up with cardiology as scheduled for further care. You were seen in the emergency department and your health condition was deemed not to require admission to the hospital. It is important to realize that we can only evaluate you during the time that you are in her department. Occasionally health con ditions can worsen upon leaving the emergency department. If this were to happen, please return to and allow us the opportunity to reevaluate you. It is a pleasure to take care of your health needs. Return to the ER if your symptoms worsen, do not improve, or if you develop additional symptoms that are concerning to you NORBERTO GARCÍA DO Jul 19, 2021 13:27
--- NOTE | 2021-07-19 13:27 | RAD ---
EXAM: Chest, single view. HISTORY: Pacemaker malfunction. COMPARISON: 03/08/2021 FINDINGS: A frontal view of the chest is obtained. There is a cardiac pacemaker defibrillator overlyi ng expected position. There is no infiltrate, pleural effusion or pneumothorax. There is cardiomegaly . IMPRESSION: 1. Cardiac pacemaker defibrillator in expected position. 2. Mild cardiomegaly. Electronically signed by: Vanessa Watkins MD (07/19/2021 1:25 PM) [id number]
[2021-07-19 13:55] LABS: BASO # 0.1 x10^3/uL (0.0-0.2); BASO % 1 % (0-3); EOS # 0.1 x10^3/uL (0.0-0.7); EOS % 1 % (0-3); HEMATOCRIT 34.1 % (36.0-47.0); LYMPH # 1.5 x10^3/uL (1.0-4.8); LYMPH % 26 % (24-48); MEAN CORPUSCULAR HEMOGLOBIN 28 pg (25-35); MEAN CORPUSCULAR HGB CONC 32 g/dL (31-37); MEAN CORPUSCULAR VOLUME 85 fL (79-100); MONO # 0.5 x10^3/uL (0.0-1.1); MONO % 8 % (0-9); NEUT # 3.8 x10^3/uL (1.8-7.7); NEUT % 64 % (31-73); PLATELET COUNT 154 x10^3/uL (140-400); RED BLOOD COUNT 3.99 x10^6/uL (3.50-5.40); RED CELL DISTRIBUTION WIDTH 15.8 % (11.5-14.5); WHITE BLOOD COUNT 5.9 x10^3/uL (4.0-11.0)
--- NOTE | 2021-07-19 13:55 | EKG ---
[facility] [address] [place] [address] Test Date: 2021-07-19 Test Time: 13:10:00 Pat Name: KAITY JACOBS Department: Room: Gender: F Charge Account Authorizer: : 1970 Requested By: DAVE KNOTT Order Number: [id number] Reading MD: Juan Manuel Sosa Measurements Intervals [place] Rate: 74 P: 131 VT: 168 QRS: -24 QRSD: 108 T: 64 QT: 406 QTc: 456 Interpretive Statements SINUS RHYTHM LEFT ATRIAL ABNORMALITY LEFTWARD AXIS T ABNORMALITY IN HIGH LATERAL LEADS ABNORMAL ECG Electronically Signed On 07-21-2021 16:49:17 CDT by Juan Manuel Sosa
[2021-07-19 14:23] LABS: CALCIUM 8.3 mg/dL (8.5-10.1); CREATININE 1.1 mg/dL (0.6-1.0); GFR 62.9
--- NOTE | 2021-07-19 14:29 | PDOC2 ---
CONSULT Date of Consult Date of Consult DATE: 07/19/21 TIME: 14:19 Reason for Consult Reason for Consult: Possible ICD shock therapy Referring Physician Referring Physician: Dr. García Identification/Chief Complaint Chief Complaint Shocklike sensation Source Source: Chart review, Patient History of Present Illness Reason for Visit: 51-year-old female with history of nonischemic cardiomyopathy s/p AICD implantation was apparently outside walking last night when she felt that the ICD shocked her. She described this as a lightening sensation. She denied any preceding chest pain, palpitations or dizziness/lightheadedness. She had another similar episode 10 minutes later. She had plans to go to the [employer] with her friend where she stayed all night because she was scared to go anywhere else. Since she was not at home, she could not transmit any downloads from her device when she called our office this morning. She was advised to come to the ED for further evaluation. She is presently feeling better and denied any chest pain, orthopnea/PND or syncope. Past Medical History Cardiovascular: CHF, HTN, Hyperlipidemia, Other Pulmonary: COPD, Pneumonia CENTRAL NERVOUS SYSTEM: CVA GI: No pertinent hx Heme/Onc: Anemia NOS, Other Hepatobiliary: No pertinent hx Psych: Depression Musculoskeletal: low back pain, Osteoarthritis Rheumatologic: No pertinent hx Infectious disease: No pertinent hx Renal/: Chronic renal insuff, UTI, Urinary Incontinence Endocrine: Diabetes, Other Past Surgical History Past Surgical History: Pacemaker, Cholecystectomy, Other Family History Family History: Diabetes Social History ALCOHOL: none Drugs: Marijuana Lives: with Family Current Medications Current Medications Active Scripts Active Admelog (Insulin Lispro) 100 Unit/1 Ml Vial 0 Units SQ TIDWMEALS 30 Days Polyethylene Glycol 3350 17 Gm Powd.pack 17 Gm PO PRN DAILY PRN 30 Days Bumetanide 1 Mg Tablet 1 Mg PO BID92 30 Days Metoprolol Succinate ( Xl ) (Metoprolol Succinate) 25 Mg Tab.er.24h 75 Mg PO DAILY 30 Days Feosol (Ferrous Sulfate) 325 Mg Tablet 325 Mg PO BIDWMEALS 30 Days Duoneb 0.5-3(2.5) Mg/3 Ml (Albuterol/Ipratropium) 3 Ml Ampul.neb 3 Ml NEB RTQID 30 Days Aldactone (Spironolactone) 25 Mg Tablet 25 Mg PO DAILY 30 Days Reported Oxycodon-Acetaminophen 7.5-325 (Oxycodone Hcl/Acetaminophen) 1 Each Tablet 7.5- 325 Mg PO PRN Q6HRS PRN Omeprazole 40 Mg Capsule.dr 1 Cap PO DAILY06 Potassium Chloride (Potassium Chloride) 20 Meq Tablet.er 20 Meq PO BID Entresto 49 mg-51 mg Tablet (Sacubitril/Valsartan) 1 Each Tablet 1 Tab PO BID Glipizide 5 Mg Tablet 1 Tab PO DAILY Warfarin Sodium 10 Mg Tablet 10 Mg PO DAILY Crestor (Rosuvastatin Calcium) 10 Mg Tablet 1 Tab PO DAILY Allergies Allergies: Coded Allergies: hydrocodone (Verified Allergy, Intermediate, 10/23/18) morphine (Verified Adverse Reaction, Intermediate, n/v, 03/12/21) ROS PSYCHOLOGICAL ROS: No: Hallucinations Eyes: No Loss of vision HEENT: No: Epistaxis Respiratory: No: Hemoptysis Cardiovascular: No Chest Pain Gastrointestinal: No Vomiting, No Diarrhea Genitourinary: No Hematuria Neurological: No Seizures Skin: No Rash Physical Exam General: Alert, Oriented X3, No acute distress HEENT: Atraumatic Lungs: Clear to auscultation Heart: Regular rate Abdomen: Soft Extremities: Other (1+ edema with chronic changes) Psych/Mental Status: Mood NL Vitals VITALS Vital Signs Date Time Temp Pulse Resp B/P (MAP) Pulse Ox O2 Delivery O2 Flow Rate FiO2 07/19/21 13:00 97.9 74 16 169/83 (111) 100 Room Air 97.9 Labs Labs Laboratory Tests Test 07/19/21 13:15 White Blood Count 5.9 x10^3/uL (4.0-11.0) Red Blood Count 3.99 x10^6/uL (3.50-5.40) Hemoglobin 11.0 g/dL (12.0-15.5) Hematocrit 34.1 % (36.0-47.0) Mean Corpuscular Volume 85 fL (79-100) Mean Corpuscular Hemoglobin 28 pg (25-35) Mean Corpuscular Hemoglobin Concent 32 g/dL (31-37) Red Cell Distribution Width 15.8 % (11.5-14.5) Platelet Count 154 x10^3/uL (140-400) Neutrophils (%) (Auto) 64 % (31-73) Lymphocytes (%) (Auto) 26 % (24-48) Monocytes (%) (Auto) 8 % (0-9) Eosinophils (%) (Auto) 1 % (0-3) Basophils (%) (Auto) 1 % (0-3) Neutrophils # (Auto) 3.8 x10^3/uL (1.8-7.7) Lymphocytes # (Auto) 1.5 x10^3/uL (1.0-4.8) Monocytes # (Auto) 0.5 x10^3/uL (0.0-1.1) Eosinophils # (Auto) 0.1 x10^3/uL (0.0-0.7) Basophils # (Auto) 0.1 x10^3/uL (0.0-0.2) Laboratory Tests Test 07/19/21 13:15 White Blood Count 5.9 x10^3/uL (4.0-11.0) Red Blood Count 3.99 x10^6/uL (3.50-5.40) Hemoglobin 11.0 g/dL (12.0-15.5) Hematocrit 34.1 % (36.0-47.0) Mean Corpuscular Volume 85 fL (79-100) Mean Corpuscular Hemoglobin 28 pg (25-35) Mean Corpuscular Hemoglobin Concent 32 g/dL (31-37) Red Cell Distribution Width 15.8 % (11.5-14.5) Platelet Count 154 x10^3/uL (140-400) Neutrophils (%) (Auto) 64 % (31-73) Lymphocytes (%) (Auto) 26 % (24-48) Monocytes (%) (Auto) 8 % (0-9) Eosinophils (%) (Auto) 1 % (0-3) Basophils (%) (Auto) 1 % (0-3) Neutrophils # (Auto) 3.8 x10^3/uL (1.8-7.7) Lymphocytes # (Auto) 1.5 x10^3/uL (1.0-4.8) Monocytes # (Auto) 0.5 x10^3/uL (0.0-1.1) Eosinophils # (Auto) 0.1 x10^3/uL (0.0-0.7) Basophils # (Auto) 0.1 x10^3/uL (0.0-0.2) Assessment/Plan Assessment/Plan 1. Nonischemic cardiomyopathy s/p AICD implantation presenting with possible ICD shock therapy per patient. However, patient's description of the event and lack of any preceding symptoms not consistent with typical ICD shocks. EKG showed sinus rhythm without any acute changes. Labs are pending at this time. We will have her device interrogated and start therapies if she had any appropriate shocks. 2. Chronic systolic heart failure: Recent 2D echo showed LVEF 35 to 40%. Cardiac catheterization in the past did not show any significant coronary artery disease. She is clinically well compensated. Continue current medical regimen. 3. Hypertension: Blood pressure elevated. Resume home medications and titrate if needed. 4. Hyperlipidemia: Statins 5. h/o CVA: Patient is being treated with warfarin for uncertain reasons by neurology 6. Morbid obesity, sleep apnea: Has CPAP at home 7. Diabetes mellitus type 2: Per PCP Thank you for your consultation CHANTAL PEÑA MD Jul 19, 2021 14:28
== END 2021-07-19 18:05 | disposition home or self-care (01) ==
LOC: ER 12:48
DX: T82.897A Other specified complication of cardiac prosthetic devices, implants and grafts, initial encounter (principal); I11.0 Hypertensive heart disease with heart failure; I50.9 Heart failure, unspecified; J44.9 Chronic obstructive pulmonary disease, unspecified; E11.9 Type 2 diabetes mellitus without complications; K21.9 Gastro-esophageal reflux disease without esophagitis; E78.00 Pure hypercholesterolemia, unspecified; G89.29 Other chronic pain; E66.9 Obesity, unspecified; Z86.73 Personal history of transient ischemic attack (TIA), and cerebral infarction without residual deficits; Z68.43 Body mass index [BMI] 50.0-59.9, adult; Z88.5 Allergy status to narcotic agent
CPT/HCPCS: 36415; 71045; 80048; 83880; 84484; 85025; 93005; 99285

== ENCOUNTER → 2021-12-20 | Outpatient (CLI) | payer MEDICARE ==
--- NOTE | 2021-12-22 16:59 | CARD ---
MR#: [id number] Date of Study: 12/20/2021 Ordering Physician: CHANTAL PEÑA, Referring Physician: CHANTAL PEÑA Tech: Sonia Garcia [facility] APPROVED REPORT EXAM: Two-dimensional and M-mode echocardiogram with Doppler and color Doppler. Other Information Quality : Technically LimitedHR: 86bpm Rhythm : NSR INDICATION Cardiomyopathy RISK FACTORS Hypertension Obesity Hyperlipidemia Diabetes 2D DIMENSIONS RVDd3.4 (2.9-3.5cm)Left Atrium(2D)5.4 (1.6-4.0cm) IVSd1.5 (0.7-1.1cm)Aortic Root(2D)5.0 (2.0-3.7cm) LVDd6.1 (3.9-5.9cm)LVOT Diameter2.8 (1.8-2.4cm) PWd1.9 (0.7-1.1cm)LVDs5.9 (2.5-4.0cm) FS (%) 4.0 %SV16.8 ml Aortic Valve AoV Peak Hilario.110.9cm/sAoV VTI20.0cm AO Peak GR.4.9mmHgLVOT Peak Hilario.67.3cm/s AO Mean GR.2mmHgAVA (VMAX)3.79cm2 Mitral Valve MV E Nsqtbyap08.9cm/s Tricuspid Valve TR P. [id number] Peak Gr.42mmHg LEFT VENTRICLE The Left Ventricle is mildly dilated. There is mild to moderate concentric left ventricular hypertrop hy. The ejection fraction is severely impaired. Estimated ejection fraction is 15%. There is severe g lobal hypokinesis of the left ventricle. RIGHT VENTRICLE The right ventricle is normal size. There is normal right ventricular wall thickness. The right ventr icular systolic function is normal. ATRIA The left atrium size is normal. The right atrium size is normal. The interatrial septum is intact wit h no evidence for an atrial septal defect or patent foramen ovale as noted on 2-D or Doppler imaging. AORTIC VALVE The aortic valve is normal in structure and function. Doppler and Color Flow revealed trace to mild a ortic regurgitation. There is no significant aortic valvular stenosis. MITRAL VALVE The mitral valve is normal in structure and function. There is no evidence of mitral valve prolapse. There is no mitral valve stenosis. Doppler and Color-flow revealed trace to mild mitral regurgitation . TRICUSPID VALVE The tricuspid valve is normal in structure and function. Doppler and Color Flow revealed trace to mil d tricuspid regurgitation. Estimated PAP 48 mmHg. There is no tricuspid valve stenosis. PULMONIC VALVE The pulmonary valve is normal in structure and function. Doppler and Color Flow revealed no pulmonic valvular regurgitation. GREAT VESSELS The aortic root is moderately enlarged. The ascending aorta is moderately dilated. The IVC is dilated and collapses <50% with inspiration. PERICARDIAL EFFUSION There is no evidence of significant pericardial effusion. Critical Notification Critical Value: No <Conclusion> The Left Ventricle is mildly dilated. The ejection fraction is severely impaired. Estimated ejection fraction is 15%. There is severe global hypokinesis of the left ventricle. There is mild to moderate concentric left ventricular hypertrophy. Doppler and Color Flow revealed trace to mild aortic regurgitation. There is no significant aortic valvular stenosis. Doppler and Color-flow revealed trace to mild mitral regurgitation. Doppler and Color Flow revealed trace to mild tricuspid regurgitation. Estimated PAP 48 mmHg. The aortic root is moderately enlarged. Signed by : Santino Cantor MD Electronically Approved : 12/22/2021 16:59:42
== END ==
LOC: ECHO 09:58
PROVIDERS: ATTEND Internal Medicine Cardiovascular Disease
DX: I08.3 Combined rheumatic disorders of mitral, aortic and tricuspid valves (principal); I50.22 Chronic systolic (congestive) heart failure; I42.9 Cardiomyopathy, unspecified
CPT/HCPCS: 93306; C8929